=== PATIENT | female | born 1950 | race Hispanic/Latino ===

== ENCOUNTER 2017-10-07 14:42 | Inpatient (IN) | payer OTHER, MEDICARE, MEDICAID ==
[2017-10-07 14:46] VITALS: BMI 19.8
--- NOTE | 2017-10-07 15:03 | ED PDOC ---
Arrival/HPI - General Chief Complaint: Weakness/Neurological Deficit Time Seen by Provider: 10/07/17 14:47 Historian: EMS EM Caveat: Altered Mental Status - Critical Care Critical Care Minutes: 30 minutes - History of Present Illness Narrative History of Present Illness (Text): 10/07/17 15:00 66 year old female presents to the Emergency department via EMS due to altered mental status. History limited due to patient's condition; patient is presenting with garbled speech, is unable to give a history, and is unable to follow commands. As per EMS, patient lives alone in an apartment. She was found lying on the floor today by her landlord; she was last seen by her landlord 3 days ago. At this time, social history and past medical history is unknown. Patient has not been to this hospital before. Time/Duration: Prior to Arrival Symptom Onset: Other (unknown) Activities at Onset: Other (unknown) Context: Home (lives alone) Past Medical History - Provider Review Nursing Documentation Reviewed: Yes - Infectious Disease Hx of Infectious Diseases: None - Reproductive Menopause: Yes - Psychiatric Hx Substance Use: No Family/Social History - Physician Review Nursing Documentation Reviewed: Yes Family/Social History: Unknown Family HX Smoking Status: Unknown If Ever Smoked Hx Alcohol Use: No Hx Substance Use: No Allergies/Home Meds Allergies/Adverse Reactions: Allergies Unobtainable Allergy (Verified 10/07/17 14:46) Review of Systems - Review of Systems Systems not reviewed;Unavailable: Altered Mental Status Physical Exam Vital Signs Reviewed: Yes Vital Signs Temp Pulse Resp BP Pulse Ox 10/07/17 18:29 86 18 113/54 L 100 10/07/17 17:23 86 17 100/57 L 100 10/07/17 16:47 96.9 F L 98 H 18 108/63 100 10/07/17 14:43 92 H 18 106/80 100 Blood Pressure: Normal Pulse: Tachycardic Respiratory Rate: Normal Appearance: Positive for: Comfortable, Ill-Appearing Pain Distress: None Mental Status: No: Alert and Oriented X 3 (patient is awake and alert) - Systems Exam Head: Present: Atraumatic, Normocephalic Pupils: Present: PERRL Extroacular Muscles: Present: EOMI Conjunctiva: Present: Normal Ears: Present: NORMAL TM, Normal Canal. No: Erythema Mouth: Present: Moist Mucous Membranes Pharnyx: No: ERYTHEMA, EXUDATE, TONSILS ENLARGED Neck: Present: Normal Range of Motion Respiratory/Chest: Present: Decreased Breath Sounds Cardiovascular: Present: Regular Rate and Rhythm, Normal S1, S2. No: Murmurs Abdomen: Present: Normal Bowel Sounds. No: Tenderness, Distention, Peritoneal Signs Upper Extremity: Present: Normal Inspection. No: Cyanosis, Edema Lower Extremity: Present: Other (Severe bilateral lower extremity erythema with blanching and flaking rash) Neurological: Present: Other (Speech is garbled. Patient does move all extremities to painful stimuli. Unable to test sensation and coordination gait and stance.) Skin: Present: Erythematous (Erythematous areas on bilateral shoulders and upper back, consistent with lying on the floor. On bilateral proximal tibia distally, erythamatous, swollen, and warm with excoriations, blanching, and flaking rash.) Medical Decision Making ED Course and Treatment: 10/07/17 15:07 Impression: 66 year old female presents to the Emergency department with altered mental status after being found on the floor alone in her apartment by her landlord. Plan: -- CT scan of the head -- Chest xray -- EKG -- Blood culture, urine culture -- Urinalysis -- VBG -- Labs -- Reassess and disposition Progress Notes: 10/07/17 16:51 Dr Franklin is here for ICU admission. 10/07/17 16:56 Patient has an altered mental status with a normal CT scan. She is severe rhabdomyolysis with hyponatremia. 250 mL of hypertonic saline has been ordered over 8 hours. Her troponin is positive. She will be admitted to ICU. 10/07/17 17:22 EKG shows normal sinus rhythm rate approximately [address] or T-wave changes and intraventricular conduction delay. - Lab Interpretations Lab Results: 10/07/17 15:00 10/07/17 15:00 Lab Results 10/07/17 16:41: pO2 54, VBG pH 7.36, VBG pCO2 36.0 L, VBG HCO3 20.3 L, VBG Total CO2 21.4 L, VBG O2 Sat (Calc) 92.5 H, VBG Base Excess -4.5 L, VBG Potassium 4.1, Glucose 85, Lactate 1.4, FiO2 21.0, Sodium 111.0 L*, Chloride 83.0 L, Venous Blood Potassium 4.1 10/07/17 16:41: Ammonia < 9 L 10/07/17 15:00: Salicylates < 1 L, Acetaminophen < 10.0 L 10/07/17 15:00: TSH 3rd Generation 0.67, Alcohol, Quantitative < 10 10/07/17 15:00: Sodium 110 L*, Potassium 4.6, Chloride 81 L, Carbon Dioxide 21, Anion Gap 13, BUN 10, Creatinine 0.3 L, Est GFR ( Amer) > 60, Est GFR ( Non-Af Amer) > 60, Random Glucose 93, Calcium 9.1, Phosphorus 3.5, Magnesium 1.6 L, Total Bilirubin 1.0, AST 118 H, ALT 67 H, Alkaline Phosphatase 168 H, Lactate Dehydrogenase 959 H, Total Creatine Kinase 2530 H, CK-MB (CK-2) 90.6 H, CK-MB (CK-2) % 3.6 H, Troponin I 0.30 H*, Total Protein 6.3, Albumin 3.1, Globulin 3.2, Albumin/Globulin Ratio 1.0 L 10/07/17 15:00: Urine Color Light yellow, Urine Appearance Clear, Urine pH 6.0, Ur Specific [place] 1.025, Urine Protein Negative, Urine Glucose (UA) Negative, Urine Ketones 40 H, Urine Blood Trace-intact H, Urine Nitrate Negative, Urine Bilirubin Negative, Urine Urobilinogen 0.2, Ur Leukocyte Esterase Negative, Urine RBC 0 - 2, Urine WBC 0 - 2, Ur Epithelial Cells 0 - 2, Calcium Oxalate Crystal Few, Urine Bacteria Large 10/07/17 15:00: PT 11.2, INR 0.98, APTT 29.1 10/07/17 15:00: WBC 14.6 H, RBC 4.72, Hgb 14.0, Hct 38.3, MCV 81.1, MCH 29.7, MCHC 36.6, RDW 12.7, Plt Count 455 H, MPV 8.7, Gran % 93.3 H, Lymph % (Auto) 2.7 L, [place] % (Auto) 4.0, Eos % (Auto) 0.0 L, Baso % (Auto) 0.0, Gran # 13.59 H , Lymph # (Auto) 0.4 L, [place] # (Auto) 0.6, Eos # (Auto) 0.0, Baso # (Auto) 0.00 , Neutrophils % (Manual) 86 H, Band Neutrophils % 9 H, Lymphocytes % (Manual) 4 L, Monocytes % (Manual) 1, Platelet Evaluation Normal 10/07/17 14:47: POC Glucose (mg/dL) 90 - RAD Interpretation Narrative RAD Interpretations (Text): 10/07/2017 15:48:07 Chest xray FINDINGS: LUNGS: No active pulmonary disease. PLEURA: No significant pleural effusion identified, no pneumothorax apparent. CARDIOVASCULAR: No radiographic findings to suggest acute or significant cardiovascular disease. OSSEOUS STRUCTURES: No significant abnormalities. VISUALIZED UPPER ABDOMEN: Normal. OTHER FINDINGS: None. IMPRESSION: No active disease. Radiology Orders: 10/07/17 14:59 HEAD W/O CONTRAST [CT] Stat CHEST PORTABLE [RAD] Stat CT scan of the head as read by the radiologist shows no acute findings. Qa Manager: Radiologist - Medication Orders Current Medication Orders: Discontinued Medications Ceftriaxone Sodium (Rocephin 1 Gram Ivpb) 1 gm in 100 mls @ 200 mls/hr IVPB STAT STA PRN Reason: Protocol Stop: 10/07/17 17:19 Last Admin: 10/07/17 17:22 Dose: 200 mls/hr eMAR Start Stop Document 10/07/17 17:22 SRE (Rec: 10/07/17 17:23 SRE [id number]) Intravenous Solution Start Date 10/07/17 Start Time 17:20 End Date 10/07/17 End time 18:20 Total Infusion Time 60 Sodium Chloride (Hypertonic Saline 3%) 250 ml IV ONCE STA Stop: 10/07/17 16:40 Last Admin: 10/07/17 17:00 Dose: 250 ml eMAR Start Stop Document 10/07/17 17:00 SRE (Rec: 10/07/17 18:29 SRE [id number]) Intravenous Solution Start Date 10/07/17 Start Time 17:00 End Date 10/08/17 End time 01:00 Total Infusion Time 480 - Scribe Statement The provider has reviewed the documentation as recorded by the Scribe Mark Chua All medical record entries made by the Scribe were at my direction and personally dictated by me. I have reviewed the chart and agree that the record accurately reflects my personal performance of the history, physical exam, medical decision making, and the department course for this patient. I have also personally directed, reviewed, and agree with the discharge instructions and disposition. Disposition/Present on Arrival - Present on Arrival Any Indicators Present on Arrival: No History of DVT/PE: No History of Uncontrolled Diabetes: No Urinary Catheter: No History of Decub. Ulcer: No History Surgical Site Infection Following: None - Disposition Have Diagnosis and Disposition been Completed?: Yes Diagnosis: Rhabdomyolysis, Hyponatremia, Altered mental status, Cellulitis Disposition: HOSPITALIZED Disposition Time: 17:29 Patient Plan: Admission, ICU Patient Problems: Current Active Problems Problem Status Onset Altered mental status Acute Cellulitis Acute Hyponatremia Acute Rhabdomyolysis Acute Condition: CRITICAL
--- NOTE | 2017-10-07 15:49 | RAD ---
HISTORY: Weakness. COMPARISON: No prior. FINDINGS: LUNGS: No active pulmonary disease. PLEURA: No significant pleural effusion identified, no pneumothorax apparent. CARDIOVASCULAR: No radiographic findings to suggest acute or significant cardiovascular disease. OSSEOUS STRUCTURES: No significant abnormalities. VISUALIZED UPPER ABDOMEN: Normal. OTHER FINDINGS: None. IMPRESSION: No active disease.
[2017-10-07 15:54] LABS: URINE BILIRUBIN NEGATIVE (NEGATIVE); URINE BLOOD TRACE-INTACT (NEGATIVE); URINE GLUCOSE (UA) NEGATIVE (NEGATIVE); URINE LEUKOCYTE ESTERASE NEGATIVE Leu/uL (NEGATIVE); URINE PROTEIN NEGATIVE mg/dL (<30 mg/dL); URINE UROBILINOGEN 0.2 E.U./dL (<1 E.U./dL)
[2017-10-07 15:55] LABS: GRAN # 13.59 (1.4-6.5); GRAN % 93.3 % (50.0-68.0); LYMPH # 0.4 (1.2-3.4); LYMPH % 2.7 % (22.0-35.0); MEAN CELL VOLUME 81.1 fl (80.0-105.0); MEAN CORPUSCULAR HEMOGLOBIN 29.7 pg (25.0-35.0); MEAN CORPUSCULAR HGB CONC 36.6 g/dl (31.0-37.0); MEAN PLATELET VOLUME 8.7 fl (7.0-11.0); MONO # 0.6 (0.1-0.6); PLATELET COUNT 455 10^3/uL (120.0-450.0); RBC 4.72 10^6/uL (3.5-6.1); RED CELL DISTRIBUTION WIDTH 12.7 % (11.5-14.5); WHITE BLOOD COUNT 14.6 10^3/ul (4.5-11.0)
[2017-10-07 15:59] LABS: ACETAMINOPHEN < 10.0 ug/ml (10.0-20.0); SALICYLATE < 1 mg/dL (2.0-20.0)
[2017-10-07 16:15] LABS: URINE APPEARANCE CLEAR (CLEAR); URINE COLOR LIGHT YELLOW (YELLOW)
[2017-10-07 16:16] LABS: INR 0.98 (0.93-1.08); PARTIAL THROMBOPLASTIN TIME 29.1 Seconds (25.1-36.5); PROTHROMBIN TIME 11.2 SECONDS (9.4-12.5)
[2017-10-07 16:24] LABS: ALBUMIN 3.1 g/dL (3.0-4.8); ALT/SGPT 67 U/L (7-56); AST/SGOT 118 U/L (14-36); BLOOD UREA NITROGEN 10 mg/dL (7-21); CALCIUM 9.1 mg/dL (8.4-10.5); GFR AFRICAN-AMERICAN > 60; GFR NON-AFRICAN AMERICAN > 60
[2017-10-07 16:36] LABS: URINE BACTERIA LARGE (NEG); URINE CALCIUM OXALATE CRYSTALS FEW /hpf; URINE EPITHELIAL CELLS 0 - 2 /hpf (0-5); URINE RBC 0 - 2 /hpf (0-2); URINE WBC 0 - 2 /hpf (0-6)
--- NOTE | 2017-10-07 16:44 | CT ---
PROCEDURE: CT HEAD WITHOUT CONTRAST. HISTORY: weakness COMPARISON: None available. TECHNIQUE: Axial computed tomography images were obtained through the head/brain without intravenous contrast. Radiation dose: Total exam DLP = 915.99 mGy-cm. This CT exam was performed using one or more of the following dose reduction techniques: Automated exposure control, adjustment of the mA and/or kV according to patient size, and/or use of iterative reconstruction technique. FINDINGS: HEMORRHAGE: No intracranial hemorrhage. BRAIN: No mass effect or edema. Cortical atrophy, periventricular small vessel disease. VENTRICLES: Unremarkable. No hydrocephalus. CALVARIUM: Unremarkable. PARANASAL SINUSES: Unremarkable as visualized. No significant inflammatory changes. MASTOID AIR CELLS: Unremarkable as visualized. No inflammatory changes. OTHER FINDINGS: None. IMPRESSION: No acute intracranial abnormalities. No significant findings to account for the clinical presentation.
[2017-10-07 16:49] LABS: VENOUS BLOOD GAS BASE EXCESS -4.5 mmol/L (0.0-2.0); VENOUS BLOOD GAS PO2 54 mm/Hg (30-55); VENOUS BLOOD PH 7.36 (7.32-7.43)
[2017-10-07] MEDS ORDERED: cefTRIAXone 1 gm 1 GM/100 ML BAG IVPB STA (16:50)
[2017-10-07 17:12] LABS: CK MB% 3.6 % (2.5-3.0); CK-MB 90.6 ng/mL (0.0-3.6)
[2017-10-07 17:53] LABS: BAND 9 % (0-2); LYMPHOCYTE 4 % (22.0-35.0); MONOCYTE 1 % (1.0-6.0); NEUTROPHIL 86 % (50.0-70.0); PLATELET ESTIMATE NORMAL (NORMAL)
[2017-10-07] MEDS ORDERED: Magnesium Sulfate 1 gm in D5W 1 GM/100 ML BAG IVPB ONE (19:48)
[2017-10-07] MEDS: Vancomycin 1gm in NS 250ml 1 GM/250 ML BAG IVPB SCH (20:06)
--- NOTE | 2017-10-07 20:07 | CP.PCM.PCO ---
Subjective - Physician Review Subjective (Free Text): 10/07/17 20:05 Received patient as a handoff from the daytime economics department chair. Notified by the nurse that patient's 3% Na fluid bag was approximately longterm finished and was recently started less than 3 hours prior. Will hold 3% saline infusion and obtain stat BMP to avoid rapid over-correction of her Sodium. Will adjust her IVF administration after the next bmp returns.
[2017-10-07 21:02] LABS: BLOOD UREA NITROGEN 8 mg/dL (7-21); CALCIUM 8.6 mg/dL (8.4-10.5); GFR AFRICAN-AMERICAN > 60; GFR NON-AFRICAN AMERICAN > 60; TROPONIN I 0.32 ng/mL
[2017-10-07] MEDS: Acyclovir 500 MG in Sodium Chloride 0.9% 100 ML IV SCH (21:21)
[2017-10-07 21:22] LABS: CK MB% 3.5 % (2.5-3.0)
[2017-10-07] MEDS ORDERED: Dextrose 5%/0.45% NS 1,000 ML IV SCH (21:30)
[2017-10-08] MEDS ORDERED: Iodixanol 320 MG/ML 100 ML BOTTLE IV ONE (00:52)
--- NOTE | 2017-10-08 00:52 | CON ---
DATE: 10/07/2017 CREATIVE ASSISTANT NOTE REQUESTING PHYSICIAN: Dr. Mg. CHIEF COMPLAINT: The patient presents with altered mental status and rhabdomyolysis. HISTORY OF PRESENT ILLNESS: Ms. León, she is a 66-year-old female that presented to the emergency department with altered mental status, it was stated that her landlord where she lives in her apartment found her lying on the floor. The patient is awake and is moving her extremities, but is not responding to questions appropriately. She has garbled speech, and unable to give history or appropriately follow commands. Patient is noted to have hyponatremia and severe cellulitis in the lower extremities and altered mental status. It is most notably thought that she has rhabdomyolysis. Patient is unable to give appropriate history or review of systems. ALLERGIES: FAR HER ALLERGIES, UNABLE TO OBTAIN. SOCIAL HISTORY: Unable to obtain. FAMILY HISTORY: Unable to obtain. REVIEW OF SYSTEMS: Unable to obtain. PHYSICAL EXAMINATION: VITAL SIGNS: Note that her, temperature is 96.9, pulse is 98, respirations are 18 and BP is 108/63, O2 saturation is 100% on 2 liters. HEENT: Head is atraumatic, normocephalic. Eyes are reactive to light. Ear, nose and throat seemed to be within normal limits. NECK: Supple. No JVD. No thyroid enlargement. No lymph nodes. HEART: Has regular rate and rhythm. Normal S1, S2. LUNGS: Reveal decreased breath sounds bilaterally, but no rales or rhonchi. ABDOMEN: Soft. Decreased bowel sounds. No organomegaly noted. GENITALIA AND RECTAL: Deferred. MUSCULOSKELETAL: No joint deformities. EXTREMITIES: Reveal severe hyperemia with areas of skin breakdown in both lower extremities from the knees down the legs and including the feet. The patient also has some bruising areas from laying in one spot on her upper back as well. NEUROLOGIC: The patient has altered mental status, does not follow commands, but is moving all extremities. LABORATORY DATA: As far as her laboratory findings, her white count is 14.6, hemoglobin is 14.0, hematocrit 38.3 with platelets of 455,000. Her sodium is 110, potassium 4.6, chloride 81, CO2 of 21 with a BUN of 10, creatinine of 0.3 and a glucose of 93. As far as her chest x-ray is concerned, no active pulmonary disease. IMPRESSION: My impression is that, this patient has altered mental status/encephalopathy could be secondary to metabolic. CT scan of the head, there was no obvious abnormalities that would account for the altered mental status. The patient has hyponatremia, rhabdomyolysis. She has increased troponins, must rule out myocardial infarction and bilateral lower extremity cellulitis. PLAN: As far as our plan, we will start 3% saline and follow her sodium closely. Patient will be admitted to the Intensive Care Unit and she has been given antibiotics of Rocephin. Consults have been called for Dr. Roldan, Cardiology; Dr. Gallo for Renal and hyponatremia and Dr. Cheatham for altered mental status and Neuro. We will reach out to Dr. Sullivan for ID and we will continue to follow closely as far as her electrolytes and change as needed, and continue to treat aggressively along with the other consultants and the primary care doctor. Rey Franklin MD
--- NOTE | 2017-10-08 01:15 | HP ---
DATE OF EVALUATION: 10/07/2017 HISTORY OF PRESENT ILLNESS: Ms. León is a 66-year-old female brought to the ED by EMS with altered mental status. She lives alone. No past medical history available. Blood work showed hyponatremia. She had severe cellulitis of both lower extremity. She does not respond to verbal commands. She is not alert, not oriented. PAST MEDICAL HISTORY: Unknown. PAST SURGICAL HISTORY: Unknown. FAMILY HISTORY: Unknown. ALLERGIES: UNKNOWN. REVIEW OF SYSTEMS: Unknown and is not communicative, altered mental status. PHYSICAL EXAMINATION: VITAL SIGNS: Temperature 96.9, heart rate is 92 per minute, respiratory 18 per minute, blood pressure 113 x 54, pulse ox 100% on room air. HEENT: Pallor positive. NECK: No lymphadenopathy. CHEST: Air entry present and equal bilaterally. No added sounds. CARDIOVASCULAR: S1, S2 normal. No murmur. No gallop. EXTREMITIES: Bilateral lower extremity erythema and skin breakdown. Lower extremity cellulitis, bilateral. NEUROLOGICAL: Altered mental status. Moving all the limbs. No cranial nerve palsies. LABORATORY DATA: White count 14.6, hemoglobin 14, hematocrit 38.3, platelet 455. Sodium 110, potassium 4.6, BUN 10, creatinine 0.3, glucose 93. Band neutrophil 9%. Troponin 0.30. Chest x-ray, no active disease. CT head, no acute findings. ASSESSMENT: 1. Altered mental status. 2. Hyponatremia. 3. Bilateral lower extremity cellulitis. 4. Rhabdomyolysis. 5. Sepsis. PLAN: She will be admitted to the hospital [facility]. Dr. Celeste evaluated the patient. She will be transferred to ICU from ED. Currently receiving hypertonic saline that will be continued. Nephrology consultation, Dr. Gallo, requested for hyponatremia. ID consultation, Dr. Sullivan, requested. Currently received one dose of ceftriaxone in the ED. She is started on ceftriaxone and vancomycin. Also acyclovir for possible encephalitis, herpetic. Neurology consultation, Dr. Cheatham, requested for altered mental status. Troponin elevated; Cardiology consultation, Dr. Roldan, requested. Blood count showed leukocytosis and thrombocytosis, likely related to sepsis and lower extremity cellulitis. Blood culture, urine culture sent. Patient's condition is critical. Nena Mcdermott MD [facility] # [id number]
[2017-10-08 01:18] LABS: BLOOD UREA NITROGEN 8 mg/dL (7-21); CALCIUM 8.8 mg/dL (8.4-10.5); GFR AFRICAN-AMERICAN > 60; GFR NON-AFRICAN AMERICAN > 60
[2017-10-08] MEDS: Sodium Chloride 0.9% 1,000 ML IV SCH ×2 (02:09→17:08)
--- NOTE | 2017-10-08 02:16 | CT ---
EXAM: CT Angiography Chest With Intravenous Contrast CLINICAL HISTORY: 66 years old, female; Pain; Chest pain; Additional info: R/O pe TECHNIQUE: Axial computed tomographic angiography images of the chest with intravenous contrast using pulmonary embolism protocol. All CT scans at this facility use one or more dose reduction techniques, viz.: automated exposure control; ma/kV adjustment per patient size (including targeted exams where dose is matched to indication; i.e. head); or iterative reconstruction technique. MIP reconstructed images were created and reviewed. Coronal and sagittal reformatted images were created and reviewed. CONTRAST: 96 mL of visi 320 administered intravenously. COMPARISON: DX - CHEST PORTABLE 2017-10-07 15:19 FINDINGS: Limitations: Limited due to patient's positioning and arms overlying the patient. Pulmonary arteries: There is no central pulmonary embolus. The segmental and subsegmental branches are degraded by motion artifact and heterogeneous enhancement. Aorta: No acute findings. No thoracic aortic aneurysm. Lungs: There is mild perihilar interstitial prominence consistent with viral bronchitis versus reactive airway disease versus chronic changes versus early failure. Bibasilar nonspecific infiltrates and consolidation are present, consistent with atelectasis or pneumonia. Pleural space: Small bilateral pleural effusions. No pneumothorax. Heart: There is fluid in the superior pericardial recess. Bones/joints: No acute fracture. No dislocation. Soft tissues: Unremarkable. Lymph nodes: Right hilar lymph nodes. Stomach and bowel: Nonspecific gastric thickening likely due to under distention. Correlation with clinical data is recommended if gastritis is suspected. IMPRESSION: 1. There is no central pulmonary embolus. The segmental and subsegmental branches are degraded by motion artifact and heterogeneous enhancement. 2. Small bilateral pleural effusions. 3. There is mild perihilar interstitial prominence consistent with viral bronchitis versus reactive airway disease versus chronic changes versus early failure. Bibasilar nonspecific infiltrates and consolidation are present, consistent with atelectasis or pneumonia. Correlation with internal medicine evaluation and further workup or followup as recommended by patient's clinical data.
[2017-10-08 04:36] LABS: BASO # 0.01 K/mm3 (0.0-2.0); BASO % 0.1 % (0.0-3.0); GRAN # 6.72 (1.4-6.5); GRAN % 87.9 % (50.0-68.0); LYMPH # 0.3 (1.2-3.4); LYMPH % 4.4 % (22.0-35.0); MEAN CELL VOLUME 78.7 fl (80.0-105.0); MEAN CORPUSCULAR HGB CONC 36.8 g/dl (31.0-37.0); MEAN PLATELET VOLUME 8.6 fl (7.0-11.0); MONO # 0.6 (0.1-0.6); MONO % 7.6 % (1.0-6.0); RBC 4.04 10^6/uL (3.5-6.1); RED CELL DISTRIBUTION WIDTH 12.8 % (11.5-14.5); WHITE BLOOD COUNT 7.7 10^3/ul (4.5-11.0)
[2017-10-08 05:16] LABS: HEMOGLOBIN 11.7 g/dL (12.0-16.0)
[2017-10-08] MEDS: Acyclovir 500 MG in Sodium Chloride 0.9% 100 ML IV SCH ×3 (05:22→21:31)
[2017-10-08 05:23] LABS: BLOOD UREA NITROGEN 7 mg/dL (7-21); CALCIUM 8.8 mg/dL (8.4-10.5); GFR AFRICAN-AMERICAN > 60; GFR NON-AFRICAN AMERICAN > 60; HDL CHOLESTEROL 80 mg/dL (29-60); LDL CHOLESTEROL < 30 mg/dL (0-129)
[2017-10-08 05:25] LABS: CK MB% 3.4 % (2.5-3.0); CK-MB 43.7 ng/mL (0.0-3.6); TROPONIN I 0.28 ng/mL
[2017-10-08] MEDS ORDERED: Pantoprazole 40 mg EC Tab PO SCH (06:00)
[2017-10-08] MEDS ORDERED: Clotrimazole 1% Cream(30 gm) TOP ONE (08:44)
[2017-10-08] MEDS ORDERED: Silver Sulfadiazine 1% Cream (25 gm) TP ONE (08:44)
--- NOTE | 2017-10-08 08:49 | CP.PCM.CON ---
<Cj Jeter - Last Filed: 10/08/17 09:48> History of Present Illness - History of Present Illness History of Present Illness: Podiatry Consult Note- Dr. Briones 66 y.o female was consulted for bilateral lower extremity cellulites. Patient's subjective history unobtainable given patient's status. Per ED note, patient was found by landlord at home lying on the floor and bough to the ED with altered mental status. Past Patient History - Infectious Disease Hx of Infectious Diseases: None - Past Social History Smoking Status: Unknown If Ever Smoked - MUSCULOSKELETAL/RHEUMATOLOGICAL Hx Falls: Yes - PSYCHIATRIC Hx Substance Use: No Meds Allergies/Adverse Reactions: Allergies Allergy/AdvReac Type Severity Reaction Status Date / Time Unobtainable Allergy Verified 10/07/17 14:46 - Medications Medications: Current Medications Acetaminophen (Tylenol 325mg Tab) 650 mg PO Q6H PRN PRN Reason: Temperature Aspirin (Aspirin) 325 mg PO ONCE ONE Stop: 10/08/17 19:55 Heparin Sodium (Porcine) (Heparin) 5,000 units SC Q12 DAXA PRN Reason: Protocol Last Admin: 10/07/17 21:23 Dose: 5,000 units Ceftriaxone Sodium (Rocephin 2 Gm Ivpb) 2 gm in 100 mls @ 100 mls/hr IVPB DAILY DAXA PRN Reason: Protocol Stop: 10/17/17 10:01 Vancomycin HCl (Vancomycin 1gm) 1 gm in 250 mls @ 167 mls/hr IVPB Q12H DAXA PRN Reason: Protocol Stop: 10/16/17 19:46 Last Admin: 10/07/17 20:06 Dose: 167 mls/hr Acyclovir 500 mg/ Sodium (Chloride) 100 mls @ 100 mls/hr IV Q8 DAXA PRN Reason: Protocol Stop: 10/16/17 22:01 Last Admin: 10/08/17 05:22 Dose: 100 mls/hr Dextrose/Sodium Chloride (Dextrose 5%/0.45% Ns 1000 Ml) 1,000 mls @ 100 mls/hr IV .Q10H [facility] Last Admin: 10/07/17 21:22 Dose: 100 mls/hr Sodium Chloride (Sodium Chloride 0.9%) 1,000 mls @ 100 mls/hr IV .Q10H [facility] Last Admin: 10/08/17 02:09 Dose: 100 mls/hr Potassium Chloride (Potassium Chloride 10 Meq/100 Ml) 10 meq in 100 mls @ 50 mls/hr IVPB Q2H DAXA Stop: 10/08/17 10:14 Pantoprazole Sodium (Protonix Inj) 40 mg IVP DAILY DAXA Physical Exam - Constitutional Appears: Well, Non-toxic, No Acute Distress - Extremities Exam Extremities exam: Negative for: calf tenderness Additional comments: Vasc: DP and PT 1/4 bilaterally, CFT < 3 seconds x 10 digits, temperature is warm to warm, moderate edema to the LE bilaterally Ortho: patient elevate LE with palpation, likely due retraction from pain, MM is unable to obtain Neuro: unable to obtain secondary to patient's status Derm: multiple superficial ulcerations and diffuse erythema noted to the entire LE below the level of the knees. Multiple scaly, hyperkeratotic lesions noted to the entire LE. Serous drainage, no purulence drainage noted, mild odor, no probe to bone, no tunneling, no undermining noted to the ulcerations. Results - Vital Signs Recent Vital Signs: Last Vital Signs Temp 98.0 F 10/07/17 20:14 Pulse 112 H 10/08/17 06:00 Resp 18 10/08/17 05:30 BP 90/65 L 10/08/17 05:06 Pulse Ox 97 10/08/17 05:30 - Labs Result Diagrams: 10/08/17 04:05 10/08/17 04:05 Labs: Laboratory Results - last 24 hr 10/07/17 10/08/17 10/08/17 20:10 00:20 04:05 WBC RBC Hgb Hct MCV MCH MCHC RDW Plt Count MPV Gran % Lymph % (Auto) [place] % (Auto) Eos % (Auto) Baso % (Auto) Gran # Lymph # (Auto) [place] # (Auto) Eos # (Auto) Baso # (Auto) Sodium 116 L* 115 L* 116 L* Potassium 3.7 3.2 L 3.3 L Chloride 90 L 91 L 91 L Carbon Dioxide 17 L 16 L 18 L Anion Gap 13 11 10 BUN 8 8 7 Creatinine 0.3 L 0.3 L 0.4 L Est GFR ( Amer) > 60 > 60 > 60 Est GFR (Non-Af Amer) > 60 > 60 > 60 Random Glucose 74 91 84 Calcium 8.6 8.8 8.8 Total Creatine Kinase 2208 H 1298 H CK-MB (CK-2) 78.0 H 43.7 H CK-MB (CK-2) % 3.5 H 3.4 H Troponin I 0.32 H* 0.28 H* Triglycerides 39 Cholesterol 128 L LDL Cholesterol Direct < 30 HDL Cholesterol 80 H 10/08/17 04:05 WBC 7.7 D RBC 4.04 Hgb 11.7 L D Hct 31.8 L MCV 78.7 L MCH 29.0 MCHC 36.8 RDW 12.8 Plt Count 449 MPV 8.6 Gran % 87.9 H Lymph % (Auto) 4.4 L [place] % (Auto) 7.6 H Eos % (Auto) 0.0 L Baso % (Auto) 0.1 Gran # 6.72 H Lymph # (Auto) 0.3 L [place] # (Auto) 0.6 Eos # (Auto) 0.0 Baso # (Auto) 0.01 Sodium Potassium Chloride Carbon Dioxide Anion Gap BUN Creatinine Est GFR ( Amer) Est GFR (Non-Af Amer) Random Glucose Calcium Total Creatine Kinase CK-MB (CK-2) CK-MB (CK-2) % Troponin I Triglycerides Cholesterol LDL Cholesterol Direct HDL Cholesterol Assessment & Plan - Assessment and Plan (Free Text) Assessment: 66 y.o female with multiple venous stasis ulcerations and cellulitis to the bilateral LE Plan: -Patient examined and evaluated with attending Dr Briones -Discussed the plan in detail with attending -Labs, charts, vitals reviewed (afebrile, WBC 7.7 today, trended down from 14.6 on 10/07/17) -Cleansed entire bilaterally LE with peroxide and gauze, rinse with water, pat dry -Applied xeroform, dsd, abd, and kerlix -Ordered Lotrimin and Silvadene for local wound care tomorrow -c/w abx -Thank you for allowing us to take part of patient's care -Will continue to follow while in house <Leonor Briones - Last Filed: 10/14/17 14:45> Meds - Medications Medications: Current Medications Aspirin (Aspirin) 325 mg PO DAILY [facility] Last Admin: 10/14/17 10:24 Dose: 325 mg Clotrimazole (Lotrimin 1%) 1 gm TOP BID [facility] Last Admin: 10/13/17 17:29 Dose: 1 appl Heparin Sodium (Porcine) (Heparin) 5,000 units SC Q12 DAXA PRN Reason: Protocol Last Admin: 10/14/17 10:25 Dose: 5,000 units Hydrocortisone Sodium Succinate (Solu-Cortef) 50 mg IVP DAILY [facility] Acyclovir 500 mg/ Sodium (Chloride) 100 mls @ 100 mls/hr IV Q8 DAXA PRN Reason: Protocol Stop: 10/16/17 22:01 Last Admin: 10/14/17 14:33 Dose: 100 mls/hr Cefepime HCl (Maxipime 2gm) 2 gm in 100 mls @ 100 mls/hr IVPB Q12 DAXA PRN Reason: Protocol Stop: 10/16/17 22:01 Last Admin: 10/14/17 10:25 Dose: 100 mls/hr Metoprolol Tartrate (Lopressor) 25 mg PO BID [facility] Last Admin: 10/14/17 10:24 Dose: 25 mg Pantoprazole Sodium (Protonix Inj) 40 mg IVP DAILY [facility] Last Admin: 10/14/17 10:24 Dose: 40 mg Results - Vital Signs Recent Vital Signs: Last Vital Signs Temp 98.4 F 10/14/17 07:30 Pulse 72 10/14/17 07:30 Resp 20 10/14/17 07:30 BP 132/81 10/14/17 07:30 Pulse Ox 94 L 10/14/17 07:30 - Labs Result Diagrams: 10/11/17 05:50 10/11/17 05:50 Attending/Attestation - Attestation I have personally seen and examined this patient.: Yes I have fully participated in the care of the patient.: Yes I have reviewed all pertinent clinical information: Yes
[2017-10-08] MEDS: Vancomycin 1gm in NS 250ml 1 GM/250 ML BAG IVPB SCH ×2 (08:59→21:39)
[2017-10-08] MEDS ORDERED: cefTRIAXone 2 GM IN NS 2 GM/100 ML BAG IVPB SCH (10:00)
--- NOTE | 2017-10-08 11:13 | CP.CCUPN ---
<Rene Liu - Last Filed: 10/08/17 11:21> CCU Subjective - Physician Review Subjective (Free Text): Patient seen and evaluated bedside. Patient unable to open eyes or follow commands. Full ROS unobtainable. 10/08/17 11:10 CCU Objective - Vital Signs / Intake & Output Intake and Output (Last 8hrs): Intake & Output 10/07/17 10/08/17 10/08/17 22:59 06:59 14:59 Intake Total 1600 Output Total 700 200 Balance -700 1400 Weight 105 lb Intake: IV 1600 Left Hand 1600 Output: Urine 700 200 Urethral ([place]) 200 - Physical Exam Head: Positive for: Atraumatic, Normocephalic Pupils: Positive for: PERRL Conjunctiva: Positive for: Normal Ears: Positive for: NORMAL TM, Normal Canal. Negative for: Erythema Mouth: Positive for: Moist Mucous Membranes Pharnyx: Negative for: ERYTHEMA, EXUDATE, TONSILS ENLARGED Neck: Positive for: Normal Range of Motion Respiratory/Chest: Positive for: Good Air Exchange Cardiovascular: Positive for: Regular Rate and Rhythm, Normal S1, S2. Negative for: Murmurs Abdomen: Positive for: Normal Bowel Sounds. Negative for: Tenderness, Distention, Peritoneal Signs Upper Extremity: Positive for: Normal Inspection. Negative for: Cyanosis, Edema Lower Extremity: Positive for: Other (Severe bilateral lower extremity erythema with blanching and flaking rash) Neurological: Positive for: Other (Speech is garbled. Patient does move all extremities to painful stimuli. Unable to test sensation and coordination gait and stance.) Skin: Positive for: Erythematous (Erythematous areas on bilateral shoulders and upper back, consistent with lying on the floor. On bilateral proximal tibia distally, erythamatous, swollen, and warm with excoriations, blanching, and flaking rash.) Psychiatric: Negative for: Alert, Oriented x 3 - Medications Active Medications: Active Medications Generic Name Dose Route Start Last Admin Trade Name Freq PRN Reason Stop Dose Admin Acetaminophen 650 mg 10/07/17 19:49 Tylenol 325mg Tab PO Q6H PRN Temperature Aspirin 325 mg 10/08/17 19:54 Aspirin PO 10/08/17 19:55 ONCE ONE Heparin Sodium (Porcine) 5,000 units 10/07/17 22:00 10/08/17 09:08 Heparin SC 5,000 units Q12 DAXA Administration Protocol Ceftriaxone Sodium 2 gm in 100 mls @ 100 mls/hr 10/08/17 10:00 Rocephin 2 Gm Ivpb IVPB 10/17/17 10:01 DAILY DAXA Protocol Vancomycin HCl 1 gm in 250 mls @ 167 mls/hr 10/07/17 19:45 10/08/17 08:59 Vancomycin 1gm IVPB 10/16/17 19:46 167 mls/hr Q12H DAXA Administration Protocol Acyclovir 500 mg/ Sodium 100 mls @ 100 mls/hr 10/07/17 22:00 10/08/17 05:22 Chloride IV 10/16/17 22:01 100 mls/hr Q8 DAXA Administration Protocol Sodium Chloride 1,000 mls @ 100 mls/hr 10/08/17 01:45 10/08/17 02:09 Sodium Chloride 0.9% IV 100 mls/hr .Q10H [facility]AX[facility] Administration Pantoprazole Sodium 40 mg 10/08/17 10:00 10/08/17 09:08 Protonix Inj IVP 40 mg DAILY DAXA Administration - Patient Studies Lab Studies: Lab Studies 10/08/17 10/08/17 10/08/17 Range/Units 04:05 04:05 00:20 WBC 7.7 D (4.5-11.0) 10^3/ul RBC 4.04 (3.5-6.1) 10^6/uL Hgb 11.7 L D (12.0-16.0) g/dL Hct 31.8 L (36.0-48.0) % MCV 78.7 L (80.0-105.0) fl MCH 29.0 (25.0-35.0) pg MCHC 36.8 (31.0-37.0) g/dl RDW 12.8 (11.5-14.5) % Plt Count 449 (120.0-450.0) 10^3/uL MPV 8.6 (7.0-11.0) fl Gran % 87.9 H (50.0-68.0) % Lymph % (Auto) 4.4 L (22.0-35.0) % [place] % (Auto) 7.6 H (1.0-6.0) % Eos % (Auto) 0.0 L (1.5-5.0) % Baso % (Auto) 0.1 (0.0-3.0) % Gran # 6.72 H (1.4-6.5) Lymph # (Auto) 0.3 L (1.2-3.4) [place] # (Auto) 0.6 (0.1-0.6) Eos # (Auto) 0.0 (0.0-0.7) Baso # (Auto) 0.01 (0.0-2.0) K/mm3 Sodium 116 L* 115 L* (132-148) mmol/L Potassium 3.3 L 3.2 L (3.6-5.0) mmol/L Chloride 91 L 91 L (98-107) mmol/L Carbon Dioxide 18 L 16 L (21-33) mmol/L Anion Gap 10 11 (10-20) BUN 7 8 (7-21) mg/dL Creatinine 0.4 L 0.3 L (0.7-1.2) mg/dl Est GFR ( Amer) > 60 > 60 Est GFR (Non-Af Amer) > 60 > 60 Random Glucose 84 91 (70-110) mg/dL Calcium 8.8 8.8 (8.4-10.5) mg/dL Total Creatine Kinase 1298 H (35-230) U/L CK-MB (CK-2) 43.7 H (0.0-3.6) ng/mL CK-MB (CK-2) % 3.4 H (2.5-3.0) % Troponin I 0.28 H* ng/mL Triglycerides 39 (35-160) mg/dL Cholesterol 128 L (130-200) mg/dL LDL Cholesterol Direct < 30 (0-129) mg/dL HDL Cholesterol 80 H (29-60) mg/dL 10/07/17 Range/Units 20:10 WBC (4.5-11.0) 10^3/ul RBC (3.5-6.1) 10^6/uL Hgb (12.0-16.0) g/dL Hct (36.0-48.0) % MCV (80.0-105.0) fl MCH (25.0-35.0) pg MCHC (31.0-37.0) g/dl RDW (11.5-14.5) % Plt Count (120.0-450.0) 10^3/uL MPV (7.0-11.0) fl Gran % (50.0-68.0) % Lymph % (Auto) (22.0-35.0) % [place] % (Auto) (1.0-6.0) % Eos % (Auto) (1.5-5.0) % Baso % (Auto) (0.0-3.0) % Gran # (1.4-6.5) Lymph # (Auto) (1.2-3.4) [place] # (Auto) (0.1-0.6) Eos # (Auto) (0.0-0.7) Baso # (Auto) (0.0-2.0) K/mm3 Sodium 116 L* (132-148) mmol/L Potassium 3.7 (3.6-5.0) mmol/L Chloride 90 L (98-107) mmol/L Carbon Dioxide 17 L (21-33) mmol/L Anion Gap 13 (10-20) BUN 8 (7-21) mg/dL Creatinine 0.3 L (0.7-1.2) mg/dl Est GFR ( Amer) > 60 Est GFR (Non-Af Amer) > 60 Random Glucose 74 (70-110) mg/dL Calcium 8.6 (8.4-10.5) mg/dL Total Creatine Kinase 2208 H (35-230) U/L CK-MB (CK-2) 78.0 H (0.0-3.6) ng/mL CK-MB (CK-2) % 3.5 H (2.5-3.0) % Troponin I 0.32 H* ng/mL Triglycerides (35-160) mg/dL Cholesterol (130-200) mg/dL LDL Cholesterol Direct (0-129) mg/dL HDL Cholesterol (29-60) mg/dL Laboratory Results - last 24 hr 10/07/17 10/08/17 10/08/17 20:10 00:20 04:05 WBC RBC Hgb Hct MCV MCH MCHC RDW Plt Count MPV Gran % Lymph % (Auto) [place] % (Auto) Eos % (Auto) Baso % (Auto) Gran # Lymph # (Auto) [place] # (Auto) Eos # (Auto) Baso # (Auto) Sodium 116 L* 115 L* 116 L* Potassium 3.7 3.2 L 3.3 L Chloride 90 L 91 L 91 L Carbon Dioxide 17 L 16 L 18 L Anion Gap 13 11 10 BUN 8 8 7 Creatinine 0.3 L 0.3 L 0.4 L Est GFR ( Amer) > 60 > 60 > 60 Est GFR (Non-Af Amer) > 60 > 60 > 60 Random Glucose 74 91 84 Calcium 8.6 8.8 8.8 Total Creatine Kinase 2208 H 1298 H CK-MB (CK-2) 78.0 H 43.7 H CK-MB (CK-2) % 3.5 H 3.4 H Troponin I 0.32 H* 0.28 H* Triglycerides 39 Cholesterol 128 L LDL Cholesterol Direct < 30 HDL Cholesterol 80 H 10/08/17 04:05 WBC 7.7 D RBC 4.04 Hgb 11.7 L D Hct 31.8 L MCV 78.7 L MCH 29.0 MCHC 36.8 RDW 12.8 Plt Count 449 MPV 8.6 Gran % 87.9 H Lymph % (Auto) 4.4 L [place] % (Auto) 7.6 H Eos % (Auto) 0.0 L Baso % (Auto) 0.1 Gran # 6.72 H Lymph # (Auto) 0.3 L [place] # (Auto) 0.6 Eos # (Auto) 0.0 Baso # (Auto) 0.01 Sodium Potassium Chloride Carbon Dioxide Anion Gap BUN Creatinine Est GFR ( Amer) Est GFR (Non-Af Amer) Random Glucose Calcium Total Creatine Kinase CK-MB (CK-2) CK-MB (CK-2) % Troponin I Triglycerides Cholesterol LDL Cholesterol Direct HDL Cholesterol EKG/Cardiology Studies: Cardiology / EKG Studies 10/07/17 21:17 ELECTROCARDIOGRAM Stat Comment: Reason For Exam: elevated trop Review of Systems - Review of Systems Review of Systems: unable to obtain ROS Assessment/Plan - Assessment and Plan (Free Text) Assessment: 66 year old female with unknown past medical history presents with AMS. She was found to be hyponatermic with bilateral lower extremity cellulitis and sepsis. Plan: 1. AMS -patient currently does not open eyes to being called -sternal rub performed, opens eyes then closes -initial CT head was negative -Neuro, Dr Cheatham consulted, follow recs -possible secondary to encephalitis -EEG ordered -Acyclovir -posible LP 2. Hyponatremia -NA 116 -NS@100 -repeat BMP at 12 pm -Dr. Urias consulted for nephro, follow recs 3. Lower Extremeity Cellulitis-bilaterally -silver sulfa -Rocephin -ID consulted, follow recs -blood cx, urine cx pending -Podiatry consulted, follow recs 4. Rhambomyolysis -continue fluids -monitor kidney function 5. Sepsis -ID consulted follow recs -continue abx -afebrile -WBC 7.7 downtrending -cultures pending GI/DVT Prophylaxis -heparin -Protonix <Darell Rehman - Last Filed: 10/08/17 11:45> CCU Objective - Vital Signs / Intake & Output Intake and Output (Last 8hrs): Intake & Output 10/07/17 10/08/17 10/08/17 22:59 06:59 14:59 Intake Total 1600 Output Total 700 200 Balance -700 1400 Weight 105 lb Intake: IV 1600 Left Hand 1600 Output: Urine 700 200 Urethral ([place]) 200 - Medications Active Medications: Active Medications Generic Name Dose Route Start Last Admin Trade Name Freq PRN Reason Stop Dose Admin Acetaminophen 650 mg 10/07/17 19:49 Tylenol 325mg Tab PO Q6H PRN Temperature Aspirin 325 mg 10/08/17 19:54 Aspirin PO 10/08/17 19:55 ONCE ONE Heparin Sodium (Porcine) 5,000 units 10/07/17 22:00 10/08/17 09:08 Heparin SC 5,000 units Q12 DAXA Administration Protocol Vancomycin HCl 1 gm in 250 mls @ 167 mls/hr 10/07/17 19:45 10/08/17 08:59 Vancomycin 1gm IVPB 10/16/17 19:46 167 mls/hr Q12H DAXA Administration Protocol Acyclovir 500 mg/ Sodium 100 mls @ 100 mls/hr 10/07/17 22:00 10/08/17 05:22 Chloride IV 10/16/17 22:01 100 mls/hr Q8 DAXA Administration Protocol Sodium Chloride 1,000 mls @ 100 mls/hr 10/08/17 01:45 10/08/17 02:09 Sodium Chloride 0.9% IV 100 mls/hr .Q10H DAXA Administration Ceftriaxone Sodium 2 gm in 100 mls @ 100 mls/hr 10/08/17 22:00 Rocephin 2 Gm Ivpb IVPB 10/17/17 22:01 Q12 DAXA Protocol Pantoprazole Sodium 40 mg 10/08/17 10:00 10/08/17 09:08 Protonix Inj IVP 40 mg DAILY DAXA Administration - Patient Studies Lab Studies: Lab Studies 10/08/17 10/08/17 10/08/17 Range/Units 04:05 04:05 00:20 WBC 7.7 D (4.5-11.0) 10^3/ul RBC 4.04 (3.5-6.1) 10^6/uL Hgb 11.7 L D (12.0-16.0) g/dL Hct 31.8 L (36.0-48.0) % MCV 78.7 L (80.0-105.0) fl MCH 29.0 (25.0-35.0) pg MCHC 36.8 (31.0-37.0) g/dl RDW 12.8 (11.5-14.5) % Plt Count 449 (120.0-450.0) 10^3/uL MPV 8.6 (7.0-11.0) fl Gran % 87.9 H (50.0-68.0) % Lymph % (Auto) 4.4 L (22.0-35.0) % [place] % (Auto) 7.6 H (1.0-6.0) % Eos % (Auto) 0.0 L (1.5-5.0) % Baso % (Auto) 0.1 (0.0-3.0) % Gran # 6.72 H (1.4-6.5) Lymph # (Auto) 0.3 L (1.2-3.4) [place] # (Auto) 0.6 (0.1-0.6) Eos # (Auto) 0.0 (0.0-0.7) Baso # (Auto) 0.01 (0.0-2.0) K/mm3 Sodium 116 L* 115 L* (132-148) mmol/L Potassium 3.3 L 3.2 L (3.6-5.0) mmol/L Chloride 91 L 91 L (98-107) mmol/L Carbon Dioxide 18 L 16 L (21-33) mmol/L Anion Gap 10 11 (10-20) BUN 7 8 (7-21) mg/dL Creatinine 0.4 L 0.3 L (0.7-1.2) mg/dl Est GFR ( Amer) > 60 > 60 Est GFR (Non-Af Amer) > 60 > 60 Random Glucose 84 91 (70-110) mg/dL Calcium 8.8 8.8 (8.4-10.5) mg/dL Total Creatine Kinase 1298 H (35-230) U/L CK-MB (CK-2) 43.7 H (0.0-3.6) ng/mL CK-MB (CK-2) % 3.4 H (2.5-3.0) % Troponin I 0.28 H* ng/mL Triglycerides 39 (35-160) mg/dL Cholesterol 128 L (130-200) mg/dL LDL Cholesterol Direct < 30 (0-129) mg/dL HDL Cholesterol 80 H (29-60) mg/dL 10/07/17 Range/Units 20:10 WBC (4.5-11.0) 10^3/ul RBC (3.5-6.1) 10^6/uL Hgb (12.0-16.0) g/dL Hct (36.0-48.0) % MCV (80.0-105.0) fl MCH (25.0-35.0) pg MCHC (31.0-37.0) g/dl RDW (11.5-14.5) % Plt Count (120.0-450.0) 10^3/uL MPV (7.0-11.0) fl Gran % (50.0-68.0) % Lymph % (Auto) (22.0-35.0) % [place] % (Auto) (1.0-6.0) % Eos % (Auto) (1.5-5.0) % Baso % (Auto) (0.0-3.0) % Gran # (1.4-6.5) Lymph # (Auto) (1.2-3.4) [place] # (Auto) (0.1-0.6) Eos # (Auto) (0.0-0.7) Baso # (Auto) (0.0-2.0) K/mm3 Sodium 116 L* (132-148) mmol/L Potassium 3.7 (3.6-5.0) mmol/L Chloride 90 L (98-107) mmol/L Carbon Dioxide 17 L (21-33) mmol/L Anion Gap 13 (10-20) BUN 8 (7-21) mg/dL Creatinine 0.3 L (0.7-1.2) mg/dl Est GFR ( Amer) > 60 Est GFR (Non-Af Amer) > 60 Random Glucose 74 (70-110) mg/dL Calcium 8.6 (8.4-10.5) mg/dL Total Creatine Kinase 2208 H (35-230) U/L CK-MB (CK-2) 78.0 H (0.0-3.6) ng/mL CK-MB (CK-2) % 3.5 H (2.5-3.0) % Troponin I 0.32 H* ng/mL Triglycerides (35-160) mg/dL Cholesterol (130-200) mg/dL LDL Cholesterol Direct (0-129) mg/dL HDL Cholesterol (29-60) mg/dL Laboratory Results - last 24 hr 10/07/17 10/08/17 10/08/17 20:10 00:20 04:05 WBC RBC Hgb Hct MCV MCH MCHC RDW Plt Count MPV Gran % Lymph % (Auto) [place] % (Auto) Eos % (Auto) Baso % (Auto) Gran # Lymph # (Auto) [place] # (Auto) Eos # (Auto) Baso # (Auto) Sodium 116 L* 115 L* 116 L* Potassium 3.7 3.2 L 3.3 L Chloride 90 L 91 L 91 L Carbon Dioxide 17 L 16 L 18 L Anion Gap 13 11 10 BUN 8 8 7 Creatinine 0.3 L 0.3 L 0.4 L Est GFR ( Amer) > 60 > 60 > 60 Est GFR (Non-Af Amer) > 60 > 60 > 60 Random Glucose 74 91 84 Calcium 8.6 8.8 8.8 Total Creatine Kinase 2208 H 1298 H CK-MB (CK-2) 78.0 H 43.7 H CK-MB (CK-2) % 3.5 H 3.4 H Troponin I 0.32 H* 0.28 H* Triglycerides 39 Cholesterol 128 L LDL Cholesterol Direct < 30 HDL Cholesterol 80 H 10/08/17 04:05 WBC 7.7 D RBC 4.04 Hgb 11.7 L D Hct 31.8 L MCV 78.7 L MCH 29.0 MCHC 36.8 RDW 12.8 Plt Count 449 MPV 8.6 Gran % 87.9 H Lymph % (Auto) 4.4 L [place] % (Auto) 7.6 H Eos % (Auto) 0.0 L Baso % (Auto) 0.1 Gran # 6.72 H Lymph # (Auto) 0.3 L [place] # (Auto) 0.6 Eos # (Auto) 0.0 Baso # (Auto) 0.01 Sodium Potassium Chloride Carbon Dioxide Anion Gap BUN Creatinine Est GFR ( Amer) Est GFR (Non-Af Amer) Random Glucose Calcium Total Creatine Kinase CK-MB (CK-2) CK-MB (CK-2) % Troponin I Triglycerides Cholesterol LDL Cholesterol Direct HDL Cholesterol EKG/Cardiology Studies: Cardiology / EKG Studies 10/07/17 21:17 ELECTROCARDIOGRAM Stat Comment: Reason For Exam: elevated trop Assessment/Plan - Assessment and Plan (Free Text) Plan: Patient is 66yo female with unknown PMhx admitted to ICU with AMS, severe hyponatremia, rhabdo, and LE cellulitis. Currently afebrile, HD stable, comfortable in NAD, opens eyes with verbal stimuli, non verbal, does not follow commands. CT head negative. Awaiting Neuro input. ID following. Hyponatremia, slowly improving, at appropriate rate, on NS. Severe Hyponatremia AMS Rhabdo Cellulitis Recommend: - supp o2 as needed - broad spectrum antibiotics as per ID, to cover for PHARMACY TECH pathology, Rocephim, Vanco, Acyclovir - Follow up cultures, Procal - Follow up ID - IVF hydration, NS - check Na/BMP Q6hr - follow up renal - follow up Neurology - possible LP - EEG - wound care services consult - GI ppx - DVT ppx - monitor in MICU
--- NOTE | 2017-10-08 11:13 | CP.PCM.CON ---
History of Present Illness - History of Present Illness History of Present Illness: 66 year old female with unknown past medical history was brought in to [facility] after she was found by her landlord to be lying on the floor, unresponsive. When she arrived in the ED, she was noted to have garbled speech and was not following commands. She is also found to be lethargic although arousable but does not communicate. In the ED, she was also noted to be tachypneic, tachycardic and hyponatremic, with elevation in WBC count. Full HPI and ROS is unobtainable because of the patient's mental status and there is no family member to interview. Infectious diseases consult is requested to further evaluate and manage. Review of Systems - Review of Systems Systems not reviewed;Unavailable: Altered Mental Status Past Patient History - Infectious Disease Hx of Infectious Diseases: None - Past Social History Smoking Status: Unknown If Ever Smoked - MUSCULOSKELETAL/RHEUMATOLOGICAL Hx Falls: Yes - PSYCHIATRIC Hx Substance Use: No Meds Allergies/Adverse Reactions: Allergies Allergy/AdvReac Type Severity Reaction Status Date / Time Unobtainable Allergy Verified 10/07/17 14:46 - Medications Medications: Current Medications Acetaminophen (Tylenol 325mg Tab) 650 mg PO Q6H PRN PRN Reason: Temperature Aspirin (Aspirin) 325 mg PO ONCE ONE Stop: 10/08/17 19:55 Heparin Sodium (Porcine) (Heparin) 5,000 units SC Q12 DAXA PRN Reason: Protocol Last Admin: 10/07/17 21:23 Dose: 5,000 units Ceftriaxone Sodium (Rocephin 2 Gm Ivpb) 2 gm in 100 mls @ 100 mls/hr IVPB DAILY DAXA PRN Reason: Protocol Stop: 10/17/17 10:01 Vancomycin HCl (Vancomycin 1gm) 1 gm in 250 mls @ 167 mls/hr IVPB Q12H DAXA PRN Reason: Protocol Stop: 10/16/17 19:46 Last Admin: 10/07/17 20:06 Dose: 167 mls/hr Acyclovir 500 mg/ Sodium (Chloride) 100 mls @ 100 mls/hr IV Q8 DAXA PRN Reason: Protocol Stop: 10/16/17 22:01 Last Admin: 10/08/17 05:22 Dose: 100 mls/hr Dextrose/Sodium Chloride (Dextrose 5%/0.45% Ns 1000 Ml) 1,000 mls @ 100 mls/hr IV .Q10H DAXA Last Admin: 10/07/17 21:22 Dose: 100 mls/hr Sodium Chloride (Sodium Chloride 0.9%) 1,000 mls @ 100 mls/hr IV .Q10H [facility] Last Admin: 10/08/17 02:09 Dose: 100 mls/hr Potassium Chloride (Potassium Chloride 10 Meq/100 Ml) 10 meq in 100 mls @ 50 mls/hr IVPB Q2H DAXA Stop: 10/08/17 10:14 Pantoprazole Sodium (Protonix Inj) 40 mg IVP DAILY [facility] Physical Exam - Constitutional Appears: Other (lethargic, arousable by verbal stimuli but falls back to sleep, does not follow commands) - Head Exam Head Exam: NORMAL INSPECTION - Neck Exam Neck exam: Negative for: Meningismus - Respiratory Exam Respiratory Exam: Decreased Breath Sounds - Cardiovascular Exam Cardiovascular Exam: +S1, +S2 - GI/Abdominal Exam GI & Abdominal Exam: Soft. absent: Tenderness - Extremities Exam Additional comments: both feet with dressings in place Results - Vital Signs Recent Vital Signs: Last Vital Signs Temp 98.0 F 10/07/17 20:14 Pulse 111 H 10/08/17 04:37 Resp 21 10/08/17 04:37 BP 103/48 L 10/08/17 04:37 Pulse Ox 98 10/08/17 04:37 - Labs Result Diagrams: 10/08/17 04:05 10/08/17 04:05 Labs: Laboratory Results - last 24 hr 10/07/17 10/08/17 10/08/17 20:10 00:20 04:05 WBC RBC Hgb Hct MCV MCH MCHC RDW Plt Count MPV Gran % Lymph % (Auto) [place] % (Auto) Eos % (Auto) Baso % (Auto) Gran # Lymph # (Auto) [place] # (Auto) Eos # (Auto) Baso # (Auto) Sodium 116 L* 115 L* 116 L* Potassium 3.7 3.2 L 3.3 L Chloride 90 L 91 L 91 L Carbon Dioxide 17 L 16 L 18 L Anion Gap 13 11 10 BUN 8 8 7 Creatinine 0.3 L 0.3 L 0.4 L Est GFR ( Amer) > 60 > 60 > 60 Est GFR (Non-Af Amer) > 60 > 60 > 60 Random Glucose 74 91 84 Calcium 8.6 8.8 8.8 Total Creatine Kinase 2208 H 1298 H CK-MB (CK-2) 78.0 H 43.7 H CK-MB (CK-2) % 3.5 H 3.4 H Troponin I 0.32 H* 0.28 H* Triglycerides 39 Cholesterol 128 L LDL Cholesterol Direct < 30 HDL Cholesterol 80 H 10/08/17 04:05 WBC 7.7 D RBC 4.04 Hgb 11.7 L D Hct 31.8 L MCV 78.7 L MCH 29.0 MCHC 36.8 RDW 12.8 Plt Count 449 MPV 8.6 Gran % 87.9 H Lymph % (Auto) 4.4 L [place] % (Auto) 7.6 H Eos % (Auto) 0.0 L Baso % (Auto) 0.1 Gran # 6.72 H Lymph # (Auto) 0.3 L [place] # (Auto) 0.6 Eos # (Auto) 0.0 Baso # (Auto) 0.01 Sodium Potassium Chloride Carbon Dioxide Anion Gap BUN Creatinine Est GFR ( Amer) Est GFR (Non-Af Amer) Random Glucose Calcium Total Creatine Kinase CK-MB (CK-2) CK-MB (CK-2) % Troponin I Triglycerides Cholesterol LDL Cholesterol Direct HDL Cholesterol Assessment & Plan - Assessment and Plan (Free Text) Plan: Assessment Systemic Inflammatory Response Syndrome, R/O severe sepsis with acute encephalopathy from bilateral lower extremity cellulitis, R/O [employer] infection ( encephalopathy may also be metabolic - hyponatremia) Plan Started the patient on Vancomycin, Ceftriaxone and Acyclovir pending blood cx, wound cx, urine cx, PCT; reviewed CT chest which shows non-specific consolidations at the bases would suggest lumbar puncture and CSF analysis as well as MRI brain with and without contrast will monitor clinically follow up further podiatry recommendations
[2017-10-08 12:59] LABS: BLOOD UREA NITROGEN 8 mg/dL (7-21); CALCIUM 8.7 mg/dL (8.4-10.5); GFR AFRICAN-AMERICAN > 60; GFR NON-AFRICAN AMERICAN > 60
[2017-10-08 13:49] LABS: CREATININE,RANDOM URINE 58 mg/dL
--- NOTE | 2017-10-08 15:07 | CARD ---
APPROVED REPORT EXAM: Two-dimensional and M-mode echocardiogram with Doppler and color Doppler. INDICATION Non STEMI ACS 2D DIMENSIONS Left Atrium (2D)3.1 (1.6-4.0cm)IVSd1.0 (0.7-1.1cm) LVDd3.0 (3.9-5.9cm)PWd1.1 (0.7-1.1cm) LVDs2.2 (2.5-4.0cm)FS (%) 28.7 % LVEF (%)56.8 (>50%) M-Mode DIMENSIONS Aortic Root2.70 (2.2-3.7cm)Aortic Cusp Exc.1.80 (1.5-2.0cm) Aortic Valve AoV Peak Liydodeg264.0cm/Ivan Peak GR.14mmHg Mitral Valve E/A ratio0.0 TDI E/Lateral E'0.0E/Medial E'0.0 Tricuspid Valve TR Peak Aquadeer358va/sRAP [id number] Peak Gr.37mmHg [id number] LEFT VENTRICLE The left ventricle is normal size. There is normal left ventricular wall thickness. The left ventricular function is normal.EF-55-60% There is normal LV segmental wall motion. Transmitral Doppler flow pattern is Grade II-pseudonormal filling dynamics. No left ventricle thrombus noted on this study. There is no ventricular septal defect visualized. There is no left ventricular aneurysm. There is no mass noted in the left ventricle. RIGHT VENTRICLE The right ventricle is normal size. There is normal right ventricular wall thickness. The right ventricular systolic function is normal. ATRIA The left atrium size is normal. The right atrium size is normal. The interatrial septum is intact with no evidence for an atrial septal defect. AORTIC VALVE The aortic valve is thickened but opens well. The aortic valve is mildly sclerotic. There is trace aortic regurgitation. There is no aortic valvular stenosis. There is no aortic valvular vegetation. MITRAL VALVE The mitral valve is thickened but opens well. Mitral annular calcification is mild. Mitral regurgitation is trace. There is no mitral valve stenosis. There is no evidence of mitral valve prolapse. TRICUSPID VALVE The tricuspid valve leaflets are thickened , but open well. There is mild tricuspid regurgitation.RVSP-47 mmof hg. There is no tricuspid valve stenosis. There is no tricuspid valve prolapse or vegetation. PULMONIC VALVE The pulmonary valve is normal in structure. There is trace pulmonic valvular regurgitation. There is no pulmonic valvular stenosis. GREAT VESSELS The aortic root is normal in size. The ascending aorta is normal in size. The pulmonary artery is normal. The IVC is normal in size and collapses >50% with inspiration. PERICARDIAL EFFUSION There is no pleural effusion. There is no pericardial effusion. <Conclusion> Normal chamber Size/. EF-55_60% There is trace aortic regurgitation. Mitral regurgitation is trace. There is trace pulmonic valvular regurgitation. The IVC is normal in size and collapses >50% with inspiration. There is no pericardial effusion.
[2017-10-08] MEDS: Aspirin 325 mg EC Tablets PO SCH (16:17)
--- NOTE | 2017-10-08 16:21 | EEG ---
DATE: 10/08/2017 ELECTROENCEPHALOGRAM CONDITION OF THE RECORDING: Drowsy. DIAGNOSIS: Altered mental status. MEDICATIONS: Reviewed by nurse reconciliation sheet. INTERPRETATION: This is a 16-channel international recording. Background activity of this tracing was composed of 4 to 6 cycles per second. There was a limited amount of beta activity of 16 to 20 cycles per second seen in this recording. There was an increased amount of theta activity of 5 to 7 cycles per second seen in this tracing. Drowsiness was characterized by mostly theta activity followed by delta. The sleep was characterized by vertex transient waves, sleep spindles and bilateral slowing. Photic stimulation showed no changes in the tracing. No major paroxysmal activities noted in this recording, though there was diffuse delta activity throughout the EEG. CONCLUSION: This is an abnormal EEG due to the presence of diffuse delta activity consistent with severe bilateral cerebral dysfunction with EMG artifact at this time. Please clinically correlate. Eliezer Cheatham MD
--- NOTE | 2017-10-08 17:50 | CON ---
DATE: 10/07/2017 NEUROLOGY CONSULTATION CHIEF COMPLAINT: Altered mental status. HISTORY OF PRESENT ILLNESS: History was obtained from medical records since the patient has unknown past medical history due to not able to verbalize. She is a 66-year-old woman with unknown past medical history now who was brought to the [facility] after she was found by the landlord to be lying on the floor, unresponsive. When she arrived in the ED, she was noted to have garbled speech, not following commands, she was found to be very lethargic and not able to communicate well. She had an initial sodium of 116 and today it is 120, with also hypokalemia. Her CAT scan of the head shows no acute intracranial abnormality. She was tachypneic, tachycardic, and hyponatremic with elevation of white count. Currently, she looks very much catatonic and slight increased tone in her extremities also seen. An MRI of the brain is difficult to do at this time cannot get any information, she is on prophylactic antibiotics with acyclovir and vancomycin for possible M[employer] F[employer] infection. It seems most likely she has an acute encephalopathy from hyponatremia. Her EEG did show diffuse bilateral cerebral dysfunction with delta activity. No evidence of any epileptiform activity. She will possibly get a lumbar puncture today. PAST MEDICAL HISTORY: Unknown. ALLERGIES: UNOBTAINABLE. REVIEW OF SYSTEMS: Unobtainable due to the patient's altered mental status. SOCIAL HISTORY: No illicit drug use, smoking, or EtOH abuse apparently in the past. FAMILY HISTORY: Noncontributory. PHYSICAL EXAMINATION: GENERAL: The patient is lethargic, in no acute distress. VITAL SIGNS: Temperature is 98.8, pulse rate of 111, blood pressure 99/42, respiratory rate 18, oxygen saturation 97% on room air. HEENT: Head is a traumatic and normocephalic. PERRLA. Extraocular muscles are intact. NECK: Supple. No JVD. No adenopathy noted. LUNGS: Clear to auscultation. No adventitious sounds. HEART: S1 and S2, normal rate and rhythm. No murmurs, rubs, or gallops. ABDOMEN: Soft, nontender, and nondistended. Bowel sounds present. EXTREMITIES: Severe bilateral lower extremity erythema with blanching and flaky rash and there is bandage. NEUROLOGIC: The patient is lethargic. Speech is garbled. Cranial nerves II through XII are intact. Motor: Increased tone throughout, especially in the upper extremities and moves all extremities. Sensory: Withdraws to localized noxious stimulus. Opens eyes to voice. Coordination and gait deferred for now. DTRs are 1+ throughout. LABORATORY DATA: Sodium is 116, potassium is 3.3, chloride of 91, carbon dioxide of 18, BUN of 7, creatinine 0.4, and random glucose 75. Total creatine kinase 1298. ASSESSMENT AND PLAN: This is a 66-year-old woman with unknown past medical history, admitted to ICU with altered mental status, severe hyponatremia with a sodium of 116, rhabdomyolysis, and lower extremity cellulitis, currently afebrile, came with elevated leukocytosis as well as tachypnea and tachycardia. Her initial CAT scan showed no acute intracranial abnormality. EEG shows delta slowing consistent with severe bilateral cerebral dysfunction, no evidence of any epileptiform activity. At this time, altered mental status could be toxic metabolic from underlying sepsis and severe hyponatremia causing catatonic state as well as lethargic mental status. At this time, I recommend: 1. If the MRI of the brain cannot be done with contrast, recommend a CAT scan of the head with contrast. 2. Lumbar puncture by the ICU team and send for HSV and NMDA to check if it is a bacterial or viral encephalitis. 3. Monitor electrolytes and correct accordingly, slowly correct the sodium. 4. We will give 1 g Keppra for a seizure prophylaxis coverage and for now, continue with 500 IV q. 12 and continue with GI and DVT prophylaxis. Thank you for this consult. Eliezer Cheatham MD
--- NOTE | 2017-10-08 18:20 | CARD ---
APPROVED REPORT EKG Measurement Heart [id number] <Conclusion> Sinus tachycardia Otherwise normal ECG
[2017-10-08 20:12] LABS: BLOOD UREA NITROGEN 10 mg/dL (7-21); CALCIUM 8.7 mg/dL (8.4-10.5); GFR AFRICAN-AMERICAN > 60; GFR NON-AFRICAN AMERICAN > 60
[2017-10-08] MEDS: cefTRIAXone 2 GM IN NS 2 GM/100 ML BAG IVPB SCH (21:37)
--- NOTE | 2017-10-08 22:30 | CARD ---
APPROVED REPORT EKG Measurement Heart [id number] <Conclusion> Normal sinus rhythm Junctional ST depression, probably normal Borderline ECG
--- NOTE | 2017-10-08 23:12 | CON ---
DATE: 10/08/2017 REASON FOR CONSULTATION: Admitted with altered mental status, rhabdomyolysis, positive troponin, rule out non-ST segment myocardial infarction, rule out acute coronary syndrome. BRIEF CLINICAL HISTORY: This is a 66-year-old female admitted to the [facility] with altered mental status, unable to give any history, shivering and garbled speech, found to have elevated CPK and troponins. Cardiology consult was called. The patient denies any chest pain. PAST MEDICAL HISTORY: Unknown. Unable to give any history. Electronic medical record also unable to get any information. PAST SURGICAL HISTORY: Unknown. FAMILY HISTORY: Unknown. ALLERGIES: NO KNOWN DRUG ALLERGIES. MEDICATIONS: At home, none. Currently, the patient is on, in the hospital, acyclovir, aspirin, heparin, ceftriaxone, acetaminophen, and vancomycin. REVIEW OF SYSTEMS: As per HPI. Nothing is obtainable. PHYSICAL EXAMINATION: VITAL SIGNS: Temperature afebrile, heart rate 115, blood pressure 90/65. HEENT: PERRLA. Extraocular muscles intact. NECK: Supple. No carotid bruit. No thyromegaly. CHEST: Clear to auscultation. HEART: S1 and S2 regular. ABDOMEN: Soft. EXTREMITIES: Clubbing and cyanosis negative. LABORATORY DATA: EKG shows sinus tachycardia. Heart rate 114. No acute ST-T changes noted. Blood workup as follows: WBC 7.7, hemoglobin 11.7, hematocrit 31.8, platelet count 449. Chemistry shows sodium 116, potassium 3.7, chloride 90, carbon dioxide 17, anion gap of 13, BUN 8, creatinine 0.3. Total CPK 2208, MB fraction 3.8. Troponin 0.32. IMPRESSION AND PLAN: Rhabdomyolysis. Positive troponin could be secondary to rhabdomyolysis versus cannot rule out underlying coronary artery disease or true non-ST segment myocardial infarction versus acute coronary syndrome, altered mental status, hyponatremia, encephalopathic, unable to get any history, rule out sepsis, rule out systemic inflammatory response. This positive troponin could be secondary to demand supply mismatch as mentioned versus real underlying coronary artery disease, [id number] myocardial infarction, but we will treat as an acute coronary syndrome. The patient is already on heparin. We will give beta-sim but the patient is not a candidate to go to the catheterization laboratory because of the mental status, another comorbidity, and encephalopathic. Once stabilizes, then we will decide. Further recommendations will be made, what plan of action will be suitable for her. For now, since the troponin is trending down, maximum troponin 0.3 in phase of rhabdomyolysis, not significant. No acute ST-T changes. We will treat conservatively with beta-sim, aspirin, and heparin and further determine the hospital course. We will follow with you. Thank you, Dr. Mg, for providing us the opportunity in taking care of M[place]. We will get echo. We will get broad-spectrum antibiotics. We will follow and recommendations will be made day by day as patient's condition. Lazaro Roldan MD
[2017-10-08] MEDS ORDERED: Dextrose 50% SYRINGE Inj (50 ml) IVP ONE (23:31)
--- NOTE | 2017-10-08 23:31 | PN ---
DATE: SUBJECTIVE: The patient is 66 years old, poor historian, only opens eye on verbal command and information collected from ER physician's notes. The patient is sleepy, but opens eye on verbal command. She is a 66-year-old lady, who lived by herself. She was found by the landlord lying on the floor and she was unresponsive. She has slurred speech, unable to make any sense, and she was hyponatremic. So she was admitted in ICU. PHYSICAL EXAMINATION: GENERAL: She is sleepy, but arousable. VITAL SIGNS: The patient is afebrile, pulse 109, respirations 16, blood pressure 106/51. LUNGS: Bilateral fair airflow. No rhonchi or crackle. HEART: S1 and S2 audible. ABDOMEN: Soft, nontender, no rebound, no guarding. NEUROLOGIC: She is sleepy and hardly arousable. LABORATORY DATA: WBC was 14.6, today 7.7; hemoglobin 11.7; hematocrit 31.8; platelets 449. PT is 11.2, INR 0.98. Chemistry: Sodium upon admission was 116, today is 120; potassium 3.7; chloride 96; CO2 of 17; BUN 8; creatinine 0.4. Troponin 0.32, followup is 0.28, CPK 2208, today is 1298. Blood cultures and urine cultures are negative. Her EKG shows diffuse delta wave consistent with severe bilateral cerebral dysfunction. CT scan of the chest shows bilateral pleural effusion, mild perihilar interstitial prominence consistent with viral bronchitis. Echocardiogram shows normal LV function, ejection fraction of 50% to 60%, mitral regurgitation and trace pulmonic valvular disease. CT scan of the head shows no acute abnormality. ASSESSMENT: 1. Altered mental status. 2. Hyponatremia. 3. Acute rhabdomyolysis. 4. Bilateral leg cellulitis and bilateral foot swelling and edema. PLAN: The patient will be on aspirin. She is on DVT prophylaxis. She is getting metoprolol. She had potassium and magnesium is being monitored. She is on IV Protonix, getting the Rocephin 2 g daily and vanco 1 g q. 12. She has been started on acyclovir. The patient has no relative to get consent or to get any more information. for MRI, so now she is n.p.o. We will monitor her electrolytes monitoring the patient. Abelardo Mg MD
--- NOTE | 2017-10-09 00:25 | CON ---
DATE: 10/08/2017 Patient is admitted for Dr. Mg. REFERRING MD: Abelardo Mg MD. REASON FOR CONSULTATION: Evaluation of a patient unknown to me who presents with mental status changes in the setting of severe hyponatremia. HISTORY OF PRESENT ILLNESS: Patient is a 66-year-old white female who is unable to give a medical history. Patient apparently was found at home by her landlady after possibly lying on the floor for several days. She is noted to have an elevated CPK level consistent with acute rhabdomyolysis. Patient also is noted to have severe hyponatremia with a sodium level of 110 on admission. Patient is noncommunicative. She has an altered mental status. Her head CT scan was unremarkable. Patient was initially placed on 3% saline. Her sodium level had risen from 110 to 116 and she was switched over to normal saline. Urine sodium, urine osmolality will be sent. Her thyroid function levels, TSH was normal. A.m. cortisol level is pending. Patient apparently takes no medication at home. Patient apparently has not been seen by any medical personnel in recent times. Patient was brought into the hospital by EMS for evaluation. There is no history obtainable from patient. PAST MEDICAL HISTORY: Unobtainable from patient. PAST SURGICAL HISTORY: Unobtainable from patient. MEDICATIONS AT HOME: Likely none. MEDICATIONS AT HOSPITAL: Include that of acyclovir, aspirin, heparin, Lopressor, Protonix, Rocephin, normal saline 100 mL an hour, Tylenol p.r.n., and IV vancomycin. ALLERGIES: HISTORY IS UNOBTAINABLE, BUT NO KNOWN ALLERGIES TO MEDICATIONS. SOCIAL HISTORY: Unobtainable. FAMILY HISTORY: Unobtainable. REVIEW OF SYSTEMS: Unobtainable. PHYSICAL EXAMINATION: GENERAL: Patient is currently seen in ICU, bed 5. She is unresponsive to verbal stimulation. Her eyes are closed. Her mouth is open. She appears to be in no acute distress. VITAL SIGNS: Blood pressure is 90/65. Temperature is 98 degrees Fahrenheit. Respiratory rate is 18 with a pulse of 112. Oxygen saturation is 97%. HEENT: Eyes are closed. NECK: No neck vein distention. CHEST: No rales, rhonchi, or wheezing. CARDIOVASCULAR: Shows irregular rate and rhythm without murmurs, rubs, or gallops. ABDOMEN: Soft. Bowel sounds normal. No rebound, no guarding or masses appreciated. EXTREMITIES: Show her legs to be wrapped with erythematous changes of her legs bilaterally consistent with cellulitis. No pitting edema. No cyanosis or clubbing. Distal lower extremity pulses are reduced at 1 to 2+. NEUROLOGICAL: Difficult to obtain as patient is unresponsive to verbal stimuli. LABORATORY DATA AND IMAGING STUDIES: Admitting head CT scan showed no acute changes. Admitting EKG showed a normal sinus rhythm. Admitting chest x-ray showed no acute pulmonary disease. Admitting chest CT showed mild perihilar interstitial prominence, possibly consistent with early pneumonia. Microbiology: Results of pending. Labs: CBC, white blood cell count 14.6 on admission, today 7.7. Hemoglobin down from 14 to 11.7 with hydration. Platelet count is normal at 449,000. Coags are normal. Admitting blood gas yesterday: pH of 7.36, pO2 of 54 with a pCO2 of 36. Chemistries show sodium of 110, has risen up to the 115 to 116 range. Potassium is low at 3.3. Magnesium level was 1.6 on admission. Chloride was low at 91. CO2 was 18. Anion gap of 10. BUN 7 with a creatinine of 0.4. Glucose was 84. Serum osmolality was low at 247. Urine osmolality and urine sodium have been requested by me and are pending. Calcium level was 8.8. Phosphorus level was normal at 3.5. Magnesium level again was borderline low at 1.6. Uric acid will be ordered by me. Ammonia level is less than 9. CPK total was 2530. It is down to 1298, consistent with mild rhabdomyolysis, acute. Mild elevation of troponin, mild elevation of CPK-MB. TSH level was normal. Urine showed no red cells, no white cells. There were bacteria in the urine. Toxicology screen was negative. Alcohol was less than 10. Tylenol and salicylates were nondetectable. ASSESSMENT: 1. Altered mental status with patient found lying on the floor of 2 to 3 days' duration with acute mild rhabdomyolysis. CPK level is falling. I expect her CPK level to normalize in the next 1 to 2 days with hydration. 2. Altered mental status, perhaps secondary to severe hyponatremia. We have no baseline on this patient as she has not seen medical care for years. Unclear whether she has a dilutional or depletional hyponatremia. We will obtain a urine sodium, urine osmolality, and a uric acid level. I will obtain an a.m. cortisol level. 3. Mild hypokalemia. Patient should have potassium supplements in her IV fluids. 4. Mild hypomagnesemia, which is borderline. Patient may receive mag riders on an as-needed basis. 5. Mild rhabdomyolysis secondary to her laying in the same position for at least 2 to 3 days. This should resolve. Her renal parameters are normal. 6. Possible early pneumonia. Patient is on empiric antibiotic therapy. 7. Cellulitis of her lower extremity. Patient continues on antibiotic therapy. All cultures are pending. PLAN: 1. Accurate I's and O's. Should not be any issue in the ICU. 2. Repeat serum sodium level is pending. If the serum sodium remains in the 115 to 116 range, I suggest starting patient back on 3% saline at 30 mL an hour with following SMA-7 values every 12 hours with caution not to overcorrect to avoid central pontine myelinolysis. If indeed her altered mental status is secondary to severe hyponatremia, it will be important to try and bring her sodium level up into a normal range in a slow and steady way as quickly as possible. 3. Continue antibiotic therapy for lower extremity cellulitis and possible pneumonia. 4. Continue to monitor serial CPK measurements in light of her mild acute rhabdomyolysis. 5. Obtain urine sodium, urine osmolality, a.m. cortisol, and uric acid level. 6. Try and obtain any past medical history on this patient if possible. 7. Case discussed with ICU staff and ICU resident in detail. Greater than 35 minutes spent in the care of this critically ill patient. Thank you for letting me partake and share in the care of your patient. Josep Harris MD
[2017-10-09] MEDS: Acyclovir 500 MG in Sodium Chloride 0.9% 100 ML IV SCH ×3 (05:30→22:22)
[2017-10-09] MEDS: Sodium Chloride 0.9% 1,000 ML IV SCH ×2 (05:31→07:55)
[2017-10-09 07:19] LABS: HEMOGLOBIN 10.4 g/dL (12.0-16.0); MEAN CELL VOLUME 81.8 fl (80.0-105.0); MEAN CORPUSCULAR HEMOGLOBIN 29.1 pg (25.0-35.0); MEAN CORPUSCULAR HGB CONC 35.6 g/dl (31.0-37.0); MEAN PLATELET VOLUME 8.4 fl (7.0-11.0); RBC 3.57 10^6/uL (3.5-6.1); RED CELL DISTRIBUTION WIDTH 13.3 % (11.5-14.5); WHITE BLOOD COUNT 6.5 10^3/ul (4.5-11.0)
[2017-10-09 07:25] LABS: ALB/GLOB RATIO 0.8 (1.1-1.8); ALT/SGPT 53 U/L (7-56); AST/SGOT 60 U/L (14-36); BLOOD UREA NITROGEN 15 mg/dL (7-21); GFR AFRICAN-AMERICAN > 60; GFR NON-AFRICAN AMERICAN > 60; HDL CHOLESTEROL 60 mg/dL (29-60)
[2017-10-09 07:36] LABS: LDL CHOLESTEROL < 30 mg/dL (0-129)
[2017-10-09 07:39] LABS: CK MB% 1.9 % (2.5-3.0); CK-MB 10.6 ng/mL (0.0-3.6)
[2017-10-09] MEDS: Vancomycin 1gm in NS 250ml 1 GM/250 ML BAG IVPB SCH ×2 (07:54→19:30)
[2017-10-09] MEDS: Dextrose 5%/0.9% NS 1,000 ML IV SCH (08:15)
[2017-10-09] MEDS ORDERED: Lactated Ringer's 1,000 ML IV SCH (08:15)
[2017-10-09 08:26] LABS: ARTERIAL BLOOD GAS HCO3 15.6 mmol/L (21-28); ARTERIAL BLOOD GAS O2 SAT 99.3 % (95-98); ARTERIAL BLOOD GAS PCO2 24 mm/Hg (35-45); ARTERIAL BLOOD GAS PH 7.42 (7.35-7.45); ARTERIAL BLOOD GAS TCO2 16.3 mmol.L (22-28)
[2017-10-09] MEDS: cefTRIAXone 2 GM IN NS 2 GM/100 ML BAG IVPB SCH ×2 (09:26→22:24)
[2017-10-09] MEDS ORDERED: levETIRAcetam 1,000 MG in Sodium Chloride 0.9% 100 ML IV ONE (10:00)
--- NOTE | 2017-10-09 10:07 | CP.PCM.PN ---
Subjective - Date & Time of Evaluation Date of Evaluation: 10/09/17 Time of Evaluation: 09:30 - Subjective Subjective: Still lethargic, arousable by tactile and verbal stimuli but quickly falls back to sleep and does not follow commands, no fevers overnight, no diarrhea, no vomiting. Objective - Vital Signs/Intake and Output Vital Signs (last 24 hours): Temp Pulse Resp BP Pulse Ox 98.0 F 91 H 13 74/33 L 97 10/07/17 20:14 10/09/17 07:10 10/09/17 07:10 10/09/17 07:06 10/09/17 07:10 Intake and Output: 10/09/17 10/09/17 06:59 18:59 Intake Total 350 1600 Output Total 950 200 Balance -600 1400 - Medications Medications: Current Medications Aspirin (Ecotrin) 325 mg PO DAILY [facility] Last Admin: 10/08/17 16:17 Dose: Not Given Heparin Sodium (Porcine) (Heparin) 5,000 units SC Q12 DAXA PRN Reason: Protocol Last Admin: 10/08/17 21:37 Dose: 5,000 units Vancomycin HCl (Vancomycin 1gm) 1 gm in 250 mls @ 167 mls/hr IVPB Q12H DAXA PRN Reason: Protocol Stop: 10/16/17 19:46 Last Admin: 10/09/17 07:54 Dose: 167 mls/hr Acyclovir 500 mg/ Sodium (Chloride) 100 mls @ 100 mls/hr IV Q8 DAXA PRN Reason: Protocol Stop: 10/16/17 22:01 Last Admin: 10/09/17 05:30 Dose: 100 mls/hr Ceftriaxone Sodium (Rocephin 2 Gm Ivpb) 2 gm in 100 mls @ 100 mls/hr IVPB Q12 DAXA PRN Reason: Protocol Stop: 10/17/17 22:01 Last Admin: 10/08/17 21:37 Dose: 100 mls/hr Acetaminophen (Ofirmev) 1,000 mg in 100 mls @ 400 mls/hr IVPB Q6H PRN PRN Reason: Temperature >100.4F Stop: 10/10/17 17:41 Dextrose/Sodium Chloride (Dextrose 5%/0.9% Ns 1000 Ml) 1,000 mls @ 100 mls/hr IV .Q10H [facility] Last Admin: 10/09/17 08:15 Dose: 100 mls/hr Levetiracetam 1,000 mg/ Sodium (Chloride) 110 mls @ 440 mls/hr IV ONCE ONE Stop: 10/09/17 10:14 Levetiracetam 500 mg/ Sodium (Chloride) 105 mls @ 460 mls/hr IV Q12 DAXA Potassium Chloride (Potassium Chloride 20 Meq/100 Ml) 20 meq in 100 mls @ 50 mls/hr IVPB Q2H [facility] Stop: 10/09/17 12:29 Last Admin: 10/09/17 08:43 Dose: 50 mls/hr Metoprolol Tartrate (Lopressor) 12.5 mg PO BID [facility] Last Admin: 10/08/17 17:06 Dose: Not Given Pantoprazole Sodium (Protonix Inj) 40 mg IVP DAILY [facility] Last Admin: 10/08/17 09:08 Dose: 40 mg - Labs Labs: 10/09/17 05:45 10/09/17 05:45 PT 11.2 SECONDS (9.4-12.5) 10/07/17 15:00 INR 0.98 (0.93-1.08) 10/07/17 15:00 APTT 29.1 Seconds (25.1-36.5) 10/07/17 15:00 - Constitutional Appears: Chronically Ill, Other (somnolent) - Head Exam Head Exam: NORMAL INSPECTION - Neck Exam Neck Exam: absent: Meningismus - Respiratory Exam Respiratory Exam: Decreased Breath Sounds - Cardiovascular Exam Cardiovascular Exam: +S1, +S2 - GI/Abdominal Exam GI & Abdominal Exam: Soft. absent: Tenderness - Extremities Exam Additional comments: both feet with dressings in place Assessment and Plan - Assessment and Plan (Free Text) Plan: Assessment Systemic Inflammatory Response Syndrome, R/O severe sepsis with acute encephalopathy from bilateral lower extremity cellulitis, R/O HOUSING [employer] infection such as meningoencephalitis (encephalopathy may also be metabolic - hyponatremia ) Plan continue Vancomycin, Ceftriaxone and Acyclovir day 2; blood cx are negative so far, follow up wound cx, urine cxreviewed CT chest which shows non-specific consolidations at the bases would suggest lumbar puncture and CSF analysis as well as MRI brain with and without contrast will continue to monitor clinically follow up further podiatry recommendations discussed with Dr. Cheatham regarding lumbar puncture and ICU team will be doing it once consent has been obtained
--- NOTE | 2017-10-09 10:08 | CARD ---
APPROVED REPORT EKG Measurement Heart [id number] <Conclusion> Normal sinus rhythm Normal ECG
[2017-10-09] MEDS ORDERED: NOREPINEPHRINE BIT/0.9 % NACL 4 MG/250 ML BAG IV PRN (11:10)
--- NOTE | 2017-10-09 11:26 | CP.CCUPN ---
<Rene Liu - Last Filed: 10/09/17 14:05> CCU Subjective - Physician Review Subjective (Free Text): Patient seen and evaluated bedside. Patient opens eyes to being called, but unable to follow commands. Full ROS unobtainable at this time. Patient had low blood pressure reading in the AM. 10/09/17 11:22 Critical Care Time Spent (in minutes): 35 CCU Objective - Vital Signs / Intake & Output Vital Signs (Last 4 hours): Vital Signs Pulse Resp BP Pulse Ox 10/09/17 10:00 86 11 L 98 10/09/17 09:50 84 12 98 10/09/17 09:40 84 11 L 97 10/09/17 09:36 83 12 87/36 L 98 10/09/17 09:30 84 11 L 97 10/09/17 09:20 83 11 L 97 10/09/17 09:10 85 11 L 97 10/09/17 09:08 91 H 12 89/40 L 97 10/09/17 09:00 85 12 97 10/09/17 08:50 85 11 L 97 10/09/17 08:40 84 11 L 97 10/09/17 08:36 83 12 83/37 L 98 10/09/17 08:30 87 20 97 10/09/17 08:27 82/32 L 10/09/17 08:26 84 12 98 10/09/17 08:20 85 11 L 98 10/09/17 08:10 85 15 98 10/09/17 08:06 87 11 L 85/36 L 98 10/09/17 08:00 87 11 L 97 10/09/17 07:50 86 11 L 91/42 L 97 10/09/17 07:40 87 13 97 10/09/17 07:36 87 12 85/39 L 98 10/09/17 07:30 87 13 97 Intake and Output (Last 8hrs): Intake & Output 10/08/17 10/09/17 10/09/17 22:59 06:59 14:59 Intake Total 350 1600 Output Total 950 200 Balance -600 1400 Intake: IV 350 1600 Right Hand 350 1600 Oral 0 Output: Urine 950 200 Urethral (Knapp) 950 200 Stool 0 - Physical Exam Head: Positive for: Atraumatic, Normocephalic Pupils: Positive for: PERRL Extroacular Muscles: Positive for: EOMI Conjunctiva: Positive for: Normal Ears: Positive for: NORMAL TM, Normal Canal. Negative for: Erythema Mouth: Positive for: Moist Mucous Membranes Pharnyx: Negative for: ERYTHEMA, EXUDATE, TONSILS ENLARGED Neck: Positive for: Normal Range of Motion Respiratory/Chest: Positive for: Good Air Exchange Cardiovascular: Positive for: Regular Rate and Rhythm, Normal S1, S2. Negative for: Murmurs Abdomen: Positive for: Normal Bowel Sounds. Negative for: Tenderness, Distention, Peritoneal Signs Upper Extremity: Positive for: Normal Inspection. Negative for: Cyanosis, Edema Skin: Positive for: Erythematous (Erythematous areas on bilateral shoulders and upper back, consistent with lying on the floor. On bilateral proximal tibia distally, erythamatous, swollen, and warm with excoriations, blanching, and flaking rash.) Psychiatric: Negative for: Alert, Oriented x 3 - Medications Active Medications: Active Medications Generic Name Dose Route Start Last Admin Trade Name Freq PRN Reason Stop Dose Admin Aspirin 325 mg 10/08/17 12:15 10/08/17 16:17 Ecotrin PO Not Given DAILY DAXA Heparin Sodium (Porcine) 5,000 units 10/07/17 22:00 10/09/17 09:21 Heparin SC 5,000 units Q12 DAXA Administration Protocol Hydrocortisone Sodium Succinate 50 mg 10/09/17 12:00 Solu-Cortef IVP Q6 DAXA Vancomycin HCl 1 gm in 250 mls @ 167 mls/hr 10/07/17 19:45 10/09/17 07:54 Vancomycin 1gm IVPB 10/16/17 19:46 167 mls/hr Q12H DAXA Administration Protocol Acyclovir 500 mg/ Sodium 100 mls @ 100 mls/hr 10/07/17 22:00 10/09/17 05:30 Chloride IV 10/16/17 22:01 100 mls/hr Q8 DAXA Administration Protocol Ceftriaxone Sodium 2 gm in 100 mls @ 100 mls/hr 10/08/17 22:00 10/09/17 09:26 Rocephin 2 Gm Ivpb IVPB 10/17/17 22:01 100 mls/hr Q12 DAXA Administration Protocol Acetaminophen 1,000 mg in 100 mls @ 400 mls/hr 10/09/17 07:48 Ofirmev IVPB 10/10/17 17:41 Q6H PRN Temperature >100.4F Dextrose/Sodium Chloride 1,000 mls @ 100 mls/hr 10/09/17 08:15 10/09/17 08:15 Dextrose 5%/0.9% Ns 1000 Ml IV 100 mls/hr .Q10H DAXA Administration Levetiracetam 500 mg/ Sodium 105 mls @ 460 mls/hr 10/09/17 18:00 Chloride IV Q12 DAXA Potassium Chloride 20 meq in 100 mls @ 50 mls/hr 10/09/17 08:30 10/09/17 08: 43 Potassium Chloride 20 Meq/100 Ml IVPB 10/09/17 12:29 50 mls/hr Q2H DAXA Administration NOREPINEPHRINE BIT/0.9 % NACL 4 mg in 250 mls @ 15 mls/hr 10/09/17 11:10 Levophed 4 Mg/ 250 Ml Ns Premixed IV .[id number] PRN TITRATE PER MD ORDER Protocol 4 MCG/MIN Metoprolol Tartrate 12.5 mg 10/08/17 12:15 10/08/17 17:06 Lopressor PO Not Given BID DAXA Pantoprazole Sodium 40 mg 10/08/17 10:00 10/09/17 09:21 Protonix Inj IVP 40 mg DAILY DAXA Administration - Patient Studies Lab Studies: Microbiology Studies 10/08/17 09:33 Gram Stain - Preliminary Leg - Right Lab Studies 10/09/17 10/09/17 10/09/17 Range/Units 08:20 07:51 05:45 WBC 6.5 (4.5-11.0) 10^3/ul RBC 3.57 (3.5-6.1) 10^6/uL Hgb 10.4 L (12.0-16.0) g/dL Hct 29.2 L (36.0-48.0) % MCV 81.8 D (80.0-105.0) fl MCH 29.1 (25.0-35.0) pg MCHC 35.6 (31.0-37.0) g/dl RDW 13.3 (11.5-14.5) % Plt Count 376 (120.0-450.0) 10^3/uL MPV 8.4 (7.0-11.0) fl pCO2 24 L (35-45) mm/Hg pO2 95.0 (80-100) mm/Hg HCO3 15.6 L (21-28) mmol/L ABG pH 7.42 (7.35-7.45) ABG Total CO2 16.3 L (22-28) mmol.L ABG O2 Saturation 99.3 H (95-98) % ABG Base Excess -7.0 L (-2.0-3.0) mmol/L ABG Potassium 2.8 L (3.6-5.2) mmol/L Glucose 78 (65-105) mg/dl Lactate 0.9 (0.7-2.1) mmol/L FiO2 21.0 % Sodium 128.0 L (132-148) mmol/L Potassium (3.6-5.0) mmol/L Chloride 105.0 (98-107) mmol/L Carbon Dioxide (21-33) mmol/L Anion Gap (10-20) BUN (7-21) mg/dL Creatinine (0.7-1.2) mg/dl Est GFR ( Amer) Est GFR (Non-Af Amer) POC Glucose (mg/dL) 74 (65-110) mg/dL Random Glucose (70-110) mg/dL Serum Osmolality (272-300) mosm/kg Uric Acid (2.5-6.2) mg/dL Calcium (8.4-10.5) mg/dL Phosphorus (2.5-4.5) mg/dL Magnesium (1.7-2.2) mg/dL Total Bilirubin (0.2-1.3) mg/dL AST (14-36) U/L ALT (7-56) U/L Alkaline Phosphatase (38-126) U/L Lactate Dehydrogenase (333-699) U/L Total Creatine Kinase (35-230) U/L CK-MB (CK-2) (0.0-3.6) ng/mL CK-MB (CK-2) % (2.5-3.0) % Troponin I ng/mL Total Protein (5.8-8.3) g/dL Albumin (3.0-4.8) g/dL Globulin gm/dL Albumin/Globulin Ratio (1.1-1.8) Triglycerides (35-160) mg/dL Cholesterol (130-200) mg/dL LDL Cholesterol Direct (0-129) mg/dL HDL Cholesterol (29-60) mg/dL TSH 3rd Generation (0.46-4.68) mIU/mL Arterial Blood Potassium 2.8 L (3.6-5.2) mmol/L Urine Osmolality (300-1000) mosm/kg Ur Random Creatinine mg/dL Ur Random Sodium meq/L Ur Random Potassium meq/L 10/09/17 10/09/17 10/09/17 Range/Units 05:45 05:45 01:50 WBC (4.5-11.0) 10^3/ul RBC (3.5-6.1) 10^6/uL Hgb (12.0-16.0) g/dL Hct (36.0-48.0) % MCV (80.0-105.0) fl MCH (25.0-35.0) pg MCHC (31.0-37.0) g/dl RDW (11.5-14.5) % Plt Count (120.0-450.0) 10^3/uL MPV (7.0-11.0) fl pCO2 (35-45) mm/Hg pO2 (80-100) mm/Hg HCO3 (21-28) mmol/L ABG pH (7.35-7.45) ABG Total CO2 (22-28) mmol.L ABG O2 Saturation (95-98) % ABG Base Excess (-2.0-3.0) mmol/L ABG Potassium (3.6-5.2) mmol/L Glucose (65-105) mg/dl Lactate (0.7-2.1) mmol/L FiO2 % Sodium 125 L (132-148) mmol/L Potassium 3.2 L (3.6-5.0) mmol/L Chloride 100 (98-107) mmol/L Carbon Dioxide 17 L (21-33) mmol/L Anion Gap 11 (10-20) BUN 15 (7-21) mg/dL Creatinine 0.5 L (0.7-1.2) mg/dl Est GFR ( Amer) > 60 Est GFR (Non-Af Amer) > 60 POC Glucose (mg/dL) 90 (65-110) mg/dL Random Glucose 74 (70-110) mg/dL Serum Osmolality (272-300) mosm/kg Uric Acid (2.5-6.2) mg/dL Calcium 9.0 (8.4-10.5) mg/dL Phosphorus 3.3 (2.5-4.5) mg/dL Magnesium 1.8 (1.7-2.2) mg/dL Total Bilirubin 0.5 (0.2-1.3) mg/dL AST 60 H D (14-36) U/L ALT 53 (7-56) U/L Alkaline Phosphatase 109 (38-126) U/L Lactate Dehydrogenase 624 (333-699) U/L Total Creatine Kinase 563 H (35-230) U/L CK-MB (CK-2) 10.6 H (0.0-3.6) ng/mL CK-MB (CK-2) % 1.9 L (2.5-3.0) % Troponin I 0.10 D ng/mL Total Protein 4.6 L (5.8-8.3) g/dL Albumin 2.0 L (3.0-4.8) g/dL Globulin 2.6 gm/dL Albumin/Globulin Ratio 0.8 L (1.1-1.8) Triglycerides 62 (35-160) mg/dL Cholesterol 109 L (130-200) mg/dL LDL Cholesterol Direct < 30 (0-129) mg/dL HDL Cholesterol 60 (29-60) mg/dL TSH 3rd Generation 0.79 (0.46-4.68) mIU/mL Arterial Blood Potassium (3.6-5.2) mmol/L Urine Osmolality (300-1000) mosm/kg Ur Random Creatinine mg/dL Ur Random Sodium meq/L Ur Random Potassium meq/L 10/08/17 10/08/17 10/08/17 Range/Units 21:49 19:23 12:50 WBC (4.5-11.0) 10^3/ul RBC (3.5-6.1) 10^6/uL Hgb (12.0-16.0) g/dL Hct (36.0-48.0) % MCV (80.0-105.0) fl MCH (25.0-35.0) pg MCHC (31.0-37.0) g/dl RDW (11.5-14.5) % Plt Count (120.0-450.0) 10^3/uL MPV (7.0-11.0) fl pCO2 (35-45) mm/Hg pO2 (80-100) mm/Hg HCO3 (21-28) mmol/L ABG pH (7.35-7.45) ABG Total CO2 (22-28) mmol.L ABG O2 Saturation (95-98) % ABG Base Excess (-2.0-3.0) mmol/L ABG Potassium (3.6-5.2) mmol/L Glucose (65-105) mg/dl Lactate (0.7-2.1) mmol/L FiO2 % Sodium 122 L (132-148) mmol/L Potassium 3.4 L (3.6-5.0) mmol/L Chloride 98 (98-107) mmol/L Carbon Dioxide 16 L (21-33) mmol/L Anion Gap 11 (10-20) BUN 10 (7-21) mg/dL Creatinine 0.4 L (0.7-1.2) mg/dl Est GFR ( Amer) > 60 Est GFR (Non-Af Amer) > 60 POC Glucose (mg/dL) 64 L (65-110) mg/dL Random Glucose 74 (70-110) mg/dL Serum Osmolality (272-300) mosm/kg Uric Acid (2.5-6.2) mg/dL Calcium 8.7 (8.4-10.5) mg/dL Phosphorus (2.5-4.5) mg/dL Magnesium (1.7-2.2) mg/dL Total Bilirubin (0.2-1.3) mg/dL AST (14-36) U/L ALT (7-56) U/L Alkaline Phosphatase (38-126) U/L Lactate Dehydrogenase (333-699) U/L Total Creatine Kinase (35-230) U/L CK-MB (CK-2) (0.0-3.6) ng/mL CK-MB (CK-2) % (2.5-3.0) % Troponin I ng/mL Total Protein (5.8-8.3) g/dL Albumin (3.0-4.8) g/dL Globulin gm/dL Albumin/Globulin Ratio (1.1-1.8) Triglycerides (35-160) mg/dL Cholesterol (130-200) mg/dL LDL Cholesterol Direct (0-129) mg/dL HDL Cholesterol (29-60) mg/dL TSH 3rd Generation (0.46-4.68) mIU/mL Arterial Blood Potassium (3.6-5.2) mmol/L Urine Osmolality 605 (300-1000) mosm/kg Ur Random Creatinine mg/dL Ur Random Sodium meq/L Ur Random Potassium meq/L 10/08/17 10/08/17 10/08/17 Range/Units 12:50 12:50 12:10 WBC (4.5-11.0) 10^3/ul RBC (3.5-6.1) 10^6/uL Hgb (12.0-16.0) g/dL Hct (36.0-48.0) % MCV (80.0-105.0) fl MCH (25.0-35.0) pg MCHC (31.0-37.0) g/dl RDW (11.5-14.5) % Plt Count (120.0-450.0) 10^3/uL MPV (7.0-11.0) fl pCO2 (35-45) mm/Hg pO2 (80-100) mm/Hg HCO3 (21-28) mmol/L ABG pH (7.35-7.45) ABG Total CO2 (22-28) mmol.L ABG O2 Saturation (95-98) % ABG Base Excess (-2.0-3.0) mmol/L ABG Potassium (3.6-5.2) mmol/L Glucose (65-105) mg/dl Lactate (0.7-2.1) mmol/L FiO2 % Sodium 120 L (132-148) mmol/L Potassium 3.7 (3.6-5.0) mmol/L Chloride 96 L (98-107) mmol/L Carbon Dioxide 17 L (21-33) mmol/L Anion Gap 11 (10-20) BUN 8 (7-21) mg/dL Creatinine 0.4 L (0.7-1.2) mg/dl Est GFR ( Amer) > 60 Est GFR (Non-Af Amer) > 60 POC Glucose (mg/dL) (65-110) mg/dL Random Glucose 75 (70-110) mg/dL Serum Osmolality (272-300) mosm/kg Uric Acid 4.8 (2.5-6.2) mg/dL Calcium 8.7 (8.4-10.5) mg/dL Phosphorus (2.5-4.5) mg/dL Magnesium (1.7-2.2) mg/dL Total Bilirubin (0.2-1.3) mg/dL AST (14-36) U/L ALT (7-56) U/L Alkaline Phosphatase (38-126) U/L Lactate Dehydrogenase (333-699) U/L Total Creatine Kinase (35-230) U/L CK-MB (CK-2) (0.0-3.6) ng/mL CK-MB (CK-2) % (2.5-3.0) % Troponin I ng/mL Total Protein (5.8-8.3) g/dL Albumin (3.0-4.8) g/dL Globulin gm/dL Albumin/Globulin Ratio (1.1-1.8) Triglycerides (35-160) mg/dL Cholesterol (130-200) mg/dL LDL Cholesterol Direct (0-129) mg/dL HDL Cholesterol (29-60) mg/dL TSH 3rd Generation (0.46-4.68) mIU/mL Arterial Blood Potassium (3.6-5.2) mmol/L Urine Osmolality (300-1000) mosm/kg Ur Random Creatinine 58 mg/dL Ur Random Sodium < 5 meq/L Ur Random Potassium 51.0 meq/L 10/07/17 Range/Units 20:10 WBC (4.5-11.0) 10^3/ul RBC (3.5-6.1) 10^6/uL Hgb (12.0-16.0) g/dL Hct (36.0-48.0) % MCV (80.0-105.0) fl MCH (25.0-35.0) pg MCHC (31.0-37.0) g/dl RDW (11.5-14.5) % Plt Count (120.0-450.0) 10^3/uL MPV (7.0-11.0) fl pCO2 (35-45) mm/Hg pO2 (80-100) mm/Hg HCO3 (21-28) mmol/L ABG pH (7.35-7.45) ABG Total CO2 (22-28) mmol.L ABG O2 Saturation (95-98) % ABG Base Excess (-2.0-3.0) mmol/L ABG Potassium (3.6-5.2) mmol/L Glucose (65-105) mg/dl Lactate (0.7-2.1) mmol/L FiO2 % Sodium (132-148) mmol/L Potassium (3.6-5.0) mmol/L Chloride (98-107) mmol/L Carbon Dioxide (21-33) mmol/L Anion Gap (10-20) BUN (7-21) mg/dL Creatinine (0.7-1.2) mg/dl Est GFR ( Amer) Est GFR (Non-Af Amer) POC Glucose (mg/dL) (65-110) mg/dL Random Glucose (70-110) mg/dL Serum Osmolality 247 L (272-300) mosm/kg Uric Acid (2.5-6.2) mg/dL Calcium (8.4-10.5) mg/dL Phosphorus (2.5-4.5) mg/dL Magnesium (1.7-2.2) mg/dL Total Bilirubin (0.2-1.3) mg/dL AST (14-36) U/L ALT (7-56) U/L Alkaline Phosphatase (38-126) U/L Lactate Dehydrogenase (333-699) U/L Total Creatine Kinase (35-230) U/L CK-MB (CK-2) (0.0-3.6) ng/mL CK-MB (CK-2) % (2.5-3.0) % Troponin I ng/mL Total Protein (5.8-8.3) g/dL Albumin (3.0-4.8) g/dL Globulin gm/dL Albumin/Globulin Ratio (1.1-1.8) Triglycerides (35-160) mg/dL Cholesterol (130-200) mg/dL LDL Cholesterol Direct (0-129) mg/dL HDL Cholesterol (29-60) mg/dL TSH 3rd Generation (0.46-4.68) mIU/mL Arterial Blood Potassium (3.6-5.2) mmol/L Urine Osmolality (300-1000) mosm/kg Ur Random Creatinine mg/dL Ur Random Sodium meq/L Ur Random Potassium meq/L Laboratory Results - last 24 hr 10/07/17 10/08/17 10/08/17 20:10 12:10 12:50 WBC RBC Hgb Hct MCV MCH MCHC RDW Plt Count MPV pCO2 pO2 HCO3 ABG pH ABG Total CO2 ABG O2 Saturation ABG Base Excess ABG Potassium Glucose Lactate FiO2 Sodium 120 L Potassium 3.7 Chloride 96 L Carbon Dioxide 17 L Anion Gap 11 BUN 8 Creatinine 0.4 L Est GFR ( Amer) > 60 Est GFR (Non-Af Amer) > 60 POC Glucose (mg/dL) Random Glucose 75 Serum Osmolality 247 L Uric Acid 4.8 Calcium 8.7 Phosphorus Magnesium Total Bilirubin AST ALT Alkaline Phosphatase Lactate Dehydrogenase Total Creatine Kinase CK-MB (CK-2) CK-MB (CK-2) % Troponin I Total Protein Albumin Globulin Albumin/Globulin Ratio Triglycerides Cholesterol LDL Cholesterol Direct HDL Cholesterol TSH 3rd Generation Arterial Blood Potassium Urine Osmolality Ur Random Creatinine Ur Random Sodium Ur Random Potassium 10/08/17 10/08/17 10/08/17 12:50 12:50 19:23 WBC RBC Hgb Hct MCV MCH MCHC RDW Plt Count MPV pCO2 pO2 HCO3 ABG pH ABG Total CO2 ABG O2 Saturation ABG Base Excess ABG Potassium Glucose Lactate FiO2 Sodium 122 L Potassium 3.4 L Chloride 98 Carbon Dioxide 16 L Anion Gap 11 BUN 10 Creatinine 0.4 L Est GFR ( Amer) > 60 Est GFR (Non-Af Amer) > 60 POC Glucose (mg/dL) Random Glucose 74 Serum Osmolality Uric Acid Calcium 8.7 Phosphorus Magnesium Total Bilirubin AST ALT Alkaline Phosphatase Lactate Dehydrogenase Total Creatine Kinase CK-MB (CK-2) CK-MB (CK-2) % Troponin I Total Protein Albumin Globulin Albumin/Globulin Ratio Triglycerides Cholesterol LDL Cholesterol Direct HDL Cholesterol TSH 3rd Generation Arterial Blood Potassium Urine Osmolality 605 Ur Random Creatinine 58 Ur Random Sodium < 5 Ur Random Potassium 51.0 10/08/17 10/09/17 10/09/17 21:49 01:50 05:45 WBC RBC Hgb Hct MCV MCH MCHC RDW Plt Count MPV pCO2 pO2 HCO3 ABG pH ABG Total CO2 ABG O2 Saturation ABG Base Excess ABG Potassium Glucose Lactate FiO2 Sodium 125 L Potassium 3.2 L Chloride 100 Carbon Dioxide 17 L Anion Gap 11 BUN 15 Creatinine 0.5 L Est GFR ( Amer) > 60 Est GFR (Non-Af Amer) > 60 POC Glucose (mg/dL) 64 L 90 Random Glucose 74 Serum Osmolality Uric Acid Calcium 9.0 Phosphorus 3.3 Magnesium 1.8 Total Bilirubin 0.5 AST 60 H D ALT 53 Alkaline Phosphatase 109 Lactate Dehydrogenase 624 Total Creatine Kinase 563 H CK-MB (CK-2) 10.6 H CK-MB (CK-2) % 1.9 L Troponin I 0.10 D Total Protein 4.6 L Albumin 2.0 L Globulin 2.6 Albumin/Globulin Ratio 0.8 L Triglycerides 62 Cholesterol 109 L LDL Cholesterol Direct < 30 HDL Cholesterol 60 TSH 3rd Generation Arterial Blood Potassium Urine Osmolality Ur Random Creatinine Ur Random Sodium Ur Random Potassium 10/09/17 10/09/17 10/09/17 05:45 05:45 07:51 WBC 6.5 RBC 3.57 Hgb 10.4 L Hct 29.2 L MCV 81.8 D MCH 29.1 MCHC 35.6 RDW 13.3 Plt Count 376 MPV 8.4 pCO2 pO2 HCO3 ABG pH ABG Total CO2 ABG O2 Saturation ABG Base Excess ABG Potassium Glucose Lactate FiO2 Sodium Potassium Chloride Carbon Dioxide Anion Gap BUN Creatinine Est GFR ( Amer) Est GFR (Non-Af Amer) POC Glucose (mg/dL) 74 Random Glucose Serum Osmolality Uric Acid Calcium Phosphorus Magnesium Total Bilirubin AST ALT Alkaline Phosphatase Lactate Dehydrogenase Total Creatine Kinase CK-MB (CK-2) CK-MB (CK-2) % Troponin I Total Protein Albumin Globulin Albumin/Globulin Ratio Triglycerides Cholesterol LDL Cholesterol Direct HDL Cholesterol TSH 3rd Generation 0.79 Arterial Blood Potassium Urine Osmolality Ur Random Creatinine Ur Random Sodium Ur Random Potassium 10/09/17 08:20 WBC RBC Hgb Hct MCV MCH MCHC RDW Plt Count MPV pCO2 24 L pO2 95.0 HCO3 15.6 L ABG pH 7.42 ABG Total CO2 16.3 L ABG O2 Saturation 99.3 H ABG Base Excess -7.0 L ABG Potassium 2.8 L Glucose 78 Lactate 0.9 FiO2 21.0 Sodium 128.0 L Potassium Chloride 105.0 Carbon Dioxide Anion Gap BUN Creatinine Est GFR ( Amer) Est GFR (Non-Af Amer) POC Glucose (mg/dL) Random Glucose Serum Osmolality Uric Acid Calcium Phosphorus Magnesium Total Bilirubin AST ALT Alkaline Phosphatase Lactate Dehydrogenase Total Creatine Kinase CK-MB (CK-2) CK-MB (CK-2) % Troponin I Total Protein Albumin Globulin Albumin/Globulin Ratio Triglycerides Cholesterol LDL Cholesterol Direct HDL Cholesterol TSH 3rd Generation Arterial Blood Potassium 2.8 L Urine Osmolality Ur Random Creatinine Ur Random Sodium Ur Random Potassium EKG/Cardiology Studies: Cardiology / EKG Studies 10/09/17 08:00 ELECTROCARDIOGRAM DAILY Comment: Reason For Exam: ACS PERFORMING PHYSICIAN/PROVIDER:: Lazaro Roldan 10/10/17 08:00 ELECTROCARDIOGRAM DAILY Comment: Reason For Exam: ACS PERFORMING PHYSICIAN/PROVIDER:: Lazaro Roldan Review of Systems - Review of Systems Review of Systems: unobtainable due to AMS Assessment/Plan - Assessment and Plan (Free Text) Assessment: 66 year old female with sepsis likely secondary to bacteremia from lower extremity cellulitis, with AMS, hyponatremia, elevated CPK, and elevated tropnins which are trending down. Plan: Neuro -AMS, AAx0 -Initial CT negative, will possibly repeat imagine -Neuro consulted, Chaparrita, follow recs -EEG not significant -possible LP tomorrow Cardio: -echo yesterday showing trace atrial and mitral regurg -hypotension, continue to monitor -2 L LR infused, not responsive -central line right IJ -started levofed, hydrocortisone -continue meds Renal: -Sodium improving to 125, continue to monitor -CPK 563, also improving -continue fluids -Nephro consulted, Kimberly, follow recs Pulm: -satruting well -mantain sat%> 92% Endo: -had episode of low blood sugar -maintain euglycemia -monitor blood glucose -accucheck Q4 ID: -continue current abx pending blood cultures -Procal penidng -WBC downtrending -Id consulted, Vishal, follow recs -possible LP tomorrow GI: -NG tube inserted, placement confirmed with xray -possible tube feeds to start Podiatry: -cx pending -podiatry consulted, follow recs -continue abx Prophylaxis -heparin -protonix <Reinier Castano - Last Filed: 10/09/17 15:18> CCU Objective - Vital Signs / Intake & Output Vital Signs (Last 4 hours): Vital Signs Pulse Resp BP Pulse Ox 10/09/17 12:30 87 14 96 10/09/17 12:20 91 H 14 96 10/09/17 12:15 91 H 13 124/67 94 L 10/09/17 12:10 78 12 96 10/09/17 12:00 77 10 L 96 10/09/17 11:55 108/63 10/09/17 11:54 77 11 L 96 10/09/17 11:50 77 11 L 96 10/09/17 11:40 75 11 L 95 10/09/17 11:35 62 11 L 130/71 94 L 10/09/17 11:30 67 13 97 10/09/17 11:20 81 12 96 Intake and Output (Last 8hrs): Intake & Output 10/09/17 10/09/17 10/09/17 06:59 14:59 22:59 Intake Total 1601 Output Total 200 Balance 1401 Intake: IV 1601 Right Hand 1600 Output: Urine 200 Urethral (Knapp) 200 - Medications Active Medications: Active Medications Generic Name Dose Route Start Last Admin Trade Name Freq PRN Reason Stop Dose Admin Aspirin 325 mg 10/08/17 12:15 10/09/17 12:26 Ecotrin PO 325 mg DAILY DAXA Administration Heparin Sodium (Porcine) 5,000 units 10/07/17 22:00 10/09/17 09:21 Heparin SC 5,000 units Q12 DAXA Administration Protocol Hydrocortisone Sodium Succinate 50 mg 10/09/17 12:00 10/09/17 12:26 Solu-Cortef IVP 50 mg Q6 DAXA Administration Vancomycin HCl 1 gm in 250 mls @ 167 mls/hr 10/07/17 19:45 10/09/17 07:54 Vancomycin 1gm IVPB 10/16/17 19:46 167 mls/hr Q12H DAXA Administration Protocol Acyclovir 500 mg/ Sodium 100 mls @ 100 mls/hr 10/07/17 22:00 10/09/17 05:30 Chloride IV 10/16/17 22:01 100 mls/hr Q8 DAXA Administration Protocol Ceftriaxone Sodium 2 gm in 100 mls @ 100 mls/hr 10/08/17 22:00 10/09/17 09:26 Rocephin 2 Gm Ivpb IVPB 10/17/17 22:01 100 mls/hr Q12 DAXA Administration Protocol Acetaminophen 1,000 mg in 100 mls @ 400 mls/hr 10/09/17 07:48 Ofirmev IVPB 10/10/17 17:41 Q6H PRN Temperature >100.4F Dextrose/Sodium Chloride 1,000 mls @ 100 mls/hr 10/09/17 08:15 10/09/17 08:15 Dextrose 5%/0.9% Ns 1000 Ml IV 100 mls/hr .Q10H DAXA Administration NOREPINEPHRINE BIT/0.9 % NACL 4 mg in 250 mls @ 15 mls/hr 10/09/17 11:10 13:00 Levophed 4 Mg/ 250 Ml Ns Premixed IV 2 mcg/min .[id number] PRN 7.5 mls/hr TITRATE PER MD ORDER Titration Protocol 4 MCG/MIN Metoprolol Tartrate 12.5 mg 10/08/17 12:15 10/09/17 10:08 Lopressor PO Not Given BID DAXA Pantoprazole Sodium 40 mg 10/08/17 10:00 10/09/17 09:21 Protonix Inj IVP 40 mg DAILY DAXA Administration - Patient Studies Lab Studies: Microbiology Studies 10/08/17 09:33 Gram Stain - Preliminary Leg - Right Lab Studies 10/09/17 10/09/17 10/09/17 Range/Units 11:56 08:47 08:20 WBC (4.5-11.0) 10^3/ul RBC (3.5-6.1) 10^6/uL Hgb (12.0-16.0) g/dL Hct (36.0-48.0) % MCV (80.0-105.0) fl MCH (25.0-35.0) pg MCHC (31.0-37.0) g/dl RDW (11.5-14.5) % Plt Count (120.0-450.0) 10^3/uL MPV (7.0-11.0) fl pCO2 24 L (35-45) mm/Hg pO2 95.0 (80-100) mm/Hg HCO3 15.6 L (21-28) mmol/L ABG pH 7.42 (7.35-7.45) ABG Total CO2 16.3 L (22-28) mmol.L ABG O2 Saturation 99.3 H (95-98) % ABG Base Excess -7.0 L (-2.0-3.0) mmol/L ABG Potassium 2.8 L (3.6-5.2) mmol/L Glucose 78 (65-105) mg/dl Lactate 0.9 (0.7-2.1) mmol/L FiO2 21.0 % Sodium 128.0 L (132-148) mmol/L Potassium (3.6-5.0) mmol/L Chloride 105.0 (98-107) mmol/L Carbon Dioxide (21-33) mmol/L Anion Gap (10-20) BUN (7-21) mg/dL Creatinine (0.7-1.2) mg/dl Est GFR ( Amer) Est GFR (Non-Af Amer) POC Glucose (mg/dL) 87 (65-110) mg/dL Random Glucose (70-110) mg/dL Hemoglobin A1c (4.2-6.5) % Calcium (8.4-10.5) mg/dL Phosphorus (2.5-4.5) mg/dL Magnesium (1.7-2.2) mg/dL Total Bilirubin (0.2-1.3) mg/dL AST (14-36) U/L ALT (7-56) U/L Alkaline Phosphatase (38-126) U/L Lactate Dehydrogenase (333-699) U/L Total Creatine Kinase (35-230) U/L CK-MB (CK-2) (0.0-3.6) ng/mL CK-MB (CK-2) % (2.5-3.0) % Troponin I ng/mL Total Protein (5.8-8.3) g/dL Albumin (3.0-4.8) g/dL Globulin gm/dL Albumin/Globulin Ratio (1.1-1.8) Triglycerides (35-160) mg/dL Cholesterol (130-200) mg/dL LDL Cholesterol Direct (0-129) mg/dL HDL Cholesterol (29-60) mg/dL Procalcitonin 0.19 (0.19-0.49) NG/ML TSH 3rd Generation (0.46-4.68) mIU/mL Cortisol AM Sample (4.46-22.7) ug/dL Arterial Blood Potassium 2.8 L (3.6-5.2) mmol/L Urine Osmolality (300-1000) mosm/kg 10/09/17 10/09/17 10/09/17 Range/Units 07:51 05:45 05:45 WBC 6.5 (4.5-11.0) 10^3/ul RBC 3.57 (3.5-6.1) 10^6/uL Hgb 10.4 L (12.0-16.0) g/dL Hct 29.2 L (36.0-48.0) % MCV 81.8 D (80.0-105.0) fl MCH 29.1 (25.0-35.0) pg MCHC 35.6 (31.0-37.0) g/dl RDW 13.3 (11.5-14.5) % Plt Count 376 (120.0-450.0) 10^3/uL MPV 8.4 (7.0-11.0) fl pCO2 (35-45) mm/Hg pO2 (80-100) mm/Hg HCO3 (21-28) mmol/L ABG pH (7.35-7.45) ABG Total CO2 (22-28) mmol.L ABG O2 Saturation (95-98) % ABG Base Excess (-2.0-3.0) mmol/L ABG Potassium (3.6-5.2) mmol/L Glucose (65-105) mg/dl Lactate (0.7-2.1) mmol/L FiO2 % Sodium (132-148) mmol/L Potassium (3.6-5.0) mmol/L Chloride (98-107) mmol/L Carbon Dioxide (21-33) mmol/L Anion Gap (10-20) BUN (7-21) mg/dL Creatinine (0.7-1.2) mg/dl Est GFR ( Amer) Est GFR (Non-Af Amer) POC Glucose (mg/dL) 74 (65-110) mg/dL Random Glucose (70-110) mg/dL Hemoglobin A1c (4.2-6.5) % Calcium (8.4-10.5) mg/dL Phosphorus (2.5-4.5) mg/dL Magnesium (1.7-2.2) mg/dL Total Bilirubin (0.2-1.3) mg/dL AST (14-36) U/L ALT (7-56) U/L Alkaline Phosphatase (38-126) U/L Lactate Dehydrogenase (333-699) U/L Total Creatine Kinase (35-230) U/L CK-MB (CK-2) (0.0-3.6) ng/mL CK-MB (CK-2) % (2.5-3.0) % Troponin I ng/mL Total Protein (5.8-8.3) g/dL Albumin (3.0-4.8) g/dL Globulin gm/dL Albumin/Globulin Ratio (1.1-1.8) Triglycerides (35-160) mg/dL Cholesterol (130-200) mg/dL LDL Cholesterol Direct (0-129) mg/dL HDL Cholesterol (29-60) mg/dL Procalcitonin (0.19-0.49) NG/ML TSH 3rd Generation (0.46-4.68) mIU/mL Cortisol AM Sample 32.1 H (4.46-22.7) ug/dL Arterial Blood Potassium (3.6-5.2) mmol/L Urine Osmolality (300-1000) mosm/kg 10/09/17 10/09/17 10/09/17 Range/Units 05:45 05:45 05:45 WBC (4.5-11.0) 10^3/ul RBC (3.5-6.1) 10^6/uL Hgb (12.0-16.0) g/dL Hct (36.0-48.0) % MCV (80.0-105.0) fl MCH (25.0-35.0) pg MCHC (31.0-37.0) g/dl RDW (11.5-14.5) % Plt Count (120.0-450.0) 10^3/uL MPV (7.0-11.0) fl pCO2 (35-45) mm/Hg pO2 (80-100) mm/Hg HCO3 (21-28) mmol/L ABG pH (7.35-7.45) ABG Total CO2 (22-28) mmol.L ABG O2 Saturation (95-98) % ABG Base Excess (-2.0-3.0) mmol/L ABG Potassium (3.6-5.2) mmol/L Glucose (65-105) mg/dl Lactate (0.7-2.1) mmol/L FiO2 % Sodium 125 L (132-148) mmol/L Potassium 3.2 L (3.6-5.0) mmol/L Chloride 100 (98-107) mmol/L Carbon Dioxide 17 L (21-33) mmol/L Anion Gap 11 (10-20) BUN 15 (7-21) mg/dL Creatinine 0.5 L (0.7-1.2) mg/dl Est GFR ( Amer) > 60 Est GFR (Non-Af Amer) > 60 POC Glucose (mg/dL) (65-110) mg/dL Random Glucose 74 (70-110) mg/dL Hemoglobin A1c 6.0 (4.2-6.5) % Calcium 9.0 (8.4-10.5) mg/dL Phosphorus 3.3 (2.5-4.5) mg/dL Magnesium 1.8 (1.7-2.2) mg/dL Total Bilirubin 0.5 (0.2-1.3) mg/dL AST 60 H D (14-36) U/L ALT 53 (7-56) U/L Alkaline Phosphatase 109 (38-126) U/L Lactate Dehydrogenase 624 (333-699) U/L Total Creatine Kinase 563 H (35-230) U/L CK-MB (CK-2) 10.6 H (0.0-3.6) ng/mL CK-MB (CK-2) % 1.9 L (2.5-3.0) % Troponin I 0.10 D ng/mL Total Protein 4.6 L (5.8-8.3) g/dL Albumin 2.0 L (3.0-4.8) g/dL Globulin 2.6 gm/dL Albumin/Globulin Ratio 0.8 L (1.1-1.8) Triglycerides 62 (35-160) mg/dL Cholesterol 109 L (130-200) mg/dL LDL Cholesterol Direct < 30 (0-129) mg/dL HDL Cholesterol 60 (29-60) mg/dL Procalcitonin (0.19-0.49) NG/ML TSH 3rd Generation 0.79 (0.46-4.68) mIU/mL Cortisol AM Sample (4.46-22.7) ug/dL Arterial Blood Potassium (3.6-5.2) mmol/L Urine Osmolality (300-1000) mosm/kg 10/09/17 10/08/1710/08/18 Range/Units 01:50 21:49 19:23 WBC (4.5-11.0) 10^3/ul RBC (3.5-6.1) 10^6/uL Hgb (12.0-16.0) g/dL Hct (36.0-48.0) % MCV (80.0-105.0) fl MCH (25.0-35.0) pg MCHC (31.0-37.0) g/dl RDW (11.5-14.5) % Plt Count (120.0-450.0) 10^3/uL MPV (7.0-11.0) fl pCO2 (35-45) mm/Hg pO2 (80-100) mm/Hg HCO3 (21-28) mmol/L ABG pH (7.35-7.45) ABG Total CO2 (22-28) mmol.L ABG O2 Saturation (95-98) % ABG Base Excess (-2.0-3.0) mmol/L ABG Potassium (3.6-5.2) mmol/L Glucose (65-105) mg/dl Lactate (0.7-2.1) mmol/L FiO2 % Sodium 122 L (132-148) mmol/L Potassium 3.4 L (3.6-5.0) mmol/L Chloride 98 (98-107) mmol/L Carbon Dioxide 16 L (21-33) mmol/L Anion Gap 11 (10-20) BUN 10 (7-21) mg/dL Creatinine 0.4 L (0.7-1.2) mg/dl Est GFR ( Amer) > 60 Est GFR (Non-Af Amer) > 60 POC Glucose (mg/dL) 90 64 L (65-110) mg/dL Random Glucose 74 (70-110) mg/dL Hemoglobin A1c (4.2-6.5) % Calcium 8.7 (8.4-10.5) mg/dL Phosphorus (2.5-4.5) mg/dL Magnesium (1.7-2.2) mg/dL Total Bilirubin (0.2-1.3) mg/dL AST (14-36) U/L ALT (7-56) U/L Alkaline Phosphatase (38-126) U/L Lactate Dehydrogenase (333-699) U/L Total Creatine Kinase (35-230) U/L CK-MB (CK-2) (0.0-3.6) ng/mL CK-MB (CK-2) % (2.5-3.0) % Troponin I ng/mL Total Protein (5.8-8.3) g/dL Albumin (3.0-4.8) g/dL Globulin gm/dL Albumin/Globulin Ratio (1.1-1.8) Triglycerides (35-160) mg/dL Cholesterol (130-200) mg/dL LDL Cholesterol Direct (0-129) mg/dL HDL Cholesterol (29-60) mg/dL Procalcitonin (0.19-0.49) NG/ML TSH 3rd Generation (0.46-4.68) mIU/mL Cortisol AM Sample (4.46-22.7) ug/dL Arterial Blood Potassium (3.6-5.2) mmol/L Urine Osmolality (300-1000) mosm/kg 10/08/17 Range/Units 12:50 WBC (4.5-11.0) 10^3/ul RBC (3.5-6.1) 10^6/uL Hgb (12.0-16.0) g/dL Hct (36.0-48.0) % MCV (80.0-105.0) fl MCH (25.0-35.0) pg MCHC (31.0-37.0) g/dl RDW (11.5-14.5) % Plt Count (120.0-450.0) 10^3/uL MPV (7.0-11.0) fl pCO2 (35-45) mm/Hg pO2 (80-100) mm/Hg HCO3 (21-28) mmol/L ABG pH (7.35-7.45) ABG Total CO2 (22-28) mmol.L ABG O2 Saturation (95-98) % ABG Base Excess (-2.0-3.0) mmol/L ABG Potassium (3.6-5.2) mmol/L Glucose (65-105) mg/dl Lactate (0.7-2.1) mmol/L FiO2 % Sodium (132-148) mmol/L Potassium (3.6-5.0) mmol/L Chloride (98-107) mmol/L Carbon Dioxide (21-33) mmol/L Anion Gap (10-20) BUN (7-21) mg/dL Creatinine (0.7-1.2) mg/dl Est GFR ( Amer) Est GFR (Non-Af Amer) POC Glucose (mg/dL) (65-110) mg/dL Random Glucose (70-110) mg/dL Hemoglobin A1c (4.2-6.5) % Calcium (8.4-10.5) mg/dL Phosphorus (2.5-4.5) mg/dL Magnesium (1.7-2.2) mg/dL Total Bilirubin (0.2-1.3) mg/dL AST (14-36) U/L ALT (7-56) U/L Alkaline Phosphatase (38-126) U/L Lactate Dehydrogenase (333-699) U/L Total Creatine Kinase (35-230) U/L CK-MB (CK-2) (0.0-3.6) ng/mL CK-MB (CK-2) % (2.5-3.0) % Troponin I ng/mL Total Protein (5.8-8.3) g/dL Albumin (3.0-4.8) g/dL Globulin gm/dL Albumin/Globulin Ratio (1.1-1.8) Triglycerides (35-160) mg/dL Cholesterol (130-200) mg/dL LDL Cholesterol Direct (0-129) mg/dL HDL Cholesterol (29-60) mg/dL Procalcitonin (0.19-0.49) NG/ML TSH 3rd Generation (0.46-4.68) mIU/mL Cortisol AM Sample (4.46-22.7) ug/dL Arterial Blood Potassium (3.6-5.2) mmol/L Urine Osmolality 605 (300-1000) mosm/kg Laboratory Results - last 24 hr 10/08/17 10/08/17 10/08/17 12:50 19:23 21:49 WBC RBC Hgb Hct MCV MCH MCHC RDW Plt Count MPV pCO2 pO2 HCO3 ABG pH ABG Total CO2 ABG O2 Saturation ABG Base Excess ABG Potassium Glucose Lactate FiO2 Sodium 122 L Potassium 3.4 L Chloride 98 Carbon Dioxide 16 L Anion Gap 11 BUN 10 Creatinine 0.4 L Est GFR ( Amer) > 60 Est GFR (Non-Af Amer) > 60 POC Glucose (mg/dL) 64 L Random Glucose 74 Hemoglobin A1c Calcium 8.7 Phosphorus Magnesium Total Bilirubin AST ALT Alkaline Phosphatase Lactate Dehydrogenase Total Creatine Kinase CK-MB (CK-2) CK-MB (CK-2) % Troponin I Total Protein Albumin Globulin Albumin/Globulin Ratio Triglycerides Cholesterol LDL Cholesterol Direct HDL Cholesterol Procalcitonin TSH 3rd Generation Cortisol AM Sample Arterial Blood Potassium Urine Osmolality 605 10/09/17 10/09/17 10/09/17 01:50 05:45 05:45 WBC RBC Hgb Hct MCV MCH MCHC RDW Plt Count MPV pCO2 pO2 HCO3 ABG pH ABG Total CO2 ABG O2 Saturation ABG Base Excess ABG Potassium Glucose Lactate FiO2 Sodium 125 L Potassium 3.2 L Chloride 100 Carbon Dioxide 17 L Anion Gap 11 BUN 15 Creatinine 0.5 L Est GFR ( Amer) > 60 Est GFR (Non-Af Amer) > 60 POC Glucose (mg/dL) 90 Random Glucose 74 Hemoglobin A1c 6.0 Calcium 9.0 Phosphorus 3.3 Magnesium 1.8 Total Bilirubin 0.5 AST 60 H D ALT 53 Alkaline Phosphatase 109 Lactate Dehydrogenase 624 Total Creatine Kinase 563 H CK-MB (CK-2) 10.6 H CK-MB (CK-2) % 1.9 L Troponin I 0.10 D Total Protein 4.6 L Albumin 2.0 L Globulin 2.6 Albumin/Globulin Ratio 0.8 L Triglycerides 62 Cholesterol 109 L LDL Cholesterol Direct < 30 HDL Cholesterol 60 Procalcitonin TSH 3rd Generation Cortisol AM Sample Arterial Blood Potassium Urine Osmolality 10/09/17 10/09/17 10/09/17 05:45 05:45 05:45 WBC 6.5 RBC 3.57 Hgb 10.4 L Hct 29.2 L MCV 81.8 D MCH 29.1 MCHC 35.6 RDW 13.3 Plt Count 376 MPV 8.4 pCO2 pO2 HCO3 ABG pH ABG Total CO2 ABG O2 Saturation ABG Base Excess ABG Potassium Glucose Lactate FiO2 Sodium Potassium Chloride Carbon Dioxide Anion Gap BUN Creatinine Est GFR ( Amer) Est GFR (Non-Af Amer) POC Glucose (mg/dL) Random Glucose Hemoglobin A1c Calcium Phosphorus Magnesium Total Bilirubin AST ALT Alkaline Phosphatase Lactate Dehydrogenase Total Creatine Kinase CK-MB (CK-2) CK-MB (CK-2) % Troponin I Total Protein Albumin Globulin Albumin/Globulin Ratio Triglycerides Cholesterol LDL Cholesterol Direct HDL Cholesterol Procalcitonin TSH 3rd Generation 0.79 Cortisol AM Sample 32.1 H Arterial Blood Potassium Urine Osmolality 10/09/17 10/09/17 10/09/17 07:51 08:20 08:47 WBC RBC Hgb Hct MCV MCH MCHC RDW Plt Count MPV pCO2 24 L pO2 95.0 HCO3 15.6 L ABG pH 7.42 ABG Total CO2 16.3 L ABG O2 Saturation 99.3 H ABG Base Excess -7.0 L ABG Potassium 2.8 L Glucose 78 Lactate 0.9 FiO2 21.0 Sodium 128.0 L Potassium Chloride 105.0 Carbon Dioxide Anion Gap BUN Creatinine Est GFR ( Amer) Est GFR (Non-Af Amer) POC Glucose (mg/dL) 74 Random Glucose Hemoglobin A1c Calcium Phosphorus Magnesium Total Bilirubin AST ALT Alkaline Phosphatase Lactate Dehydrogenase Total Creatine Kinase CK-MB (CK-2) CK-MB (CK-2) % Troponin I Total Protein Albumin Globulin Albumin/Globulin Ratio Triglycerides Cholesterol LDL Cholesterol Direct HDL Cholesterol Procalcitonin 0.19 TSH 3rd Generation Cortisol AM Sample Arterial Blood Potassium 2.8 L Urine Osmolality 10/09/17 11:56 WBC RBC Hgb Hct MCV MCH MCHC RDW Plt Count MPV pCO2 pO2 HCO3 ABG pH ABG Total CO2 ABG O2 Saturation ABG Base Excess ABG Potassium Glucose Lactate FiO2 Sodium Potassium Chloride Carbon Dioxide Anion Gap BUN Creatinine Est GFR ( Amer) Est GFR (Non-Af Amer) POC Glucose (mg/dL) 87 Random Glucose Hemoglobin A1c Calcium Phosphorus Magnesium Total Bilirubin AST ALT Alkaline Phosphatase Lactate Dehydrogenase Total Creatine Kinase CK-MB (CK-2) CK-MB (CK-2) % Troponin I Total Protein Albumin Globulin Albumin/Globulin Ratio Triglycerides Cholesterol LDL Cholesterol Direct HDL Cholesterol Procalcitonin TSH 3rd Generation Cortisol AM Sample Arterial Blood Potassium Urine Osmolality EKG/Cardiology Studies: Cardiology / EKG Studies 10/09/17 08:00 ELECTROCARDIOGRAM DAILY Comment: Reason For Exam: ACS PERFORMING PHYSICIAN/PROVIDER:: Lazaro Roldan 10/10/17 08:00 ELECTROCARDIOGRAM DAILY Comment: Reason For Exam: ACS PERFORMING PHYSICIAN/PROVIDER:: Lazaro Roldan Attending/Attestation - Attestation I have personally seen and examined this patient.: Yes I have fully participated in the care of the patient.: Yes I have reviewed all pertinent clinical information: Yes Notes (Text): 10/09/17 15:[address] Castano's note
--- NOTE | 2017-10-09 11:36 | PCM.PROC ---
<Boaz Toledo - Last Filed: 10/09/17 11:34> Procedures Attestation:: I certify that I have explained the specified Operation(s) or Procedure(s), risks, benefits and reasonable alternatives to the Patient and/or other person responsible. The opportunity was given to ask questions and all questions answered - Central Line Placement Right Internal Jugular Triple Lumen Catheter Aseptic technique was employed throughout the procedure: Hand Hygiene done prior to procedure, Full sterile barriers (mask, hair cover, sterile gown, sterile gloves), Full body sterile drape, Chloraprep Antiseptic: 30 second prep for IJ or SC sites CVP Time Out Performed: Yes Pt. Placed on Pulse Ox Monitor: Yes Central Line Prep: Chlorhexidine-Alcohol Combination Local Anesthesia Used: Lidocaine 1% Ultrasound Used for Placement: Yes Central Line Lumen Inserted: triple Central Line Length: 16 cm Secured by: Suture Post procedure dressing: Chlorhexidine disc (Biopatch) Post Procedure X-Ray: Yes Patient Tolerated Procedure: Well Immediate Complications: None <Reinier Castano - Last Filed: 10/09/17 14:55> Attending/Attestation - Attestation I have personally seen and examined this patient.: Yes I have fully participated in the care of the patient.: Yes I have reviewed all pertinent clinical information, including history, physical exam and plan: Yes Notes (Text): 10/09/17 14:54 I was in the room and directly supervised resident performing the procedure throughout the entire procedure. Maximum barrier precautions used, real time ultrasound guidance used. no immediate complications. informed consent obtained prior to the procedure
--- NOTE | 2017-10-09 12:16 | RAD ---
HISTORY: Central line COMPARISON: 10/07/2017 FINDINGS: LUNGS: No active pulmonary disease. PLEURA: No significant pleural effusion identified, no pneumothorax apparent. CARDIOVASCULAR: Normal. OSSEOUS STRUCTURES: No significant abnormalities. VISUALIZED UPPER ABDOMEN: Nasogastric tube in satisfactory position OTHER FINDINGS: None. IMPRESSION: There is a right internal jugular line that terminates at the junction of the SVC and right atrium. There is no pneumothorax.
[2017-10-09] MEDS: Aspirin 325 mg EC Tablets PO SCH (12:26)
--- NOTE | 2017-10-09 12:33 | CON ---
HISTORY OF PRESENT ILLNESS: The patient is seen and examined at bedside. She is following commands, but poorly communicative. She appears to be comfortable, but somewhat sleepy. PHYSICAL EXAMINATION: VITAL SIGNS: Blood pressure 86/58, heart rate 91, respiratory 13, oxygen saturation 97% on nasal cannula. ENT: Head and neck atraumatic. LUNGS: Clear to auscultation bilaterally. HEART: Regular rate and rhythm. S1 and S2 normal. ABDOMEN: Soft, nontender and nondistended. MUSCULOSKELETAL: There are acute cellulitic changes on both lower extremities. SKIN: Moist. PSYCHIATRIC: The patient is lethargic, comfortable following commands, but poorly communicative otherwise. LABORATORY DATA: WBC is 6.5, hemoglobin 10.4, platelet count 376. Sodium 125, potassium 3.2 (2.8 on ABG, 2 K riders were ordered), chloride 100, carbon dioxide 17, BUN 15, creatinine 0.5, glucose 74 (IV fluid changed from normal saline to D5 normal saline), AST 60, ALT 53, total bilirubin 0.5, CPK 563. Troponin 0.1. TSH 0.79. LDL cholesterol less than 30, HDL cholesterol 60, INR 0.98. ABG is 7.42/24/95. Lactic acid 0.9. Glucose 78, chloride 105. EEG showed abnormal EEG due to the presence of diffuse delta activity consistent with severe bilateral cerebral dysfunction with EMG artifact at that time. Chest CT showed no pulmonary embolism, but questionable atelectasis bibasilarly (subsegmental). Echocardiogram showed ejection fraction 56%. Trace aortic regurgitation, trace pulmonic valve regurgitation. Trace mitral regurgitation. No pericardial effusion. Today's bedside echocardiogram revealed IVC 2.1 decreasing down to 1.5 on inspiration. Normal left ventricular and right ventricular systolic function. No right ventricular dilatation. No pericardial effusion. Head CT showed no acute intracranial abnormalities. No significant findings to account for the clinical presentation. MEDICATIONS: Acyclovir, Tylenol IV p.r.n., aspirin, D5 normal saline at 100 mL/hour, heparin subcu, Keppra, metoprolol, Protonix, potassium, ceftriaxone, vancomycin. ASSESSMENT AND PLAN: This is 66-year-old lady with severe sepsis secondary to bilateral acute lower extremity cellulitis. So far, blood culture has been negative. Procalcitonin is pending. The patient also exhibits signs of multiorgan system dysfunction including encephalopathy, rhabdomyolysis and initially septic cardiomyopathy. At present time, the patient is also borderline hypotensive. She will receive 1 L of LR wide open. I will touch base with Infectious Disease Service whether to upgrade her antibiotics. We will trend procalcitonin level as well. If blood pressure continued to be trending down despite fluid bolus, we will start vasopressors. Due to substantial involvement of the lower extremities, we cannot do raising leg test to assess fluid responsiveness. We will continue to target euvolemia, euglycemia, normothermia and oxygen saturation more than 90%. I will put nasogastric tube for medications and enteral nutrition. If no need for high doses of pressors, it will be obvious. We will continue with deep venous thrombosis/gastrointestinal prophylaxis. Addendum: CVL placed, NE at 4-->2 mcg/min started, stress dose steroids are given ccm time 40 min Reinier Castano MD [facility]
--- NOTE | 2017-10-09 13:18 | PN ---
DATE: REASON FOR CONSULTATION: Admitted with altered mental status, rhabdomyolysis, positive troponin, rule out non-ST segment myocardial infarction, rule out acute coronary syndrome. SUBJECTIVE: The patient unable to give history, shakes, responded to the verbal stimuli, but does not communicate. OBJECTIVE: GENERAL: Not in apparent distress. VITAL SIGNS: Temperature afebrile, heart rate 90, blood pressure 86/58. HEENT: PERRLA. Extraocular muscles intact. NECK: Supple. No carotid bruit or thyromegaly. CHEST: Clear to auscultation. HEART: S1 and S2, regular. ABDOMEN: Soft. EXTREMITIES: Clubbing and cyanosis negative. Both lower extremities are in the wrap with the dressings with severe cellulitis and foul smelling. LABORATORY DATA: Blood workup as follows: WBC 6.5, hemoglobin 10.4, hematocrit 29.2, and platelet count 376. Chemistry shows sodium 125, potassium 3.2, chloride 100, carbon dioxide 17, anion gap of 11. BUN 15, creatinine 0.5. Troponin 0.1. TSH is 0.79. IMPRESSION: Altered mental status, sepsis, cellulitis of the lower extremity, positive troponin most likely secondary to rhabdomyolysis, MB fraction 1.9, doubt it is a myocardial infarction, but cannot rule out underlying coronary artery disease. Altered mental status, hyponatremia, bilateral leg cellulitis, edema, and foul smelling. The patient had echocardiography done yesterday that showed ejection fraction 55% to 60%, trace aortic regurgitation, trace mitral regurgitation, trace pulmonary insufficiency. Total CPK today is 563 with MB fraction 1.9%, troponin 0.10. Moderate hypokalemia, hyponatremia, improving. RECOMMENDATIONS: Treat aggressively with broad-spectrum antibiotics. We should consider tolvaptan for hyponatremia. Continue low dose beta sim. Once the mentation improved, may consider a stress test. We will follow with you. Thank you Dr. Mg for providing us the opportunity in taking care of Madisno León. I doubt it is an OK most likely secondary to rhabdomyolysis, but cannot rule out for sure that coronary ischemia, so once it stabilizes and the patient able to communicate, we will consider a stress test. For now, we will treat medically conservatively, DVT prophylaxis, and continue low dose beta-sim with blood pressure as tolerated. We will follow with you. As mentioned, consider tolvaptan. Tolvaptan is limited to renal, so a renal consult was placed for Dr. Harris. Lazaro Roldan MD
--- NOTE | 2017-10-09 15:26 | PN ---
DATE: SUBJECTIVE: The patient is currently seen in ICU, bed 5. She had hypotensive episodes during the night and is currently on low-dose Levophed. Her mental status appears to be improving. She will say hello and she will track people around the room. She is being treated for a lower extremity cellulitis. Her workup is consistent with a severe depletional hyponatremia. MEDICATIONS: Medication list reviewed. The patient is on acyclovir, D5 normal saline at 100 mL an hour, aspirin, heparin, Levophed, Lopressor, Tylenol, Protonix, Rocephin, Solu-Cortef and vancomycin. OBJECTIVE: INTAKE/OUTPUT: Intake 1601, output 200+. Weight is stable at 106 pounds. VITAL SIGNS: Blood pressure presently is 124/67 on Levophed, temperature is 98. Pulse is 91. Respiratory rate is 14 with a pulse ox of 96%. HEENT: Shows her to be normocephalic, atraumatic. Conjunctivae are pale. Sclerae are nonicteric. NECK: Supple. No neck vein distention. CHEST: Clear. No rales. No rhonchi or wheezing. CARDIOVASCULAR: Shows a regular rate and rhythm with no audible murmurs, rubs or gallops noted. ABDOMEN: Soft. Bowel sounds are normal. No rebound. No guarding or masses. EXTREMITIES: Show bilateral cellulitis of her lower extremity. Her legs are wrapped in dressings. No pitting edema. Diminished lower extremity pulses. NEURO: The patient appears to be alert, but completely disoriented and she is speaking in a nonsensible manner. LABORATORY DATA AND IMAGING: Repeat chest x-ray done today shows no acute pulmonary disease. Labs, CBC, white blood cell count down from 14.6 to 6.5, hemoglobin down from 14 to 10.4 with hydration. Platelet count is 376,000. Blood gas today pH 7.42, pCO2 of 24 with a pO2 of 95. Chemistries from today show a sodium which is slightly improved at 125. Potassium was 3.2 with magnesium of 1.8. The patient received potassium riders. CO2 is 17, which is stable. BUN is 50 with a creatinine of 0.5. Glucose is 74. Liver enzymes show a reduction in her AST to 60. Bilirubin is normal. CPK level is improved at 563, down from a high of 2530. Albumin is low at 2.0. Urine: Urine sodium was less than 5, urine osmolality was 605. Microbiology: Right leg wound cultures are pending. Blood cultures are negative at 24 hours. Urine cultures are negative. ASSESSMENT: 1. Altered mental status, in part secondary to sepsis, likely secondary to lower extremity cellulitis, complicated by metabolic factors, most significantly is severe profound hyponatremia. 2. Hyponatremia is depletional in nature. Not dilutional. The patient will continue receiving normal saline for both blood pressure support and for correction of her hyponatremia. No role for 3% saline as the sodium level is slowly increasing and she requires the IV fluid hydration. 3. Mild hypokalemia. The patient will continue receiving potassium supplements through K riders. I would have no issues placing potassium in her IV fluids. 4. Status post mild hypomagnesemia. This is corrected. 5. Status post mild rhabdomyolysis. The patient was found after having fallen at home lying on the floor. Her CPK level is significantly improved down to 566. 6. Possible early pneumonia. Repeat chest x-ray does not support this, but her chest CT showed infiltrates. 7. Lower extremity cellulitis. All cultures are pending. She will continue IV antibiotic therapy. 8. Hypotension during the last 24 hours requiring IV pressor support. The patient also has received Solu-Cortef. Her a.m. cortisol level was 32.1. I am not sure if this was done at the time that she was receiving Solu-Cortef. PLAN: 1. Continue to monitor accurate I's and O's. 2. Continue Levophed for blood pressures support at low dose. 3. Continue IV fluid normal saline and again from a renal standpoint we may add potassium chloride to her maintenance fluids. 4. No role for 3% here as her sodium level continues to increase and her mental status appears to be slowly improving. 5. Continue antibiotic therapy for a lower extremity cellulitis and possible pneumonia. 6. Continue to monitor labs on a daily basis. 7. Case discussed with ICU staff and house staff. 8. Greater than 35 minutes spent in the care of this critically ill patient. Josep Harris MD [facility] # [id number]
[2017-10-09] MEDS ORDERED: levETIRAcetam 500 MG in Sodium Chloride 0.9% 100 ML IV SCH (18:00)
--- NOTE | 2017-10-09 20:47 | PN ---
DATE: SUBJECTIVE: A 66-year-old female seen at bedside in ICU for continued evaluation and management of bilateral lower extremity cellulitis with accompanying bilateral venous stasis ulcerations. The patient has altered mental status and cannot answer questions. PHYSICAL EXAMINATION: VITAL SIGNS: Reveal temperature of 98.7, pulse rate of 91, blood pressure 124/67, respiratory rate of 14. EXTREMITIES: Weakly palpable pedal pulses noted bilaterally. There is noted to be multiple superficial ulcerations on both lower legs that are diffuse in nature. There is noted to be decreased purulent discharge emanating from the wounds along with serous drainage. There is noted to be malodor. None of the wounds probe to bone. There is no tunneling, no underlying abscess formation noted. LABORATORY DATA: Laboratory findings reveal a white count of 6.5, down from 14.6; hemoglobin of 10.4; hematocrit of 29.2; platelet count of 376. Wound culture taken of the right leg yesterday reveals no polymorphonuclear white blood cells and no organisms preliminarily. ASSESSMENT: Bilateral lower leg cellulitis secondary to multiple diffuse venous stasis ulcerations bilaterally. PLAN: The patient's legs were cleansed with normal sterile saline. An application of Lotrimin and Silvadene cream was applied to the legs and covered with sterile nonadherent gauze, sterile 4x4, abdominal pads, and Kerlix. We will continue with daily dressing changes while the patient is in-house. Dr. Carmona's note was read and appreciated. Dipesh Martin DPM
--- NOTE | 2017-10-09 22:26 | PN ---
DATE: SUBJECTIVE: Patient is 66-year-old, seen and examined. She seems to be more alert today. Failed swallowing evaluation, has Dobhoff tube placed. PHYSICAL EXAMINATION: VITAL SIGNS: She is afebrile, pulse 74, respirations 12, blood pressure 110/59. LUNGS: Bilateral fair airflow. No rhonchi or crackle. HEART: S1 and S2 audible. ABDOMEN: Soft, nontender. No rebound, no guarding. NEUROLOGIC: Patient is awake and alert, but not communicative; has slurred speech. EXTREMITIES: Bilateral legs +2 edema. Bilateral feet, she has swelling and erythema and cellulitis. LABORATORY DATA: WBC 6.5, hemoglobin 10.4, hematocrit 29.2, platelets 376. PT 11.2, INR 0.98, PTT 29.0. Chemistry, blood sugar is 87. Leg wound positive for Staphylococcus aureus and Gram-negative rods. Blood cultures are negative. X-ray chest, there is right internal jugular line that terminate at the junction of superior vena cava and right atrium. No pneumothorax. ASSESSMENT: 1. Altered mental status. 2. Hyponatremia. 3. Dysphagia. 4. Leukocytosis, improved. 5. Bilateral leg cellulitis. 6. Bilateral foot cellulitis. 7. Renal insufficiency, improving. 8. Positive troponin. PLAN: Currently, patient is on IV fluids. Dobhoff tube has been placed. We will start patient on PEG feeding. She is on seizure precaution. She is on Protonix. Patient is also on Rocephin and vancomycin. We will follow up CBC, CMP in a.m. Abelardo Mg MD
[2017-10-10] MEDS: Acyclovir 500 MG in Sodium Chloride 0.9% 100 ML IV SCH ×3 (05:06→21:13)
[2017-10-10] MEDS: Dextrose 5%/0.9% NS 1,000 ML IV SCH (05:10)
[2017-10-10 07:16] LABS: HEMOGLOBIN 11.5 g/dL (12.0-16.0); MEAN CELL VOLUME 82.3 fl (80.0-105.0); MEAN CORPUSCULAR HEMOGLOBIN 28.8 pg (25.0-35.0); MEAN PLATELET VOLUME 8.6 fl (7.0-11.0); RED CELL DISTRIBUTION WIDTH 13.6 % (11.5-14.5); WHITE BLOOD COUNT 5.5 10^3/ul (4.5-11.0)
[2017-10-10 07:40] LABS: TROPONIN I 0.05 ng/mL
[2017-10-10 07:42] LABS: ALB/GLOB RATIO 0.8 (1.1-1.8); ALBUMIN 2.3 g/dL (3.0-4.8); ALT/SGPT 72 U/L (7-56); AST/SGOT 64 U/L (14-36); BLOOD UREA NITROGEN 11 mg/dL (7-21); CALCIUM 9.2 mg/dL (8.4-10.5); GFR AFRICAN-AMERICAN > 60; GFR NON-AFRICAN AMERICAN > 60
[2017-10-10 07:59] LABS: CK MB% 2.9 % (2.5-3.0); CK-MB 15.7 ng/mL (0.0-3.6)
--- NOTE | 2017-10-10 08:31 | RAD ---
HISTORY: check NG placement.. COMPARISON: No prior. FINDINGS: LUNGS: No active pulmonary disease. PLEURA: No significant pleural effusion identified, no pneumothorax apparent. CARDIOVASCULAR: Normal. OSSEOUS STRUCTURES: No significant abnormalities. VISUALIZED UPPER ABDOMEN: Nasogastric tube in satisfactory position OTHER FINDINGS: There is a right internal jugular line in satisfactory position IMPRESSION: Nasogastric tube in satisfactory position
[2017-10-10] MEDS ORDERED: Potassium Chloride 20 mEq ER Tab PO ONE (08:37)
--- NOTE | 2017-10-10 08:58 | RAD ---
HISTORY: assess NGT placement COMPARISON: 10/09/2017 FINDINGS: LUNGS: Minimal bibasilar infiltrates or atelectasis PLEURA: No significant pleural effusion identified, no pneumothorax apparent. CARDIOVASCULAR: Normal. OSSEOUS STRUCTURES: No significant abnormalities. VISUALIZED UPPER ABDOMEN: The tip of the nasogastric tube is not visualized. The tube appears to be in satisfactory position within the stomach OTHER FINDINGS: None. IMPRESSION: As above
[2017-10-10] MEDS: cefTRIAXone 2 GM IN NS 2 GM/100 ML BAG IVPB SCH ×2 (09:21→21:14)
[2017-10-10] MEDS: Vancomycin 1gm in NS 250ml 1 GM/250 ML BAG IVPB SCH ×2 (09:39→21:13)
[2017-10-10] MEDS: Clotrimazole 1% Cream(30 gm) TOP SCH ×2 (10:00→18:12)
--- NOTE | 2017-10-10 13:21 | CP.PCM.PN ---
Subjective - Date & Time of Evaluation Date of Evaluation: 10/10/17 Time of Evaluation: 10:00 - Subjective Subjective: Patient is more awake today but still confused, no fevers, no diarrhea. Objective - Vital Signs/Intake and Output Vital Signs (last 24 hours): Temp Pulse Resp BP Pulse Ox 97.0 F L 103 H 19 135/73 95 10/10/17 06:00 10/10/17 06:00 10/10/17 06:00 10/10/17 05:44 10/10/17 07:05 Intake and Output: 10/10/17 10/10/17 06:59 18:59 Intake Total 1363 Output Total 450 Balance 913 - Medications Medications: Current Medications Aspirin (Ecotrin) 325 mg PO DAILY [facility] Last Admin: 10/09/17 12:26 Dose: 325 mg Heparin Sodium (Porcine) (Heparin) 5,000 units SC Q12 [facility]AX[facility] PRN Reason: Protocol Last Admin: 10/09/17 22:26 Dose: 5,000 units Hydrocortisone Sodium Succinate (Solu-Cortef) 50 mg IVP Q6 [facility] Last Admin: 10/10/17 05:05 Dose: 50 mg Vancomycin HCl (Vancomycin 1gm) 1 gm in 250 mls @ 167 mls/hr IVPB Q12H [facility]AXA PRN Reason: Protocol Stop: 10/16/17 19:46 Last Admin: 10/09/17 19:30 Dose: 167 mls/hr Acyclovir 500 mg/ Sodium (Chloride) 100 mls @ 100 mls/hr IV Q8 [facility]AXA PRN Reason: Protocol Stop: 10/16/17 22:01 Last Admin: 10/10/17 05:06 Dose: 100 mls/hr Ceftriaxone Sodium (Rocephin 2 Gm Ivpb) 2 gm in 100 mls @ 100 mls/hr IVPB Q12 [facility]AX[facility] PRN Reason: Protocol Stop: 10/17/17 22:01 Last Admin: 10/09/17 22:24 Dose: 100 mls/hr Acetaminophen (Ofirmev) 1,000 mg in 100 mls @ 400 mls/hr IVPB Q6H PRN PRN Reason: Temperature >100.4F Stop: 10/10/17 17:41 Dextrose/Sodium Chloride (Dextrose 5%/0.9% Ns 1000 Ml) 1,000 mls @ 100 mls/hr IV .Q10H [facility] Last Admin: 10/10/17 05:10 Dose: 100 mls/hr NOREPINEPHRINE BIT/0.9 % NACL (Levophed 4 Mg/ 250 Ml Ns Premixed) 4 mg in 250 mls @ 15 mls/hr IV .[id number] PRN; Protocol; 4 MCG/MIN PRN Reason: TITRATE PER MD ORDER Last Titration: 10/10/17 04:45 Dose: 0 mcg/min, 0 mls/hr Metoprolol Tartrate (Lopressor) 12.5 mg PO BID [facility] Last Admin: 10/09/17 17:28 Dose: Not Given Midodrine (Proamatine) 10 mg PO TID [facility] Pantoprazole Sodium (Protonix Inj) 40 mg IVP DAILY [facility] Last Admin: 10/09/17 09:21 Dose: 40 mg - Labs Labs: 10/10/17 06:00 10/10/17 06:00 PT 11.2 SECONDS (9.4-12.5) 10/07/17 15:00 INR 0.98 (0.93-1.08) 10/07/17 15:00 APTT 29.1 Seconds (25.1-36.5) 10/07/17 15:00 - Constitutional Appears: Chronically Ill, Other (awake but still confused) - Head Exam Head Exam: NORMAL INSPECTION - Neck Exam Neck Exam: absent: Meningismus Additional comments: right IJ TLC site clean and intact - Respiratory Exam Respiratory Exam: Decreased Breath Sounds - Cardiovascular Exam Cardiovascular Exam: +S1, +S2 - GI/Abdominal Exam GI & Abdominal Exam: Soft. 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 Cheatham regarding lumbar puncture and ICU team will be doing it once consent has been obtained
--- NOTE | 2017-10-10 13:46 | PN ---
DATE: SUBJECTIVE: The patient is currently seen lying comfortable in ICU, bed 5. The patient had been downgraded. She is awaiting transfer out of the ICU. She appears to be significantly improved. She appears to be answering questions appropriately. Her mental status appears to be back to baseline. Biochemically, the patient is significantly better. Her sodium level is up to 134. Potassium level today was 3.5. Renal parameters remained normal. MEDICATIONS: Medication list reviewed. The patient is currently on acyclovir, aspirin, D5 normal saline 100 mL an hour, heparin, Lopressor, Lotrimin, Protonix, Rocephin, Solu-Cortef and vancomycin. OBJECTIVE: INTAKE/OUTPUT: Intake 5414. Output 1325. VITAL SIGNS: Blood pressure 122/68, temperature 97, respiratory rate 19 with a pulse of 95, pulse ox is 95%. HEENT: Normocephalic, atraumatic. Conjunctivae are pink. Sclerae nonicteric. NECK: Supple. No neck vein distention. CHEST: Clear to auscultation and percussion. No rales, rhonchi or wheezing. CARDIOVASCULAR: Shows a regular rate and rhythm without audible murmurs, rubs or gallops. ABDOMEN: Soft. Bowel sounds normal. No rebound, guarding or masses. EXTREMITIES: Show significant bilateral lower extremity cellulitis. Legs are wrapped in dressings. No pitting edema. Diminished lower extremity pulses. NEURO: Shows her to be responsive and alert. Answering questions appropriately. LABORATORY DATA AND IMAGING: CBC today: White blood cell count 5.5, hemoglobin 11.5. Platelet count is 365,000. Chemistries today show sodium of 134, up from a low of 110; potassium 3.5. Chloride 108, CO2 of 19. BUN 11 with a creatinine of 0.4. Glucose is 134. Calcium 9.2, phosphorus 3, magnesium 1.7. Liver enzymes continued to improve. Albumin level is low at 2.3. Microbiology: Leg cultures are positive for Staph aureus and a gram-negative zurdo. Final isolation and sensitivities are pending. Urine cultures were negative. ASSESSMENT: 1. Altered mental status. This has improved with treatment of her lower extremity cellulitis and her metabolic abnormalities. Hyponatremia has improved. Hypokalemia has improved. 2. Hyponatremia, depletional in nature. The patient may continue receiving normal saline. I will decrease her IV fluid rate and the patient may receive potassium in her IV fluids. 3. Mild hypokalemia. Normal magnesium level. Again, we will supplement with potassium in her IV fluids. 4. Status post rhabdomyolysis. The patient had a fall at home and was on the floor for an undetermined period of time. Her CPK today is mildly elevated at 543, down from a high of 2530 on admission. 5. Possible early pneumonia. Chest x-ray does not support this with follow-up x-ray is being done. 6. Lower extremity cellulitis. All final cultures are pending. The patient will continue IV antibiotic therapy. 7. Status post hypotension. From my standpoint, Solu-Cortef can be discontinued. Likely, her a.m. cortisol level was elevated secondary to receiving IV Solu-Cortef. PLAN: 1. The patient is completely stable from a renal standpoint. She is metabolically back to baseline. 2. I will decrease her IV fluids and we could add a small amount of potassium. Once her oral intake is adequate, IV fluids can be discontinued altogether. 3. Complete a course of antibiotic therapy for lower extremity cellulitis. 4. Agree with transfer out of the ICU. 5. We will follow the patient on an as-needed basis. Thank you for allowing us to share in the care of your patient. Josep Harris MD
--- NOTE | 2017-10-10 13:49 | CP.CCUPN ---
CCU Subjective - Physician Review Events Since Last Encounter (Free Text): Assessment: 66 year old female with sepsis likely secondary to bacteremia from lower extremity cellulitis, with AMS, hyponatremia, elevated CPK, and elevated tropnins which are trending down. Plan: Neuro -AMS, AAx0 -Initial CT negative, will possibly repeat imagine -Neuro consulted, Chaparrita, follow recs -EEG not significant -possible LP tomorrow Cardio: -echo yesterday showing trace atrial and mitral regurg -hypotension, continue to monitor -2 L LR infused, not responsive -central line right IJ -started levofed, hydrocortisone -continue meds Renal: -Sodium improving to 125, continue to monitor -CPK 563, also improving -continue fluids -Nephro consulted, Kimberly, follow recs Pulm: -satruting well -mantain sat%> 92% Endo: -had episode of low blood sugar -maintain euglycemia -monitor blood glucose -accucheck Q4 ID: -continue current abx pending blood cultures -Procal penidng -WBC downtrending -Id consulted, Vishal, follow recs -possible LP tomorrow GI: -NG tube inserted, placement confirmed with xray -possible tube feeds to start Podiatry: -cx pending -podiatry consulted, follow recs -continue abx Prophylaxis -heparin -protonix 10/10/17 13:49 Subjective (Free Text): Patient seen and evaluated bedside. Patient more alert and awake than yesterday. Patient saays she feels good/, denies any pain. Unable to follow commands still. Full ROS unobtainable at this time. No acute issues overnight. 10/10/17 13:45 CCU Objective - Vital Signs / Intake & Output Intake and Output (Last 8hrs): Intake & Output 10/09/17 10/10/17 10/10/17 22:59 06:59 14:59 Intake Total 2469 1344 Output Total 675 450 Balance 1794 894 Weight 117 lb Intake: IV 2469 894 Left Hand 2000 850 Right Hand 450 Oral 0 0 Tube Feeding 0 TPN/PPN 0 Blood Product 0 Lipid 0 Albumin 0 Other 450 Output: Urine 675 450 Urethral (Knapp) 675 450 Stool 0 Urine/Stool Mix 0 Emesis 0 Oral Regurgitation 0 Other 0 Other: # Voids Urethral (Knapp) 0 # Bowel Movements 0 - Physical Exam Head: Positive for: Atraumatic, Normocephalic Pupils: Positive for: PERRL Extroacular Muscles: Positive for: EOMI Conjunctiva: Positive for: Normal Ears: Positive for: NORMAL TM, Normal Canal. Negative for: Erythema Mouth: Positive for: Moist Mucous Membranes Pharnyx: Negative for: ERYTHEMA, EXUDATE, TONSILS ENLARGED Neck: Positive for: Other (right IJ triple lumen in place) Respiratory/Chest: Positive for: Good Air Exchange Cardiovascular: Positive for: Normal S1, S2, Tachycardic. Negative for: Murmurs Abdomen: Positive for: Normal Bowel Sounds. Negative for: Tenderness, Distention, Peritoneal Signs Upper Extremity: Positive for: Normal Inspection. Negative for: Cyanosis, Edema Lower Extremity: Positive for: Erythema, Other (Severe bilateral lower extremity erythema with blanching and flaking rash) Neurological: Positive for: Other (Speech is still garbled. ) Skin: Positive for: Erythematous (Erythematous areas on bilateral shoulders and upper back, consistent with lying on the floor. On bilateral proximal tibia distally, erythamatous, swollen, and warm with excoriations, blanching, and flaking rash.) Psychiatric: Positive for: Alert. Negative for: Oriented x 3 - Medications Active Medications: Active Medications Generic Name Dose Route Start Last Admin Trade Name Freq PRN Reason Stop Dose Admin Aspirin 325 mg 10/10/17 10:00 Aspirin PO DAILY [facility] Clotrimazole 1 gm 10/10/17 10:00 Lotrimin 1% TOP BID [facility] Heparin Sodium (Porcine) 5,000 units 10/07/17 22:00 10/10/17 09:26 Heparin SC 5,000 units Q12 [facility]AX[facility] Administration Protocol Hydrocortisone Sodium Succinate 50 mg 10/10/17 22:00 Solu-Cortef IVP Q12 DAX[facility] Acyclovir 500 mg/ Sodium 100 mls @ 100 mls/hr 10/07/17 22:00 10/10/17 05:06 Chloride IV 10/16/17 22:01 100 mls/hr Q8 [facility] Administration Protocol Ceftriaxone Sodium 2 gm in 100 mls @ 100 mls/hr 10/08/17 22:00 10/10/17 09:21 Rocephin 2 Gm Ivpb IVPB 10/17/17 22:01 100 mls/hr Q12 [facility]AX[facility] Administration Protocol Vancomycin HCl 1 gm in 250 mls @ 167 mls/hr 10/10/17 10:00 10/10/17 09:39 Vancomycin 1gm IVPB 10/19/17 10:01 167 mls/hr Q12 [facility] Administration Protocol Potassium Chloride 10 meq/ 1,005 mls @ 60 mls/hr 10/10/17 12:03 Dextrose/Sodium Chloride IV .[id number] [facility] Metoprolol Tartrate 12.5 mg 10/08/17 12:15 10/10/17 09:29 Lopressor PO 12.5 mg BID [facility] Administration Pantoprazole Sodium 40 mg 10/08/17 10:00 10/10/17 09:25 Protonix Inj IVP 40 mg DAILY [facility] Administration - Patient Studies Lab Studies: Microbiology Studies 10/07/17 19:30 MRSA Culture (Admit) - Final Naris MRSA NOT DETECTED 10/08/17 09:33 Gram Stain - Preliminary Leg - Right Wound Culture - Preliminary Staphylococcus Aureus Gram Negative Joni Lab Studies 10/10/17 10/10/17 10/10/17 Range/Units 06:00 06:00 05:24 WBC 5.5 (4.5-11.0) 10^3/ul RBC 4.00 (3.5-6.1) 10^6/uL Hgb 11.5 L (12.0-16.0) g/dL Hct 32.9 L (36.0-48.0) % MCV 82.3 (80.0-105.0) fl MCH 28.8 (25.0-35.0) pg MCHC 35.0 (31.0-37.0) g/dl RDW 13.6 (11.5-14.5) % Plt Count 365 (120.0-450.0) 10^3/uL MPV 8.6 (7.0-11.0) fl Sodium 134 (132-148) mmol/L Potassium 3.5 L (3.6-5.0) mmol/L Chloride 108 H (98-107) mmol/L Carbon Dioxide 19 L (21-33) mmol/L Anion Gap 10 (10-20) BUN 11 (7-21) mg/dL Creatinine 0.4 L (0.7-1.2) mg/dl Est GFR ( Amer) > 60 Est GFR (Non-Af Amer) > 60 POC Glucose (mg/dL) 134 H (65-110) mg/dL Random Glucose 134 H (70-110) mg/dL Calcium 9.2 (8.4-10.5) mg/dL Phosphorus 3.0 (2.5-4.5) mg/dL Magnesium 1.7 (1.7-2.2) mg/dL Total Bilirubin 0.2 (0.2-1.3) mg/dL AST 64 H (14-36) U/L ALT 72 H (7-56) U/L Alkaline Phosphatase 176 H D (38-126) U/L Lactate Dehydrogenase 759 H (333-699) U/L Total Creatine Kinase 543 H (35-230) U/L CK-MB (CK-2) 15.7 H (0.0-3.6) ng/mL CK-MB (CK-2) % 2.9 (2.5-3.0) % Troponin I 0.05 D ng/mL Total Protein 5.1 L (5.8-8.3) g/dL Albumin 2.3 L (3.0-4.8) g/dL Globulin 2.8 gm/dL Albumin/Globulin Ratio 0.8 L (1.1-1.8) Cortisol AM Sample (4.46-22.7) ug/dL 10/09/17 10/09/17 10/09/17 Range/Units 22:25 17:57 05:45 WBC (4.5-11.0) 10^3/ul RBC (3.5-6.1) 10^6/uL Hgb (12.0-16.0) g/dL Hct (36.0-48.0) % MCV (80.0-105.0) fl MCH (25.0-35.0) pg MCHC (31.0-37.0) g/dl RDW (11.5-14.5) % Plt Count (120.0-450.0) 10^3/uL MPV (7.0-11.0) fl Sodium (132-148) mmol/L Potassium (3.6-5.0) mmol/L Chloride (98-107) mmol/L Carbon Dioxide (21-33) mmol/L Anion Gap (10-20) BUN (7-21) mg/dL Creatinine (0.7-1.2) mg/dl Est GFR ( Amer) Est GFR (Non-Af Amer) POC Glucose (mg/dL) 129 H 132 H (65-110) mg/dL Random Glucose (70-110) mg/dL Calcium (8.4-10.5) mg/dL Phosphorus (2.5-4.5) mg/dL Magnesium (1.7-2.2) mg/dL Total Bilirubin (0.2-1.3) mg/dL AST (14-36) U/L ALT (7-56) U/L Alkaline Phosphatase (38-126) U/L Lactate Dehydrogenase (333-699) U/L Total Creatine Kinase (35-230) U/L CK-MB (CK-2) (0.0-3.6) ng/mL CK-MB (CK-2) % (2.5-3.0) % Troponin I ng/mL Total Protein (5.8-8.3) g/dL Albumin (3.0-4.8) g/dL Globulin gm/dL Albumin/Globulin Ratio (1.1-1.8) Cortisol AM Sample 32.1 H (4.46-22.7) ug/dL Laboratory Results - last 24 hr 10/09/17 10/09/17 10/09/17 05:45 17:57 22:25 WBC RBC Hgb Hct MCV MCH MCHC RDW Plt Count MPV Sodium Potassium Chloride Carbon Dioxide Anion Gap BUN Creatinine Est GFR ( Amer) Est GFR (Non-Af Amer) POC Glucose (mg/dL) 132 H 129 H Random Glucose Calcium Phosphorus Magnesium Total Bilirubin AST ALT Alkaline Phosphatase Lactate Dehydrogenase Total Creatine Kinase CK-MB (CK-2) CK-MB (CK-2) % Troponin I Total Protein Albumin Globulin Albumin/Globulin Ratio Cortisol AM Sample 32.1 H 10/10/17 10/10/17 10/10/17 05:24 06:00 06:00 WBC 5.5 RBC 4.00 Hgb 11.5 L Hct 32.9 L MCV 82.3 MCH 28.8 MCHC 35.0 RDW 13.6 Plt Count 365 MPV 8.6 Sodium 134 Potassium 3.5 L Chloride 108 H Carbon Dioxide 19 L Anion Gap 10 BUN 11 Creatinine 0.4 L Est GFR ( Amer) > 60 Est GFR (Non-Af Amer) > 60 POC Glucose (mg/dL) 134 H Random Glucose 134 H Calcium 9.2 Phosphorus 3.0 Magnesium 1.7 Total Bilirubin 0.2 AST 64 H ALT 72 H Alkaline Phosphatase 176 H D Lactate Dehydrogenase 759 H Total Creatine Kinase 543 H CK-MB (CK-2) 15.7 H CK-MB (CK-2) % 2.9 Troponin I 0.05 D Total Protein 5.1 L Albumin 2.3 L Globulin 2.8 Albumin/Globulin Ratio 0.8 L Cortisol AM Sample EKG/Cardiology Studies: Cardiology / EKG Studies 10/10/17 08:00 ELECTROCARDIOGRAM DAILY Comment: Reason For Exam: ACS PERFORMING PHYSICIAN/PROVIDER:: Lazaro Roldan Fingerstick Blood Sugar Results: 134 Review of Systems - Review of Systems Review of Systems: unable to obtain Assessment/Plan - Assessment and Plan (Free Text) Assessment: 66 year old female with sepsis likely secondary to bacteremia from lower extremity cellulitis, with AMS, hyponatremia, elevated CPK, and elevated troponins which are trending down. Plan: Neuro -alert,not oriented to person, not place or time -Neuro consulted, Chaparrita, follow recs -follow mental status Cardio: -normotensive -continue to monitor -central line right IJ -D/C levofed, hydrocortisone -continue meds Renal: -Sodium 134 -CPK level improving -continue fluids -Nephro consulted, Kimberly, follow recs -follow and replenish electrolytes as needed Pulm: -saturating well -mantain sat%> 92% Endo: -maintain euglycemia -monitor blood glucose -accucheck Q4 ID: -continue current abx pending blood cultures -WBC downtrending -Id consulted, Vishal, follow recs GI: -NG tube inserted -possible tube feeds to start Podiatry: -wound cultures showing staph aureus -podiatry consulted, follow recs -continue abx Prophylaxis -heparin -protonix
--- NOTE | 2017-10-10 14:43 | PN ---
DATE: REASON FOR DICTATION: Admitted with altered mental status, rhabdomyolysis, positive troponin, rule out non-ST segment myocardial infarction, rule out acute coronary syndrome. SUBJECTIVE: Patient is awake and alert, responded to verbal stimuli. She is okay, but still confused. She thinks she is at home, but denies any chest pain, denies any shortness of breath, denies any palpitation. OBJECTIVE: GENERAL: Not in apparent distress, Dobhoff tube is in place for the Bumex. VITAL SIGNS: Temperature afebrile, heart rate 103, blood pressure 135/73. HEENT: PERRLA, intact. NECK: Supple. No carotid bruit or thyromegaly. CHEST: Clear to auscultation. HEART: S1 and S2, regular. ABDOMEN: Soft. EXTREMITIES: Clubbing and cyanosis negative. LABORATORY DATA: Blood workup as follows; WBC 5.5, hemoglobin 11.3, hematocrit 32.9, platelet count 365. Chemistry shows sodium 134, potassium 3.5, chloride 108, carbon dioxide 19, anion gap of 10. BUN 11, creatinine 0.4. Troponin 0.05. CPK still elevated at 543. Total protein 5.1, albumin 2.3, albumin-globulin ratio 0.8. IMPRESSION: Hyponatremia, improved; hypokalemia, still there; rhabdomyolysis; altered mental status; bilateral leg cellulitis; bilateral foot cellulitis; sepsis. Blood culture so far is negative. Positive troponin. Increase of could be secondary to rhabdomyolysis because CPK-MB fraction was low, but cannot rule out underlying coronary artery disease, non ST elevation myocardial infarction, but patient has no anginal symptoms. Admitted with multiple medical comorbidity including severe hypokalemia, hyponatremia, altered mental status with shaking. Echo was done yesterday that showed ejection fraction 55% to 60%, trace aortic regurgitation, trace mitral regurgitation, trace pulmonary insufficiency, mild tricuspid regurgitation, right ventricular systolic pressure of 47. RECOMMENDATION: Treat aggressively medically. No plan for invasive cardiac workup. Since the patient with Dobhoff tube, we will start beta-sim 25 p.o. b.i.d. and continue DVT prophylaxis. Supplement potassium aggressively and start feeding through the NG tube. Discontinue IV fluid. Improve nutrition support. Patient has a protein calorie malnutrition, severe, 2.3, which was not present on admission. Overall, patient is going to be treated medically. We will increase beta-sim as blood pressures tolerate because patient is already for now 12.5 b.i.d. We will start Ensure Clear one can four times a day. Lazaro Roldan MD cc: Abelardo Mg MD
[2017-10-10] MEDS: Potassium Chloride 10 MEQ in Dextrose 5%/0.9% NS 1,000 ML IV SCH (17:46)
--- NOTE | 2017-10-10 20:14 | PN ---
DATE: SUBJECTIVE: Patient is 66 years old, much more awake and alert, much communicative, able to answer questions, but still mumble at times, cannot put information together. PHYSICAL EXAMINATION: VITAL SIGNS: She is afebrile, pulse 104, respirations 29, blood pressure 116/58. LUNGS: Bilateral fair air flow. No rhonchi or crackle. HEART: S1 and S2 audible. ABDOMEN: Soft, nontender. No rebound. No guarding. She has a Dobhoff tube in place. EXTREMITIES: Bilateral legs, +2 edema. Bilateral leg ulcers. Bilateral foot ulcers. LABORATORY EXAM: WBC 5.5, hemoglobin 11.5, hematocrit 32.9, and platelets 365. Chemistry: Sodium 134, potassium 3.5, chloride 108, CO2 of 19. BUN 11, creatinine 0.4. Blood sugar of 157. AST 64, ALT 72, alkaline phosphatase 172. LDH 769. ASSESSMENT: 1. Status post altered mental status. 2. Status post metabolic encephalopathy. 3. Status post hyponatremia. 4. Failed swallowing evaluation. CT scan showed no evidence of cerebrovascular accident. 5. Resolved rhabdomyolysis. 6. Bilateral leg ulcers. PLAN: Currently, patient is on IV antibiotics. We will continue on IV fluid, Lasix, heparin, potassium, and metoprolol. Also on Rocephin 2 g daily, vancomycin, and acyclovir. We will follow up this patient in a.m. Abelardo Mg MD
--- NOTE | 2017-10-10 22:52 | PN ---
DATE: 10/10/2017 SUBJECTIVE: This is a 66-year-old female seen in the ICU for bilateral lower extremity ulcerations. The patient is seen at bedside. She does not answer questions. The patient appears to be chronically ill. She has her dressings clean, dry and in place on both feet. The patient has severe sepsis with acute encephalopathy from the both bilateral lower extremity ulcerations. They all work inpatient in order to rule out BACTERIOLOGY RESEARCH ASSISTANT infection such as meningoencephalitis, which also may be causing these confusion the patient is having. PHYSICAL EXAMINATION VITAL SIGNS: The patient's temperature was 98.2, the pulse was 104 and the respirations were 29. LABORATORY DATA: The patient's labs were reviewed. Her white blood cell count is down to 5.5. The hemoglobin and hematocrit is 11.5 and 32.9 respectively. Her chemistry shows a BUN and creatinine of 11 and 0.4 and the glucose was 134. Her AST, ALT, and alkaline phosphatase are all elevated as was her lactate dehydrogenase and total creatine kinase and the too. The patient's microbiology is back for Staph aureus and Enterobacter cloacae and she did not have MRSA detected in her nares. The patient's blood cultures, blood so far no growth after 3 days. The urine also was no growth. The patient's lower extremities were evaluated. Her lower extremities have the dressings clean, dry and intact. Upon removal, there was a lot of Silvadene applied to the legs and Tegaderm was placed on top of it causing maceration of the wound tissue. Using moist towelettes, this area was then cleansed and a lot of the secondary scaling did slough off with the cleansing of the legs today. She has multiple wounds on both legs and it encompasses the mid portion of both legs from the upper calf to the ankle area. There is also secondary scaling with thick scales on both feet. Again, using moistened towelettes, a lot of the scaling was removed at today's visits. ASSESSMENT: Cellulitis with infected leg wounds. PLAN: Plan of treatment is to cleanse the legs daily with soap and water with a normal saline rinse. We are putting Lotrimin and the Lotrimin might now will be located to the feet bilateral as the legs are still too for any type of cream at this time. Xeroform with dry sterile dressing will be applied. Her feet are offloaded from the bed with pillows and she will be seen in followup. Leonor Briones DPM
[2017-10-11] MEDS: Acyclovir 500 MG in Sodium Chloride 0.9% 100 ML IV SCH ×3 (05:07→21:24)
[2017-10-11 07:16] LABS: HEMOGLOBIN 10.5 g/dL (12.0-16.0); MEAN CELL VOLUME 82.5 fl (80.0-105.0); MEAN CORPUSCULAR HEMOGLOBIN 29.1 pg (25.0-35.0); MEAN CORPUSCULAR HGB CONC 35.2 g/dl (31.0-37.0); MEAN PLATELET VOLUME 8.5 fl (7.0-11.0); RBC 3.61 10^6/uL (3.5-6.1); RED CELL DISTRIBUTION WIDTH 13.7 % (11.5-14.5); WHITE BLOOD COUNT 6.2 10^3/ul (4.5-11.0)
[2017-10-11 07:38] LABS: TROPONIN I 0.03 ng/mL
[2017-10-11 07:44] LABS: ALB/GLOB RATIO 0.8 (1.1-1.8); ALBUMIN 2.1 g/dL (3.0-4.8); ALT/SGPT 66 U/L (7-56); AST/SGOT 45 U/L (14-36); BLOOD UREA NITROGEN 12 mg/dL (7-21); CALCIUM 9.2 mg/dL (8.4-10.5); GFR AFRICAN-AMERICAN > 60; GFR NON-AFRICAN AMERICAN > 60
--- NOTE | 2017-10-11 10:46 | CARD ---
APPROVED REPORT EKG Measurement Heart [id number] PA 140P21 [id number] <Conclusion> Sinus tachycardia Baseline artifact Probably no change
--- NOTE | 2017-10-11 11:07 | CP.PCM.PN ---
Subjective - Date & Time of Evaluation Date of Evaluation: 10/11/17 Time of Evaluation: 09:00 - Subjective Subjective: Seen and examined by me and Dr. Roldan Reason for consultation and follow up: Positive troponin, ruled out non ST segment myocardial infarction,rule out acute coronary syndrome Subjective: Denies chest pain and shortness of breath, awake, alert, responds to verbal stimuli but confused. Objective - Vital Signs/Intake and Output Vital Signs (last 24 hours): Temp Pulse Resp BP Pulse Ox 97.9 F 97 H 14 125/69 93 L 10/11/17 05:50 10/11/17 06:00 10/11/17 05:50 10/11/17 05:05 10/11/17 05:50 - Medications Medications: Current Medications Aspirin (Aspirin) 325 mg PO DAILY [facility] Last Admin: 10/10/17 10:00 Dose: 325 mg Clotrimazole (Lotrimin 1%) 1 gm TOP BID [facility] Last Admin: 10/10/17 18:12 Dose: Not Given Heparin Sodium (Porcine) (Heparin) 5,000 units SC Q12 [facility] PRN Reason: Protocol Last Admin: 10/10/17 21:14 Dose: 5,000 units Hydrocortisone Sodium Succinate (Solu-Cortef) 50 mg IVP Q12 [facility] Last Admin: 10/10/17 21:17 Dose: 50 mg Acyclovir 500 mg/ Sodium (Chloride) 100 mls @ 100 mls/hr IV Q8 [facility] PRN Reason: Protocol Stop: 10/16/17 22:01 Last Admin: 10/11/17 05:07 Dose: 100 mls/hr Ceftriaxone Sodium (Rocephin 2 Gm Ivpb) 2 gm in 100 mls @ 100 mls/hr IVPB Q12 [facility] PRN Reason: Protocol Stop: 10/17/17 22:01 Last Admin: 10/10/17 21:14 Dose: 100 mls/hr Vancomycin HCl (Vancomycin 1gm) 1 gm in 250 mls @ 167 mls/hr IVPB Q12 [facility] PRN Reason: Protocol Stop: 10/19/17 10:01 Last Admin: 10/10/17 21:13 Dose: 167 mls/hr Potassium Chloride 10 meq/ (Dextrose/Sodium Chloride) 1,005 mls @ 60 mls/hr IV .[id number] [facility] Last Admin: 10/10/17 17:46 Dose: 60 mls/hr Potassium Chloride (Potassium Chloride 10 Meq/100 Ml) 10 meq in 100 mls @ 50 mls/hr IVPB ONCE ONE Stop: 10/11/17 12:41 Metoprolol Tartrate (Lopressor) 12.5 mg PO BID [facility] Last Admin: 10/10/17 18:16 Dose: 12.5 mg Pantoprazole Sodium (Protonix Inj) 40 mg IVP DAILY [facility] Last Admin: 10/10/17 09:25 Dose: 40 mg - Labs Labs: 10/11/17 05:50 10/11/17 05:50 PT 11.2 SECONDS (9.4-12.5) 10/07/17 15:00 INR 0.98 (0.93-1.08) 10/07/17 15:00 APTT 29.1 Seconds (25.1-36.5) 10/07/17 15:00 - Constitutional Appears: Well, No Acute Distress - Head Exam Head Exam: NORMAL INSPECTION - Eye Exam Eye Exam: Normal appearance Pupil Exam: NORMAL ACCOMODATION - ENT Exam ENT Exam: Mucous Membranes Moist - Respiratory Exam Respiratory Exam: Decreased Breath Sounds, NORMAL BREATHING PATTERN - Cardiovascular Exam Cardiovascular Exam: REGULAR RHYTHM, +S1, +S2 - GI/Abdominal Exam GI & Abdominal Exam: Soft, Normal Bowel Sounds - Extremities Exam Extremities Exam: Normal Capillary Refill, Normal Inspection - Neurological Exam Neurological Exam: Alert, Awake - Psychiatric Exam Psychiatric exam: Normal Affect - Skin Skin Exam: Intact, Normal Color, Warm Assessment and Plan - Assessment and Plan (Free Text) Assessment: IMPRESSION: altered mental status, bilateral leg cellulitis,sepsis, positive troponin may be secondary to rhabdomyolysis, CPK-MB was low, non ST elevation myocardial infarction.hypotension Plan: Treat medically, no plan for invasive work up Continue current treatment,still in ICU Was on Levophed for hypotension Blood pressure stable ,Will increase Lopressor 25 mg OD Continue ASA 325 mg daily,Heparin 5000 units subcutaneous Will follow up Plan and treatment reviewed with Dr. Roldan
[2017-10-11] MEDS: Clotrimazole 1% Cream(30 gm) TOP SCH ×2 (11:12→17:56)
[2017-10-11] MEDS: Vancomycin 1gm in NS 250ml 1 GM/250 ML BAG IVPB SCH ×2 (12:56→21:25)
[2017-10-11] MEDS: cefTRIAXone 2 GM IN NS 2 GM/100 ML BAG IVPB SCH (12:57)
--- NOTE | 2017-10-11 14:54 | CP.PCM.PN ---
Subjective - Date & Time of Evaluation Date of Evaluation: 10/11/17 Time of Evaluation: 10:00 - Subjective Subjective: Patient is more awake today but still with confusion, no fevers. Objective - Vital Signs/Intake and Output Vital Signs (last 24 hours): Temp Pulse Resp BP Pulse Ox 97.9 F 97 H 14 125/69 93 L 10/11/17 05:50 10/11/17 06:00 10/11/17 05:50 10/11/17 05:05 10/11/17 05:50 - Medications Medications: Current Medications Aspirin (Aspirin) 325 mg PO DAILY [facility] Last Admin: 10/10/17 10:00 Dose: 325 mg Clotrimazole (Lotrimin 1%) 1 gm TOP BID [facility] Last Admin: 10/10/17 18:12 Dose: Not Given Heparin Sodium (Porcine) (Heparin) 5,000 units SC Q12 [facility] PRN Reason: Protocol Last Admin: 10/10/17 21:14 Dose: 5,000 units Hydrocortisone Sodium Succinate (Solu-Cortef) 50 mg IVP Q12 [facility] Last Admin: 10/10/17 21:17 Dose: 50 mg Acyclovir 500 mg/ Sodium (Chloride) 100 mls @ 100 mls/hr IV Q8 [facility] PRN Reason: Protocol Stop: 10/16/17 22:01 Last Admin: 10/11/17 05:07 Dose: 100 mls/hr Ceftriaxone Sodium (Rocephin 2 Gm Ivpb) 2 gm in 100 mls @ 100 mls/hr IVPB Q12 [facility] PRN Reason: Protocol Stop: 10/17/17 22:01 Last Admin: 10/10/17 21:14 Dose: 100 mls/hr Vancomycin HCl (Vancomycin 1gm) 1 gm in 250 mls @ 167 mls/hr IVPB Q12 [facility] PRN Reason: Protocol Stop: 10/19/17 10:01 Last Admin: 10/10/17 21:13 Dose: 167 mls/hr Potassium Chloride 10 meq/ (Dextrose/Sodium Chloride) 1,005 mls @ 60 mls/hr IV .[id number] [facility] Last Admin: 10/10/17 17:46 Dose: 60 mls/hr Metoprolol Tartrate (Lopressor) 12.5 mg PO BID [facility] Last Admin: 10/10/17 18:16 Dose: 12.5 mg Pantoprazole Sodium (Protonix Inj) 40 mg IVP DAILY [facility] Last Admin: 10/10/17 09:25 Dose: 40 mg - Labs Labs: 10/10/17 06:00 10/10/17 06:00 PT 11.2 SECONDS (9.4-12.5) 10/07/17 15:00 INR 0.98 (0.93-1.08) 10/07/17 15:00 APTT 29.1 Seconds (25.1-36.5) 10/07/17 15:00 - Constitutional Appears: Chronically Ill - Head Exam Head Exam: NORMAL INSPECTION - Neck Exam Neck Exam: absent: Meningismus - Respiratory Exam Respiratory Exam: Decreased Breath Sounds - Cardiovascular Exam Cardiovascular Exam: +S1, +S2 - GI/Abdominal Exam GI & Abdominal Exam: Soft. absent: Tenderness - Extremities Exam Additional comments: both feet with dressings in place Assessment and Plan - Assessment and Plan (Free Text) Plan: Assessment severe sepsis with acute encephalopathy from bilateral lower extremity cellulitis (growing MSSA and Enterobacter), R/O NETWORK APPLICATIONS SPECIALIST infection such as meningoencephalitis (encephalopathy may also be metabolic - hyponatremia) Plan continue Vancomycin, Cefepime and Acyclovir day 4; blood cx are negative, wound cx showing methicillin-sensitive Staph aureus and Enterobacter, reviewed CT chest which shows non-specific consolidations at the bases would suggest lumbar puncture and CSF analysis as well as MRI brain with and without contrast will continue to monitor clinically
--- NOTE | 2017-10-11 17:47 | PN ---
DATE: SUBJECTIVE: The patient is a 66-year-old, seen and examined, looks much more alert, still confabulate to answer simple question; however, she is much more alert as compared to last two to three days, was able to tolerate oral feeding. PHYSICAL EXAMINATION VITAL SIGNS: The patient is afebrile, pulse 89, respirations 14, blood pressure 148/75. LUNGS: Bilateral fair airflow. No rhonchi or crackle. HEART: S1 and S2 audible. ABDOMEN: Soft, nontender. No rebound, no guarding. NEUROLOGIC: She is awake and alert, but confused, disoriented. EXTREMITIES: Bilateral legs, she has edema with ulcer. Bilateral feet, she has ulcer on the toes. LABORATORY DATA: WBC is 6.2, hemoglobin 10.5, hematocrit 29.8, platelets 262,000. Chemistry: Sodium 139, potassium 3.4, chloride 113, CO2 30, BUN 12, creatinine 0.5, blood sugar of 109. AST 45, ALT 66, alkaline phosphatase is 172. Leg wound positive for Staphylococcus aureus and Enterobacter cloacae. ASSESSMENT AND PLAN: Continue the patient on current medications, local wound care. She needs physical therapy evaluation. Once she is transferred out, we will encourage ambulation. Abelardo Mg MD
[2017-10-11] MEDS: Potassium Chloride 10 MEQ in Dextrose 5%/0.9% NS 1,000 ML IV SCH ×2 (17:57→21:35)
[2017-10-11] MEDS: Cefepime IV 2 gm in NS 2 GM/100 ML BAG IVPB SCH (21:24)
[2017-10-12] MEDS: Acyclovir 500 MG in Sodium Chloride 0.9% 100 ML IV SCH ×3 (06:40→22:13)
[2017-10-12] MEDS: Clotrimazole 1% Cream(30 gm) TOP SCH ×3 (07:00→18:02)
[2017-10-12 07:50] LABS: TROPONIN I 0.03 ng/mL
[2017-10-12] MEDS: Vancomycin 1gm in NS 250ml 1 GM/250 ML BAG IVPB SCH ×2 (10:55→22:16)
[2017-10-12] MEDS: Cefepime IV 2 gm in NS 2 GM/100 ML BAG IVPB SCH ×2 (12:31→22:18)
--- NOTE | 2017-10-12 12:49 | CP.PCM.PN ---
Subjective - Date & Time of Evaluation Date of Evaluation: 10/12/17 Time of Evaluation: 09:50 - Subjective Subjective: Comfortable, no fevers, still confused, more awake today. Objective - Vital Signs/Intake and Output Vital Signs (last 24 hours): Temp Pulse Resp BP Pulse Ox 98.6 F 104 H 13 150/84 93 L 10/12/17 06:00 10/12/17 07:22 10/12/17 07:22 10/12/17 07:22 10/12/17 03:00 Intake and Output: 10/12/17 10/12/17 06:59 18:59 Intake Total 3070 Output Total 0 Balance 3070 - Medications Medications: Current Medications Aspirin (Aspirin) 325 mg PO DAILY [facility] Last Admin: 10/11/17 11:14 Dose: 325 mg Clotrimazole (Lotrimin 1%) 1 gm TOP BID [facility] Last Admin: 10/12/17 07:00 Dose: 1 appl Heparin Sodium (Porcine) (Heparin) 5,000 units SC Q12 [facility] PRN Reason: Protocol Last Admin: 10/11/17 21:23 Dose: 5,000 units Hydrocortisone Sodium Succinate (Solu-Cortef) 50 mg IVP Q12 [facility] Last Admin: 10/11/17 21:24 Dose: 50 mg Acyclovir 500 mg/ Sodium (Chloride) 100 mls @ 100 mls/hr IV Q8 [facility] PRN Reason: Protocol Stop: 10/16/17 22:01 Last Admin: 10/12/17 06:40 Dose: 100 mls/hr Vancomycin HCl (Vancomycin 1gm) 1 gm in 250 mls @ 167 mls/hr IVPB Q12 [facility] PRN Reason: Protocol Stop: 10/19/17 10:01 Last Admin: 10/11/17 21:25 Dose: 167 mls/hr Potassium Chloride 10 meq/ (Dextrose/Sodium Chloride) 1,005 mls @ 60 mls/hr IV .[id number] [facility] Last Admin: 10/11/17 21:35 Dose: Not Given Cefepime HCl (Maxipime 2gm) 2 gm in 100 mls @ 100 mls/hr IVPB Q12 [facility] PRN Reason: Protocol Stop: 10/16/17 22:01 Last Admin: 10/11/17 21:24 Dose: 100 mls/hr Metoprolol Tartrate (Lopressor) 25 mg PO BID [facility] Last Admin: 10/11/17 17:56 Dose: 25 mg Pantoprazole Sodium (Protonix Inj) 40 mg IVP DAILY [facility] Last Admin: 10/11/17 11:11 Dose: 40 mg - Labs Labs: 10/11/17 05:50 10/11/17 05:50 PT 11.2 SECONDS (9.4-12.5) 10/07/17 15:00 INR 0.98 (0.93-1.08) 10/07/17 15:00 APTT 29.1 Seconds (25.1-36.5) 10/07/17 15:00 - Constitutional Appears: Chronically Ill - Head Exam Head Exam: NORMAL INSPECTION - ENT Exam ENT Exam: Mucous Membranes Moist - Neck Exam Neck Exam: absent: Meningismus - Respiratory Exam Respiratory Exam: Decreased Breath Sounds - Cardiovascular Exam Cardiovascular Exam: +S1, +S2 - GI/Abdominal Exam GI & Abdominal Exam: Soft. absent: Tenderness - Extremities Exam Additional comments: both feet with dressings in place Assessment and Plan - Assessment and Plan (Free Text) Plan: Assessment severe sepsis with acute encephalopathy from bilateral lower extremity cellulitis (growing MSSA and Enterobacter), R/O HYDROMETER CALIBRATOR infection such as meningoencephalitis (encephalopathy may also be metabolic - hyponatremia) Plan continue Vancomycin, Cefepime and Acyclovir day 5; blood cx are negative, wound cx showing Staph aureus and Enterobacter, reviewed CT chest which shows non- specific consolidations at the bases would suggest lumbar puncture and CSF analysis as well as MRI brain with and without contrast will continue to monitor clinically
--- NOTE | 2017-10-12 14:30 | CP.PCM.PN ---
<Cj Jeter - Last Filed: 10/12/17 16:09> Subjective - Date & Time of Evaluation Date of Evaluation: 10/12/17 Time of Evaluation: 16:10 - Subjective Subjective: Podiatry Progress Note- Dr. Briones/Dr. Martin 66 y.o female was consulted for bilateral lower extremity cellulites Patient is seen resting comfortably in bed, in NAD, and awake. Patient is more alert today. Able to respond questions, still confused at times. Patient denies nausea , fever, shortness of breath, chills of vomiting. She report no pain to her lower extremity. No new pedal complaints at this time. Objective - Vital Signs/Intake and Output Vital Signs (last 24 hours): Temp Pulse Resp BP Pulse Ox 98.5 F 94 H 17 139/74 95 10/12/17 12:00 10/12/17 14:00 10/12/17 12:00 10/12/17 12:00 10/12/17 12:00 Intake and Output: 10/12/17 10/12/17 06:59 18:59 Intake Total 3070 Output Total 0 Balance 3070 - Medications Medications: Current Medications Aspirin (Aspirin) 325 mg PO DAILY [facility] Last Admin: 10/12/17 11:05 Dose: 325 mg Clotrimazole (Lotrimin 1%) 1 gm TOP BID [facility] Last Admin: 10/12/17 10:54 Dose: Not Given Heparin Sodium (Porcine) (Heparin) 5,000 units SC Q12 [facility] PRN Reason: Protocol Last Admin: 10/12/17 10:46 Dose: 5,000 units Hydrocortisone Sodium Succinate (Solu-Cortef) 50 mg IVP Q12 [facility] Last Admin: 10/12/17 10:44 Dose: 50 mg Acyclovir 500 mg/ Sodium (Chloride) 100 mls @ 100 mls/hr IV Q8 [facility] PRN Reason: Protocol Stop: 10/16/17 22:01 Last Admin: 10/12/17 06:40 Dose: 100 mls/hr Vancomycin HCl (Vancomycin 1gm) 1 gm in 250 mls @ 167 mls/hr IVPB Q12 [facility] PRN Reason: Protocol Stop: 10/19/17 10:01 Last Admin: 10/12/17 10:55 Dose: 167 mls/hr Cefepime HCl (Maxipime 2gm) 2 gm in 100 mls @ 100 mls/hr IVPB Q12 [facility] PRN Reason: Protocol Stop: 10/16/17 22:01 Last Admin: 10/12/17 12:31 Dose: 100 mls/hr Potassium Chloride (Potassium Chloride 10 Meq/100 Ml) 10 meq in 100 mls @ 50 mls/hr IVPB Q2H [facility] Stop: 10/12/17 17:29 Metoprolol Tartrate (Lopressor) 25 mg PO BID [facility] Last Admin: 10/12/17 10:47 Dose: 25 mg Pantoprazole Sodium (Protonix Inj) 40 mg IVP DAILY [facility] Last Admin: 10/12/17 10:46 Dose: 40 mg - Labs Labs: 10/11/17 05:50 10/11/17 05:50 PT 11.2 SECONDS (9.4-12.5) 10/07/17 15:00 INR 0.98 (0.93-1.08) 10/07/17 15:00 APTT 29.1 Seconds (25.1-36.5) 10/07/17 15:00 - Constitutional Appears: Well, Non-toxic, No Acute Distress - Extremities Exam Extremities Exam: absent: Calf Tenderness Additional comments: Vasc: DP and PT 1/4 bilaterally, CFT < 3 seconds x 10 digits, temperature is warm to warm, moderate edema to the LE bilaterally Ortho: no pain with palpation to the LE Neuro: gross and protective sensation diminished Derm: multiple superficial ulcerations with beefy red wound base, diffuse erythema noted to the entire LE below the level of the knees. Multiple scaly, hyperkeratotic lesions noted to the entire LE. Serous drainage, no purulence drainage noted, mild odor, no probe to bone, no tunneling, no undermining noted to the ulcerations. - Neurological Exam Neurological Exam: Alert, Awake - Psychiatric Exam Psychiatric exam: Normal Affect, Normal Mood Assessment and Plan - Assessment and Plan (Free Text) Assessment: 66 y.o female with multiple venous stasis ulcerations and cellulitis to the bilateral LE Plan: -Patient examined and evaluated -Discussed the plan in detail with attending -Labs, charts, vitals reviewed (afebrile, WBC 6.2) -Dressing to the lower extremity was changed today, reapplied xerform and replaced outer layer of the dressing with ABD and kerlix. -Current wound care regimen: xeroform, dsd, abd, and kerlix -c/w abx -Thank you for allowing us to take part of patient's care -Will continue to follow while in house <Dipesh Martin - Last Filed: 10/12/17 17:23> Objective - Vital Signs/Intake and Output Vital Signs (last 24 hours): Temp Pulse Resp BP Pulse Ox 98.5 F 94 H 17 139/74 95 10/12/17 12:00 10/12/17 14:00 10/12/17 12:00 10/12/17 12:00 10/12/17 12:00 Intake and Output: 10/12/17 10/12/17 06:59 18:59 Intake Total 3070 Output Total 0 Balance 3070 - Medications Medications: Current Medications Aspirin (Aspirin) 325 mg PO DAILY [facility] Last Admin: 10/12/17 11:05 Dose: 325 mg Clotrimazole (Lotrimin 1%) 1 gm TOP BID [facility] Last Admin: 10/12/17 10:54 Dose: Not Given Heparin Sodium (Porcine) (Heparin) 5,000 units SC Q12 [facility] PRN Reason: Protocol Last Admin: 10/12/17 10:46 Dose: 5,000 units Hydrocortisone Sodium Succinate (Solu-Cortef) 50 mg IVP Q12 [facility] Last Admin: 10/12/17 10:44 Dose: 50 mg Acyclovir 500 mg/ Sodium (Chloride) 100 mls @ 100 mls/hr IV Q8 [facility] PRN Reason: Protocol Stop: 10/16/17 22:01 Last Admin: 10/12/17 14:55 Dose: 100 mls/hr Vancomycin HCl (Vancomycin 1gm) 1 gm in 250 mls @ 167 mls/hr IVPB Q12 [facility] PRN Reason: Protocol Stop: 10/19/17 10:01 Last Admin: 10/12/17 10:55 Dose: 167 mls/hr Cefepime HCl (Maxipime 2gm) 2 gm in 100 mls @ 100 mls/hr IVPB Q12 [facility] PRN Reason: Protocol Stop: 10/16/17 22:01 Last Admin: 10/12/17 12:31 Dose: 100 mls/hr Potassium Chloride (Potassium Chloride 10 Meq/100 Ml) 10 meq in 100 mls @ 50 mls/hr IVPB Q2H [facility] Stop: 10/12/17 17:29 Last Admin: 10/12/17 14:41 Dose: 50 mls/hr Metoprolol Tartrate (Lopressor) 25 mg PO BID [facility] Last Admin: 10/12/17 10:47 Dose: 25 mg Pantoprazole Sodium (Protonix Inj) 40 mg IVP DAILY [facility] Last Admin: 10/12/17 10:46 Dose: 40 mg - Labs Labs: 10/11/17 05:50 10/11/17 05:50 PT 11.2 SECONDS (9.4-12.5) 10/07/17 15:00 INR 0.98 (0.93-1.08) 10/07/17 15:00 APTT 29.1 Seconds (25.1-36.5) 10/07/17 15:00 Attending/Attestation - Attestation I have personally seen and examined this patient.: Yes I have fully participated in the care of the patient.: Yes I have reviewed all pertinent clinical information, including history, physical exam and plan: Yes
--- NOTE | 2017-10-12 15:47 | PN ---
DATE: SUBJECTIVE: The patient is 66 years old seen and examined, much more awake, alert, oriented, communicative, answers simple questions. PHYSICAL EXAMINATION: VITAL SIGNS: She is afebrile, pulse 101, respirations 13, blood pressure 123/68. LUNGS: Bilateral good airflow. No rhonchi or crackle. HEART: S1, S2 audible. ABDOMEN: Soft, nontender. No rebound, no guarding. NEUROLOGIC: Patient is awake and alert, but not really oriented, only answers simple question, but confabulate. Able to move all extremities. No focal deficit. LABORATORY DATA: Chemistry: Her LDH is 957. Leg wound positive for Staphylococcus aureus and Enterobacter cloacae. ASSESSMENT: 1. Status post encephalopathy. 2. Status post hypernatremia, improved. 3. Bilateral leg cellulitis. 4. Bilateral foot cellulitis. 5. Probably underlying dementia. PLAN: Currently patient is on IV fluids. She seems to be tolerating her food. We will discontinue IV fluids, continue her on DVT prophylaxis. She is on cefepime, vanco and acyclovir, probably that can be discontinued. We will follow up her electrolyte intermittently, can be transferred to Med-Surg floor and encourage physical therapy. Abelardo Mg MD
--- NOTE | 2017-10-12 22:12 | PN ---
DATE: 10/12/2017 LOCATION: Patient in ICU 128, bed 5. REASON FOR CONSULTATION: Followup altered mental status, rhabdomyolysis, positive troponin, rule out non-ST segment myocardial infarction. SUBJECTIVE: The patient is conscious, alert at times, she is still confused. Denies any chest pain or shortness of breath or palpitation. PHYSICAL EXAMINATION: VITAL SIGNS: Blood pressure 139/74, respirations 17, pulse of 91, temperature 98.5. HEENT: Head is normocephalic. Eyes; pupils are normal. Conjunctivae slightly pale. NECK: JVP low. Carotids are equal. THORAX: AP diameter normal. LUNGS: Clear. CARDIOVASCULAR: S1 and S2. ABDOMEN: Soft. No tenderness. No organomegaly. EXTREMITIES: Patient has cellulitis bilaterally on the legs. Dressing is applied. LABORATORY DATA: WBC 6.2, hemoglobin 10.5, hematocrit 29.8, platelets 362. Sodium 139, potassium 3.4, BUN 12, creatinine 0.5, AST 45, ALT 66, alkaline phosphatase is 172. Troponin 0.03 and today's troponin also 0.03. Total protein 4.7, albumin 2.1. Potassium 3.4 was yesterday's readings. Patient's troponin which was initially elevated, has come down to normal now. Echo was done two days ago, which showed normal ejection fraction 55%-60%, mild tricuspid regurgitation, RV systolic pressure of 47 mmHg. DIAGNOSES: The patient's initial troponin maybe elevated due to rhabdomyolysis; however, cannot rule out non-ST elevation myocardial infarction, but patient had other comorbidities, so we will continue to treat medically at this point. RECOMMENDATIONS: Patient need improve nutrition support. Patient has low protein. Patient is on aspirin 325 daily, heparin 5000 units subcu q.12 hours, metoprolol tartrate 25 b.i.d., 2 g IV q.12 hours. Patient received potassium yesterday, also additional potassium was given by Dr. Mg today, Protonix 40 IV daily, hydrocortisone 50 mg IV q.12 hours, vancomycin 1 g IV q.12 hours, acyclovir 500 mg IV q. 8 hours. We will continue present therapy. We will follow. Mohammad Parks, MD [facility] # [id number]
[2017-10-13] MEDS ORDERED: Labetalol 5 mg/ml Inj 20ML IV ONE (00:15)
[2017-10-13] MEDS: Acyclovir 500 MG in Sodium Chloride 0.9% 100 ML IV SCH ×3 (06:39→22:21)
--- NOTE | 2017-10-13 09:44 | CP.PCM.PN ---
<KurtisChristi - Last Filed: 10/13/17 09:41> Subjective - Date & Time of Evaluation Date of Evaluation: 10/13/17 Time of Evaluation: 09:41 - Subjective Subjective: Podiatry Progress Note- Dr. Briones/Dr. Martin 66 y/o female seen at bedside with attending Dr. Martin for bilateral lower extremity scaling superficial ulcerations with cellulitic skin changes. Patient seen resting comfortably in bed, in NAD, and awake. Patient is alert and verbally engaging at time of visit. Patient denies F/C/N/V/CP/SOB at present. She reports no pain to her lower extremity. She has no new pedal complaints at this time. Objective - Vital Signs/Intake and Output Vital Signs (last 24 hours): Temp Pulse Resp BP Pulse Ox 98.6 F 75 20 156/91 H 95 10/13/17 01:02 10/13/17 06:00 10/13/17 01:02 10/13/17 01:02 10/12/17 12:00 Intake and Output: 10/13/17 10/13/17 06:59 18:59 Intake Total 550 Output Total 2250 Balance -1700 - Medications Medications: Current Medications Aspirin (Aspirin) 325 mg PO DAILY [facility] Last Admin: 10/12/17 11:05 Dose: 325 mg Clotrimazole (Lotrimin 1%) 1 gm TOP BID [facility] Last Admin: 10/12/17 18:02 Dose: 1 appl Heparin Sodium (Porcine) (Heparin) 5,000 units SC Q12 [facility] PRN Reason: Protocol Last Admin: 10/12/17 22:19 Dose: 5,000 units Hydrocortisone Sodium Succinate (Solu-Cortef) 50 mg IVP Q12 [facility] Last Admin: 10/12/17 22:12 Dose: 50 mg Acyclovir 500 mg/ Sodium (Chloride) 100 mls @ 100 mls/hr IV Q8 [facility] PRN Reason: Protocol Stop: 10/16/17 22:01 Last Admin: 10/13/17 06:39 Dose: 100 mls/hr Vancomycin HCl (Vancomycin 1gm) 1 gm in 250 mls @ 167 mls/hr IVPB Q12 [facility] PRN Reason: Protocol Stop: 10/19/17 10:01 Last Admin: 10/12/17 22:16 Dose: 167 mls/hr Cefepime HCl (Maxipime 2gm) 2 gm in 100 mls @ 100 mls/hr IVPB Q12 [facility] PRN Reason: Protocol Stop: 10/16/17 22:01 Last Admin: 10/12/17 22:18 Dose: 100 mls/hr Metoprolol Tartrate (Lopressor) 25 mg PO BID [facility] Last Admin: 10/12/17 18:01 Dose: 25 mg Pantoprazole Sodium (Protonix Inj) 40 mg IVP DAILY [facility] Last Admin: 10/12/17 10:46 Dose: 40 mg - Labs Labs: 10/11/17 05:50 10/11/17 05:50 PT 11.2 SECONDS (9.4-12.5) 10/07/17 15:00 INR 0.98 (0.93-1.08) 10/07/17 15:00 APTT 29.1 Seconds (25.1-36.5) 10/07/17 15:00 - Constitutional Appears: Well, Non-toxic, No Acute Distress - Extremities Exam Additional comments: Dressings clean, dry and intact to bilateral lower extremities with no strikethrough noted Vasc: DP and PT 1/4 B/L, CFT < 3 seconds x 10 digits, temperature is warm to warm, moderate edema to the LE B/L Ortho: no pain with palpation to the LE Neuro: gross and protective sensation diminished Derm: multiple superficial ulcerations with beefy red wound base, noted to be epithelializing well. Diffuse erythema noted to the entire LE below the level of the knees. Multiple scaly, hyperkeratotic lesions noted to the entire LE, beginning to slough off and revealing healthy underlying skin. Minimal serous drainage is noted to inner dressing. No purulent drainage noted, no malodor, no probe to bone, no tunneling, no undermining noted to the ulcerations. - Neurological Exam Neurological Exam: Alert, Awake - Psychiatric Exam Psychiatric exam: Normal Affect, Normal Mood Assessment and Plan - Assessment and Plan (Free Text) Assessment: 66 y/o female with multiple venous stasis ulcerations and cellulitis to bilateral LE Plan: -Patient examined and evaluated with Dr. Martin -Labs, charts, vitals reviewed - afebrile, WBC 6.2 -Bilateral lower extremities cleansed with sterile saline -Dressings applied to B/L legs with Adaptic, ABD pads and DSD B/L -Continue abx regiment -Will continue to follow while in house <Dipesh Martin - Last Filed: 10/13/17 10:28> Objective - Vital Signs/Intake and Output Vital Signs (last 24 hours): Temp Pulse Resp BP Pulse Ox 98.6 F 75 20 156/91 H 95 10/13/17 01:02 10/13/17 06:00 10/13/17 01:02 10/13/17 01:02 10/12/17 12:00 Intake and Output: 10/13/17 10/13/17 06:59 18:59 Intake Total 550 Output Total 2250 Balance -1700 - Medications Medications: Current Medications Aspirin (Aspirin) 325 mg PO DAILY [facility] Last Admin: 10/12/17 11:05 Dose: 325 mg Clotrimazole (Lotrimin 1%) 1 gm TOP BID [facility] Last Admin: 10/12/17 18:02 Dose: 1 appl Heparin Sodium (Porcine) (Heparin) 5,000 units SC Q12 [facility] PRN Reason: Protocol Last Admin: 10/12/17 22:19 Dose: 5,000 units Hydrocortisone Sodium Succinate (Solu-Cortef) 50 mg IVP Q12 [facility] Last Admin: 10/12/17 22:12 Dose: 50 mg Acyclovir 500 mg/ Sodium (Chloride) 100 mls @ 100 mls/hr IV Q8 [facility] PRN Reason: Protocol Stop: 10/16/17 22:01 Last Admin: 10/13/17 06:39 Dose: 100 mls/hr Cefepime HCl (Maxipime 2gm) 2 gm in 100 mls @ 100 mls/hr IVPB Q12 [facility] PRN Reason: Protocol Stop: 10/16/17 22:01 Last Admin: 10/12/17 22:18 Dose: 100 mls/hr Metoprolol Tartrate (Lopressor) 25 mg PO BID [facility] Last Admin: 10/12/17 18:01 Dose: 25 mg Pantoprazole Sodium (Protonix Inj) 40 mg IVP DAILY [facility] Last Admin: 10/12/17 10:46 Dose: 40 mg - Labs Labs: 10/11/17 05:50 10/11/17 05:50 PT 11.2 SECONDS (9.4-12.5) 10/07/17 15:00 INR 0.98 (0.93-1.08) 10/07/17 15:00 APTT 29.1 Seconds (25.1-36.5) 10/07/17 15:00 Attending/Attestation - Attestation I have personally seen and examined this patient.: Yes I have fully participated in the care of the patient.: Yes I have reviewed all pertinent clinical information, including history, physical exam and plan: Yes
[2017-10-13] MEDS: Cefepime IV 2 gm in NS 2 GM/100 ML BAG IVPB SCH ×2 (10:27→23:06)
[2017-10-13] MEDS ORDERED: Vancomycin 1gm in NS 250ml 1 GM/250 ML BAG IVPB STA (10:43)
[2017-10-13] MEDS: Vancomycin 1gm in NS 250ml 1 GM/250 ML BAG IVPB SCH (10:51)
[2017-10-13] MEDS: Clotrimazole 1% Cream(30 gm) TOP SCH ×2 (10:54→17:29)
[2017-10-13] MEDS ORDERED: Simethicone 80 mg Chewtab PO ONE (13:05)
[2017-10-13] MEDS: Alum-Mag Hydrox-Simethicone Susp (30 mL) PO ONE ×2 (13:18→13:32)
--- NOTE | 2017-10-13 22:58 | PN ---
DATE: SUBJECTIVE: Patient has no complaints of any chest pain. No shortness of breath. No headache, no dizziness. PHYSICAL EXAMINATION: VITAL SIGNS: Temperature is 98.2, pulse of 97, blood pressure 143/75. GENERAL: The patient is lying in bed, flat, comfortable. HEENT: No oral lesion. Anicteric sclerae. Moist mucosa. NECK: No JVD, adenopathy, or thyromegaly. CARDIOVASCULAR: S1 and S2, regular. No murmurs, rubs, or gallops. LUNGS: Clear to auscultation bilaterally. No wheeze, rales, or rhonchi. ABDOMEN: Bowel sounds are positive, soft, nontender, and nondistended. EXTREMITIES: no cyanosis, clubbing, or edema. LABORATORY DATA: White count of 6.2, hemoglobin 10.5. Chemistry shows a sodium of 139, potassium 3.4. ASSESSMENT: 1. Lower extremity cellulitis. 2. Hyponatremia, improved. 3. Dementia, probable Alzheimer's type. 4. Non-ST elevation myocardial infarction. PLAN: The patient is currently on heparin for DVT prophylaxis. She is going to continue with cefepime for antibiotics. She has a wound that shows staph and enterococcus. The patient is going to continue with Protonix daily. The patient is on . She is on acyclovir. She is going to be continued on her supplements. Nathaniel Gallo MD
[2017-10-14] MEDS: Acyclovir 500 MG in Sodium Chloride 0.9% 100 ML IV SCH ×3 (06:26→21:55)
[2017-10-14] MEDS: Cefepime IV 2 gm in NS 2 GM/100 ML BAG IVPB SCH ×2 (10:25→21:54)
[2017-10-14] MEDS: Clotrimazole 1% Cream(30 gm) TOP SCH ×2 (10:31→18:15)
--- NOTE | 2017-10-14 14:16 | CP.PCM.PN ---
<Christi Hull - Last Filed: 10/14/17 14:16> Subjective - Date & Time of Evaluation Date of Evaluation: 10/14/17 Time of Evaluation: 12:25 - Subjective Subjective: Podiatry Progress Note- Dr. Briones/Dr. Martin 66 y/o female seen at bedside this morning for bilateral lower extremity scaling superficial ulcerations with cellulitic skin changes. Patient seen resting comfortably in bed, in NAD, and awake. Patient is pleasant and chatty at time of visit. Patient denies F/C/N/V/CP/SOB. She reports no pain to her lower extremities. She has no new pedal complaints at this time. Objective - Vital Signs/Intake and Output Vital Signs (last 24 hours): Temp Pulse Resp BP Pulse Ox 98.4 F 72 20 132/81 94 L 10/14/17 07:30 10/14/17 07:30 10/14/17 07:30 10/14/17 07:30 10/14/17 07:30 Intake and Output: 10/14/17 10/14/17 06:59 18:59 Intake Total 480 0 Output Total 0 900 Balance 480 -900 - Medications Medications: Current Medications Aspirin (Aspirin) 325 mg PO DAILY [facility] Last Admin: 10/14/17 10:24 Dose: 325 mg Clotrimazole (Lotrimin 1%) 1 gm TOP BID [facility] Last Admin: 10/13/17 17:29 Dose: 1 appl Heparin Sodium (Porcine) (Heparin) 5,000 units SC Q12 [facility] PRN Reason: Protocol Last Admin: 10/14/17 10:25 Dose: 5,000 units Hydrocortisone Sodium Succinate (Solu-Cortef) 50 mg IVP DAILY [facility] Acyclovir 500 mg/ Sodium (Chloride) 100 mls @ 100 mls/hr IV Q8 [facility] PRN Reason: Protocol Stop: 10/16/17 22:01 Last Admin: 10/14/17 06:26 Dose: 100 mls/hr Cefepime HCl (Maxipime 2gm) 2 gm in 100 mls @ 100 mls/hr IVPB Q12 [facility] PRN Reason: Protocol Stop: 10/16/17 22:01 Last Admin: 10/14/17 10:25 Dose: 100 mls/hr Metoprolol Tartrate (Lopressor) 25 mg PO BID [facility] Last Admin: 10/14/17 10:24 Dose: 25 mg Pantoprazole Sodium (Protonix Inj) 40 mg IVP DAILY [facility] Last Admin: 10/14/17 10:24 Dose: 40 mg - Labs Labs: 10/11/17 05:50 10/11/17 05:50 PT 11.2 SECONDS (9.4-12.5) 10/07/17 15:00 INR 0.98 (0.93-1.08) 10/07/17 15:00 APTT 29.1 Seconds (25.1-36.5) 10/07/17 15:00 - Constitutional Appears: Well, Non-toxic, No Acute Distress - Extremities Exam Additional comments: Dressings clean, dry and intact to bilateral lower extremities with no strikethrough noted Vasc: DP and PT 1/4 B/L, CFT < 3 seconds x 10 digits, temperature is warm to warm, moderate edema to the LE B/L Ortho: no pain with palpation to the LE Neuro: gross and protective sensation diminished Derm: Diffuse superficial ulcerations to bilateral legs extending between level of tibial tuberosity and ankle, with beefy red wound bases, noted to be epithelializing well at this time. Diffuse erythema noted to the entire LE below the level of the knees, decreasing since yesterday. Multiple scaly, hyperkeratotic lesions noted to the entire LE, beginning to slough off and revealing healthy underlying skin. Minimal serous drainage is noted to inner dressing. No purulent drainage noted, no malodor, no probe to bone, no tunneling , no undermining noted to the ulcerations. - Neurological Exam Neurological Exam: Alert, Awake - Psychiatric Exam Psychiatric exam: Normal Affect, Normal Mood Assessment and Plan - Assessment and Plan (Free Text) Assessment: 66 y/o female with multiple venous stasis ulcerations and cellulitis to bilateral LE Plan: -Patient examined and evaluated -Discussed with Dr. Briones -Labs, charts, vitals reviewed - afebrile, WBC 6.2 -Bilateral lower extremities cleansed with sterile saline -Dressings applied to B/L legs with Adaptic, ABD pads and DSD B/L -Continue abx regimen -Will continue to follow while in house <Leonor Briones - Last Filed: 10/14/17 16:02> Objective - Vital Signs/Intake and Output Vital Signs (last 24 hours): Temp Pulse Resp BP Pulse Ox 98.4 F 72 20 132/81 94 L 10/14/17 07:30 10/14/17 07:30 10/14/17 07:30 10/14/17 07:30 10/14/17 07:30 Intake and Output: 10/14/17 10/14/17 06:59 18:59 Intake Total 480 0 Output Total 0 900 Balance 480 -900 - Medications Medications: Current Medications Aspirin (Aspirin) 325 mg PO DAILY [facility] Last Admin: 10/14/17 10:24 Dose: 325 mg Clotrimazole (Lotrimin 1%) 1 gm TOP BID [facility] Last Admin: 10/14/17 10:31 Dose: 1 appl Heparin Sodium (Porcine) (Heparin) 5,000 units SC Q12 [facility] PRN Reason: Protocol Last Admin: 10/14/17 10:25 Dose: 5,000 units Hydrocortisone Sodium Succinate (Solu-Cortef) 50 mg IVP DAILY [facility] Acyclovir 500 mg/ Sodium (Chloride) 100 mls @ 100 mls/hr IV Q8 [facility] PRN Reason: Protocol Stop: 10/16/17 22:01 Last Admin: 10/14/17 14:33 Dose: 100 mls/hr Cefepime HCl (Maxipime 2gm) 2 gm in 100 mls @ 100 mls/hr IVPB Q12 [facility] PRN Reason: Protocol Stop: 10/16/17 22:01 Last Admin: 10/14/17 10:25 Dose: 100 mls/hr Metoprolol Tartrate (Lopressor) 25 mg PO BID [facility] Last Admin: 10/14/17 10:24 Dose: 25 mg Pantoprazole Sodium (Protonix Inj) 40 mg IVP DAILY [facility] Last Admin: 10/14/17 10:24 Dose: 40 mg - Labs Labs: 10/11/17 05:50 10/11/17 05:50 PT 11.2 SECONDS (9.4-12.5) 10/07/17 15:00 INR 0.98 (0.93-1.08) 10/07/17 15:00 APTT 29.1 Seconds (25.1-36.5) 10/07/17 15:00 Attending/Attestation - Attestation I have personally seen and examined this patient.: Yes I have fully participated in the care of the patient.: Yes I have reviewed all pertinent clinical information, including history, physical exam and plan: Yes
--- NOTE | 2017-10-14 15:18 | PN ---
DATE: 10/14/2017 SUBJECTIVE: The patient has no complaints of any chest pain. No shortness of breath. No headaches or dizziness. PHYSICAL EXAMINATION: VITAL SIGNS: Temperature was 98.4, pulse of 72, blood pressure is 132/81, respirations 20. GENERAL: The patient is lying in bed, flat, comfortable. HEENT: No oral lesion. Anicteric sclerae. Moist mucosa. NECK: No JVD, adenopathy, or thyromegaly. CARDIOVASCULAR: S1 and S2, regular. No murmurs, rubs, or gallops. LUNGS: Clear to auscultation bilaterally. No wheeze, rales, or rhonchi. ABDOMEN: Bowel sounds are positive, soft, nontender and nondistended. EXTREMITIES: No cyanosis, clubbing or edema. In the lower extremity, there is bilateral erythema that is improving. LABORATORY DATA: White count of 6.2, hemoglobin 10.5. Creatinine 0.5, potassium 3.4. ASSESSMENT: 1. Lower extremity cellulitis. 2. Hyponatremia, improved. 3. Dementia, probable Alzheimer's type. 4. [id number] myocardial infarction. PLAN: The patient is currently comfortable. She is on aspirin. She is going to continue with heparin for DVT prophylaxis. I did renew the patient's heparin. The patient is on cefepime for antibiotics. This will be continued. She is going to continue on acyclovir. The patient is on hydrocortisone. I will start to decrease the patient's hydrocortisone. The patient is going to need physical therapy. I will get Physical Therapy to evaluate the patient. We will repeat the patient's blood work tomorrow. Nathaniel Gallo MD
--- NOTE | 2017-10-14 18:26 | PN ---
DATE: 10/14/2017 SUBJECTIVE: The patient is in bed, in no acute distress. PHYSICAL EXAMINATION: VITAL SIGNS: On exam, temperature is 98, blood pressure is 130/80, respiratory rate of 20, heart rate of 72. HEENT: Examination of HEENT is unremarkable. NECK: Supple. LUNGS: Have decreased breath sounds. HEART: Normal S1, S2. ABDOMEN: Soft, nontender. LABORATORY EXAMINATION: Reveals the patient has a white count of 6.2, hemoglobin of 10, and the chemistries are noted. LFTs are elevated. Alk phos is 172. Microbiology is reviewed and review of orders reveals the patient to be on vancomycin and cefepime and acyclovir. Dr. Gallo's progress note from yesterday is reviewed. ASSESSMENT AND PLAN: A 66-year-old female with severe sepsis, acute encephalopathy, bilateral lower extremity cellulitis, Methicillin-sensitive Staphylococcus aureus and Enterobacter, concern about central nervous system infection. Currently on vancomycin, cefepime, acyclovir day #7 and ideally should have MRI and a spinal tap to rule out central nervous system involvement. Review of the orders reveals the patient's cefepime and acyclovir are active. We will follow with you. Duke Sullivan MD
[2017-10-15] MEDS: Acyclovir 500 MG in Sodium Chloride 0.9% 100 ML IV SCH ×3 (05:40→22:08)
[2017-10-15 07:31] LABS: HEMOGLOBIN 10.2 g/dL (12.0-16.0); MEAN CELL VOLUME 83.9 fl (80.0-105.0); MEAN CORPUSCULAR HEMOGLOBIN 28.3 pg (25.0-35.0); MEAN CORPUSCULAR HGB CONC 33.7 g/dl (31.0-37.0); MEAN PLATELET VOLUME 8.3 fl (7.0-11.0); RBC 3.61 10^6/uL (3.5-6.1); RED CELL DISTRIBUTION WIDTH 14.1 % (11.5-14.5); WHITE BLOOD COUNT 8.1 10^3/ul (4.5-11.0)
--- NOTE | 2017-10-15 08:00 | CP.PCM.PN ---
Subjective - Date & Time of Evaluation Date of Evaluation: 10/15/17 Time of Evaluation: 07:00 - Subjective Subjective: Seen and examined by me and Dr. Roldan Reason for consult and follow up:altered mental status, bilateral leg cellulitis ,sepsis, positive troponin may be secondary to rhabdomyolysis, CPK-MB was low, non ST elevation myocardial infarction.hypotension. Subjective: doing okay, in no distress, denies shortness of breath or chest pain Objective - Vital Signs/Intake and Output Vital Signs (last 24 hours): Temp Pulse Resp BP Pulse Ox 98.1 F 85 20 154/92 H 97 10/14/17 22:00 10/14/17 22:00 10/14/17 22:00 10/14/17 22:00 10/14/17 22:00 Intake and Output: 10/15/17 10/15/17 06:59 18:59 Intake Total 2620 Output Total 1600 Balance 1020 - Medications Medications: Current Medications Aspirin (Aspirin) 325 mg PO DAILY [facility] Last Admin: 10/14/17 10:24 Dose: 325 mg Clotrimazole (Lotrimin 1%) 1 gm TOP BID [facility] Last Admin: 10/14/17 18:15 Dose: 1 appl Heparin Sodium (Porcine) (Heparin) 5,000 units SC Q12 [facility] PRN Reason: Protocol Last Admin: 10/14/17 21:53 Dose: 5,000 units Hydrocortisone Sodium Succinate (Solu-Cortef) 50 mg IVP DAILY [facility] Acyclovir 500 mg/ Sodium (Chloride) 100 mls @ 100 mls/hr IV Q8 [facility] PRN Reason: Protocol Stop: 10/16/17 22:01 Last Admin: 10/15/17 05:40 Dose: 100 mls/hr Cefepime HCl (Maxipime 2gm) 2 gm in 100 mls @ 100 mls/hr IVPB Q12 [facility] PRN Reason: Protocol Stop: 10/16/17 22:01 Last Admin: 10/14/17 21:54 Dose: 100 mls/hr Metoprolol Tartrate (Lopressor) 25 mg PO BID [facility] Last Admin: 10/14/17 18:17 Dose: 25 mg Pantoprazole Sodium (Protonix Inj) 40 mg IVP DAILY [facility] Last Admin: 10/14/17 10:24 Dose: 40 mg - Labs Labs: 10/15/17 07:00 10/11/17 05:50 PT 11.2 SECONDS (9.4-12.5) 10/07/17 15:00 INR 0.98 (0.93-1.08) 10/07/17 15:00 APTT 29.1 Seconds (25.1-36.5) 10/07/17 15:00 - Constitutional Appears: No Acute Distress - Head Exam Head Exam: NORMAL INSPECTION - Eye Exam Eye Exam: Normal appearance Pupil Exam: NORMAL ACCOMODATION - ENT Exam ENT Exam: Mucous Membranes Moist, Normal Exam - Respiratory Exam Respiratory Exam: Clear to Ausculation Bilateral, NORMAL BREATHING PATTERN - Cardiovascular Exam Cardiovascular Exam: REGULAR RHYTHM, +S1 - GI/Abdominal Exam GI & Abdominal Exam: Soft, Normal Bowel Sounds - Extremities Exam Extremities Exam: Normal Capillary Refill - Neurological Exam Neurological Exam: Alert, Awake - Psychiatric Exam Psychiatric exam: Normal Affect, Normal Mood - Skin Skin Exam: Intact, Normal Color, Warm Assessment and Plan - Assessment and Plan (Free Text) Assessment: IMPRESSION: altered mental status, bilateral leg cellulitis,sepsis, positive troponin may be secondary to rhabdomyolysis, CPK-MB was low, non ST elevation myocardial infarction.hypotension, Plan: Plan: Stable cardiac status. Treat medically, no plan for invasive work up Continue ASA 325 mg daily,Heparin 5000 units subcutaneous, Lopressor 25 mg BID Physical therapy Will follow up Plan and treatment reviewed with Dr. Roldan
[2017-10-15 08:19] LABS: ALB/GLOB RATIO 0.8 (1.1-1.8); ALT/SGPT 63 U/L (7-56); AST/SGOT 37 U/L (14-36); BLOOD UREA NITROGEN 15 mg/dL (7-21); CALCIUM 8.2 mg/dL (8.4-10.5); GFR AFRICAN-AMERICAN > 60; GFR NON-AFRICAN AMERICAN > 60
[2017-10-15] MEDS ORDERED: Potassium Chloride 20 mEq ER Tab PO ONE ×3 (08:51→20:00)
--- NOTE | 2017-10-15 08:58 | PN ---
DATE: 10/13/2017 SUBJECTIVE: The patient is in bed, in no acute distress, nontoxic, was seen earlier today in 128, bed 5. PHYSICAL EXAMINATION: VITAL SIGNS: Temperature of 98, blood pressure is 150/90, respiratory rate 20, heart rate of 91. HEENT: Unremarkable. NECK: Supple. LUNGS: Decreased breath sounds. HEART: Normal S1, S2. ABDOMEN: Soft, nontender. LABORATORY EXAMINATION: Reveals a white count of 6.2, hemoglobin of 10. BUN of 12, creatinine of 0.5. LFTs are noted and alk phos is noted. Urinalysis is noted and leg culture is Staph aureus, Enterobacter cloacae species, growth of staph and light growth of Enterobacter. The Staph aureus is pansensitive and Enterobacter is also sensitive. Review of orders reveals the patient to be on cefepime and intermittent vancomycin and IV acyclovir. The blood cultures are negative. note is reviewed. ASSESSMENT AND PLAN: This 66-year-old female seen earlier in the ICU 128, bed 5 with severe sepsis, acute encephalopathy, bilateral lower extremity cellulitis growing methicillin-susceptible Staphylococcus aureus and Enterobacter with rule out [employer] infection such as meningoencephalitis and encephalopathy may be also metabolic secondary to hyponatremia, currently on vancomycin, cefepime, and acyclovir day #6. The creatinine 0.5 and LFTs are noted, and spinal tap and MRI not done as recommended. We will follow with you. Duke Sullivan MD
[2017-10-15] MEDS: Clotrimazole 1% Cream(30 gm) TOP SCH ×2 (09:22→17:50)
[2017-10-15] MEDS: Cefepime IV 2 gm in NS 2 GM/100 ML BAG IVPB SCH ×2 (09:23→23:27)
[2017-10-15] MEDS: Vancomycin 1gm in NS 250ml 1 GM/250 ML BAG IVPB SCH (12:26)
--- NOTE | 2017-10-15 12:34 | CP.PCM.PN ---
<Christi Hull - Last Filed: 10/15/17 13:11> Subjective - Date & Time of Evaluation Date of Evaluation: 10/15/17 Time of Evaluation: 12:34 - Subjective Subjective: Podiatry Progress Note- Dr. Briones/Dr. Martin 66 y/o female seen at bedside this morning for bilateral lower extremity scaling superficial ulcerations with cellulitic skin changes. Patient seen resting comfortably in bed, in NAD, and awake. Patient says she is not having any pain in the legs and that they just feel slightly sore. Patient denies F/C/N /V/CP/SOB. She has no new pedal complaints at this time. Objective - Vital Signs/Intake and Output Vital Signs (last 24 hours): Temp Pulse Resp BP Pulse Ox 98.4 F 80 28 H 126/80 96 10/15/17 07:30 10/15/17 09:22 10/15/17 07:30 10/15/17 09:22 10/15/17 07:30 Intake and Output: 10/15/17 10/15/17 06:59 18:59 Intake Total 2620 Output Total 1600 Balance 1020 - Medications Medications: Current Medications Aspirin (Aspirin) 325 mg PO DAILY [facility] Last Admin: 10/15/17 09:19 Dose: 325 mg Clotrimazole (Lotrimin 1%) 1 gm TOP BID [facility] Last Admin: 10/15/17 09:22 Dose: 1 appl Heparin Sodium (Porcine) (Heparin) 5,000 units SC Q12 [facility] PRN Reason: Protocol Last Admin: 10/15/17 09:21 Dose: 5,000 units Hydrocortisone Sodium Succinate (Solu-Cortef) 50 mg IVP DAILY [facility] Last Admin: 10/15/17 12:24 Dose: 50 mg Acyclovir 500 mg/ Sodium (Chloride) 100 mls @ 100 mls/hr IV Q8 [facility] PRN Reason: Protocol Stop: 10/16/17 22:01 Last Admin: 10/15/17 05:40 Dose: 100 mls/hr Cefepime HCl (Maxipime 2gm) 2 gm in 100 mls @ 100 mls/hr IVPB Q12 [facility] PRN Reason: Protocol Stop: 10/16/17 22:01 Last Admin: 10/15/17 09:23 Dose: 100 mls/hr Vancomycin HCl (Vancomycin 1gm) 1 gm in 250 mls @ 167 mls/hr IVPB Q12H [facility] PRN Reason: Protocol Last Admin: 10/15/17 12:26 Dose: 167 mls/hr Metoprolol Tartrate (Lopressor) 25 mg PO BID [facility] Last Admin: 10/15/17 09:22 Dose: 25 mg Pantoprazole Sodium (Protonix Ec Tab) 40 mg PO ACB [facility] Potassium Chloride (K-Dur 20 Meq Er Tab) 40 meq PO ONCE ONE Stop: 10/15/17 13:01 Potassium Chloride (K-Dur 20 Meq Er Tab) 40 meq PO ONCE ONE Stop: 10/15/17 20:01 - Labs Labs: 10/15/17 07:00 10/15/17 07:00 PT 11.2 SECONDS (9.4-12.5) 10/07/17 15:00 INR 0.98 (0.93-1.08) 10/07/17 15:00 APTT 29.1 Seconds (25.1-36.5) 10/07/17 15:00 - Constitutional Appears: Well, Non-toxic, No Acute Distress - Extremities Exam Additional comments: Dressings clean, dry and intact to bilateral lower extremities with no strikethrough noted Vasc: DP and PT 1/4 B/L, CFT < 3 seconds x 10 digits, temperature is warm to warm, moderate edema to the LE B/L Ortho: no pain with palpation to the LE Neuro: gross and protective sensation diminished Derm: Diffuse superficial ulcerations to bilateral legs extending between level of tibial tuberosity and ankle, with beefy red wound bases, noted to be epithelializing well. Diffuse erythema noted to the entire LE below the level of the knees, decreasing since yesterday. Multiple scaly, hyperkeratotic lesions noted to the entire LE, beginning to slough off and revealing healthy underlying skin. Minimal serous drainage is noted to inner dressing on RLE; no strikethrough present on inner dressing of LLE. No purulent drainage noted, no malodor, no probe to bone, no tunneling, no undermining noted to the ulcerations. - Neurological Exam Neurological Exam: Alert, Awake, Oriented x3 - Psychiatric Exam Psychiatric exam: Normal Affect, Normal Mood Assessment and Plan - Assessment and Plan (Free Text) Assessment: 66 y/o female with multiple venous stasis ulcerations and cellulitis to bilateral LE Plan: -Patient examined and evaluated -Discussed with Dr. Briones -Labs, charts, vitals reviewed - afebrile, WBC 8.1 -Bilateral lower extremities cleansed with sterile saline -Dressings applied to B/L legs with Xeroform, ABD pads and DSD B/L -Continue abx regimen -Pt stable from podiatry standpoint -Will continue to follow while in house <Leonor Briones - Last Filed: 10/26/17 15:24> Objective - Vital Signs/Intake and Output Vital Signs (last 24 hours): Temp Pulse Resp BP Pulse Ox 97.6 F 75 18 134/77 96 10/26/17 08:09 10/26/17 08:09 10/26/17 08:09 10/26/17 08:09 10/26/17 08:09 Intake and Output: 10/26/17 10/26/17 06:59 18:59 Intake Total 180 840 Output Total 1050 Balance -870 840 - Medications Medications: Current Medications Enoxaparin Sodium (Lovenox) 40 mg SC DAILY [facility] PRN Reason: Protocol Last Admin: 10/26/17 09:20 Dose: 40 mg Metoprolol Tartrate (Lopressor) 25 mg PO BID [facility] Last Admin: 10/26/17 09:20 Dose: 25 mg Mupirocin (Bactroban Ointment) 0 gm TOP DAILY [facility] Last Admin: 10/26/17 09:21 Dose: 1 appl - Labs Labs: 10/23/17 09:30 10/23/17 09:30 PT 11.2 SECONDS (9.4-12.5) 10/07/17 15:00 INR 0.98 (0.93-1.08) 10/07/17 15:00 APTT 29.1 Seconds (25.1-36.5) 10/07/17 15:00 Attending/Attestation - Attestation I have personally seen and examined this patient.: Yes I have fully participated in the care of the patient.: Yes I have reviewed all pertinent clinical information, including history, physical exam and plan: Yes Notes (Text): 10/26/17 15:23 I saw and examined patient with the resident and agree with the residents note treatment plan formulated and carried out
--- NOTE | 2017-10-15 13:34 | PN ---
DATE: SUBJECTIVE: The patient has no complaints of any headaches or dizziness. She states she feels well. She has no nausea, no vomiting. PHYSICAL EXAMINATION VITAL SIGNS: Temperature is 98.1, pulse of 85, blood pressure 154/92, respirations 20. GENERAL: The patient is lying in bed, flat, comfortable. HEENT: No oral lesion. Anicteric sclerae. Moist mucosa. NECK: No JVD, adenopathy, or thyromegaly. CARDIOVASCULAR: S1 and S2, regular. No murmurs, rubs, or gallops. LUNGS: Clear to auscultation bilaterally. No wheeze, rales, or rhonchi. ABDOMEN: Bowel sounds are positive. Soft, nontender and nondistended. EXTREMITIES: No cyanosis, clubbing or edema. LABORATORY DATA: Potassium is 2.5. ASSESSMENT: 1. Hypokalemia. 2. Lower extremity cellulitis. 3. Hyponatremia, improved. 4. Dementia, Alzheimer type. 5. [id number] myocardial infarction. PLAN: The patient is currently comfortable. She is on heparin for DVT prophylaxis. She is going to continue on aspirin. She is on cefepime for antibiotics. The patient is on Protonix daily. The patient is on Solu-Cortef, that is being weaned. The patient is on acyclovir, I will replace the patient's potassium. The patient is being followed by Infectious Disease. She is on day #8 of antibiotics. I did review the patient's note. I will get . The patient is being followed by Dr. Cheatham. Nathaniel Gallo MD
--- NOTE | 2017-10-15 14:28 | CP.PCM.PN ---
Subjective - Date & Time of Evaluation Date of Evaluation: 10/15/17 Time of Evaluation: 11:25 - Subjective Subjective: Comfortable in bed, no fevers, not in distress, still with some confusion. Objective - Vital Signs/Intake and Output Vital Signs (last 24 hours): Temp Pulse Resp BP Pulse Ox 98.4 F 80 28 H 126/80 96 10/15/17 07:30 10/15/17 09:22 10/15/17 07:30 10/15/17 09:22 10/15/17 07:30 Intake and Output: 10/15/17 10/15/17 06:59 18:59 Intake Total 2620 Output Total 1600 Balance 1020 - Medications Medications: Current Medications Aspirin (Aspirin) 325 mg PO DAILY [facility] Last Admin: 10/15/17 09:19 Dose: 325 mg Clotrimazole (Lotrimin 1%) 1 gm TOP BID [facility] Last Admin: 10/15/17 09:22 Dose: 1 appl Heparin Sodium (Porcine) (Heparin) 5,000 units SC Q12 [facility] PRN Reason: Protocol Last Admin: 10/15/17 09:21 Dose: 5,000 units Hydrocortisone Sodium Succinate (Solu-Cortef) 50 mg IVP DAILY [facility] Acyclovir 500 mg/ Sodium (Chloride) 100 mls @ 100 mls/hr IV Q8 [facility] PRN Reason: Protocol Stop: 10/16/17 22:01 Last Admin: 10/15/17 05:40 Dose: 100 mls/hr Cefepime HCl (Maxipime 2gm) 2 gm in 100 mls @ 100 mls/hr IVPB Q12 [facility] PRN Reason: Protocol Stop: 10/16/17 22:01 Last Admin: 10/15/17 09:23 Dose: 100 mls/hr Vancomycin HCl (Vancomycin 1gm) 1 gm in 250 mls @ 167 mls/hr IVPB Q12H [facility] PRN Reason: Protocol Metoprolol Tartrate (Lopressor) 25 mg PO BID [facility] Last Admin: 10/15/17 09:22 Dose: 25 mg Pantoprazole Sodium (Protonix Ec Tab) 40 mg PO ACB [facility] Potassium Chloride (K-Dur 20 Meq Er Tab) 40 meq PO ONCE ONE Stop: 10/15/17 13:01 Potassium Chloride (K-Dur 20 Meq Er Tab) 40 meq PO ONCE ONE Stop: 10/15/17 20:01 - Labs Labs: 10/15/17 07:00 10/15/17 07:00 PT 11.2 SECONDS (9.4-12.5) 10/07/17 15:00 INR 0.98 (0.93-1.08) 10/07/17 15:00 APTT 29.1 Seconds (25.1-36.5) 10/07/17 15:00 - Constitutional Appears: Chronically Ill - Head Exam Head Exam: NORMAL INSPECTION - Neck Exam Neck Exam: absent: Meningismus - Respiratory Exam Respiratory Exam: Decreased Breath Sounds - Cardiovascular Exam Cardiovascular Exam: +S1, +S2 - GI/Abdominal Exam GI & Abdominal Exam: Soft. 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
[2017-10-16] MEDS: Vancomycin 1gm in NS 250ml 1 GM/250 ML BAG IVPB SCH ×2 (00:43→11:56)
[2017-10-16] MEDS: Acyclovir 500 MG in Sodium Chloride 0.9% 100 ML IV SCH ×3 (05:21→23:45)
--- NOTE | 2017-10-16 07:48 | CP.PCM.PN ---
Subjective - Date & Time of Evaluation Date of Evaluation: 10/16/17 Time of Evaluation: 06:20 - Subjective Subjective: Seen and examined by me and Dr. Roldan Reason for consult and follow up:altered mental status, bilateral leg cellulitis ,sepsis, positive troponin may be secondary to rhabdomyolysis, CPK-MB was low, non ST elevation myocardial infarction.hypotension. Subjective: lying in bed, in no distress, denies shortness of breath or chest pain Objective - Vital Signs/Intake and Output Vital Signs (last 24 hours): Temp Pulse Resp BP Pulse Ox 97 F L 78 18 135/82 96 10/16/17 07:29 10/16/17 07:29 10/16/17 07:29 10/16/17 07:29 10/16/17 07:29 Intake and Output: 10/16/17 10/16/17 06:59 18:59 Intake Total 540 Output Total 1300 Balance -760 - Medications Medications: Current Medications Aspirin (Aspirin) 325 mg PO DAILY [facility] Last Admin: 10/15/17 09:19 Dose: 325 mg Clotrimazole (Lotrimin 1%) 1 gm TOP BID [facility] Last Admin: 10/15/17 17:50 Dose: 1 appl Heparin Sodium (Porcine) (Heparin) 5,000 units SC Q12 [facility] PRN Reason: Protocol Last Admin: 10/15/17 21:49 Dose: 5,000 units Hydrocortisone Sodium Succinate (Solu-Cortef) 50 mg IVP DAILY [facility] Last Admin: 10/15/17 12:24 Dose: 50 mg Acyclovir 500 mg/ Sodium (Chloride) 100 mls @ 100 mls/hr IV Q8 [facility] PRN Reason: Protocol Stop: 10/16/17 22:01 Last Admin: 10/16/17 05:21 Dose: 100 mls/hr Cefepime HCl (Maxipime 2gm) 2 gm in 100 mls @ 100 mls/hr IVPB Q12 [facility] PRN Reason: Protocol Stop: 10/16/17 22:01 Last Admin: 10/15/17 23:27 Dose: 100 mls/hr Vancomycin HCl (Vancomycin 1gm) 1 gm in 250 mls @ 167 mls/hr IVPB Q12H [facility] PRN Reason: Protocol Last Admin: 10/16/17 00:43 Dose: 167 mls/hr Metoprolol Tartrate (Lopressor) 25 mg PO BID [facility] Last Admin: 10/15/17 17:49 Dose: 25 mg Pantoprazole Sodium (Protonix Ec Tab) 40 mg PO ACB [facility] - Labs Labs: 10/15/17 07:00 10/15/17 07:00 PT 11.2 SECONDS (9.4-12.5) 10/07/17 15:00 INR 0.98 (0.93-1.08) 10/07/17 15:00 APTT 29.1 Seconds (25.1-36.5) 10/07/17 15:00 - Constitutional Appears: Well, No Acute Distress - Head Exam Head Exam: NORMAL INSPECTION - Eye Exam Eye Exam: Normal appearance Pupil Exam: NORMAL ACCOMODATION - ENT Exam ENT Exam: Mucous Membranes Moist, Normal Exam - Respiratory Exam Respiratory Exam: Clear to Ausculation Bilateral, NORMAL BREATHING PATTERN - Cardiovascular Exam Cardiovascular Exam: REGULAR RHYTHM, +S1, +S2 - GI/Abdominal Exam GI & Abdominal Exam: Soft, Normal Bowel Sounds - Extremities Exam Additional comments: bilateral cellulitis, warm to touch and dry - Neurological Exam Neurological Exam: Alert, Awake - Psychiatric Exam Psychiatric exam: Normal Affect - Skin Skin Exam: Intact, Normal Color, Warm Assessment and Plan - Assessment and Plan (Free Text) Assessment: IMPRESSION:altered mental status, bilateral leg cellulitis,sepsis, positive troponin may be secondary to rhabdomyolysis, CPK-MB was low, non ST elevation myocardial infarction.hypotension. Plan: Cardiac status stable Stable BP and heart rate Continue present treatment Continue medication Will follow up Plan and treatment reviewed with Dr. Roldan
[2017-10-16 08:09] LABS: ALB/GLOB RATIO 0.9 (1.1-1.8); ALBUMIN 2.2 g/dL (3.0-4.8); ALT/SGPT 75 U/L (7-56); AST/SGOT 49 U/L (14-36); BLOOD UREA NITROGEN 12 mg/dL (7-21); CALCIUM 8.6 mg/dL (8.4-10.5); GFR AFRICAN-AMERICAN > 60; GFR NON-AFRICAN AMERICAN > 60
[2017-10-16] MEDS: Pantoprazole 40 mg EC Tab PO SCH (08:18)
[2017-10-16] MEDS: Clotrimazole 1% Cream(30 gm) TOP SCH ×2 (09:57→17:08)
[2017-10-16] MEDS: Cefepime IV 2 gm in NS 2 GM/100 ML BAG IVPB SCH ×2 (10:00→22:19)
--- NOTE | 2017-10-16 13:10 | CP.PCM.PN ---
<KurtisChristi - Last Filed: 10/16/17 13:38> Subjective - Date & Time of Evaluation Date of Evaluation: 10/16/17 Time of Evaluation: 13:05 - Subjective Subjective: Podiatry Progress Note- Dr. Briones/Dr. Martin 66 y/o female seen at bedside this morning with attending Dr. Martin for bilateral lower extremity scaling superficial ulcerations with cellulitic skin changes. Patient seen resting comfortably in bed, in NAD, and awake. Patient says her legs feel sore still but are not painful. Patient denies F/C/N/V/CP/ SOB. She has no new pedal complaints at this time. Objective - Vital Signs/Intake and Output Vital Signs (last 24 hours): Temp Pulse Resp BP Pulse Ox 97 F L 94 H 18 113/60 96 10/16/17 07:29 10/16/17 09:57 10/16/17 07:29 10/16/17 09:57 10/16/17 07:29 Intake and Output: 10/16/17 10/16/17 06:59 18:59 Intake Total 540 Output Total 1300 Balance -760 - Medications Medications: Current Medications Aspirin (Aspirin) 325 mg PO DAILY [facility] Last Admin: 10/16/17 09:54 Dose: 325 mg Clotrimazole (Lotrimin 1%) 1 gm TOP BID [facility] Last Admin: 10/16/17 09:57 Dose: 1 appl Heparin Sodium (Porcine) (Heparin) 5,000 units SC Q12 [facility] PRN Reason: Protocol Last Admin: 10/16/17 09:54 Dose: 5,000 units Hydrocortisone Sodium Succinate (Solu-Cortef) 50 mg IVP DAILY [facility] Last Admin: 10/16/17 09:55 Dose: 50 mg Acyclovir 500 mg/ Sodium (Chloride) 100 mls @ 100 mls/hr IV Q8 [facility] PRN Reason: Protocol Stop: 10/16/17 22:01 Last Admin: 10/16/17 05:21 Dose: 100 mls/hr Cefepime HCl (Maxipime 2gm) 2 gm in 100 mls @ 100 mls/hr IVPB Q12 [facility] PRN Reason: Protocol Stop: 10/16/17 22:01 Last Admin: 10/16/17 10:00 Dose: 100 mls/hr Vancomycin HCl (Vancomycin 1gm) 1 gm in 250 mls @ 167 mls/hr IVPB Q12H [facility] PRN Reason: Protocol Last Admin: 10/16/17 11:56 Dose: 167 mls/hr Metoprolol Tartrate (Lopressor) 25 mg PO BID [facility] Last Admin: 10/16/17 09:57 Dose: Not Given Pantoprazole Sodium (Protonix Ec Tab) 40 mg PO ACB [facility] Last Admin: 10/16/17 08:18 Dose: 40 mg - Labs Labs: 10/15/17 07:00 10/16/17 07:00 PT 11.2 SECONDS (9.4-12.5) 10/07/17 15:00 INR 0.98 (0.93-1.08) 10/07/17 15:00 APTT 29.1 Seconds (25.1-36.5) 10/07/17 15:00 - Constitutional Appears: Well, Non-toxic, No Acute Distress - Extremities Exam Additional comments: Dressings clean, dry and intact to bilateral lower extremities with no strikethrough noted Vasc: DP and PT 1/4 B/L, CFT < 3 seconds x 10 digits, temperature is warm to warm, moderate edema to the LE B/L Ortho: no pain with palpation to the LE Neuro: gross and protective sensation diminished Derm: Diffuse superficial ulcerations to bilateral legs extending between level of tibial tuberosity and ankle, with beefy red wound bases, noted to be epithelializing well. Diffuse erythema noted to the entire LE below the level of the knees. Multiple scaly, hyperkeratotic lesions noted to the entire LE, beginning to slough off and revealing healthy underlying skin. Minimal serous drainage is noted to inner dressing on RLE; no strikethrough present on inner dressing of LLE. No purulent drainage noted, no malodor, no probe to bone, no tunneling, no undermining noted to the ulcerations. - Neurological Exam Neurological Exam: Alert, Awake - Psychiatric Exam Psychiatric exam: Normal Affect, Normal Mood Assessment and Plan - Assessment and Plan (Free Text) Assessment: 66 y/o female with multiple venous stasis ulcerations and cellulitis to bilateral LE Plan: -Patient examined and evaluated with attending Dr. Martin -Labs, charts, vitals reviewed - afebrile, WBC 8.1 -Bilateral lower extremities cleansed with sterile saline -Dressings applied to B/L legs with Xeroform, ABD pads and DSD B/L -Continue abx regimen -Pt stable from podiatry standpoint -Will continue to follow while in house <Dipesh Martin - Last Filed: 10/16/17 17:47> Objective - Vital Signs/Intake and Output Vital Signs (last 24 hours): Temp Pulse Resp BP Pulse Ox 98 F 91 H 20 137/88 95 10/16/17 13:48 10/16/17 17:08 10/16/17 13:48 10/16/17 17:08 10/16/17 13:48 Intake and Output: 10/16/17 10/16/17 06:59 18:59 Intake Total 540 Output Total 1300 1000 Balance -760 -1000 - Medications Medications: Current Medications Aspirin (Aspirin) 325 mg PO DAILY [facility] Last Admin: 10/16/17 09:54 Dose: 325 mg Clotrimazole (Lotrimin 1%) 1 gm TOP BID [facility] Last Admin: 10/16/17 17:08 Dose: Not Given Heparin Sodium (Porcine) (Heparin) 5,000 units SC Q12 [facility] PRN Reason: Protocol Last Admin: 10/16/17 09:54 Dose: 5,000 units Hydrocortisone Sodium Succinate (Solu-Cortef) 50 mg IVP DAILY [facility] Last Admin: 10/16/17 09:55 Dose: 50 mg Acyclovir 500 mg/ Sodium (Chloride) 100 mls @ 100 mls/hr IV Q8 [facility] PRN Reason: Protocol Stop: 10/16/17 22:01 Last Admin: 10/16/17 14:04 Dose: 100 mls/hr Cefepime HCl (Maxipime 2gm) 2 gm in 100 mls @ 100 mls/hr IVPB Q12 [facility] PRN Reason: Protocol Stop: 10/16/17 22:01 Last Admin: 10/16/17 10:00 Dose: 100 mls/hr Vancomycin HCl (Vancomycin 1gm) 1 gm in 250 mls @ 167 mls/hr IVPB Q12H [facility] PRN Reason: Protocol Last Admin: 10/16/17 11:56 Dose: 167 mls/hr Metoprolol Tartrate (Lopressor) 25 mg PO BID [facility] Last Admin: 10/16/17 17:08 Dose: 25 mg Pantoprazole Sodium (Protonix Ec Tab) 40 mg PO ACB [facility] Last Admin: 10/16/17 08:18 Dose: 40 mg - Labs Labs: 10/15/17 07:00 10/16/17 07:00 PT 11.2 SECONDS (9.4-12.5) 10/07/17 15:00 INR 0.98 (0.93-1.08) 10/07/17 15:00 APTT 29.1 Seconds (25.1-36.5) 10/07/17 15:00 Attending/Attestation - Attestation I have personally seen and examined this patient.: Yes I have fully participated in the care of the patient.: Yes I have reviewed all pertinent clinical information, including history, physical exam and plan: Yes
--- NOTE | 2017-10-16 14:48 | PN ---
DATE: 10/16/2017 REASON FOR DICTATION: Addendum for initial progress note dictated by our nurse practitioner, Kandice Vizcaino. The patient's is stable. We will sign off and would like to follow p.r.n. Thank you, Dr. Mg for providing us opportunity in taking care of the patient, Madison León. We will follow prichie. Lazaro Roldan MD
--- NOTE | 2017-10-16 16:47 | CP.PCM.PN ---
Subjective - Date & Time of Evaluation Date of Evaluation: 10/16/17 Time of Evaluation: 12:35 - Subjective Subjective: No fevers, not in distress. Objective - Vital Signs/Intake and Output Vital Signs (last 24 hours): Temp Pulse Resp BP Pulse Ox 97 F L 94 H 18 113/60 96 10/16/17 07:29 10/16/17 09:57 10/16/17 07:29 10/16/17 09:57 10/16/17 07:29 Intake and Output: 10/16/17 10/16/17 06:59 18:59 Intake Total 540 Output Total 1300 Balance -760 - Medications Medications: Current Medications Aspirin (Aspirin) 325 mg PO DAILY [facility] Last Admin: 10/16/17 09:54 Dose: 325 mg Clotrimazole (Lotrimin 1%) 1 gm TOP BID [facility] Last Admin: 10/16/17 09:57 Dose: 1 appl Heparin Sodium (Porcine) (Heparin) 5,000 units SC Q12 [facility] PRN Reason: Protocol Last Admin: 10/16/17 09:54 Dose: 5,000 units Hydrocortisone Sodium Succinate (Solu-Cortef) 50 mg IVP DAILY [facility] Last Admin: 10/16/17 09:55 Dose: 50 mg Acyclovir 500 mg/ Sodium (Chloride) 100 mls @ 100 mls/hr IV Q8 [facility] PRN Reason: Protocol Stop: 10/16/17 22:01 Last Admin: 10/16/17 05:21 Dose: 100 mls/hr Cefepime HCl (Maxipime 2gm) 2 gm in 100 mls @ 100 mls/hr IVPB Q12 [facility] PRN Reason: Protocol Stop: 10/16/17 22:01 Last Admin: 10/16/17 10:00 Dose: 100 mls/hr Vancomycin HCl (Vancomycin 1gm) 1 gm in 250 mls @ 167 mls/hr IVPB Q12H [facility] PRN Reason: Protocol Last Admin: 10/16/17 00:43 Dose: 167 mls/hr Metoprolol Tartrate (Lopressor) 25 mg PO BID [facility] Last Admin: 10/16/17 09:57 Dose: Not Given Pantoprazole Sodium (Protonix Ec Tab) 40 mg PO ACB [facility] Last Admin: 10/16/17 08:18 Dose: 40 mg - Labs Labs: 10/15/17 07:00 10/16/17 07:00 PT 11.2 SECONDS (9.4-12.5) 10/07/17 15:00 INR 0.98 (0.93-1.08) 10/07/17 15:00 APTT 29.1 Seconds (25.1-36.5) 10/07/17 15:00 - Constitutional Appears: Chronically Ill - Head Exam Head Exam: NORMAL INSPECTION - ENT Exam ENT Exam: Mucous Membranes Moist - Neck Exam Neck Exam: absent: Meningismus - Respiratory Exam Respiratory Exam: Decreased Breath Sounds - Cardiovascular Exam Cardiovascular Exam: +S1, +S2 - GI/Abdominal Exam GI & Abdominal Exam: Soft. 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
[2017-10-17] MEDS: Vancomycin 1gm in NS 250ml 1 GM/250 ML BAG IVPB SCH ×2 (00:49→12:34)
--- NOTE | 2017-10-17 01:04 | PN ---
DATE: SUBJECTIVE: Patient is a 66-year-old, seen and examined, seems to be more awake and alert, eating well. No nausea or vomiting, no diarrhea. OBJECTIVE: VITAL SIGNS: She is afebrile. Pulse 91, respirations 20, blood pressure 137/88. LUNGS: Bilateral fair airflow. No rhonchi or crackle. HEART: S1, S2 audible. ABDOMEN: Soft, nontender. No rebound, no guarding. NEUROLOGIC: Patient is awake and alert. Confused, disoriented. EXTREMITIES: Bilateral leg +2 edema. Bilateral leg ulcers. Bilateral foot swelling. LABORATORY DATA: Chemistry: Sodium 136, potassium 3.9, chloride 105, CO2 of 27, BUN 12, creatinine 0.4, blood sugar of 81, AST 49, ALT 75, alkaline phosphatase is 170, LDH is 957. ASSESSMENT: 1. Status post metabolic encephalopathy. 2. Bilateral leg edema and ulcer. 3. Status post hyponatremia that has resolved. 4. Deconditioning and difficulty walking. 5. Mild dementia. PLAN: Currently, patient is on aspirin daily. She is on DVT prophylaxis. Continue oral metoprolol. She is on Protonix. She is on vancomycin. We will follow her electrolyte intermittently. We will request for TCU evaluation. If accepted, then can be transferred to TCU. Abelardo Mg MD
[2017-10-17] MEDS: Pantoprazole 40 mg EC Tab PO SCH (09:00)
[2017-10-17] MEDS: Clotrimazole 1% Cream(30 gm) TOP SCH ×2 (09:06→17:16)
[2017-10-17] MEDS: Acyclovir 500 MG in Sodium Chloride 0.9% 100 ML IVPB SCH ×2 (13:45→21:16)
--- NOTE | 2017-10-17 17:59 | CP.PCM.PN ---
Subjective - Date & Time of Evaluation Date of Evaluation: 10/17/17 Time of Evaluation: 11:45 - Subjective Subjective: Comfortable, no fevers, not in distress. Objective - Vital Signs/Intake and Output Vital Signs (last 24 hours): Temp Pulse Resp BP Pulse Ox 98.7 F 69 18 130/79 95 10/17/17 14:00 10/17/17 17:16 10/17/17 14:00 10/17/17 17:16 10/17/17 14:00 Intake and Output: 10/17/17 10/17/17 06:59 18:59 Intake Total 600 960 Output Total 1300 1000 Balance -700 -40 - Medications Medications: Current Medications Aspirin (Aspirin) 325 mg PO DAILY [facility] Last Admin: 10/17/17 09:17 Dose: Not Given Clotrimazole (Lotrimin 1%) 1 gm TOP BID [facility] Last Admin: 10/17/17 17:16 Dose: 1 appl Heparin Sodium (Porcine) (Heparin) 5,000 units SC Q12 [facility] PRN Reason: Protocol Last Admin: 10/17/17 09:05 Dose: 5,000 units Hydrocortisone Sodium Succinate (Solu-Cortef) 50 mg IVP DAILY [facility] Last Admin: 10/17/17 09:06 Dose: 50 mg Vancomycin HCl (Vancomycin 1gm) 1 gm in 250 mls @ 167 mls/hr IVPB Q12H [facility] PRN Reason: Protocol Last Admin: 10/17/17 12:34 Dose: 167 mls/hr Acyclovir 500 mg/ Sodium (Chloride) 100 mls @ 100 mls/hr IVPB Q8 [facility] PRN Reason: Protocol Last Admin: 10/17/17 13:45 Dose: 100 mls/hr Cefepime HCl (Maxipime 2gm) 2 gm in 100 mls @ 100 mls/hr IVPB Q12 [facility] PRN Reason: Protocol Stop: 10/22/17 22:01 Metoprolol Tartrate (Lopressor) 25 mg PO BID [facility] Last Admin: 10/17/17 17:16 Dose: 25 mg Pantoprazole Sodium (Protonix Ec Tab) 40 mg PO ACB [facility] Last Admin: 10/17/17 09:00 Dose: 40 mg - Labs Labs: 10/15/17 07:00 10/16/17 07:00 PT 11.2 SECONDS (9.4-12.5) 10/07/17 15:00 INR 0.98 (0.93-1.08) 10/07/17 15:00 APTT 29.1 Seconds (25.1-36.5) 10/07/17 15:00 - Constitutional Appears: Chronically Ill - Head Exam Head Exam: NORMAL INSPECTION - ENT Exam ENT Exam: Mucous Membranes Moist - Neck Exam Neck Exam: absent: Meningismus - Respiratory Exam Respiratory Exam: Decreased Breath Sounds - Cardiovascular Exam Cardiovascular Exam: +S1, +S2 - GI/Abdominal Exam GI & Abdominal Exam: Soft. absent: Tenderness - Extremities Exam Additional comments: both legs with dressings in place Assessment and Plan - Assessment and Plan (Free Text) Plan: Assessment severe sepsis with acute encephalopathy from bilateral lower extremity cellulitis (growing MSSA and Enterobacter), R/O WOOD EXPERIMENTAL MECHANIC infection such as meningoencephalitis (encephalopathy may also be metabolic - hyponatremia) Plan continue Vancomycin, Cefepime and Acyclovir day 10 - complete 10-14 days of therapy; blood cx are negative, wound cx showing Staph aureus and Enterobacter, reviewed CT chest which shows non-specific consolidations at the bases would suggest lumbar puncture and CSF analysis as well as MRI brain with and without contrast when feasible will continue to monitor clinically
--- NOTE | 2017-10-17 18:38 | PN ---
DATE: SUBJECTIVE: The patient is 66 years old, seen and examined, much more awake, alert, oriented, communicative, eating and tolerating. PHYSICAL EXAMINATION VITAL SIGNS: She is afebrile, pulse 70, respirations 20, blood pressure 136/79. LUNGS: Bilateral good air flow. No rhonchi or crackle. HEART: S1 and S2 audible. ABDOMEN: Soft, nontender. No rebound. No guarding. NEUROLOGIC: The patient is awake, alert, oriented and communicative. LABORATORY DATA: WBC is 8.1, hemoglobin 10.2, hematocrit 30.3, platelets of 344. Chemistry: Sodium 136, potassium 3.9, chloride 105, CO2 27, BUN 12, creatinine 0.4, blood sugar of 81. AST 49, ALT 75. Urinalysis is unremarkable. ASSESSMENT AND PLAN: 1. Status post hyponatremia that has improved, status post encephalopathy, improved. 2. Deconditioning and difficulty walking. 3. Bilateral leg edema and ulcers. 4. Bilateral foot cellulitis, improving. 5. Deconditioning and difficulty walking. PLAN: The patient had session of physical therapy yesterday. She was able to only stand up. The patient needs long subacute rehab. fiscal services manager are in the process of making arrangement for subacute rehab. Since the patient is back to getting sick, she was living by herself and she was able to do her daily activity by herself, but she is too weak to be discharged home. the patient will be discharged to subacute rehab. Abelardo Mg MD
[2017-10-17] MEDS: Cefepime IV 2 gm in NS 2 GM/100 ML BAG IVPB SCH (21:17)
[2017-10-18] MEDS: Vancomycin 1gm in NS 250ml 1 GM/250 ML BAG IVPB SCH ×2 (00:30→11:20)
[2017-10-18] MEDS: Acyclovir 500 MG in Sodium Chloride 0.9% 100 ML IVPB SCH ×3 (05:20→21:39)
[2017-10-18] MEDS: Cefepime IV 2 gm in NS 2 GM/100 ML BAG IVPB SCH ×2 (09:40→21:38)
[2017-10-18] MEDS: Clotrimazole 1% Cream(30 gm) TOP SCH ×2 (09:40→17:12)
[2017-10-18] MEDS: Pantoprazole 40 mg EC Tab PO SCH (09:45)
--- NOTE | 2017-10-18 12:02 | CP.PCM.PN ---
<Christi Hull - Last Filed: 10/18/17 13:42> Subjective - Date & Time of Evaluation Date of Evaluation: 10/18/17 Time of Evaluation: 12:02 - Subjective Subjective: Podiatry Progress Note- Dr. Briones/Dr. Martin 66 y/o female seen at bedside this morning with attending Dr. Martin for bilateral lower extremity scaling superficial ulcerations with cellulitic skin changes. Patient seen resting comfortably in bed, in NAD, and awake. Patient says her legs still feel sore to the touch. She states the pain is fine when nothing comes in contact with the legs. Patient denies F/C/N/V/CP/SOB. She has no new pedal complaints at this time. Objective - Vital Signs/Intake and Output Vital Signs (last 24 hours): Temp Pulse Resp BP Pulse Ox 98.1 F 85 20 135/85 96 10/18/17 06:00 10/18/17 09:45 10/18/17 06:00 10/18/17 09:45 10/18/17 06:00 Intake and Output: 10/18/17 10/18/17 06:59 18:59 Intake Total 1000 Output Total 1100 Balance -100 - Medications Medications: Current Medications Aspirin (Aspirin) 325 mg PO DAILY [facility] Last Admin: 10/18/17 09:44 Dose: 325 mg Clotrimazole (Lotrimin 1%) 1 gm TOP BID [facility] Last Admin: 10/18/17 09:40 Dose: 1 appl Heparin Sodium (Porcine) (Heparin) 5,000 units SC Q12 [facility] PRN Reason: Protocol Last Admin: 10/18/17 09:44 Dose: 5,000 units Hydrocortisone Sodium Succinate (Solu-Cortef) 50 mg IVP DAILY [facility] Last Admin: 10/18/17 09:45 Dose: 50 mg Vancomycin HCl (Vancomycin 1gm) 1 gm in 250 mls @ 167 mls/hr IVPB Q12H [facility] PRN Reason: Protocol Last Admin: 10/18/17 11:20 Dose: 167 mls/hr Acyclovir 500 mg/ Sodium (Chloride) 100 mls @ 100 mls/hr IVPB Q8 [facility] PRN Reason: Protocol Last Admin: 10/18/17 05:20 Dose: 100 mls/hr Cefepime HCl (Maxipime 2gm) 2 gm in 100 mls @ 100 mls/hr IVPB Q12 [facility] PRN Reason: Protocol Stop: 10/22/17 22:01 Last Admin: 10/18/17 09:40 Dose: 100 mls/hr Metoprolol Tartrate (Lopressor) 25 mg PO BID [facility] Last Admin: 10/18/17 09:45 Dose: 25 mg Pantoprazole Sodium (Protonix Ec Tab) 40 mg PO ACB [facility] Last Admin: 10/18/17 09:45 Dose: 40 mg - Labs Labs: 10/15/17 07:00 10/16/17 07:00 PT 11.2 SECONDS (9.4-12.5) 10/07/17 15:00 INR 0.98 (0.93-1.08) 10/07/17 15:00 APTT 29.1 Seconds (25.1-36.5) 10/07/17 15:00 - Constitutional Appears: Well, Non-toxic, No Acute Distress - Extremities Exam Additional comments: Dressings clean, dry and intact to bilateral lower extremities with no strikethrough noted Vasc: DP and PT 1/4 B/L, CFT < 3 seconds x 10 digits, temperature is warm to warm, moderate edema to the LE B/L Ortho: no pain with palpation to the LE Neuro: gross and protective sensation diminished Derm: Diffuse superficial ulcerations to bilateral legs extending between level of tibial tuberosity and ankle, with beefy red wound bases, noted to be epithelializing well. Diffuse erythema noted to the entire LE below the level of the knees. Multiple scaly, hyperkeratotic lesions noted to the entire LE, beginning to slough off and revealing healthy underlying skin. Minimal serous drainage is noted to inner dressing on RLE; no strikethrough present on inner dressing of LLE. Mild sanguinous drainage elicited from posterior ulceration on RLE. No purulent drainage noted, no malodor, no probe to bone, no tunneling, no undermining noted to the ulcerations. - Neurological Exam Neurological Exam: Alert, Awake - Psychiatric Exam Psychiatric exam: Normal Affect, Normal Mood Assessment and Plan - Assessment and Plan (Free Text) Assessment: 66 y/o female with multiple venous stasis ulcerations and cellulitis to bilateral LE Plan: -Patient examined and evaluated with attending Dr. Martin -Labs, charts, vitals reviewed - afebrile, WBC 8.1 -Bilateral lower extremities cleansed with sterile saline -Dressings applied to B/L legs with Adaptic, ABD pads and DSD B/L -Continue abx regimen -Pt stable from podiatry standpoint -Will continue to follow while in house <Brandan Martinjoaquin - Last Filed: 10/18/17 15:45> Objective - Vital Signs/Intake and Output Vital Signs (last 24 hours): Temp Pulse Resp BP Pulse Ox 98.1 F 85 20 135/85 96 10/18/17 06:00 10/18/17 09:45 10/18/17 06:00 10/18/17 09:45 10/18/17 06:00 Intake and Output: 10/18/17 10/18/17 06:59 18:59 Intake Total 1000 600 Output Total 1100 1100 Balance -100 -500 - Medications Medications: Current Medications Aspirin (Aspirin) 325 mg PO DAILY [facility] Last Admin: 10/18/17 09:44 Dose: 325 mg Clotrimazole (Lotrimin 1%) 1 gm TOP BID [facility] Last Admin: 10/18/17 09:40 Dose: 1 appl Heparin Sodium (Porcine) (Heparin) 5,000 units SC Q12 [facility] PRN Reason: Protocol Last Admin: 10/18/17 09:44 Dose: 5,000 units Hydrocortisone Sodium Succinate (Solu-Cortef) 50 mg IVP DAILY [facility] Last Admin: 10/18/17 09:45 Dose: 50 mg Vancomycin HCl (Vancomycin 1gm) 1 gm in 250 mls @ 167 mls/hr IVPB Q12H [facility] PRN Reason: Protocol Last Admin: 10/18/17 11:20 Dose: 167 mls/hr Acyclovir 500 mg/ Sodium (Chloride) 100 mls @ 100 mls/hr IVPB Q8 [facility] PRN Reason: Protocol Last Admin: 10/18/17 13:58 Dose: 100 mls/hr Cefepime HCl (Maxipime 2gm) 2 gm in 100 mls @ 100 mls/hr IVPB Q12 [facility] PRN Reason: Protocol Stop: 10/22/17 22:01 Last Admin: 10/18/17 09:40 Dose: 100 mls/hr Metoprolol Tartrate (Lopressor) 25 mg PO BID [facility] Last Admin: 10/18/17 09:45 Dose: 25 mg Pantoprazole Sodium (Protonix Ec Tab) 40 mg PO ACB [facility] Last Admin: 10/18/17 09:45 Dose: 40 mg - Labs Labs: 10/15/17 07:00 10/16/17 07:00 PT 11.2 SECONDS (9.4-12.5) 10/07/17 15:00 INR 0.98 (0.93-1.08) 10/07/17 15:00 APTT 29.1 Seconds (25.1-36.5) 10/07/17 15:00 Attending/Attestation - Attestation I have personally seen and examined this patient.: Yes I have fully participated in the care of the patient.: Yes I have reviewed all pertinent clinical information, including history, physical exam and plan: Yes
--- NOTE | 2017-10-18 16:34 | CP.PCM.PN ---
Subjective - Date & Time of Evaluation Date of Evaluation: 10/18/17 Time of Evaluation: 12:25 - Subjective Subjective: No fevers, not in distress, much more awake and alert and coherent. Objective - Vital Signs/Intake and Output Vital Signs (last 24 hours): Temp Pulse Resp BP Pulse Ox 98.1 F 85 20 135/85 96 10/18/17 06:00 10/18/17 09:45 10/18/17 06:00 10/18/17 09:45 10/18/17 06:00 Intake and Output: 10/18/17 10/18/17 06:59 18:59 Intake Total 1000 Output Total 1100 Balance -100 - Medications Medications: Current Medications Aspirin (Aspirin) 325 mg PO DAILY [facility] Last Admin: 10/18/17 09:44 Dose: 325 mg Clotrimazole (Lotrimin 1%) 1 gm TOP BID [facility] Last Admin: 10/18/17 09:40 Dose: 1 appl Heparin Sodium (Porcine) (Heparin) 5,000 units SC Q12 [facility] PRN Reason: Protocol Last Admin: 10/18/17 09:44 Dose: 5,000 units Hydrocortisone Sodium Succinate (Solu-Cortef) 50 mg IVP DAILY [facility] Last Admin: 10/18/17 09:45 Dose: 50 mg Vancomycin HCl (Vancomycin 1gm) 1 gm in 250 mls @ 167 mls/hr IVPB Q12H [facility] PRN Reason: Protocol Last Admin: 10/18/17 00:30 Dose: 167 mls/hr Acyclovir 500 mg/ Sodium (Chloride) 100 mls @ 100 mls/hr IVPB Q8 [facility] PRN Reason: Protocol Last Admin: 10/18/17 05:20 Dose: 100 mls/hr Cefepime HCl (Maxipime 2gm) 2 gm in 100 mls @ 100 mls/hr IVPB Q12 [facility] PRN Reason: Protocol Stop: 10/22/17 22:01 Last Admin: 10/18/17 09:40 Dose: 100 mls/hr Metoprolol Tartrate (Lopressor) 25 mg PO BID [facility] Last Admin: 10/18/17 09:45 Dose: 25 mg Pantoprazole Sodium (Protonix Ec Tab) 40 mg PO ACB [facility] Last Admin: 10/18/17 09:45 Dose: 40 mg - Labs Labs: 10/15/17 07:00 10/16/17 07:00 PT 11.2 SECONDS (9.4-12.5) 10/07/17 15:00 INR 0.98 (0.93-1.08) 10/07/17 15:00 APTT 29.1 Seconds (25.1-36.5) 10/07/17 15:00 - Constitutional Appears: Chronically Ill - Head Exam Head Exam: NORMAL INSPECTION - ENT Exam ENT Exam: Mucous Membranes Moist - Neck Exam Neck Exam: absent: Meningismus - Respiratory Exam Respiratory Exam: Decreased Breath Sounds - Cardiovascular Exam Cardiovascular Exam: +S1, +S2 - GI/Abdominal Exam GI & Abdominal Exam: Soft. absent: Tenderness - Extremities Exam Additional comments: both feet with dressings in place Assessment and Plan - Assessment and Plan (Free Text) Plan: Assessment severe sepsis with acute encephalopathy from bilateral lower extremity cellulitis (growing MSSA and Enterobacter), R/O DEICER REPAIRER infection such as meningoencephalitis (encephalopathy may also be metabolic - hyponatremia) Plan continue Vancomycin, Cefepime and Acyclovir day 11 - complete 10-14 days of therapy; blood cx are negative, wound cx showing Staph aureus and Enterobacter, reviewed CT chest which shows non-specific consolidations at the bases patient has clinically improved - can d/c antibiotics after today will continue to monitor clinically
[2017-10-19] MEDS: Vancomycin 1gm in NS 250ml 1 GM/250 ML BAG IVPB SCH (00:13)
[2017-10-19] MEDS: Acyclovir 500 MG in Sodium Chloride 0.9% 100 ML IVPB SCH (05:06)
--- NOTE | 2017-10-19 08:31 | PN ---
DATE: 10/18/2017 SUBJECTIVE: Patient is 66 years old, seen and examined, lying in the bed. Seems to be comfortable. According to aids social worker who reached out to the nephew, states that she is marginally functional. 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 PHYSICAL EXAMINATION: GENERAL: On examination today, she is awake, alert, oriented; eating very well, finishes her whole tray, as per the nurse. Unable to walk. VITAL SIGNS: She is afebrile. Pulse 84, respirations 20, blood pressure 123/86. LUNGS: Bilateral good airflow. No rhonchi or crackles. HEART: S1 and S2 audible. ABDOMEN: Soft, nontender. No rebound. No guarding. NEUROLOGIC: She is awake and alert, able to answer simple questions. EXTREMITIES: Bilateral legs, +1 edema and ulcer. Bilateral foot ulcer. LABORATORY DATA: WBC is 12.5, hemoglobin 12.5, hematocrit 36.8, and platelets of 341. Chemistry: Blood sugar is 244. ASSESSMENT: 1. Status post hyponatremia. 2. Status post altered mental status. 3. Noninsulin-dependent diabetes. 4. Deconditioning and difficulty walking. PLAN: I will increase her Amaryl from 2 mg to 4 mg before breakfast and dinner. We will keep her on doxycycline. She is on nebulizer treatment. She is on aspirin and metformin. She is also receiving Januvia and statins. I will follow up with this patient. Abelardo Mg MD
[2017-10-19] MEDS: Pantoprazole 40 mg EC Tab PO SCH (09:05)
[2017-10-19] MEDS: Clotrimazole 1% Cream(30 gm) TOP SCH ×2 (09:07→17:42)
--- NOTE | 2017-10-19 11:51 | CP.PCM.PN ---
<Christi Hull - Last Filed: 10/19/17 11:53> Subjective - Date & Time of Evaluation Date of Evaluation: 10/19/17 Time of Evaluation: 11:51 - Subjective Subjective: Podiatry Progress Note- Dr. Briones/Dr. Martin 66 y/o female seen at bedside this morning regarding bilateral lower extremity scaling superficial ulcerations with cellulitic skin changes. Patient seen resting comfortably in bed, in NAD, and awake. Patient says her legs are still very sore. Says the dressings help to keep them padded and comfortable. Patient denies F/C/N/V/CP/SOB. She has no new pedal complaints at this time. Objective - Vital Signs/Intake and Output Vital Signs (last 24 hours): Temp Pulse Resp BP Pulse Ox 97.4 F L 75 18 132/80 97 10/19/17 08:00 10/19/17 09:05 10/19/17 08:00 10/19/17 09:05 10/19/17 08:00 Intake and Output: 10/19/17 10/19/17 06:59 18:59 Intake Total 480 Output Total 2050 Balance -1570 - Medications Medications: Current Medications Aspirin (Aspirin) 325 mg PO DAILY [facility] Last Admin: 10/19/17 09:05 Dose: 325 mg Clotrimazole (Lotrimin 1%) 1 gm TOP BID [facility] Last Admin: 10/19/17 09:07 Dose: 1 appl Heparin Sodium (Porcine) (Heparin) 5,000 units SC Q12 [facility] PRN Reason: Protocol Last Admin: 10/19/17 09:05 Dose: 5,000 units Hydrocortisone Sodium Succinate (Solu-Cortef) 50 mg IVP DAILY [facility] Last Admin: 10/19/17 09:07 Dose: 50 mg Metoprolol Tartrate (Lopressor) 25 mg PO BID [facility] Last Admin: 10/19/17 09:05 Dose: 25 mg Pantoprazole Sodium (Protonix Ec Tab) 40 mg PO ACB [facility] Last Admin: 10/19/17 09:05 Dose: 40 mg - Labs Labs: 10/15/17 07:00 10/16/17 07:00 PT 11.2 SECONDS (9.4-12.5) 10/07/17 15:00 INR 0.98 (0.93-1.08) 10/07/17 15:00 APTT 29.1 Seconds (25.1-36.5) 10/07/17 15:00 - Constitutional Appears: Well, Non-toxic, No Acute Distress - Extremities Exam Additional comments: Dressings clean, dry and intact to bilateral lower extremities with no strikethrough noted Vasc: DP and PT 1/4 B/L, CFT < 3 seconds x 10 digits, temperature is warm to warm, moderate edema to the LE B/L Ortho: no pain with palpation to the LE Neuro: gross and protective sensation diminished Derm: Diffuse superficial ulcerations to bilateral legs extending between level of tibial tuberosity and ankle, with beefy red wound bases, noted to be epithelializing well. Diffuse erythema noted to the entire LE distal to the tibial tuberosity B/L. Multiple scaly, hyperkeratotic lesions noted to the entire LE, beginning to slough off and revealing healthy underlying skin. Minimal serous drainage is noted to inner dressing on RLE; no strikethrough present on inner dressing of LLE. Mild sanguinous drainage elicited from posterior ulceration on RLE. No purulent drainage noted, no malodor, no probe to bone, no tunneling, no undermining noted to the ulcerations. - Neurological Exam Neurological Exam: Alert, Awake, Oriented x3 - Psychiatric Exam Psychiatric exam: Normal Affect, Normal Mood Assessment and Plan - Assessment and Plan (Free Text) Assessment: 66 y/o female with multiple venous stasis ulcerations and cellulitis to bilateral LE Plan: -Patient examined and evaluated -Discussed plan with attending Dr. Martin -Labs, charts, vitals reviewed - afebrile, WBC 8.1 -Bilateral lower extremities cleansed with sterile saline -Dressings applied to B/L legs with Adaptic, ABD pads and DSD B/L -Continue abx regimen -Pt stable from podiatry standpoint -Will continue to follow while in house <Dipesh Martin - Last Filed: 10/19/17 13:04> Objective - Vital Signs/Intake and Output Vital Signs (last 24 hours): Temp Pulse Resp BP Pulse Ox 97.4 F L 75 18 132/80 97 10/19/17 08:00 10/19/17 09:05 10/19/17 08:00 10/19/17 09:05 10/19/17 08:00 Intake and Output: 10/19/17 10/19/17 06:59 18:59 Intake Total 480 Output Total 2050 Balance -1570 - Medications Medications: Current Medications Aspirin (Aspirin) 325 mg PO DAILY [facility] Last Admin: 10/19/17 09:05 Dose: 325 mg Clotrimazole (Lotrimin 1%) 1 gm TOP BID [facility] Last Admin: 10/19/17 09:07 Dose: 1 appl Heparin Sodium (Porcine) (Heparin) 5,000 units SC Q12 [facility] PRN Reason: Protocol Last Admin: 10/19/17 09:05 Dose: 5,000 units Hydrocortisone Sodium Succinate (Solu-Cortef) 50 mg IVP DAILY [facility] Last Admin: 10/19/17 09:07 Dose: 50 mg Metoprolol Tartrate (Lopressor) 25 mg PO BID [facility] Last Admin: 10/19/17 09:05 Dose: 25 mg Pantoprazole Sodium (Protonix Ec Tab) 40 mg PO ACB [facility] Last Admin: 10/19/17 09:05 Dose: 40 mg - Labs Labs: 10/15/17 07:00 10/16/17 07:00 PT 11.2 SECONDS (9.4-12.5) 10/07/17 15:00 INR 0.98 (0.93-1.08) 10/07/17 15:00 APTT 29.1 Seconds (25.1-36.5) 10/07/17 15:00 Attending/Attestation - Attestation I have personally seen and examined this patient.: Yes I have fully participated in the care of the patient.: Yes I have reviewed all pertinent clinical information, including history, physical exam and plan: Yes
--- NOTE | 2017-10-19 14:18 | CP.PCM.PN ---
Subjective - Date & Time of Evaluation Date of Evaluation: 10/19/17 Time of Evaluation: 12:35 - Subjective Subjective: Patient is more awake and alert, no fevers, not in distress, improved pain in both feet. No diarrhea, no nausea. Objective - Vital Signs/Intake and Output Vital Signs (last 24 hours): Temp Pulse Resp BP Pulse Ox 97.4 F L 75 18 132/80 97 10/19/17 08:00 10/19/17 09:05 10/19/17 08:00 10/19/17 09:05 10/19/17 08:00 Intake and Output: 10/19/17 10/19/17 06:59 18:59 Intake Total 480 Output Total 2050 Balance -1570 - Medications Medications: Current Medications Aspirin (Aspirin) 325 mg PO DAILY [facility] Last Admin: 10/19/17 09:05 Dose: 325 mg Clotrimazole (Lotrimin 1%) 1 gm TOP BID [facility] Last Admin: 10/19/17 09:07 Dose: 1 appl Heparin Sodium (Porcine) (Heparin) 5,000 units SC Q12 [facility] PRN Reason: Protocol Last Admin: 10/19/17 09:05 Dose: 5,000 units Hydrocortisone Sodium Succinate (Solu-Cortef) 50 mg IVP DAILY [facility] Last Admin: 10/19/17 09:07 Dose: 50 mg Metoprolol Tartrate (Lopressor) 25 mg PO BID [facility] Last Admin: 10/19/17 09:05 Dose: 25 mg Pantoprazole Sodium (Protonix Ec Tab) 40 mg PO ACB [facility] Last Admin: 10/19/17 09:05 Dose: 40 mg - Labs Labs: 10/15/17 07:00 10/16/17 07:00 PT 11.2 SECONDS (9.4-12.5) 10/07/17 15:00 INR 0.98 (0.93-1.08) 10/07/17 15:00 APTT 29.1 Seconds (25.1-36.5) 10/07/17 15:00 - Constitutional Appears: Non-toxic, Chronically Ill - Head Exam Head Exam: NORMAL INSPECTION - ENT Exam ENT Exam: Mucous Membranes Moist - Neck Exam Neck Exam: absent: Meningismus - Respiratory Exam Respiratory Exam: Decreased Breath Sounds - Cardiovascular Exam Cardiovascular Exam: +S1, +S2 - GI/Abdominal Exam GI & Abdominal Exam: Soft. absent: Tenderness - Extremities Exam Additional comments: both lower extremities with dressings in place Assessment and Plan - Assessment and Plan (Free Text) Plan: Assessment S/P severe sepsis with acute encephalopathy from bilateral lower extremity cellulitis (growing MSSA and Enterobacter), R/O MEAT BONER AND SLICER infection such as meningoencephalitis (encephalopathy may also be metabolic - hyponatremia) Plan completed 11 days of Vancomycin, Cefepime and Acyclovir - continue to monitor clinically off antibiotics since she is at risk for nosocomial infections
[2017-10-19] MEDS: Cefepime IV 2 gm in NS 2 GM/100 ML BAG IVPB SCH (17:42)
--- NOTE | 2017-10-20 00:57 | PN ---
DATE: SUBJECTIVE: The patient is a 66-year-old, seen and examined, lying in bed. Seems to be comfortable. Eating well. Difficulty walking. Feels dizzy when standing. PHYSICAL EXAMINATION: VITAL SIGNS: She is afebrile. Pulse 77, respirations 20, blood pressure 120/79. LUNGS: Bilateral good airflow. No rhonchi or crackle. HEART: S1 and S2 audible. ABDOMEN: Soft, nontender. No rebound. No guarding. NEUROLOGIC: She is awake and alert. Able to communicate. Answers appropriately. ASSESSMENT AND PLAN: 1. Status post encephalopathy. 2. Hyponatremia. 3. History of hypertension. 4. Deconditioning and difficulty walking. PLAN: We will continue the patient on current medication. Awaiting subacute rehab; that is not possible because of her insurance reason. Abelardo Mg MD
[2017-10-20] MEDS: Pantoprazole 40 mg EC Tab PO SCH (08:04)
[2017-10-20] MEDS: Clotrimazole 1% Cream(30 gm) TOP SCH ×2 (09:02→17:05)
--- NOTE | 2017-10-20 10:01 | CP.PCM.PN ---
<Nika Potter - Last Filed: 10/20/17 09:57> Subjective - Date & Time of Evaluation Date of Evaluation: 10/20/17 Time of Evaluation: 09:57 - Subjective Subjective: Podiatry Progress Note- Dr. Briones/Dr. Martin 66 y/o female seen at bedside this morning regarding bilateral lower extremity scaling superficial ulcerations with cellulitic skin changes. Patient seen resting comfortably in bed, in NAD, and awake. Patient denies of any acute overnight events. Patient says her legs are still very sore. Patient denies F/C/ N/V/CP/SOB. She has no new pedal complaints at this time. Objective - Vital Signs/Intake and Output Vital Signs (last 24 hours): Temp Pulse Resp BP Pulse Ox 97.8 F 73 20 148/82 95 10/20/17 08:44 10/20/17 08:44 10/20/17 08:44 10/20/17 08:44 10/20/17 08:44 Intake and Output: 10/20/17 10/20/17 06:59 18:59 Intake Total 240 Output Total 2150 Balance -1910 - Medications Medications: Current Medications Aspirin (Aspirin) 325 mg PO DAILY [facility] Last Admin: 10/19/17 09:05 Dose: 325 mg Clotrimazole (Lotrimin 1%) 1 gm TOP BID [facility] Last Admin: 10/19/17 17:42 Dose: 1 appl Heparin Sodium (Porcine) (Heparin) 5,000 units SC Q12 [facility] PRN Reason: Protocol Last Admin: 10/19/17 21:41 Dose: 5,000 units Hydrocortisone Sodium Succinate (Solu-Cortef) 50 mg IVP DAILY [facility] Last Admin: 10/19/17 09:07 Dose: 50 mg Metoprolol Tartrate (Lopressor) 25 mg PO BID [facility] Last Admin: 10/19/17 17:41 Dose: 25 mg Pantoprazole Sodium (Protonix Ec Tab) 40 mg PO ACB [facility] Last Admin: 10/20/17 08:04 Dose: 40 mg - Labs Labs: 10/15/17 07:00 10/16/17 07:00 PT 11.2 SECONDS (9.4-12.5) 10/07/17 15:00 INR 0.98 (0.93-1.08) 10/07/17 15:00 APTT 29.1 Seconds (25.1-36.5) 10/07/17 15:00 - Constitutional Appears: Well, Non-toxic, No Acute Distress - Head Exam Head Exam: ATRAUMATIC - Extremities Exam Additional comments: Dressings clean, dry and intact to bilateral lower extremities with no strikethrough noted Vasc: DP and PT 1/4 B/L, CFT < 3 seconds x 10 digits, temperature is warm to warm, moderate edema to the LE B/L Ortho: no pain with palpation to the LE Neuro: gross and protective sensation diminished Derm: Diffuse superficial ulcerations to bilateral legs extending between level of tibial tuberosity and ankle, with beefy red wound bases, noted to be epithelializing well. Diffuse erythema noted to the entire LE distal to the tibial tuberosity B/L. Multiple scaly, hyperkeratotic lesions noted to the entire LE, beginning to slough off and revealing healthy underlying skin. Minimal serous drainage is noted to inner dressing on RLE; no strikethrough present on inner dressing of LLE. Mild sanguinous drainage elicited from posterior ulceration on RLE. No purulent drainage noted, no malodor, no probe to bone, no tunneling, no undermining noted to the ulcerations. - Neurological Exam Neurological Exam: Alert, Awake, Oriented x3 - Psychiatric Exam Psychiatric exam: Normal Affect, Normal Mood Assessment and Plan - Assessment and Plan (Free Text) Assessment: 66 y/o female with multiple venous stasis ulcerations and cellulitis to bilateral LE Plan: -Patient examined and evaluated with attending Dr. Martin -Labs, charts, vitals reviewed - afebrile, WBC 8.1 as of 10/15 -Bilateral lower extremities cleansed with sterile saline -Bactroban ordered -Dressings applied to B/L legs with Adaptic, ABD pads and DSD B/L -Continue abx regimen -Pt stable from podiatry standpoint -Will continue to follow while in house <Dipesh Martin - Last Filed: 10/22/17 10:22> Objective - Vital Signs/Intake and Output Vital Signs (last 24 hours): Temp Pulse Resp BP Pulse Ox 97.6 F 72 18 149/92 H 97 10/22/17 07:35 10/22/17 10:04 10/22/17 07:35 10/22/17 10:04 10/22/17 07:35 Intake and Output: 10/22/17 10/22/17 06:59 18:59 Intake Total 780 Output Total 1425 Balance -645 - Medications Medications: Current Medications Aspirin (Ecotrin) 81 mg PO DAILY [facility] Clotrimazole (Lotrimin 1%) 1 gm TOP BID [facility] Last Admin: 10/22/17 10:11 Dose: 1 appl Enoxaparin Sodium (Lovenox) 40 mg SC DAILY [facility] PRN Reason: Protocol Last Admin: 10/22/17 10:04 Dose: 40 mg Metoprolol Tartrate (Lopressor) 25 mg PO BID [facility] Last Admin: 10/22/17 10:04 Dose: 25 mg Mupirocin (Bactroban Ointment) 0 gm TOP DAILY [facility] Last Admin: 10/22/17 10:03 Dose: 1 appl Potassium Chloride (Potassium Chloride Oral Soln) 40 meq PO ONCE ONE Stop: 10/22/17 14:01 - Labs Labs: 10/22/17 09:00 10/22/17 09:00 PT 11.2 SECONDS (9.4-12.5) 10/07/17 15:00 INR 0.98 (0.93-1.08) 10/07/17 15:00 APTT 29.1 Seconds (25.1-36.5) 10/07/17 15:00 Attending/Attestation - Attestation I have personally seen and examined this patient.: Yes I have fully participated in the care of the patient.: Yes I have reviewed all pertinent clinical information, including history, physical exam and plan: Yes
--- NOTE | 2017-10-20 19:13 | PN ---
DATE: SUBJECTIVE: Patient is seen in bed, in no acute distress, nontoxic. PHYSICAL EXAMINATION: VITAL SIGNS: Temperature is 97, blood pressure is 140/80, respiratory rate 20, heart rate of 73. HEENT: Unremarkable. NECK: Supple. LUNGS: Decreased breath sounds. HEART: Normal S1 and S2. ABDOMEN: Soft, nontender. LABORATORY EXAMINATION: Reveals a white count of 8.1, hemoglobin of 10, platelets of 344. Chemistries reveals a BUN of 12, creatinine of 0.4. Urinalysis is noted, and toxicology is noted. Microbiology is noted. Foot culture is noted with Staph aureus, Enterobacter cloacae. ASSESSMENT AND PLAN: This 66-year-old female with severe sepsis, acute encephalopathy, bilateral lower extremity cellulitis, growing Methicillin-susceptible Staphylococcus aureus and Enterobacter. Day #12 of vancomycin, cefepime, acyclovir, as completed over 11 days, currently now off of antibiotics, afebrile. Reviewing of medications confirms the patient to be off of antibiotics, afebrile. Dr. Potter's note is reviewed. The patient is at high risk of developing nosocomial infections. Duke Sullivan MD
--- NOTE | 2017-10-21 01:14 | PN ---
DATE: SUBJECTIVE: Patient is 67 years old, seen and examined, lying in bed, seems to be comfortable. As per nurse, eating well. PHYSICAL EXAMINATION: VITAL SIGNS: She is afebrile. Pulse 73, respirations 16, blood pressure 123/76. LUNGS: Bilateral good airflow. No rhonchi or crackle. HEART: S1 and S2 audible. ABDOMEN: Soft, nontender. No rebound. No guarding. NEUROLOGIC: She is awake and alert, communicative. LABORATORY DATA: Stool for C. diff sent yesterday is negative. ASSESSMENT: 1. Status post altered mental status, status post hyponatremia. 2. Bilateral leg cellulitis, improving. 3. Deconditioning and difficulty walking. PLAN: At this point, I will change aspirin to 81 daily. She is on DVT prophylaxis. Started on Lovenox. We will discontinue heparin since her renal function has improved. Continue physical therapy. Awaiting subacute rehab . Abelardo Mg MD
[2017-10-21] MEDS: Clotrimazole 1% Cream(30 gm) TOP SCH ×2 (09:35→17:17)
[2017-10-21] MEDS: Enoxaparin 40 mg Syringe SC SCH (09:39)
--- NOTE | 2017-10-21 13:16 | CP.PCM.PN ---
Subjective - Date & Time of Evaluation Date of Evaluation: 10/21/17 Time of Evaluation: 13:13 - Subjective Subjective: Podiatry Progress Note- Dr. Briones/Dr. Martin 66 y/o female seen at bedside this morning regarding bilateral lower extremity scaling superficial ulcerations with cellulitic skin changes. Patient seen resting comfortably in bed, in NAD, and awake. Patient denies of any acute overnight events. Patient reports that her legs are very sore and reports that she is not able to get out of the bed on her own because she feels dizzy. Patient denies F/C/N/V/CP/SOB. She has no new pedal complaints at this time. Objective - Vital Signs/Intake and Output Vital Signs (last 24 hours): Temp Pulse Resp BP Pulse Ox 98 F 70 18 140/85 97 10/21/17 06:00 10/21/17 09:42 10/21/17 06:00 10/21/17 09:42 10/21/17 06:00 Intake and Output: 10/21/17 10/21/17 06:59 18:59 Intake Total 720 Output Total 1800 Balance -1080 - Medications Medications: Current Medications Aspirin (Aspirin) 81 mg PO DAILY [facility] Last Admin: 10/21/17 09:39 Dose: Not Given Clotrimazole (Lotrimin 1%) 1 gm TOP BID [facility] Last Admin: 10/20/17 17:05 Dose: Not Given Enoxaparin Sodium (Lovenox) 40 mg SC DAILY [facility] PRN Reason: Protocol Last Admin: 10/21/17 09:39 Dose: 40 mg Hydrocortisone Sodium Succinate (Solu-Cortef) 50 mg IVP DAILY [facility] Last Admin: 10/21/17 09:40 Dose: 50 mg Metoprolol Tartrate (Lopressor) 25 mg PO BID [facility] Last Admin: 10/21/17 09:42 Dose: 25 mg Mupirocin (Bactroban Ointment) 0 gm TOP DAILY [facility] Last Admin: 10/21/17 09:44 Dose: 1 appl - Labs Labs: 10/15/17 07:00 10/16/17 07:00 PT 11.2 SECONDS (9.4-12.5) 10/07/17 15:00 INR 0.98 (0.93-1.08) 10/07/17 15:00 APTT 29.1 Seconds (25.1-36.5) 10/07/17 15:00 - Constitutional Appears: Well, Non-toxic, No Acute Distress - Extremities Exam Additional comments: Dressings clean, dry and intact to bilateral lower extremities with no strikethrough noted Vasc: DP and PT 1/4 B/L, CFT < 3 seconds x 10 digits, temperature is warm to warm, moderate edema to the LE B/L Ortho: no pain with palpation to the LE Neuro: gross and protective sensation diminished Derm: Diffuse superficial ulcerations to bilateral legs extending between level of tibial tuberosity and ankle, with beefy red wound bases, noted to be epithelializing well. Diffuse erythema noted to the entire LE distal to the tibial tuberosity B/L. Multiple scaly, hyperkeratotic lesions noted to the entire LE, beginning to slough off and revealing healthy underlying skin. Minimal serous drainage is noted to inner dressing on RLE; no strikethrough present on inner dressing of LLE. Mild sanguinous drainage elicited from posterior ulceration on RLE. No purulent drainage noted, no malodor, no probe to bone, no tunneling, no undermining noted to the ulcerations. - Neurological Exam Neurological Exam: Alert, Awake, Oriented x3 - Psychiatric Exam Psychiatric exam: Normal Affect, Normal Mood Assessment and Plan - Assessment and Plan (Free Text) Assessment: 66 y/o female with multiple venous stasis ulcerations and cellulitis to bilateral LE Plan: -Patient examined and evaluated -Discussed with attending Dr. Briones -Labs, charts, vitals reviewed - afebrile, WBC 8.1 as of 10/15 -Bilateral lower extremities cleansed with sterile saline -Dressings applied to B/L legs with bactroban, Adaptic, ABD pads and DSD B/L -Continue abx regimen -Pt stable from podiatry standpoint -Will continue to follow while in house
--- NOTE | 2017-10-21 20:14 | PN ---
DATE: SUBJECTIVE: The patient is 67 years old, seen and examined, lying in bed, and seems to be comfortable. As per nurse, eating well. No nausea, vomiting, or diarrhea. Eating and tolerating. OBJECTIVE: VITAL SIGNS: She is afebrile. Pulse 70, respirations 18, and blood pressure 140/85. LUNGS: Bilateral good airflow. No rhonchi or crackle. HEART: S1 and S2 audible. ABDOMEN: Soft, nontender. EXTREMITIES: Bilateral legs +1 edema. Bilateral foot ulcers are healing. ASSESSMENT: 1. Status post altered mental status, this has been significantly improved. 2. Hyponatremia. 3. History of hypertension. 4. Palpitation. PLAN: We will discontinue Solu-Cortef. Continue DVT prophylaxis, local wound care. Awaiting disposition . Abelardo Mg MD
--- NOTE | 2017-10-22 01:47 | PN ---
DATE: SUBJECTIVE: Patient is in bed, in no acute distress, nontoxic. PHYSICAL EXAMINATION: VITAL SIGNS: Temperature is 98, blood pressure is 130/80, respiratory rate of 18, heart rate of 72. HEENT: Unremarkable. NECK: Supple. LUNGS: Have decreased breath sounds. HEART: Normal S1, S2. ABDOMEN: Soft, nontender. LABORATORY DATA: Reveals a white count of 8.1, hemoglobin of 10. BUN of 12, creatinine of 0.4. Urinalysis is noted. Microbiology is noted. ASSESSMENT AND PLAN: This is a 67-year-old female with severe sepsis, acute encephalopathy, bilateral lower extremity cellulitis, growing methicillin-sensitive Staphylococcus aureus and Enterobacter; day number 13 of vancomycin, cefepime, and acyclovir. Currently, now patient is off of antibiotics. Patient has received over 11 days of antibiotics and is off the antibiotics, doing better. We will follow with you. Duke Sullivan MD
--- NOTE | 2017-10-22 08:30 | CP.PCM.PN ---
<Christi Hull - Last Filed: 10/22/17 08:28> Subjective - Date & Time of Evaluation Date of Evaluation: 10/22/17 Time of Evaluation: 08:28 - Subjective Subjective: Podiatry Progress Note- Dr. Martin 66 y/o female seen at bedside this morning regarding bilateral lower extremity scaling superficial ulcerations with cellulitic skin changes. Patient seen resting comfortably in bed, in NAD, eating breakfast at time of visit. Patient denies any acute overnight events. Patient reports that her legs are very sore and reports that she is not able to get out of the bed on her own because she feels dizzy, and needs help to get around. Patient denies F/C/N/V/CP/SOB. She has no new pedal complaints at this time. Objective - Vital Signs/Intake and Output Vital Signs (last 24 hours): Temp Pulse Resp BP Pulse Ox 97.6 F 72 18 149/92 H 97 10/22/17 07:35 10/22/17 07:35 10/22/17 07:35 10/22/17 07:35 10/22/17 07:35 Intake and Output: 10/22/17 10/22/17 06:59 18:59 Intake Total 780 Output Total 1425 Balance -645 - Medications Medications: Current Medications Aspirin (Aspirin) 81 mg PO DAILY [facility] Last Admin: 10/21/17 09:39 Dose: Not Given Clotrimazole (Lotrimin 1%) 1 gm TOP BID [facility] Last Admin: 10/21/17 17:17 Dose: Not Given Enoxaparin Sodium (Lovenox) 40 mg SC DAILY [facility] PRN Reason: Protocol Last Admin: 10/21/17 09:39 Dose: 40 mg Metoprolol Tartrate (Lopressor) 25 mg PO BID [facility] Last Admin: 10/21/17 17:17 Dose: 25 mg Mupirocin (Bactroban Ointment) 0 gm TOP DAILY [facility] Last Admin: 10/21/17 09:44 Dose: 1 appl - Labs Labs: 10/15/17 07:00 10/16/17 07:00 PT 11.2 SECONDS (9.4-12.5) 10/07/17 15:00 INR 0.98 (0.93-1.08) 10/07/17 15:00 APTT 29.1 Seconds (25.1-36.5) 10/07/17 15:00 - Constitutional Appears: Well, Non-toxic, No Acute Distress - Extremities Exam Additional comments: Dressings clean, dry and intact to bilateral lower extremities with no strikethrough noted Vasc: DP and PT 1/4 B/L, CFT < 3 seconds x 10 digits, temperature is warm to warm, moderate edema to the LE B/L Ortho: no pain with palpation to the LE Neuro: gross and protective sensation diminished Derm: Diffuse superficial ulcerations to bilateral legs extending between level of tibial tuberosity and ankle, with beefy red wound bases, noted to be epithelializing well. Diffuse erythema noted to the entire LE distal to the tibial tuberosity B/L, significantly improved since hospital admission. Multiple scaly, hyperkeratotic lesions noted to the entire LE, beginning to slough off and revealing healthy underlying skin. Minimal serous drainage is noted to inner dressing on RLE; no strikethrough present on inner dressing of LLE. Mild sanguinous drainage elicited from posterior ulceration on RLE. No purulent drainage noted, no malodor, no probe to bone, no tunneling, no undermining noted to the ulcerations. - Neurological Exam Neurological Exam: Alert, Awake - Psychiatric Exam Psychiatric exam: Normal Affect, Normal Mood Assessment and Plan - Assessment and Plan (Free Text) Assessment: 66 y/o female with multiple venous stasis ulcerations and cellulitis to bilateral LE Plan: -Patient examined and evaluated -Discussed with attending Dr. Martin -Labs, charts, vitals reviewed - afebrile, WBC 8.1 as of 10/15 -Bilateral lower extremities cleansed with sterile saline -Dressings applied to B/L legs with bactroban, Adaptic, ABD pads and DSD B/L -Continue abx regimen -Pt stable from podiatry standpoint -Will continue to follow while in house <Dipesh Martin - Last Filed: 10/22/17 10:27> Objective - Vital Signs/Intake and Output Vital Signs (last 24 hours): Temp Pulse Resp BP Pulse Ox 97.6 F 72 18 149/92 H 97 10/22/17 07:35 10/22/17 10:04 10/22/17 07:35 10/22/17 10:04 10/22/17 07:35 Intake and Output: 10/22/17 10/22/17 06:59 18:59 Intake Total 780 Output Total 1425 Balance -645 - Medications Medications: Current Medications Aspirin (Ecotrin) 81 mg PO DAILY [facility] Clotrimazole (Lotrimin 1%) 1 gm TOP BID [facility] Last Admin: 10/22/17 10:11 Dose: 1 appl Enoxaparin Sodium (Lovenox) 40 mg SC DAILY [facility] PRN Reason: Protocol Last Admin: 10/22/17 10:04 Dose: 40 mg Metoprolol Tartrate (Lopressor) 25 mg PO BID [facility] Last Admin: 10/22/17 10:04 Dose: 25 mg Mupirocin (Bactroban Ointment) 0 gm TOP DAILY [facility] Last Admin: 10/22/17 10:03 Dose: 1 appl Potassium Chloride (Potassium Chloride Oral Soln) 40 meq PO ONCE ONE Stop: 10/22/17 14:01 - Labs Labs: 10/22/17 09:00 10/22/17 09:00 PT 11.2 SECONDS (9.4-12.5) 10/07/17 15:00 INR 0.98 (0.93-1.08) 10/07/17 15:00 APTT 29.1 Seconds (25.1-36.5) 10/07/17 15:00 Attending/Attestation - Attestation I have personally seen and examined this patient.: Yes I have fully participated in the care of the patient.: Yes I have reviewed all pertinent clinical information, including history, physical exam and plan: Yes
[2017-10-22 09:07] LABS: HEMOGLOBIN 11.6 g/dL (12.0-16.0); MEAN CELL VOLUME 87.1 fl (80.0-105.0); MEAN CORPUSCULAR HEMOGLOBIN 29.3 pg (25.0-35.0); MEAN CORPUSCULAR HGB CONC 33.6 g/dl (31.0-37.0); MEAN PLATELET VOLUME 8.3 fl (7.0-11.0); RBC 3.96 10^6/uL (3.5-6.1); RED CELL DISTRIBUTION WIDTH 16.3 % (11.5-14.5); WHITE BLOOD COUNT 6.8 10^3/ul (4.5-11.0)
[2017-10-22 09:32] LABS: ALBUMIN 2.6 g/dL (3.0-4.8); ALT/SGPT 66 U/L (7-56); AST/SGOT 36 U/L (14-36); BLOOD UREA NITROGEN 13 mg/dL (7-21); CALCIUM 8.9 mg/dL (8.4-10.5); GFR AFRICAN-AMERICAN > 60; GFR NON-AFRICAN AMERICAN > 60
[2017-10-22] MEDS ORDERED: Potassium Chloride 40 mEq/30 ml LIQ UD PO ONE ×3 (09:57→14:00)
[2017-10-22] MEDS: Enoxaparin 40 mg Syringe SC SCH (10:04)
[2017-10-22] MEDS: Clotrimazole 1% Cream(30 gm) TOP SCH ×2 (10:11→20:05)
--- NOTE | 2017-10-22 18:33 | CP.PCM.PN ---
Subjective - Date & Time of Evaluation Date of Evaluation: 10/22/17 Time of Evaluation: 12:05 - Subjective Subjective: Comfortable on a chair, no fevers, not in distress, improved pain in the feet. Objective - Vital Signs/Intake and Output Vital Signs (last 24 hours): Temp Pulse Resp BP Pulse Ox 97.6 F 72 18 149/92 H 97 10/22/17 07:35 10/22/17 10:04 10/22/17 07:35 10/22/17 10:04 10/22/17 07:35 Intake and Output: 10/22/17 10/22/17 06:59 18:59 Intake Total 780 Output Total 1425 Balance -645 - Medications Medications: Current Medications Aspirin (Ecotrin) 81 mg PO DAILY [facility] Clotrimazole (Lotrimin 1%) 1 gm TOP BID [facility] Last Admin: 10/22/17 10:11 Dose: 1 appl Enoxaparin Sodium (Lovenox) 40 mg SC DAILY [facility] PRN Reason: Protocol Last Admin: 10/22/17 10:04 Dose: 40 mg Metoprolol Tartrate (Lopressor) 25 mg PO BID [facility] Last Admin: 10/22/17 10:04 Dose: 25 mg Mupirocin (Bactroban Ointment) 0 gm TOP DAILY [facility] Last Admin: 10/22/17 10:03 Dose: 1 appl Potassium Chloride (Potassium Chloride Oral Soln) 40 meq PO ONCE ONE Stop: 10/22/17 14:01 - Labs Labs: 10/22/17 09:00 10/22/17 09:00 PT 11.2 SECONDS (9.4-12.5) 10/07/17 15:00 INR 0.98 (0.93-1.08) 10/07/17 15:00 APTT 29.1 Seconds (25.1-36.5) 10/07/17 15:00 - Constitutional Appears: Chronically Ill - Head Exam Head Exam: NORMAL INSPECTION - ENT Exam ENT Exam: Mucous Membranes Moist - Neck Exam Neck Exam: absent: Meningismus - Respiratory Exam Respiratory Exam: Decreased Breath Sounds - Cardiovascular Exam Cardiovascular Exam: +S1, +S2 - GI/Abdominal Exam GI & Abdominal Exam: Soft. absent: Tenderness Assessment and Plan - Assessment and Plan (Free Text) Plan: Assessment S/P severe sepsis with acute encephalopathy from bilateral lower extremity cellulitis (growing MSSA and Enterobacter), R/O MANAGER RFID infection such as meningoencephalitis (encephalopathy may also be metabolic - hyponatremia) Plan completed 11 days of Vancomycin, Cefepime and Acyclovir - continue to monitor clinically off antibiotics since she is at risk for hospital-acquired infections
--- NOTE | 2017-10-22 21:26 | PN ---
DATE: 10/22/2017 SUBJECTIVE: The patient is seen sitting in bed. She is awake. She is alert. She reports that she had some cramps earlier. She denies any nausea, vomiting. She denies any abdominal pain. She denies any constipation or diarrhea at present. PHYSICAL EXAMINATION: GENERAL: Elderly lady sitting in bed. VITAL SIGNS: Blood pressure 149/92, heart rate 72, respiratory rate 18, temperature 97.6. HEENT: Normocephalic, atraumatic, positive pallor. NECK: Supple, no JVD. LUNGS: Bilateral equal entry, bilateral equal expansion, no rales. CARDIAC: S1, S2, regular rate rhythm, no murmur, no rub. ABDOMEN: Soft, nondistended, nontender, bowel sounds present. EXTREMITIES: Dressing on both lower extremities. INTAKE AND OUTPUT: 780/1425. LABORATORY DATA: WBC 6.8, hemoglobin 11.6, hematocrit 35, platelets 389. Sodium 140, potassium 2.9, chloride 103, CO2 of 31, BUN 13, creatinine 0.5, glucose 99, calcium 8.9, phosphorus not checked, magnesium 1.8. AST 36, ALT 66, albumin 2.6, globulin 2.7. CURRENT MEDICATIONS: Bactroban, Ecotrin, Lopressor 25 b.i.d., Lotrimin, Lovenox. ASSESSMENT: 1. Severe hypokalemia. 2. Elevated liver function tests. 3. Hypoalbuminemia. 4. Status post rhabdomyolysis. 5. Lower extremity cellulitis. PLAN: 1. Aggressive potassium supplementation. 2. Check urine potassium. 3. Monitor potassium closely. Tosin Griffin MD
--- NOTE | 2017-10-23 06:36 | PN ---
DATE: SUBJECTIVE: The patient is 67 years old, seen and examined, sitting in chair, enjoying her lunch, eating and tolerating. PHYSICAL EXAMINATION: VITAL SIGNS: The patient is afebrile, pulse 72, respirations 18, blood pressure 149/92. LUNGS: Bilaterally good air flow. No rhonchi or crackles. HEART: S1 and S2 audible. ABDOMEN: Soft, nontender. No rebound. No guarding. NEUROLOGICALLY: The patient is awake, alert, and oriented. Able to communicate. LABORATORY DATA: WBC 6.8, hemoglobin is 11.6, hematocrit 34.5, platelets of 389. Chemistries: Sodium 140, potassium 2.9, chloride 103, CO2 31, BUN 13, creatinine 0.5. Blood sugar 99. ASSESSMENT AND PLAN 1. Status post hyponatremia. 2. Deconditioning, difficulty walking. 3. Hypokalemia. 4. Hypertension. PLAN: We will supplement potassium, waiting subacute rehab. Once arrangements are made, she will be discharged to subacute rehab. Abelardo Mg MD
[2017-10-23 09:52] LABS: HEMOGLOBIN 12.5 g/dL (12.0-16.0); MEAN CELL VOLUME 87.4 fl (80.0-105.0); MEAN CORPUSCULAR HEMOGLOBIN 30.8 pg (25.0-35.0); MEAN CORPUSCULAR HGB CONC 35.2 g/dl (31.0-37.0); MEAN PLATELET VOLUME 8.4 fl (7.0-11.0); RBC 4.06 10^6/uL (3.5-6.1); RED CELL DISTRIBUTION WIDTH 16.8 % (11.5-14.5); WHITE BLOOD COUNT 6.9 10^3/ul (4.5-11.0)
[2017-10-23] MEDS: Clotrimazole 1% Cream(30 gm) TOP SCH (09:57)
[2017-10-23] MEDS: Enoxaparin 40 mg Syringe SC SCH (10:06)
[2017-10-23 10:08] LABS: BLOOD UREA NITROGEN 9 mg/dL (7-21); CALCIUM 9.7 mg/dL (8.4-10.5); GFR AFRICAN-AMERICAN > 60; GFR NON-AFRICAN AMERICAN > 60
--- NOTE | 2017-10-23 12:24 | CP.PCM.PN ---
<KurtisChristi - Last Filed: 10/23/17 12:21> Subjective - Date & Time of Evaluation Date of Evaluation: 10/23/17 Time of Evaluation: 12:21 - Subjective Subjective: Podiatry Progress Note 66 y/o female seen at bedside with attending Dr. Martin regarding bilateral lower extremity scaling superficial ulcerations with cellulitic skin changes. Patient seen resting comfortably in bed, in NAD, eating lunch at time of visit. Patient denies any acute overnight events. Patient states her legs feel a little sore today but are not in too much pain. Patient denies F/C/N/V/CP/SOB. She has no new pedal complaints at this time. Objective - Vital Signs/Intake and Output Vital Signs (last 24 hours): Temp Pulse Resp BP Pulse Ox 98.9 F 74 20 163/92 H 98 10/23/17 07:30 10/23/17 10:05 10/23/17 07:30 10/23/17 10:05 10/23/17 07:30 Intake and Output: 10/23/17 10/23/17 06:59 18:59 Intake Total 900 Output Total 2500 Balance -1600 - Medications Medications: Current Medications Aspirin (Ecotrin) 81 mg PO DAILY [facility] Last Admin: 10/23/17 09:56 Dose: Not Given Clotrimazole (Lotrimin 1%) 1 gm TOP BID [facility] Last Admin: 10/23/17 09:57 Dose: Not Given Enoxaparin Sodium (Lovenox) 40 mg SC DAILY [facility] PRN Reason: Protocol Last Admin: 10/23/17 10:06 Dose: 40 mg Metoprolol Tartrate (Lopressor) 25 mg PO BID [facility] Last Admin: 10/23/17 10:05 Dose: 25 mg Mupirocin (Bactroban Ointment) 0 gm TOP DAILY [facility] Last Admin: 10/23/17 09:58 Dose: 1 appl - Labs Labs: 10/23/17 09:30 10/23/17 09:30 PT 11.2 SECONDS (9.4-12.5) 10/07/17 15:00 INR 0.98 (0.93-1.08) 10/07/17 15:00 APTT 29.1 Seconds (25.1-36.5) 10/07/17 15:00 - Constitutional Appears: Well, Non-toxic, No Acute Distress - Extremities Exam Additional comments: Dressings clean, dry and intact to bilateral lower extremities with no strikethrough noted Vasc: DP and PT 1/4 B/L, CFT < 3 seconds x 10 digits, temperature is warm to warm, moderate edema to the LE B/L Ortho: no pain with palpation to the LE Neuro: gross and protective sensation diminished Derm: Diffuse superficial ulcerations to bilateral legs extending between level of tibial tuberosity and ankle, with beefy red wound bases, noted to be epithelializing well. Diffuse erythema noted to the entire LE distal to the tibial tuberosity B/L, significantly improved since hospital admission. Multiple scaly, hyperkeratotic lesions noted to the entire LE, beginning to slough off and revealing healthy underlying skin. Minimal serous drainage is noted to inner dressing on RLE; no strikethrough present on inner dressing of LLE. Mild sanguinous drainage elicited from posterior ulceration on RLE. No purulent drainage noted, no malodor, no probe to bone, no tunneling, no undermining noted to the ulcerations. - Neurological Exam Neurological Exam: Alert, Awake, Oriented x3 - Psychiatric Exam Psychiatric exam: Normal Affect, Normal Mood Assessment and Plan - Assessment and Plan (Free Text) Assessment: 66 y/o female with multiple venous stasis ulcerations and cellulitis to bilateral LE Plan: -Patient examined and evaluated with attending Dr. Martin -Labs, charts, vitals reviewed - afebrile, WBC 6.9 -Bilateral lower extremities cleansed with sterile saline -Dressings applied to B/L legs with bactroban, Adaptic, ABD pads and DSD -Continue abx regimen -Pt stable from podiatry standpoint -Will continue to follow while in house <Dipesh Martin - Last Filed: 10/24/17 11:25> Objective - Vital Signs/Intake and Output Vital Signs (last 24 hours): Temp Pulse Resp BP Pulse Ox 98.7 F 77 20 134/83 94 L 10/24/17 08:00 10/24/17 08:00 10/24/17 08:00 10/24/17 08:00 10/24/17 08:00 Intake and Output: 10/24/17 10/24/17 06:59 18:59 Intake Total 1080 Output Total 2850 Balance -1770 - Medications Medications: Current Medications Enoxaparin Sodium (Lovenox) 40 mg SC DAILY [facility] PRN Reason: Protocol Last Admin: 10/24/17 09:41 Dose: 40 mg Metoprolol Tartrate (Lopressor) 25 mg PO BID [facility] Last Admin: 10/24/17 09:41 Dose: 25 mg Mupirocin (Bactroban Ointment) 0 gm TOP DAILY [facility] Last Admin: 10/24/17 09:41 Dose: 1 appl - Labs Labs: 10/23/17 09:30 10/23/17 09:30 PT 11.2 SECONDS (9.4-12.5) 10/07/17 15:00 INR 0.98 (0.93-1.08) 10/07/17 15:00 APTT 29.1 Seconds (25.1-36.5) 10/07/17 15:00 Attending/Attestation - Attestation I have personally seen and examined this patient.: Yes I have fully participated in the care of the patient.: Yes I have reviewed all pertinent clinical information, including history, physical exam and plan: Yes
--- NOTE | 2017-10-23 21:54 | PN ---
DATE: SUBJECTIVE: Patient is a 67 years old, seen and examined. Sitting in chair, seems to be comfortable. No nausea, no vomiting, no diarrhea. PHYSICAL EXAMINATION: VITAL SIGNS: Patient is afebrile, pulse 74, respirations 18, blood pressure 152/86. LUNGS: Bilateral good air flow. No rhonchi or crackle. HEART: S1, S2 audible. ABDOMEN: Soft, nontender. No rebound. No guarding. NEUROLOGICAL: She is awake, alert, oriented, forgetful. EXTREMITIES: Bilateral legs +1 edema. LABORATORY DATA: WBC 6.9, hemoglobin 12.5, hematocrit 35.5, platelets of 392. Chemistry: Sodium 140, potassium 3.9, chloride 103, CO2 of 30, BUN 9, creatinine 0.4, blood sugar of 98. ALT 66, alk phos is 155. ASSESSMENT: 1. Status post altered mental status, status post hyponatremia. 2. Deconditioning, difficulty walking. 3. Bilateral leg edema. PLAN: We will continue patient on current medications and we will follow up electrolytes intermittently. Abelardo Mg MD
--- NOTE | 2017-10-24 02:52 | PN ---
DATE: SUBJECTIVE: Patient is in bed, in no acute distress, nontoxic. PHYSICAL EXAMINATION: VITAL SIGNS: Temperature is 98, blood pressure is 150/80, respiratory rate of 18. HEENT: Unremarkable. NECK: Supple. LUNGS: Have decreased breath sounds. HEART: Normal S1, S2. ABDOMEN: Soft. LABORATORY EXAMINATION: Reveals a white count of 6.9, hemoglobin of 12.5. Chemistries are noted and creatinine is 0.4. Culture results are noted. REVIEW OF ORDERS: Reveals the patient to be off of antibiotics. ASSESSMENT AND PLAN: This is a 67-year-old female status post severe sepsis with acute encephalopathy, bilateral lower extremity cellulitis with methicillin-sensitive Staphylococcus aureus and Enterobacter and currently now the patient is off of antibiotics, afebrile. Duke Sullivan MD
[2017-10-24] MEDS: Enoxaparin 40 mg Syringe SC SCH (09:41)
--- NOTE | 2017-10-24 18:19 | CP.PCM.PN ---
<KurtisChristi - Last Filed: 10/24/17 18:17> Subjective - Date & Time of Evaluation Date of Evaluation: 10/24/17 Time of Evaluation: 18:18 - Subjective Subjective: Podiatry Progress Note 66 y/o female seen at bedside with attending Dr. Briones regarding bilateral lower extremity scaling superficial ulcerations with cellulitic skin changes. Patient seen resting comfortably in bedside chair, in NAD. Patient denies any acute overnight events. Patient states her legs feel a little sore, mostly when she has the dressings changed. Patient denies F/C/N/V/CP/SOB. She has no new pedal complaints at this time. Objective - Vital Signs/Intake and Output Vital Signs (last 24 hours): Temp Pulse Resp BP Pulse Ox 98.5 F 74 20 133/83 97 10/24/17 14:00 10/24/17 14:00 10/24/17 14:00 10/24/17 14:00 10/24/17 14:00 Intake and Output: 10/24/17 10/24/17 06:59 18:59 Intake Total 1080 600 Output Total 2850 1900 Balance -1770 -1300 - Medications Medications: Current Medications Enoxaparin Sodium (Lovenox) 40 mg SC DAILY [facility] PRN Reason: Protocol Last Admin: 10/24/17 09:41 Dose: 40 mg Metoprolol Tartrate (Lopressor) 25 mg PO BID [facility] Last Admin: 10/24/17 17:07 Dose: 25 mg Mupirocin (Bactroban Ointment) 0 gm TOP DAILY [facility] Last Admin: 10/24/17 09:41 Dose: 1 appl - Labs Labs: 10/23/17 09:30 10/23/17 09:30 PT 11.2 SECONDS (9.4-12.5) 10/07/17 15:00 INR 0.98 (0.93-1.08) 10/07/17 15:00 APTT 29.1 Seconds (25.1-36.5) 10/07/17 15:00 - Constitutional Appears: Well, Non-toxic, No Acute Distress - Extremities Exam Additional comments: Dressings clean, dry and intact to bilateral lower extremities with no strikethrough noted Vasc: DP and PT 1/4 B/L, CFT < 3 seconds x 10 digits, temperature is warm to warm, moderate edema to the LE B/L Ortho: no pain with palpation to the LE Neuro: gross and protective sensation diminished Derm: Diffuse superficial ulcerations to bilateral legs extending between level of tibial tuberosity and ankle, with beefy red wound bases, noted to be epithelializing well. Diffuse erythema noted to the entire LE distal to the tibial tuberosity B/L, significantly improved since hospital admission. Multiple scaly, hyperkeratotic lesions noted to the entire LE, beginning to slough off and revealing healthy underlying skin. Minimal serous drainage is noted to inner dressings. Mild sanguinous drainage elicited from posterior ulceration on RLE. No purulent drainage noted, no malodor, no probe to bone, no tunneling, no undermining noted to the ulcerations. - Neurological Exam Neurological Exam: Alert, Awake, Oriented x3 - Psychiatric Exam Psychiatric exam: Normal Affect, Normal Mood Assessment and Plan - Assessment and Plan (Free Text) Assessment: 66 y/o female with multiple venous stasis ulcerations and cellulitis to bilateral LE Plan: -Patient examined and evaluated with attending Dr. Briones -Labs, charts, vitals reviewed - afebrile, WBC 6.9 -Bilateral lower extremities cleansed with sterile saline -R leg wound dressed with Optifoam; left leg wound dressed with Maxorb and Optifoam -Continue abx regimen -Pt stable from podiatry standpoint -Will continue to follow while in house <Leonor Briones - Last Filed: 10/26/17 15:44> Objective - Vital Signs/Intake and Output Vital Signs (last 24 hours): Temp Pulse Resp BP Pulse Ox 97.6 F 75 18 134/77 96 10/26/17 08:09 10/26/17 08:09 10/26/17 08:09 10/26/17 08:09 10/26/17 08:09 Intake and Output: 10/26/17 10/26/17 06:59 18:59 Intake Total 180 840 Output Total 1050 Balance -870 840 - Medications Medications: Current Medications Enoxaparin Sodium (Lovenox) 40 mg SC DAILY [facility] PRN Reason: Protocol Last Admin: 10/26/17 09:20 Dose: 40 mg Metoprolol Tartrate (Lopressor) 25 mg PO BID [facility] Last Admin: 10/26/17 09:20 Dose: 25 mg Mupirocin (Bactroban Ointment) 0 gm TOP DAILY [facility] Last Admin: 10/26/17 09:21 Dose: 1 appl - Labs Labs: 10/23/17 09:30 10/23/17 09:30 PT 11.2 SECONDS (9.4-12.5) 10/07/17 15:00 INR 0.98 (0.93-1.08) 10/07/17 15:00 APTT 29.1 Seconds (25.1-36.5) 10/07/17 15:00 Attending/Attestation - Attestation I have personally seen and examined this patient.: Yes I have fully participated in the care of the patient.: Yes I have reviewed all pertinent clinical information, including history, physical exam and plan: Yes Notes (Text): 10/26/17 15:44 I have reviewed the chart; seen and evaluated the patient; formulated the care plan and agree to the resident note
--- NOTE | 2017-10-24 22:17 | PN ---
DATE: 10/24/2017 SUBJECTIVE: The patient is a seen earlier this morning in room 572, bed 1. No fevers, no chills. No nausea. PHYSICAL EXAMINATION: VITAL SIGNS: Temperature is 98, blood pressure is 112/70, respiratory rate 16. HEENT: Unremarkable. NECK: Supple. LUNGS: Decreased breath sounds. HEART: Normal S1, S2. ABDOMEN: Soft, nontender. LABORATORY DATA: Reveals a white count of 6.9, hemoglobin of 12, platelets of 392. BUN is 9, creatinine of 0.4. Urinalysis is noted. Microbiology is noted. ASSESSMENT AND PLAN: A 67-year-old with status post severe sepsis with acute encephalopathy, bilateral lower extremity cellulitis, methicillin-susceptible Staphylococcus aureus and Enterobacter. Patient is doing well as of this morning, seen in 572, bed 1. Review of orders reveals the patient will be off of antibiotics. Patient is at risk for developing nosocomial infections. Duke Sullivan MD
--- NOTE | 2017-10-25 00:38 | PN ---
DATE: SUBJECTIVE: Patient is a 67-year-old, seen and examined. Sitting in chair, seems to be comfortable. No nausea or vomiting. No diarrhea. Eating and tolerating. Ambulating. PHYSICAL EXAMINATION: VITAL SIGNS: She is afebrile, pulse 74, respirations 20, blood pressure 133/83. LUNGS: Bilateral good air flow. No rhonchi or crackle. HEART: S1, S2 audible. ABDOMEN: Soft, nontender. No rebound. No guarding. NEUROLOGICAL: She is awake and alert. Able to communicate. LABORATORY EXAM: WBC 6.9, hemoglobin 12.5, hematocrit 35, platelets of 392. Chemistry: Sodium 140, potassium 3.9, chloride 103, CO2 30, BUN 9, creatinine 0.4, blood sugar is 96. ASSESSMENT: 1. Status post hyponatremia, resolved. 2. Abnormal liver function tests, improved. 3. Status post altered mental status that has improved. 4. Electrolyte imbalance. 5. Deconditioning and difficulty walking. PLAN: Patient is awaiting subacute rehab. Once the arrangement is made, the patient will be transferred to subacute rehab for gait training. Abelardo Mg MD
--- NOTE | 2017-10-25 00:46 | PN ---
DATE: 10/24/2017 SUBJECTIVE: The patient is seen sitting in chair. She is awake. She is alert. She is comfortable. She reports she walked with therapist. She reports she is very unstable. Unable to walk on her own. PHYSICAL EXAMINATION: GENERAL: Elderly lady sitting in chair. VITAL SIGNS: Blood pressure 133/83, heart rate 74, respiratory rate 20, temperature 98.5. HEENT: Normocephalic, atraumatic. NECK: Supple, no JVD. LUNGS: Bilateral equal air entry, bilateral equal expansion. No rales. CARDIAC: S1, S2, regular rate and rhythm. No murmur, no rub. ABDOMEN: Soft, nondistended, nontender, bowel sounds present. EXTREMITIES: No lower extremity edema. INTAKE AND OUTPUT: 1800/5975 (?). LABORATORY DATA: WBC 6.9, hemoglobin 12.5, hematocrit 35.5, platelets 392. Sodium 140, potassium 3.9, chloride 103, CO2 of 30, BUN 9, creatinine 0.4, glucose 98 and calcium 9.7. MEDICATIONS: Lopressor 25 b.i.d., Lovenox 40 and Bactroban. ASSESSMENT: 1. Hypokalemia, resolved. 2. Status post rhabdomyolysis. 3. Lower extremity cellulitis. 4. Elevated liver function tests. PLAN: 1. Urine potassium despite hypokalemia consistent with renal potassium losses. Continue to supplement potassium. 2. Agree with discontinuation of empiric antibiotics. No evidence of any infection. 3. Discharge planning. Tosin Griffin MD
[2017-10-25] MEDS: Enoxaparin 40 mg Syringe SC SCH (09:18)
--- NOTE | 2017-10-25 10:03 | CP.PCM.PN ---
<Christi Hull - Last Filed: 10/25/17 10:03> Subjective - Date & Time of Evaluation Date of Evaluation: 10/25/17 Time of Evaluation: 09:58 - Subjective Subjective: Podiatry Progress Note - Dr. Briones 66 y/o female seen at bedside this morning for bilateral lower extremity scaling superficial ulcerations with cellulitis. Patient seen resting comfortably in bed, in NAD at time of visit. Patient denies any acute overnight events. Patient says that the legs are getting better every day and are only sore and painful when the dressings are changed. States the dressings keep her comfortable. Patient denies F/C/N/V/CP/SOB. Objective - Vital Signs/Intake and Output Vital Signs (last 24 hours): Temp Pulse Resp BP Pulse Ox 98.1 F 74 20 153/82 H 96 10/25/17 08:00 10/25/17 08:00 10/25/17 08:00 10/25/17 08:00 10/25/17 08:00 Intake and Output: 10/25/17 10/25/17 06:59 18:59 Intake Total 2340 Output Total 1500 Balance 840 - Medications Medications: Current Medications Enoxaparin Sodium (Lovenox) 40 mg SC DAILY [facility] PRN Reason: Protocol Last Admin: 10/25/17 09:18 Dose: 40 mg Metoprolol Tartrate (Lopressor) 25 mg PO BID [facility] Last Admin: 10/25/17 09:18 Dose: 25 mg Mupirocin (Bactroban Ointment) 0 gm TOP DAILY [facility] Last Admin: 10/25/17 09:18 Dose: 1 appl - Labs Labs: 10/23/17 09:30 10/23/17 09:30 PT 11.2 SECONDS (9.4-12.5) 10/07/17 15:00 INR 0.98 (0.93-1.08) 10/07/17 15:00 APTT 29.1 Seconds (25.1-36.5) 10/07/17 15:00 - Constitutional Appears: Well, Non-toxic, No Acute Distress - Extremities Exam Additional comments: Dressings clean, dry and intact to bilateral lower extremities with no strikethrough noted Vasc: DP and PT 1/4 B/L, CFT < 3 seconds x 10 digits, temperature is warm to warm, moderate edema to the LE B/L Ortho: mild tenderness elicited upon palpation of ulcerations Neuro: gross and protective sensation diminished Derm: Diffuse erythema noted to the entire LE distal to the tibial tuberosity B/ L, resolving. Superficial ulceration noted to anteromedial left leg at mid calf level, measuring approx 3.5cm x 2.5cm x 0.1cm with beefy granular wound base. No purulence, no fluctuance, no malodor, no tunneling or undermining. Multiple scaly, hyperkeratotic lesions noted to the entire LLE, beginning to slough off and revealing healthy underlying skin. Additional superficial ulceration noted to mid level lateral aspect of R leg, measuring approx 3cm x 2.5cm x 0.1cm with granular wound base - no purulent drainage, no malodor, no fluctuance, no tunneling or undermining. Mild sanguinous drainage elicited from posterior ulceration on RLE. Serosanguinous drainage noted on inner dressings B/L - Neurological Exam Neurological Exam: Alert, Awake, Oriented x3 - Psychiatric Exam Psychiatric exam: Normal Affect, Normal Mood Assessment and Plan - Assessment and Plan (Free Text) Assessment: 66 y/o female with multiple venous stasis ulcerations and cellulitis to bilateral LE Plan: -Patient examined and evaluated -Discussed plan with attending Dr. Briones -Labs, charts, vitals reviewed - afebrile, WBC 6.9 -Bilateral lower extremities cleansed with sterile saline -Bilateral leg wounds dressed with Maxorb and Optifoam -Continue abx regimen -Pt stable from podiatry standpoint -Will continue to follow while in house <Leonor Briones - Last Filed: 10/26/17 15:51> Objective - Vital Signs/Intake and Output Vital Signs (last 24 hours): Temp Pulse Resp BP Pulse Ox 97.6 F 75 18 134/77 96 10/26/17 08:09 10/26/17 08:09 10/26/17 08:09 10/26/17 08:09 10/26/17 08:09 Intake and Output: 10/26/17 10/26/17 06:59 18:59 Intake Total 180 840 Output Total 1050 Balance -870 840 - Medications Medications: Current Medications Enoxaparin Sodium (Lovenox) 40 mg SC DAILY [facility] PRN Reason: Protocol Last Admin: 10/26/17 09:20 Dose: 40 mg Metoprolol Tartrate (Lopressor) 25 mg PO BID [facility] Last Admin: 10/26/17 09:20 Dose: 25 mg Mupirocin (Bactroban Ointment) 0 gm TOP DAILY [facility] Last Admin: 10/26/17 09:21 Dose: 1 appl - Labs Labs: 10/23/17 09:30 10/23/17 09:30 PT 11.2 SECONDS (9.4-12.5) 10/07/17 15:00 INR 0.98 (0.93-1.08) 10/07/17 15:00 APTT 29.1 Seconds (25.1-36.5) 10/07/17 15:00 Attending/Attestation - Attestation I have personally seen and examined this patient.: Yes I have fully participated in the care of the patient.: Yes I have reviewed all pertinent clinical information, including history, physical exam and plan: Yes Notes (Text): 10/26/17 15:50 I have seen and examined the patient; developed the plan of care; I have read and agree with resident note
--- NOTE | 2017-10-25 23:24 | PN ---
DATE: 10/25/2017 SUBJECTIVE: The patient is in bed, in no acute distress. PHYSICAL EXAMINATION: VITAL SIGNS: Temperature of 98, blood pressure is 130/70, respiratory rate of 20. HEENT: Unremarkable. NECK: Supple. LUNGS: Have decreased breath sounds. HEART: Normal S1, S2. ABDOMEN: Soft. LABORATORY DATA: Laboratory examination reveals a white count of 6.9, hemoglobin of 12, platelets of 392. Chemistries reveal a BUN of 9, creatinine of 0.4. Urinalysis is noted. ASSESSMENT AND PLAN: This is a [id number] female who was seen this morning in 572, bed 1 with severe sepsis, acute encephalopathy, bilateral lower extremity cellulitis, methicillin-sensitive Staphylococcus aureus and Enterobacter. Doing well. Currently off of antibiotics. Afebrile. Patient is at risk for developing nosocomial infections. Review of orders confirms the patient to be off of antibiotics. We will follow with you. Duke Sullivan MD
--- NOTE | 2017-10-26 09:14 | PN ---
DATE: 10/25/2017 SUBJECTIVE: Patient is a 67-year-old. The patient was seen and examined, sitting in the chair, seems to be comfortable. Complains of no nausea or vomiting. No diarrhea. PHYSICAL EXAMINATION: VITAL SIGNS: Patient is afebrile, pulse 75, respirations 20, blood pressure 135/75. LUNGS: Bilateral good airflow. No rhonchi or crackle. HEART: S1 and S2 audible. No murmur. ABDOMEN: Soft, nontender. No rebound. No guarding. NEUROLOGIC: Patient is awake, alert, oriented, communicative. She has unstable gait. ASSESSMENT: 1. Status post altered mental status. 2. Status post hyponatremia, resolved. 3. Bilateral leg edema, improved. 4. Deconditioning, difficulty walking. PLAN: We will continue patient on current medications. Awaiting subacute rehab versus prison placement. patient will be discharged. Abelardo Mg MD
[2017-10-26] MEDS: Enoxaparin 40 mg Syringe SC SCH (09:20)
--- NOTE | 2017-10-26 11:53 | CP.PCM.PN ---
<Christi Hull - Last Filed: 10/26/17 11:51> Subjective - Date & Time of Evaluation Date of Evaluation: 10/26/17 Time of Evaluation: 11:51 - Subjective Subjective: Podiatry Progress Note 66 y/o female seen at bedside this morning with attending Dr. Martin for bilateral lower extremity scaling superficial ulcerations with cellulitis. Patient resting comfortably in bedside chair, in NAD. Patient denies any acute overnight events. Patient says that she feels a little less dizzy. Admits to soreness in the legs during dressing changes but says they are otherwise comfortable. Patient denies F/C/N/V/CP/SOB. Objective - Vital Signs/Intake and Output Vital Signs (last 24 hours): Temp Pulse Resp BP Pulse Ox 97.6 F 75 18 134/77 96 10/26/17 08:09 10/26/17 08:09 10/26/17 08:09 10/26/17 08:09 10/26/17 08:09 Intake and Output: 10/26/17 10/26/17 06:59 18:59 Intake Total 180 Output Total 1050 Balance -870 - Medications Medications: Current Medications Enoxaparin Sodium (Lovenox) 40 mg SC DAILY [facility] PRN Reason: Protocol Last Admin: 10/26/17 09:20 Dose: 40 mg Metoprolol Tartrate (Lopressor) 25 mg PO BID [facility] Last Admin: 10/26/17 09:20 Dose: 25 mg Mupirocin (Bactroban Ointment) 0 gm TOP DAILY [facility] Last Admin: 10/26/17 09:21 Dose: 1 appl - Labs Labs: 10/23/17 09:30 10/23/17 09:30 PT 11.2 SECONDS (9.4-12.5) 10/07/17 15:00 INR 0.98 (0.93-1.08) 10/07/17 15:00 APTT 29.1 Seconds (25.1-36.5) 10/07/17 15:00 - Constitutional Appears: Well, Non-toxic, No Acute Distress - Extremities Exam Additional comments: Dressings clean, dry and intact to bilateral lower extremities with no strikethrough noted Vasc: DP and PT 1/4 B/L, CFT < 3 seconds x 10 digits, temperature is warm to warm, moderate edema to the LE B/L Ortho: mild tenderness elicited upon palpation of ulcerations Neuro: gross and protective sensation diminished Derm: Diffuse erythema noted to the entire LE distal to the tibial tuberosity B/ L, resolving. Superficial ulceration noted to anteromedial left leg at mid calf level, measuring approx 3.5cm x 2.5cm x 0.1cm with beefy granular wound base. No purulence, no fluctuance, no malodor, no tunneling or undermining. Multiple scaly, hyperkeratotic lesions noted to the entire LLE, beginning to slough off and revealing healthy underlying skin. Additional superficial ulceration noted to mid level lateral aspect of R leg, measuring approx 3cm x 2.5cm x 0.1cm with granular wound base - no purulent drainage, no malodor, no fluctuance, no tunneling or undermining. Roof of wound exhibits positive signs of epithelialization, nearly fully healed at this time. Serosanguinous drainage noted on inner dressings B/L - Neurological Exam Neurological Exam: Alert, Awake, Oriented x3 - Psychiatric Exam Psychiatric exam: Normal Affect, Normal Mood Assessment and Plan - Assessment and Plan (Free Text) Assessment: 66 y/o female with bilateral mid leg venous stasis ulcerations and resolving cellulitis to bilateral LE Plan: -Patient examined and evaluated -Discussed plan with attending Dr. Martin -Labs, charts, vitals reviewed - afebrile, no leukocytosis -Bilateral lower extremities cleansed with sterile saline -Bilateral leg wounds dressed with Maxorb and Optifoam -Continue abx regimen -Pt stable from podiatry standpoint -Will continue to follow while in house <Dipesh Martin - Last Filed: 10/26/17 16:47> Objective - Vital Signs/Intake and Output Vital Signs (last 24 hours): Temp Pulse Resp BP Pulse Ox 97.6 F 75 18 134/77 96 10/26/17 08:09 10/26/17 08:09 10/26/17 08:09 10/26/17 08:09 10/26/17 08:09 Intake and Output: 10/26/17 10/26/17 06:59 18:59 Intake Total 180 840 Output Total 1050 Balance -870 840 - Medications Medications: Current Medications Enoxaparin Sodium (Lovenox) 40 mg SC DAILY [facility] PRN Reason: Protocol Last Admin: 10/26/17 09:20 Dose: 40 mg Metoprolol Tartrate (Lopressor) 25 mg PO BID [facility] Last Admin: 10/26/17 09:20 Dose: 25 mg Mupirocin (Bactroban Ointment) 0 gm TOP DAILY [facility] Last Admin: 10/26/17 09:21 Dose: 1 appl - Labs Labs: 10/23/17 09:30 10/23/17 09:30 PT 11.2 SECONDS (9.4-12.5) 10/07/17 15:00 INR 0.98 (0.93-1.08) 10/07/17 15:00 APTT 29.1 Seconds (25.1-36.5) 10/07/17 15:00 Attending/Attestation - Attestation I have personally seen and examined this patient.: Yes I have fully participated in the care of the patient.: Yes I have reviewed all pertinent clinical information, including history, physical exam and plan: Yes
--- NOTE | 2017-10-26 15:13 | PN ---
DATE: 10/25/2017 SUBJECTIVE: The patient is seen, sitting in chair. She is awake. She is alert. She is comfortable. PHYSICAL EXAMINATION: GENERAL: Elderly lady sitting in chair. VITAL SIGNS: Blood pressure 135/75, heart rate 75, respiratory rate 20, temperature 98.2. HEENT: Normocephalic, atraumatic. NECK: Supple, no JVD. LUNGS: Bilateral equal entry, no rales. CARDIAC: S1, S2. Regular rate and rhythm. No murmur, no rub. ABDOMEN: Soft, nondistended, nontender, bowel sounds present. EXTREMITIES: No lower extremity edema. INTAKE AND OUTPUT: 1800/5975?? LABORATORY DATA: No new labs. MEDICATIONS: Bactroban, Lopressor, and Lovenox. ASSESSMENT: 1. Hyponatremia, resolved. 2. Mild hypokalemia. 3. Altered mental status, much improved. 4. Lower extremity edema, improved. PLAN: 1. The patient is stable from the renal standpoint. 2. Physical therapy. 3. We will discontinue followup. Tosin Griffin MD
--- NOTE | 2017-10-26 15:29 | PN ---
SUBJECTIVE: Patient is a 67-year-old, seen and examined, lying in bed, seems to be comfortable. No nausea or vomiting. No diarrhea. Eating and tolerating. OBJECTIVE VITAL SIGNS: She is afebrile, pulse 75, respirations 18, blood pressure 134/77. LUNGS: Bilateral good air flow. No rhonchi or crackle. HEART: S1, S2 audible. ABDOMEN: Soft, nontender. No rebound. No guarding. NEUROLOGICAL: She is awake, alert, oriented, and communicative. EXTREMITIES: Bilateral legs, +2 edema. She has a blister on the julian. LABORATORY DATA: There are no new labs available today. ASSESSMENT 1. Status post altered mental status. 2. Status post hyponatremia. 3. Hypertension. 4. Bilateral leg edema. 5. Deconditioning and difficulty walking. Plan is, we will continue the patient on current medication, local wound care, awaiting subacute rehab placement. Abelardo Mg MD
--- NOTE | 2017-10-26 23:45 | CP.PCM.PN ---
Subjective - Date & Time of Evaluation Date of Evaluation: 10/26/17 Time of Evaluation: 11:10 - Subjective Subjective: No fevers, not in distress, eating well. Objective - Vital Signs/Intake and Output Vital Signs (last 24 hours): Temp Pulse Resp BP Pulse Ox 97.6 F 75 18 134/77 96 10/26/17 08:09 10/26/17 08:09 10/26/17 08:09 10/26/17 08:09 10/26/17 08:09 Intake and Output: 10/26/17 10/26/17 06:59 18:59 Intake Total 180 Output Total 1050 Balance -870 - Medications Medications: Current Medications Enoxaparin Sodium (Lovenox) 40 mg SC DAILY [facility] PRN Reason: Protocol Last Admin: 10/26/17 09:20 Dose: 40 mg Metoprolol Tartrate (Lopressor) 25 mg PO BID [facility] Last Admin: 10/26/17 09:20 Dose: 25 mg Mupirocin (Bactroban Ointment) 0 gm TOP DAILY [facility] Last Admin: 10/26/17 09:21 Dose: 1 appl - Labs Labs: 10/23/17 09:30 10/23/17 09:30 PT 11.2 SECONDS (9.4-12.5) 10/07/17 15:00 INR 0.98 (0.93-1.08) 10/07/17 15:00 APTT 29.1 Seconds (25.1-36.5) 10/07/17 15:00 - Constitutional Appears: Non-toxic, Chronically Ill - Head Exam Head Exam: NORMAL INSPECTION - ENT Exam ENT Exam: Mucous Membranes Moist - Respiratory Exam Respiratory Exam: Decreased Breath Sounds - Cardiovascular Exam Cardiovascular Exam: +S1, +S2 - GI/Abdominal Exam GI & Abdominal Exam: Soft. absent: Tenderness Assessment and Plan - Assessment and Plan (Free Text) Plan: Assessment S/P severe sepsis with acute encephalopathy from bilateral lower extremity cellulitis (growing MSSA and Enterobacter), R/O BUSINESS DEVELOPMENT AGENT infection such as meningoencephalitis (encephalopathy may also be metabolic - hyponatremia) Plan completed 11 days of Vancomycin, Cefepime and Acyclovir - continue to monitor clinically off antibiotics since she is at risk for healthcare-associated infections
--- NOTE | 2017-10-27 10:13 | CP.PCM.PN ---
<Cj Jeter - Last Filed: 10/27/17 11:30> Subjective - Date & Time of Evaluation Date of Evaluation: 10/27/17 Time of Evaluation: 08:00 - Subjective Subjective: Podiatry Progress Note 66 y/o female seen at bedside this morning with attending Dr. Martin for bilateral lower extremity scaling superficial ulcerations with cellulitis. Patient resting comfortably in bedside chair, in NAD. Patient denies any acute overnight events. Patient says that she feels a little less dizzy. Reports she would like to wokr with physical therapy today to get her out of bed. Admits to soreness in the legs during dressing changes but says they are otherwise comfortable. Patient denies F/C/N/V/CP/SOB. Objective - Vital Signs/Intake and Output Vital Signs (last 24 hours): Temp Pulse Resp BP Pulse Ox 98.2 F 69 18 132/81 98 10/27/17 08:00 10/27/17 08:00 10/27/17 08:00 10/27/17 08:00 10/27/17 08:00 Intake and Output: 10/27/17 10/27/17 06:59 18:59 Intake Total 780 Output Total 1650 Balance -870 - Medications Medications: Current Medications Enoxaparin Sodium (Lovenox) 40 mg SC DAILY [facility] PRN Reason: Protocol Last Admin: 10/26/17 09:20 Dose: 40 mg Metoprolol Tartrate (Lopressor) 25 mg PO BID [facility] Last Admin: 10/26/17 17:06 Dose: 25 mg Mupirocin (Bactroban Ointment) 0 gm TOP DAILY [facility] Last Admin: 10/26/17 09:21 Dose: 1 appl - Labs Labs: 10/23/17 09:30 10/23/17 09:30 PT 11.2 SECONDS (9.4-12.5) 10/07/17 15:00 INR 0.98 (0.93-1.08) 10/07/17 15:00 APTT 29.1 Seconds (25.1-36.5) 10/07/17 15:00 - Constitutional Appears: Well, Non-toxic, No Acute Distress - Extremities Exam Extremities Exam: absent: Calf Tenderness Additional comments: Dressings clean, dry and intact to bilateral lower extremities with no strikethrough noted Vasc: DP and PT 1/4 B/L, CFT < 3 seconds x 10 digits, temperature is warm to warm, moderate edema to the LE B/L Ortho: mild tenderness elicited upon palpation of ulcerations Neuro: gross and protective sensation diminished Derm: Diffuse erythema noted to the entire LE distal to the tibial tuberosity B/ L, resolving. Superficial ulceration noted to anteromedial left leg at mid calf level, measuring approx 3.5cm x 2.5cm x 0.1cm with beefy granular wound base. No purulence, no fluctuance, no malodor, no tunneling or undermining. Multiple scaly, hyperkeratotic lesions noted to the entire LLE, beginning to slough off and revealing healthy underlying skin. Additional superficial ulceration noted to mid level lateral aspect of R leg, measuring approx 3cm x 2.5cm x 0.1cm with granular wound base - no purulent drainage, no malodor, no fluctuance, no tunneling or undermining. Roof of wound exhibits positive signs of epithelialization, nearly fully healed at this time. Serosanguinous drainage noted on inner dressings B/L - Neurological Exam Neurological Exam: Alert, Awake, Oriented x3 - Psychiatric Exam Psychiatric exam: Normal Affect, Normal Mood Assessment and Plan - Assessment and Plan (Free Text) Assessment: 66 y/o female with bilateral mid leg venous stasis ulcerations and resolving cellulitis to bilateral LE Plan: -Patient examined and evaluated -Discussed plan with attending Dr. Martin -Labs, charts, vitals reviewed - afebrile, no leukocytosis -Bilateral lower extremities cleansed with sterile saline -Bilateral leg wounds dressed with Maxorb and Optifoam -Continue abx regimen -Pt stable from podiatry standpoint -Will continue to follow while in house <Dipesh Martin - Last Filed: 10/30/17 11:57> Objective - Vital Signs/Intake and Output Vital Signs (last 24 hours): Temp Pulse Resp BP Pulse Ox 97.9 F 69 18 111/64 95 10/30/17 07:50 10/30/17 09:55 10/30/17 07:50 10/30/17 09:55 10/30/17 07:50 Intake and Output: 10/30/17 10/30/17 06:59 18:59 Intake Total 900 Output Total 1050 Balance -150 - Medications Medications: Current Medications Metoprolol Tartrate (Lopressor) 25 mg PO BID [facility] Last Admin: 10/30/17 09:55 Dose: 25 mg Mupirocin (Bactroban Ointment) 0 gm TOP DAILY [facility] Last Admin: 10/30/17 09:55 Dose: 1 appl Tamsulosin HCl (Flomax) 0.4 mg PO DAILY [facility] Last Admin: 10/30/17 09:55 Dose: 0.4 mg - Labs Labs: 10/23/17 09:30 10/23/17 09:30 PT 11.2 SECONDS (9.4-12.5) 10/07/17 15:00 INR 0.98 (0.93-1.08) 10/07/17 15:00 APTT 29.1 Seconds (25.1-36.5) 10/07/17 15:00 Attending/Attestation - Attestation I have personally seen and examined this patient.: Yes I have fully participated in the care of the patient.: Yes I have reviewed all pertinent clinical information, including history, physical exam and plan: Yes
[2017-10-27] MEDS: Enoxaparin 40 mg Syringe SC SCH (10:18)
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
--- NOTE | 2017-10-28 01:47 | PN ---
DATE: SUBJECTIVE: Patient in bed, in no acute distress. PHYSICAL EXAMINATION: VITAL SIGNS: Temperature is 98, blood pressure is 130/80, respiratory rate of 18. HEENT: Unremarkable. NECK: Supple. LUNGS: Have decreased breath sounds. HEART: Normal S1, S2. ABDOMEN: Soft, nontender. LABORATORY EXAMINATION: Reveals a white count of 6.9, hemoglobin of 12, platelets of 392. BUN of 9, creatinine of 0.4. ASSESSMENT AND PLAN: This is a 67-year-old female, status post severe sepsis, acute encephalopathy, bilateral lower extremity cellulitis, growing methicillin-susceptible Staphylococcus aureus and Enterobacter and metabolic encephalopathy, completed vancomycin, cefepime, and acyclovir. Currently, patient is off of antibiotics and appears comfortable. She was seen early this morning in 572, bed 1, off of antibiotics. She is at risk for developing nosocomial infections. Duke Sullivan MD
[2017-10-28] MEDS: Enoxaparin 40 mg Syringe SC SCH (10:48)
--- NOTE | 2017-10-28 13:40 | CP.PCM.PN ---
<Cj Jeter - Last Filed: 10/28/17 13:40> Subjective - Date & Time of Evaluation Date of Evaluation: 10/28/17 Time of Evaluation: 10:00 - Subjective Subjective: Podiatry Progress Note- Dr. Briones 66 y/o female seen at bedside for bilateral lower extremity scaling superficial ulcerations with cellulitis. Patient resting comfortably in bedside chair, in NAD. Patient denies any acute overnight events. Patient reports that she is feeling well. Admits to soreness in the legs during dressing changes but says they are otherwise comfortable. Denies calf pain or tenderness. Patient denies F /C/N/V/CP/SOB. No new pedal complaints. Objective - Vital Signs/Intake and Output Vital Signs (last 24 hours): Temp Pulse Resp BP Pulse Ox 97.5 F L 69 18 111/65 96 10/28/17 06:00 10/28/17 10:48 10/28/17 06:00 10/28/17 10:48 10/28/17 06:00 Intake and Output: 10/28/17 10/28/17 06:59 18:59 Intake Total 960 Output Total 2600 Balance -1640 - Medications Medications: Current Medications Enoxaparin Sodium (Lovenox) 40 mg SC DAILY [facility] PRN Reason: Protocol Last Admin: 10/28/17 10:48 Dose: 40 mg Metoprolol Tartrate (Lopressor) 25 mg PO BID [facility] Last Admin: 10/28/17 10:48 Dose: 25 mg Mupirocin (Bactroban Ointment) 0 gm TOP DAILY [facility] Last Admin: 10/27/17 10:00 Dose: 1 appl - Labs Labs: 10/23/17 09:30 10/23/17 09:30 PT 11.2 SECONDS (9.4-12.5) 10/07/17 15:00 INR 0.98 (0.93-1.08) 10/07/17 15:00 APTT 29.1 Seconds (25.1-36.5) 10/07/17 15:00 - Constitutional Appears: Well, Non-toxic, No Acute Distress - Extremities Exam Extremities Exam: absent: Calf Tenderness Additional comments: Dressings clean, dry and intact to bilateral lower extremities with no strikethrough noted Vasc: DP and PT 1/4 B/L, CFT < 3 seconds x 10 digits, temperature is warm to warm, moderate edema to the LE B/L Ortho: mild tenderness elicited upon palpation of ulcerations Neuro: gross and protective sensation diminished Derm: Diffuse erythema noted to the entire LE distal to the tibial tuberosity B/ L, resolving. Superficial ulceration noted to anteromedial left leg at mid calf level, measuring approx 3.5cm x 2.5cm x 0.1cm with beefy granular wound base. No purulence, no fluctuance, no malodor, no tunneling or undermining. Multiple scaly, hyperkeratotic lesions noted to the entire LLE, beginning to slough off and revealing healthy underlying skin. Additional superficial ulceration noted to mid level lateral aspect of R leg, measuring approx 3cm x 2.5cm x 0.1cm with granular wound base - no purulent drainage, no malodor, no fluctuance, no tunneling or undermining. Roof of wound exhibits positive signs of epithelialization, nearly fully healed at this time. Serosanguinous drainage noted on inner dressings B/L - Neurological Exam Neurological Exam: Alert, Awake, Oriented x3 - Psychiatric Exam Psychiatric exam: Normal Affect, Normal Mood Assessment and Plan - Assessment and Plan (Free Text) Assessment: 66 y/o female with bilateral mid leg venous stasis ulcerations and resolving cellulitis to bilateral LE Plan: -Patient examined and evaluated -Discussed plan with attending Dr. Briones -Labs, charts, vitals reviewed - afebrile, no leukocytosis -Bilateral lower extremities cleansed with sterile saline -Bilateral leg wounds dressed with Maxorb and Optifoam -Continue abx regimen -Pt stable from podiatry standpoint -Will continue to follow while in house <Leonor Briones - Last Filed: 10/29/17 13:04> Objective - Vital Signs/Intake and Output Vital Signs (last 24 hours): Temp Pulse Resp BP Pulse Ox 97.3 F L 72 18 141/83 98 10/29/17 08:42 10/29/17 10:05 10/29/17 08:42 10/29/17 10:05 10/29/17 08:42 Intake and Output: 10/29/17 10/29/17 06:59 18:59 Intake Total 1660 Output Total 2200 Balance -540 - Medications Medications: Current Medications Metoprolol Tartrate (Lopressor) 25 mg PO BID [facility] Last Admin: 10/29/17 10:05 Dose: 25 mg Mupirocin (Bactroban Ointment) 0 gm TOP DAILY [facility] Last Admin: 10/29/17 10:04 Dose: 1 appl Tamsulosin HCl (Flomax) 0.4 mg PO DAILY [facility] - Labs Labs: 10/23/17 09:30 10/23/17 09:30 PT 11.2 SECONDS (9.4-12.5) 10/07/17 15:00 INR 0.98 (0.93-1.08) 10/07/17 15:00 APTT 29.1 Seconds (25.1-36.5) 10/07/17 15:00
--- NOTE | 2017-10-28 14:43 | PN ---
DATE: 10/28/2017 SUBJECTIVE: The patient seen earlier this morning in 572, bed 1. She is comfortable. She offers no complaints. She has no fevers and chills. She is tolerating her diet. PHYSICAL EXAMINATION: VITAL SIGNS: Temperature is 97, blood pressure is 111/60, respiratory rate of 18 and heart rate of 69. HEENT: Unremarkable. NECK: Supple. LUNGS: Have decreased breath sounds. HEART: Normal S1, S2. ABDOMEN: Soft, nontender. LABORATORY DATA: Reveals the patient's white count of 6.9, hemoglobin of 12.5 and platelets of 392. Coagulation is noted and chemistries reveals a BUN of 9, creatinine of 0.4. LFTs are noted and review of orders reveals the patient to have off of antibiotics. ASSESSMENT AND PLAN: This is a 67-year-old female, status post severe sepsis, acute encephalopathy, bilateral lower extremity cellulitis, which has improved with methicillin-sensitive Staphylococcus aureus and Enterobacter and metabolic encephalopathy and is status post complete treatment antibiotics with vancomycin, cefepime, acyclovir; currently off of antibiotics, afebrile. The patient is at risk for developing nosocomial infections. Duke Sullivan MD
[2017-10-29] MEDS: Enoxaparin 40 mg Syringe SC SCH (10:05)
--- NOTE | 2017-10-29 10:07 | PN ---
DATE: 10/28/2017 SUBJECTIVE: The patient has no complaints of any chest pain. No shortness of breath. No headaches. PHYSICAL EXAMINATION: VITAL SIGNS: Temperature is 97.5, pulse is 69, blood pressure is 111/65, respirations 18. GENERAL: The patient is lying in bed, flat, comfortable. HEENT: No oral lesion. Anicteric sclerae. Moist mucosa. NECK: No JVD, adenopathy, or thyromegaly. CARDIOVASCULAR: S1 and S2, regular. No murmurs, rubs, or gallops. LUNGS: Clear to auscultation bilaterally. No wheeze, rales, or rhonchi. ABDOMEN: Bowel sounds are positive, soft, nontender and nondistended. EXTREMITIES: No cyanosis, clubbing or edema. ASSESSMENT: 1. Hyponatremia. 2. Deconditioning. 3. Gait dysfunction. PLAN: The patient is currently on metoprolol. She is going to continue on Lovenox for DVT prophylaxis. She is eating well. No new labs. She was hypokalemic and that has resolved. Nathaniel Gallo MD
--- NOTE | 2017-10-29 15:58 | CP.PCM.PN ---
Subjective - Date & Time of Evaluation Date of Evaluation: 10/29/17 Time of Evaluation: 10:05 - Subjective Subjective: No fevers, not in distress, comfortable in bed. Objective - Vital Signs/Intake and Output Vital Signs (last 24 hours): Temp Pulse Resp BP Pulse Ox 97.3 F L 72 18 141/83 98 10/29/17 08:42 10/29/17 10:05 10/29/17 08:42 10/29/17 10:05 10/29/17 08:42 Intake and Output: 10/29/17 10/29/17 06:59 18:59 Intake Total 1660 540 Output Total 2200 800 Balance -540 -260 - Medications Medications: Current Medications Metoprolol Tartrate (Lopressor) 25 mg PO BID [facility] Last Admin: 10/29/17 10:05 Dose: 25 mg Mupirocin (Bactroban Ointment) 0 gm TOP DAILY [facility] Last Admin: 10/29/17 10:04 Dose: 1 appl Tamsulosin HCl (Flomax) 0.4 mg PO DAILY [facility] Last Admin: 10/29/17 13:22 Dose: 0.4 mg - Labs Labs: 10/23/17 09:30 10/23/17 09:30 PT 11.2 SECONDS (9.4-12.5) 10/07/17 15:00 INR 0.98 (0.93-1.08) 10/07/17 15:00 APTT 29.1 Seconds (25.1-36.5) 10/07/17 15:00 - Constitutional Appears: Non-toxic, Chronically Ill - Head Exam Head Exam: NORMAL INSPECTION - Respiratory Exam Respiratory Exam: Decreased Breath Sounds - Cardiovascular Exam Cardiovascular Exam: +S1, +S2 - GI/Abdominal Exam GI & Abdominal Exam: Soft. absent: Tenderness - Extremities Exam Additional comments: both feet with dressings in place Assessment and Plan - Assessment and Plan (Free Text) Plan: Assessment S/P severe sepsis with acute encephalopathy from bilateral lower extremity cellulitis (growing MSSA and Enterobacter), R/O WRESTLING COACH infection such as meningoencephalitis (encephalopathy may also be metabolic - hyponatremia) Plan completed 11 days of Vancomycin, Cefepime and Acyclovir - continue to monitor clinically off antibiotics since she is at risk for nosocomial infections
--- NOTE | 2017-10-29 16:14 | CP.PCM.PN ---
<Rogelio Michaels - Last Filed: 10/29/17 16:10> Subjective - Date & Time of Evaluation Date of Evaluation: 10/29/17 Time of Evaluation: 16:10 - Subjective Subjective: Podiatry Progress Note- Dr. Briones 67 y/o female seen at bedside for bilateral lower extremity scaling superficial ulcerations with cellulitis. Patient OOB in chair at time of visit, NAD. No acute events overnight. Patient states her dressings were changed earlier today. Admits to feeling well, and offers no complaints to bilateral LE today. Denies N/V/F/D/C/SOB/CHAVEZ/dizziness. Objective - Vital Signs/Intake and Output Vital Signs (last 24 hours): Temp Pulse Resp BP Pulse Ox 97.3 F L 72 18 141/83 98 10/29/17 08:42 10/29/17 10:05 10/29/17 08:42 10/29/17 10:05 10/29/17 08:42 Intake and Output: 10/29/17 10/29/17 06:59 18:59 Intake Total 1660 540 Output Total 2200 800 Balance -540 -260 - Medications Medications: Current Medications Metoprolol Tartrate (Lopressor) 25 mg PO BID [facility] Last Admin: 10/29/17 10:05 Dose: 25 mg Mupirocin (Bactroban Ointment) 0 gm TOP DAILY [facility] Last Admin: 10/29/17 10:04 Dose: 1 appl Tamsulosin HCl (Flomax) 0.4 mg PO DAILY [facility] Last Admin: 10/29/17 13:22 Dose: 0.4 mg - Labs Labs: 10/23/17 09:30 10/23/17 09:30 PT 11.2 SECONDS (9.4-12.5) 10/07/17 15:00 INR 0.98 (0.93-1.08) 10/07/17 15:00 APTT 29.1 Seconds (25.1-36.5) 10/07/17 15:00 - Constitutional Appears: Well, Non-toxic, No Acute Distress - Extremities Exam Additional comments: Neurovascular status unchanged CFT WNL to digits b/l Dressings to LE appear clean/dry/intact with no strikethrough noted - Neurological Exam Neurological Exam: Alert, Awake, Oriented x3 - Psychiatric Exam Psychiatric exam: Normal Affect, Normal Mood Assessment and Plan - Assessment and Plan (Free Text) Assessment: 67 y/o female with bilateral mid leg venous stasis ulcerations and resolving cellulitis to bilateral LE Plan: -Patient examined and evaluated alongside attending, Dr. Briones -Discussed plan with attending Dr. Briones -Labs, charts, vitals reviewed - afebrile, no leukocytosis -Continue local wound care: saline cleanse, maxsorb optifoam -Dressings maintained today -Pt stable from podiatry standpoint -Will continue to follow while in house <Leonor Briones - Last Filed: 10/31/17 07:52> Objective - Vital Signs/Intake and Output Vital Signs (last 24 hours): Temp Pulse Resp BP Pulse Ox 98.3 F 66 18 124/74 97 10/31/17 07:44 10/31/17 07:44 10/31/17 07:44 10/31/17 07:44 10/31/17 07:44 Intake and Output: 10/31/17 10/31/17 06:59 18:59 Intake Total 900 Output Total 200 Balance 700 - Medications Medications: Current Medications Metoprolol Tartrate (Lopressor) 25 mg PO BID [facility] Last Admin: 10/30/17 17:05 Dose: 25 mg Mupirocin (Bactroban Ointment) 0 gm TOP DAILY [facility] Last Admin: 10/30/17 09:55 Dose: 1 appl Tamsulosin HCl (Flomax) 0.4 mg PO DAILY [facility] Last Admin: 10/30/17 09:55 Dose: 0.4 mg - Labs Labs: 10/23/17 09:30 10/23/17 09:30 PT 11.2 SECONDS (9.4-12.5) 10/07/17 15:00 INR 0.98 (0.93-1.08) 10/07/17 15:00 APTT 29.1 Seconds (25.1-36.5) 10/07/17 15:00 Attending/Attestation - Attestation I have personally seen and examined this patient.: Yes I have fully participated in the care of the patient.: Yes I have reviewed all pertinent clinical information, including history, physical exam and plan: Yes Notes (Text): 10/31/17 07:52 pt had dressing change just recently by nursing staff - no dressing change done by podiatry today; pt relates much improved and is now walking
--- NOTE | 2017-10-29 16:22 | PN ---
DATE: 10/29/2017 SUBJECTIVE: The patient is 67-year-old, seen and examined, lying in bed, seems to be comfortable. She is ambulating with help, minimal assist, with walker. Eating fair. PHYSICAL EXAMINATION: VITAL SIGNS: She is afebrile. Pulse 72, respirations 18, blood pressure 141/83. LUNGS: Bilateral good airflow. No rhonchi or crackle. HEART: S1 and S2 audible. ABDOMEN: Soft and nontender. No rebound. No guarding. NEUROLOGIC: The patient is awake and alert. Able to communicate, ambulatory. EXTREMITIES: Bilateral legs, +2 edema. She has scaly skin and she has ulcers on both shins, under the care of podiatry team. LABORATORY DATA: There is no new lab available today. ASSESSMENT: 1. Status post hypernatremia. 2. Deconditioning, difficulty walking. 3. Bilateral leg edema and ulcers. 4. Status post altered mental status, seems to be back to her baseline. 5. Urinary retention. PLAN: I will start Flomax. We will discontinue Knapp tomorrow morning and spoke to long term care social worker and are in the process of making arrangement for either subacute rehab versus long-term place. Abelardo Mg MD
--- NOTE | 2017-10-30 12:46 | CP.PCM.PN ---
Subjective - Date & Time of Evaluation Date of Evaluation: 10/30/17 Time of Evaluation: 11:35 - Subjective Subjective: Doing physical therapy well enough, no fevers, no diarrhea. Objective - Vital Signs/Intake and Output Vital Signs (last 24 hours): Temp Pulse Resp BP Pulse Ox 97.9 F 69 18 111/64 95 10/30/17 07:50 10/30/17 09:55 10/30/17 07:50 10/30/17 09:55 10/30/17 07:50 Intake and Output: 10/30/17 10/30/17 06:59 18:59 Intake Total 900 Output Total 1050 Balance -150 - Medications Medications: Current Medications Metoprolol Tartrate (Lopressor) 25 mg PO BID [facility] Last Admin: 10/30/17 09:55 Dose: 25 mg Mupirocin (Bactroban Ointment) 0 gm TOP DAILY [facility] Last Admin: 10/30/17 09:55 Dose: 1 appl Tamsulosin HCl (Flomax) 0.4 mg PO DAILY [facility] Last Admin: 10/30/17 09:55 Dose: 0.4 mg - Labs Labs: 10/23/17 09:30 10/23/17 09:30 PT 11.2 SECONDS (9.4-12.5) 10/07/17 15:00 INR 0.98 (0.93-1.08) 10/07/17 15:00 APTT 29.1 Seconds (25.1-36.5) 10/07/17 15:00 - Constitutional Appears: Non-toxic, Chronically Ill - Head Exam Head Exam: NORMAL INSPECTION - ENT Exam ENT Exam: Mucous Membranes Moist - Neck Exam Neck Exam: absent: Meningismus - Respiratory Exam Respiratory Exam: Decreased Breath Sounds - Cardiovascular Exam Cardiovascular Exam: +S1, +S2 - GI/Abdominal Exam GI & Abdominal Exam: Soft. absent: Tenderness - Extremities Exam Additional comments: both feet with dressings in place Assessment and Plan - Assessment and Plan (Free Text) Plan: Assessment S/P severe sepsis with acute encephalopathy from bilateral lower extremity cellulitis (growing MSSA and Enterobacter), R/O POPULATION HEALTH COACH infection such as meningoencephalitis (encephalopathy may also be metabolic - hyponatremia) Plan completed 11 days of Vancomycin, Cefepime and Acyclovir - continue to monitor clinically off antibiotics since she is at risk for hospital-acquired infections
--- NOTE | 2017-10-30 15:02 | CP.PCM.PN ---
<Rogelio Michaels - Last Filed: 10/30/17 14:46> Subjective - Date & Time of Evaluation Date of Evaluation: 10/30/17 Time of Evaluation: 14:47 - Subjective Subjective: Podiatry Progress Note- Dr. Briones/Mario 67 y/o female seen at bedside for bilateral lower extremity scaling superficial ulcerations with cellulitis. Patient OOB in chair at time of visit, NAD. No acute events overnight. Patient reports minimal soreness to areas of right leg redness today. Dressings to both legs clean/dry/intact. Denies N/V/F/D/C/SOB/CHAVEZ/ dizziness. Objective - Vital Signs/Intake and Output Vital Signs (last 24 hours): Temp Pulse Resp BP Pulse Ox 97.9 F 69 18 111/64 95 10/30/17 07:50 10/30/17 09:55 10/30/17 07:50 10/30/17 09:55 10/30/17 07:50 Intake and Output: 10/30/17 10/30/17 06:59 18:59 Intake Total 900 960 Output Total 1050 800 Balance -150 160 - Medications Medications: Current Medications Metoprolol Tartrate (Lopressor) 25 mg PO BID [facility] Last Admin: 10/30/17 09:55 Dose: 25 mg Mupirocin (Bactroban Ointment) 0 gm TOP DAILY [facility] Last Admin: 10/30/17 09:55 Dose: 1 appl Tamsulosin HCl (Flomax) 0.4 mg PO DAILY [facility] Last Admin: 10/30/17 09:55 Dose: 0.4 mg - Labs Labs: 10/23/17 09:30 10/23/17 09:30 PT 11.2 SECONDS (9.4-12.5) 10/07/17 15:00 INR 0.98 (0.93-1.08) 10/07/17 15:00 APTT 29.1 Seconds (25.1-36.5) 10/07/17 15:00 - Constitutional Appears: Well, Non-toxic, No Acute Distress - Extremities Exam Additional comments: Dressings clean, dry and intact to bilateral lower extremities with no strikethrough noted Vasc: DP and PT 1/4 B/L, CFT < 3 seconds x 10 digits, temperature is warm to warm, moderate edema to the LE B/L Ortho: mild tenderness elicited upon palpation of ulcerations Neuro: gross and protective sensation diminished Derm: Diffuse erythema noted to the entire LE distal to the tibial tuberosity B/ L, resolved to RLE. Superficial ulceration noted to anteromedial left leg at mid calf level, measuring approx 3.5cm x 2.5cm x 0.1cm with beefy granular wound base. No purulence, no fluctuance, no malodor, no tunneling or undermining. Multiple scaly, hyperkeratotic lesions noted to the entire LLE, epithelialized, revealing healthy underlying skin. Additional superficial ulceration noted to mid level lateral aspect of R leg, measuring approx 3cm x 2.5cm x 0.1cm with granular wound base - no purulent drainage, no malodor, no fluctuance, no tunneling or undermining. Roof of wound exhibits positive signs of epithelialization, nearly fully healed at this time. No drainage noted on inner dressings B/L - Neurological Exam Neurological Exam: Alert, Awake, Oriented x3 - Psychiatric Exam Psychiatric exam: Normal Affect, Normal Mood Assessment and Plan - Assessment and Plan (Free Text) Assessment: 66 y/o female with bilateral mid leg venous stasis ulcerations and cellulitis to bilateral LE, resolved. Plan: Patient examined and evaluated alongside attending, Dr. Martin Afebrile, WBC 6.9 Continue local wound care: LLE cleansed with sterile saline and dressed with Maxsorb, Optifoam -Discontinue dressings RLE as wounds have resolved Pt stable from podiatry standpoint Will continue to follow while in house <Dipesh Martin - Last Filed: 10/30/17 16:19> Objective - Vital Signs/Intake and Output Vital Signs (last 24 hours): Temp Pulse Resp BP Pulse Ox 97.9 F 69 18 111/64 95 10/30/17 07:50 10/30/17 09:55 10/30/17 07:50 10/30/17 09:55 10/30/17 07:50 Intake and Output: 10/30/17 10/30/17 06:59 18:59 Intake Total 900 960 Output Total 1050 800 Balance -150 160 - Medications Medications: Current Medications Metoprolol Tartrate (Lopressor) 25 mg PO BID [facility] Last Admin: 10/30/17 09:55 Dose: 25 mg Mupirocin (Bactroban Ointment) 0 gm TOP DAILY [facility] Last Admin: 10/30/17 09:55 Dose: 1 appl Tamsulosin HCl (Flomax) 0.4 mg PO DAILY [facility] Last Admin: 10/30/17 09:55 Dose: 0.4 mg - Labs Labs: 10/23/17 09:30 10/23/17 09:30 PT 11.2 SECONDS (9.4-12.5) 10/07/17 15:00 INR 0.98 (0.93-1.08) 10/07/17 15:00 APTT 29.1 Seconds (25.1-36.5) 10/07/17 15:00 Attending/Attestation - Attestation I have personally seen and examined this patient.: Yes I have fully participated in the care of the patient.: Yes I have reviewed all pertinent clinical information, including history, physical exam and plan: Yes
--- NOTE | 2017-10-30 20:46 | PN ---
DATE: SUBJECTIVE: The patient is 66 years old, seen and examined sitting in chair. Seems to be comfortable. No nausea or vomiting. No diarrhea. PHYSICAL EXAMINATION: VITAL SIGNS: She is afebrile, pulse 80, respirations 20, blood pressure 119/67. LUNGS: Bilateral good airflow. No rhonchi or crackle. HEART: S1 and S2 audible. ABDOMEN: Soft. Nontender. No rebound. No guarding. NEUROLOGIC: She is awake, alert, oriented, communicative. Ambulate with physical therapist. EXTREMITIES: Bilateral legs still have +1 edema of her legs. ASSESSMENT: 1. Status post hyponatremia, status post altered mental status. 2. Severe urinary retention, has indwelling catheter. PLAN: She is getting local wound care of both legs. We have started her on Flomax. We will discontinue Knapp catheter in the a.m. and we will continue physical therapy, awaiting disposition. Abelardo Mg MD
[2017-10-31 07:45] VITALS: RESP 18
[2017-10-31 15:43] VITALS: BP 120/65; TEMP 98.1; O2SAT 99
--- NOTE | 2017-10-31 16:06 | CP.PCM.PN ---
Subjective - Date & Time of Evaluation Date of Evaluation: 10/31/17 Time of Evaluation: 11:10 - Subjective Subjective: Comfortable, no fevers. Objective - Vital Signs/Intake and Output Vital Signs (last 24 hours): Temp Pulse Resp BP Pulse Ox 98.1 F 93 H 18 120/65 99 10/31/17 14:00 10/31/17 14:00 10/31/17 14:00 10/31/17 14:00 10/31/17 14:00 Intake and Output: 10/31/17 10/31/17 06:59 18:59 Intake Total 900 Output Total 200 Balance 700 - Medications Medications: Current Medications Lactic Acid (Lac-Hydrin 12% Cream (140 G)) 0 ea TOP BID [facility] Metoprolol Tartrate (Lopressor) 25 mg PO BID [facility] Last Admin: 10/31/17 09:18 Dose: Not Given Mupirocin (Bactroban Ointment) 0 gm TOP DAILY [facility] Last Admin: 10/30/17 09:55 Dose: 1 appl Tamsulosin HCl (Flomax) 0.4 mg PO DAILY [facility] Last Admin: 10/31/17 09:14 Dose: 0.4 mg - Labs Labs: 10/23/17 09:30 10/23/17 09:30 PT 11.2 SECONDS (9.4-12.5) 10/07/17 15:00 INR 0.98 (0.93-1.08) 10/07/17 15:00 APTT 29.1 Seconds (25.1-36.5) 10/07/17 15:00 - Constitutional Appears: Chronically Ill - Head Exam Head Exam: NORMAL INSPECTION - Respiratory Exam Respiratory Exam: Decreased Breath Sounds - Cardiovascular Exam Cardiovascular Exam: +S1, +S2 - GI/Abdominal Exam GI & Abdominal Exam: Soft. absent: Tenderness Assessment and Plan - Assessment and Plan (Free Text) Plan: Assessment S/P severe sepsis with acute encephalopathy from bilateral lower extremity cellulitis (growing MSSA and Enterobacter), R/O REIMBURSEMENT ANALYST infection such as meningoencephalitis (encephalopathy may also be metabolic - hyponatremia) Plan completed 11 days of Vancomycin, Cefepime and Acyclovir - continue to monitor clinically off antibiotics since she is at risk for nosocomial infections
--- NOTE | 2017-10-31 16:37 | PN ---
DATE: SUBJECTIVE: The patient is a 67 years old seen and examined, lying in bed, seems to be comfortable. We were able to remove Knapp catheter. She is urinating fine. No retention noted. PHYSICAL EXAMINATION: VITAL SIGNS: She is afebrile, pulse 66, respirations 18, blood pressure 109/57. LUNGS: Bilateral fair airflow. No rhonchi or crackle. HEART: S1, S2 audible. ABDOMEN: Soft, nontender. No rebound, no guarding. NEUROLOGIC: Patient is awake and alert, able to communicate. Bilateral legs, she has scaly skin. She has desquamation in the right julian area. ASSESSMENT: 1. Status post altered mental status. 2. Status post hypernatremia. 3. Deconditioning, difficulty falling, seems to be improving. 4. Bilateral julian ulcers, healing. PLAN: We will continue current medications. Her Knapp has been removed. We will continue Flomax. Continue local wounds care. We will follow . Abelardo Mg MD
[2017-10-31] MEDS ORDERED: Ammonium Lactate 12% Cream (140 g) TOP SCH (18:00)
[2017-10-31 18:04] VITALS: PULSE 97
== END 2017-10-31 19:33 | disposition home or self-care (01) | DRG 871 ==
LOC: ED 14:42 → ERH 17:29 → ICU 19:24 → 5RSO 10-13 14:20
PROVIDERS: ADMIT Internal Medicine; ATTEND Internal Medicine
PROC: 05HM33Z Insertion of Infusion Device into Right Internal Jugular Vein, Percutaneous Approach (ICD-10-PCS; principal; 2017-10-09)
PROC: B543ZZA Ultrasonography of Right Jugular Veins, Guidance (ICD-10-PCS; 2017-10-09)
DX: A41.9 Sepsis, unspecified organism (principal); G93.41 Metabolic encephalopathy; I21.4 Non-ST elevation (NSTEMI) myocardial infarction; E87.1 Hypo-osmolality and hyponatremia; L03.115 Cellulitis of right lower limb; L03.116 Cellulitis of left lower limb; L97.919 Non-pressure chronic ulcer of unspecified part of right lower leg with unspecified severity; L97.929 Non-pressure chronic ulcer of unspecified part of left lower leg with unspecified severity; M62.82 Rhabdomyolysis; E11.622 Type 2 diabetes mellitus with other skin ulcer; E83.42 Hypomagnesemia; E87.6 Hypokalemia; E88.09 Other disorders of plasma-protein metabolism, not elsewhere classified; G30.9 Alzheimer's disease, unspecified; F02.80 Dementia in other diseases classified elsewhere, unspecified severity, without behavioral disturbance, psychotic disturbance, mood disturbance, and anxiety; I10 Essential (primary) hypertension; I83.009 Varicose veins of unspecified lower extremity with ulcer of unspecified site; N28.9 Disorder of kidney and ureter, unspecified; R13.10 Dysphagia, unspecified; R65.20 Severe sepsis without septic shock; W19.XXXA Unspecified fall, initial encounter; Y92.009 Unspecified place in unspecified non-institutional (private) residence as the place of occurrence of the external cause; B95.61 Methicillin susceptible Staphylococcus aureus infection as the cause of diseases classified elsewhere; R33.9 Retention of urine, unspecified

== ENCOUNTER 2017-12-04 15:29 | Inpatient (IN) | payer MEDICARE, OTHER ==
[2017-12-04] MEDS ORDERED: Vancomycin 1gm in NS 250ml 1 GM/250 ML BAG IVPB STA (16:47)
--- NOTE | 2017-12-04 17:00 | ED PDOC ---
Arrival/HPI <Joya Garcia - Last Filed: 12/04/17 18:24> <JesicaKevin Jae - Last Filed: 12/04/17 18:39> - General Chief Complaint: Abnormal Skin Integrity Time Seen by Provider: 12/04/17 16:15 - History of Present Illness Narrative History of Present Illness (Text): 12/04/17 16:48 Patient is a 67 year year old female with a past medical history of hypertension and bilateral lower extremity cellulitis who presents to the Emergency department from Dr. Mg's office for worsening lower extremity cellulitis. Patient says she was here about 1 month ago for the same thing and was treated with antibiotics then sent home with mupirocin 2% ointment. Patient says she used this for one day then stopped on the second day it because it caused burning and she was worried she may have an allergy (as she read about on the label). Patient denies any pain in the lower extremities currently and says it is only tender when touched directly over where the weeping areas are. However her feet and directly above the weeping areas are nontender to palpation. She also denies any numbness or tingling in the extremities, fever, chills, dizziness, chest pain, shortness of breath, cough, palpitations, abdominal pain, N&V, diarrhea, constipation, and change in urinary habits. PMH: hypertension, bilateral lower extremity cellulitis, recent hospitalization for AMS and hyponatremia Meds: Metoprolol succinate 25 mg PO daily Allergies: seasonal, PCN, ASA, questionable mupirocin ointment (Joya Garcia ) Past Medical History - Infectious Disease Hx of Infectious Diseases: None - Cardiac Hx Cardiac Disorders: Yes Hx Hypertension: Yes - Pulmonary Hx Respiratory Disorders: No - Neurological Hx Neurological Disorder: No - HEENT Hx HEENT Disorder: No - Renal Hx Renal Disorder: No - Endocrine/Metabolic Hx Endocrine Disorders: No - Hematological/Oncological Hx Blood Disorders: No - Integumentary Hx Dermatological Disorder: Yes Hx Cellulitis: Yes - Musculoskeletal/Rheumatological Hx Musculoskeletal Disorders: Yes Hx Falls: Yes Hx Fractures: Yes - Gastrointestinal Hx Gastrointestinal Disorders: No - Genitourinary/Gynecological Hx Genitourinary Disorders: Yes Other/Comment: URINE RETENTION - Psychiatric Hx Psychophysiologic Disorder: No Hx Substance Use: No <Joya Garcia - Last Filed: 12/04/17 18:24> Family/Social History Family/Social History: No Known Family HX Smoking Status: Unknown If Ever Smoked Hx Alcohol Use: No Hx Substance Use: No <Joya Garcia - Last Filed: 12/04/17 18:24> Allergies/Home Meds <Joya Garcia - Last Filed: 12/04/17 18:24> <Kevin Mooney - Last Filed: 12/04/17 18:39> Allergies/Adverse Reactions: Allergies aspirin Allergy (Intermediate, Verified 12/04/17 16:01) ITCHING itching and burning Penicillins Allergy (Verified 12/04/17 16:01) ITCHING Review of Systems - Physician Review All systems were reviewed & negative as marked: Yes - Review of Systems Constitutional: Normal. absent: Fevers Eyes: Normal ENT: Normal Respiratory: Normal. absent: SOB, Cough, Wheezing Cardiovascular: Normal. absent: Chest Pain, Palpitations, HUSTON Gastrointestinal: Normal. absent: Abdominal Pain, Stool Changes, Constipation, Diarrhea, Nausea, Vomiting Genitourinary Female: Normal. absent: Dysuria, Frequency, Hematuria Musculoskeletal: absent: Arthralgias, Back Pain Skin: Cellulitis (bilateral lower extremities) Neurological: Normal. absent: Headache, Dizziness Endocrine: Normal Hemo/Lymphatic: Normal Psychiatric: Normal <Joya Garcia - Last Filed: 12/04/17 18:24> Physical Exam - Systems Exam Head: Present: Atraumatic, Normocephalic Pupils: Present: PERRL Extroacular Muscles: Present: EOMI Conjunctiva: Present: Normal Ears: Present: Other (difficulty hearing; must speak loudly) Mouth: Present: Moist Mucous Membranes Neck: Present: Normal Range of Motion Respiratory/Chest: Present: Clear to Auscultation, Good Air Exchange. No: Respiratory Distress, Accessory Muscle Use Cardiovascular: Present: Regular Rate and Rhythm, Normal S1, S2. No: Murmurs Abdomen: Present: Normal Bowel Sounds. No: Tenderness, Distention, Peritoneal Signs Back: Present: Normal Inspection Upper Extremity: Present: Normal Inspection. No: Cyanosis, Edema Lower Extremity: Present: Edema (pitting; up to the knees bilaterally), NORMAL PULSES, Tenderness (only over the areas of weeping on the legs), Erythema ( extending circumfrentially from the feet to the knees bilaterally), Neurovascularly Intact, Other (malodorous; dry, flaking skin from the foot to just below the knee; weeping extending circumfrentially from just above the ankles to approximately half way up the calf/julian; no crepitus noted). No: Cyanosis Neurological: Present: GCS=15, Speech Normal Skin: Present: Warm, Other (see lower extremity exam) Psychiatric: Present: Alert, Oriented x 3, Normal Insight, Normal Concentration <Joya Garcia - Last Filed: 12/04/17 18:24> Vital Signs Temp Pulse Resp BP Pulse Ox 12/04/17 16:01 97.7 F 91 H 16 117/67 98 Medical Decision Making <Joya Garcia - Last Filed: 12/04/17 18:24> <Kevin Mooney - Last Filed: 12/04/17 18:39> ED Course and Treatment: 12/04/17 18:25 ECG: normal sinus rhythm at [address] segment changes Chest X-ray: No active disease. Resolved infiltrates both lower lobes. Discussed with PMD, Dr. Mg - agrees with management and will admit under her service. (Joya Garcia) Seen and examined with resident. 67 y/o F p/w bilateral lower leg skin erythema , discharge, and tenderness. No crepitus or tenderness outside area of erythema. (Kevin Mooney) - Lab Interpretations Lab Results: 12/04/17 17:50 12/04/17 17:50 Lab Results 12/04/17 17:52: Urine Color straw, Urine Appearance Clear, Urine pH 6.0, Ur Specific [place] <= 1.005, Urine Protein Negative, Urine Glucose (UA) Negative, Urine Ketones Negative, Urine Blood Negative, Urine Nitrate Negative, Urine Bilirubin Negative, Urine Urobilinogen 0.2, Ur Leukocyte Esterase Negative 12/04/17 17:50: WBC 9.4 D, RBC 4.56, Hgb 13.3, Hct 38.5, MCV 84.4 D, MCH 29.2 , MCHC 34.5, RDW 17.2 H, Plt Count 749 H* D, MPV 8.0, Gran % 73.1 H, Lymph % ( Auto) 14.3 L, Kane % (Auto) 11.3 H, Eos % (Auto) 0.9 L, Baso % (Auto) 0.4, Gran # 6.86 H, Lymph # (Auto) 1.3, Kane # (Auto) 1.1 H, Eos # (Auto) 0.1, Baso # ( Auto) 0.04 12/04/17 17:50: Sodium 137, Potassium 4.2, Chloride 99, Carbon Dioxide 26, Anion Gap 16, BUN 17, Creatinine 0.5 L, Est GFR ( Amer) > 60, Est GFR ( Non-Af Amer) > 60, Random Glucose 98, Calcium 10.3, Total Bilirubin 0.8, AST 37 H, ALT 49, Alkaline Phosphatase 302 H D, Total Protein 8.4 H, Albumin 4.4, Globulin 4.0, Albumin/Globulin Ratio 1.1 - RAD Interpretation Radiology Orders: 12/04/17 17:08 CHEST PORTABLE [RAD] Stat - Medication Orders Current Medication Orders: Sodium Chloride (Sodium Chloride 0.9%) 1,000 mls @ 999 mls/hr IV .Q1H1M STA Stop: 12/04/17 19:23 Discontinued Medications Vancomycin HCl (Vancomycin 1gm) 1 gm in 250 mls @ 167 mls/hr IVPB STAT STA PRN Reason: Protocol Stop: 12/04/17 18:16 Last Admin: 12/04/17 17:56 Dose: 167 mls/hr eMAR Start Stop Document 12/04/17 17:56 HI (Rec: 12/04/17 17:56 HI [id number]) Intravenous Solution Start Date 12/04/17 Start Time 17:56 - PA / SENIOR [employer] TEAM LEAD / Resident Statement YARELIS has reviewed & agrees with the documentation as recorded. YARELIS has examined the patient and agrees with the treatment plan. <Joya Garcia - Last Filed: 12/04/17 18:24> Disposition/Present on Arrival - Present on Arrival History of DVT/PE: No History of Uncontrolled Diabetes: No Urinary Catheter: No History of Decub. Ulcer: No History Surgical Site Infection Following: None <Joya Garcia - Last Filed: 12/04/17 18:24> - Present on Arrival Any Indicators Present on Arrival: No - Disposition Have Diagnosis and Disposition been Completed?: Yes Disposition Time: 18:20 Patient Plan: Admission <Kevin Mooney - Last Filed: 12/04/17 18:39> - Disposition Diagnosis: Cellulitis, Thrombocytosis Disposition: HOSPITALIZED Condition: FAIR
--- NOTE | 2017-12-04 17:38 | RAD ---
HISTORY: Cellulitis COMPARISON: 10/10/2017 FINDINGS: LUNGS: No active pulmonary disease. PLEURA: No significant pleural effusion identified, no pneumothorax apparent. CARDIOVASCULAR: No radiographic findings to suggest acute or significant cardiovascular disease. OSSEOUS STRUCTURES: No significant abnormalities. VISUALIZED UPPER ABDOMEN: Normal. OTHER FINDINGS: None. IMPRESSION: No active disease. Resolved infiltrates both lower lobes.
[2017-12-04 18:05] LABS: BASO # 0.04 K/mm3 (0.0-2.0); BASO % 0.4 % (0.0-3.0); EOS # 0.1 (0.0-0.7); EOS % 0.9 % (1.5-5.0); GRAN # 6.86 (1.4-6.5); GRAN % 73.1 % (50.0-68.0); HEMOGLOBIN 13.3 g/dL (12.0-16.0); LYMPH # 1.3 (1.2-3.4); LYMPH % 14.3 % (22.0-35.0); MEAN CELL VOLUME 84.4 fl (80.0-105.0); MEAN CORPUSCULAR HEMOGLOBIN 29.2 pg (25.0-35.0); MEAN CORPUSCULAR HGB CONC 34.5 g/dl (31.0-37.0); MONO # 1.1 (0.1-0.6); MONO % 11.3 % (1.0-6.0); RBC 4.56 10^6/uL (3.5-6.1); RED CELL DISTRIBUTION WIDTH 17.2 % (11.5-14.5); WHITE BLOOD COUNT 9.4 10^3/ul (4.5-11.0)
[2017-12-04 18:07] LABS: URINE BILIRUBIN NEGATIVE (NEGATIVE); URINE BLOOD NEGATIVE (NEGATIVE); URINE GLUCOSE (UA) NEGATIVE (NEGATIVE); URINE LEUKOCYTE ESTERASE NEGATIVE Leu/uL (NEGATIVE); URINE PROTEIN NEGATIVE mg/dL (<30 mg/dL); URINE UROBILINOGEN 0.2 E.U./dL (<1 E.U./dL)
[2017-12-04 18:09] LABS: URINE APPEARANCE CLEAR (CLEAR)
[2017-12-04 18:16] LABS: ALB/GLOB RATIO 1.1 (1.1-1.8); ALBUMIN 4.4 g/dL (3.0-4.8); ALT/SGPT 49 U/L (7-56); AST/SGOT 37 U/L (14-36); BLOOD UREA NITROGEN 17 mg/dL (7-21); CALCIUM 10.3 mg/dL (8.4-10.5); GFR AFRICAN-AMERICAN > 60; GFR NON-AFRICAN AMERICAN > 60
[2017-12-04] MEDS ORDERED: Sodium Chloride 0.9% 1,000 ML IV STA (18:23)
[2017-12-04] MEDS: Aztreonam 1 Gm in NS 100mL 100 ML IVPB SCH (22:34)
[2017-12-05 00:37] VITALS: BMI 22.3
[2017-12-05] MEDS: Aztreonam 1 Gm in NS 100mL 100 ML IVPB SCH (05:26)
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
[2017-12-05] MEDS ORDERED: Vancomycin 1gm in NS 250ml 1 GM/250 ML BAG IVPB SCH (07:00)
[2017-12-05 07:35] LABS: BASO # 0.02 K/mm3 (0.0-2.0); BASO % 0.2 % (0.0-3.0); EOS % 0.4 % (1.5-5.0); GRAN # 7.49 (1.4-6.5); GRAN % 77.2 % (50.0-68.0); HEMOGLOBIN 10.5 g/dL (12.0-16.0); LYMPH % 9.8 % (22.0-35.0); MEAN CELL VOLUME 84.6 fl (80.0-105.0); MEAN CORPUSCULAR HEMOGLOBIN 28.5 pg (25.0-35.0); MEAN CORPUSCULAR HGB CONC 33.7 g/dl (31.0-37.0); MONO # 1.2 (0.1-0.6); MONO % 12.4 % (1.0-6.0); RBC 3.69 10^6/uL (3.5-6.1); RED CELL DISTRIBUTION WIDTH 17.5 % (11.5-14.5); WHITE BLOOD COUNT 9.7 10^3/ul (4.5-11.0)
[2017-12-05 08:01] LABS: ALB/GLOB RATIO 0.9 (1.1-1.8); ALBUMIN 2.7 g/dL (3.0-4.8); ALT/SGPT 33 U/L (7-56); AST/SGOT 25 U/L (14-36); BLOOD UREA NITROGEN 13 mg/dL (7-21); CALCIUM 8.6 mg/dL (8.4-10.5); GFR AFRICAN-AMERICAN > 60; GFR NON-AFRICAN AMERICAN > 60
--- NOTE | 2017-12-05 08:25 | CARD ---
APPROVED REPORT EKG Measurement Heart [id number] VT [id number] <Conclusion> Normal sinus rhythm Artifact presnt LVH by voltage
[2017-12-05] MEDS: Potassium Chloride 10 mEq ER Tab PO SCH (09:26)
[2017-12-05] MEDS: Cefepime 1gm in NS 100ml 1 GM/100 ML BAG IVPB SCH ×3 (09:27→21:42)
--- NOTE | 2017-12-05 12:43 | CP.PCM.CON ---
History of Present Illness - History of Present Illness History of Present Illness: 67 year old female with PMH of HTN, bilateral lower extremity cellulitis, history of acute encephalopathy came in to [facility] complaining of worsening lower extremity weeping and sloughing of skin for the past week. She was seen by her PMD who prescribed her Bactroban but she only used it one time since she felt a burning sensation after using it. She denies soaking her feet and legs in water , denies animal contacts, has not traveled outside of [place] in the past 3 months, no fever or chills, no nausea or vomiting, no cough or rhinorrhea, no abdominal pain, no sore throat, no chest pain, no diarrhea, no dysuria. Review of Systems - Review of Systems All systems: reviewed and no additional remarkable complaints except (as per HPI ) Past Patient History - Infectious Disease Hx of Infectious Diseases: None - Past Social History Smoking Status: Never Smoked - CARDIAC Hx Cardiac Disorders: Yes Hx Hypertension: Yes - PULMONARY Hx Respiratory Disorders: No - NEUROLOGICAL Hx Neurological Disorder: No - HEENT Hx HEENT Problems: No - RENAL Hx Chronic Kidney Disease: No - ENDOCRINE/METABOLIC Hx Endocrine Disorders: No - HEMATOLOGICAL/ONCOLOGICAL Hx Blood Disorders: No - INTEGUMENTARY Hx Dermatological Problems: Yes - MUSCULOSKELETAL/RHEUMATOLOGICAL Hx Musculoskeletal Disorders: Yes Hx Falls: Yes Hx Fractures: Yes - GASTROINTESTINAL Hx Gastrointestinal Disorders: No - GENITOURINARY/GYNECOLOGICAL Hx Genitourinary Disorders: Yes Other/Comment: URINE RETENTION - PSYCHIATRIC Hx Psychophysiologic Disorder: No - SURGICAL HISTORY Hx Surgeries: Yes Meds Allergies/Adverse Reactions: Allergies Allergy/AdvReac Type Severity Reaction Status Date / Time aspirin Allergy Intermediate ITCHING Verified 12/04/17 16:01 Penicillins Allergy ITCHING Verified 12/04/17 16:01 - Medications Medications: Current Medications Furosemide (Lasix) 40 mg IVP DAILY DAXA Aztreonam (Azactam 1 Gm) 100 mls @ 100 mls/hr IVPB Q8 DAXA PRN Reason: Protocol Stop: 12/05/17 06:59 Last Admin: 12/05/17 05:26 Dose: 100 mls/hr Potassium Chloride (Klor-Con 10) 10 meq PO DAILY DAXA Tamsulosin HCl (Flomax) 0.4 mg PO DAILY DAXA Physical Exam - Constitutional Appears: Non-toxic, Chronically Ill - Head Exam Head Exam: NORMAL INSPECTION - ENT Exam ENT Exam: Mucous Membranes Moist - Neck Exam Neck exam: Negative for: Lymphadenopathy, Meningismus - Respiratory Exam Respiratory Exam: Decreased Breath Sounds - Cardiovascular Exam Cardiovascular Exam: +S1, +S2 - GI/Abdominal Exam GI & Abdominal Exam: Soft. absent: Tenderness - Extremities Exam Additional comments: both lower extremities with sloughing off of skin and weeping honey-colored fluid Results - Vital Signs Recent Vital Signs: Last Vital Signs Temp 97.9 F 12/04/17 23:43 Pulse 70 12/04/17 23:43 Resp 20 12/04/17 23:43 BP 150/69 12/04/17 23:43 Pulse Ox 100 12/04/17 21:23 - Labs Result Diagrams: 12/05/17 07:00 12/05/17 07:00 Assessment & Plan - Assessment and Plan (Free Text) Plan: Assessment consider bilateral lower extremity skin and skin structure infection S/P severe sepsis with acute encephalopathy from bilateral lower extremity cellulitis (growing MSSA and Enterobacter), and 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
--- NOTE | 2017-12-05 13:15 | CP.PCM.CON ---
History of Present Illness - History of Present Illness History of Present Illness: 67 year old female with PMH of HTN, bilateral lower extremity cellulitis, acute encephalopathy seen at bedside complaining of pain to her b/l LE. Patient states that she has wounds on her legs that she just noticed for the first time two days ago. Patient states that they are painful to touch and that she has noticed a clear drainage coming from both of them as well as a slight malodor. Patient denies any attempts at treatment up to this point. She also states that she has at home visiting nursing care and that she is expecting a reclining chair to be delivered to her house sometime in the next week. Patient is AAO x 3 and NAD during time of examination, seen eating lunch in bed. She denies any further pedal complaints. Denies any recent N/V/F/C/CP/SOB/D/Posterior calf pain Review of Systems - Review of Systems All systems: reviewed and no additional remarkable complaints except Review of Systems: as per HPI Past Patient History - Infectious Disease Hx of Infectious Diseases: None - Past Social History Smoking Status: Never Smoked - CARDIAC Hx Cardiac Disorders: Yes Hx Hypertension: Yes - PULMONARY Hx Respiratory Disorders: No - NEUROLOGICAL Hx Neurological Disorder: No - HEENT Hx HEENT Problems: No - RENAL Hx Chronic Kidney Disease: No - ENDOCRINE/METABOLIC Hx Endocrine Disorders: No - HEMATOLOGICAL/ONCOLOGICAL Hx Blood Disorders: No - INTEGUMENTARY Hx Dermatological Problems: Yes - MUSCULOSKELETAL/RHEUMATOLOGICAL Hx Musculoskeletal Disorders: Yes Hx Falls: Yes Hx Fractures: Yes - GASTROINTESTINAL Hx Gastrointestinal Disorders: No - GENITOURINARY/GYNECOLOGICAL Hx Genitourinary Disorders: Yes Other/Comment: URINE RETENTION - PSYCHIATRIC Hx Psychophysiologic Disorder: No - SURGICAL HISTORY Hx Surgeries: Yes Meds Allergies/Adverse Reactions: Allergies Allergy/AdvReac Type Severity Reaction Status Date / Time aspirin Allergy Intermediate ITCHING Verified 12/04/17 16:01 Penicillins Allergy ITCHING Verified 12/04/17 16:01 - Medications Medications: Current Medications Betamethasone/Clotrimazole (Lotrisone) 0 ml TOP DAILY DAXA Furosemide (Lasix) 40 mg IVP DAILY DAXA Last Admin: 12/05/17 09:26 Dose: 40 mg Cefepime HCl (Maxipime 1gm) 1 gm in 100 mls @ 100 mls/hr IVPB Q8 DAXA PRN Reason: Protocol Last Admin: 12/05/17 09:27 Dose: 100 mls/hr Vancomycin HCl (Vancomycin 1gm) 1 gm in 250 mls @ 167 mls/hr IVPB Q12H [facility] PRN Reason: Protocol Last Admin: 12/05/17 09:28 Dose: 167 mls/hr Lactic Acid (Lac-Hydrin 12% Cream (140 G)) 0 ea TOP DAILY [facility] Potassium Chloride (Klor-Con 10) 10 meq PO DAILY [facility] Last Admin: 12/05/17 09:26 Dose: 10 meq Tamsulosin HCl (Flomax) 0.4 mg PO DAILY [facility] Last Admin: 12/05/17 09:34 Dose: Not Given Physical Exam - Constitutional Appears: Well, Non-toxic, No Acute Distress - Head Exam Head Exam: ATRAUMATIC, NORMOCEPHALIC - ENT Exam ENT Exam: Mucous Membranes Moist, Normal Exam - Neck Exam Neck exam: Positive for: Full Rom. Negative for: Tenderness - Respiratory Exam Respiratory Exam: NORMAL BREATHING PATTERN. absent: Respiratory Distress - Extremities Exam Additional comments: LE focused exam: Vasc: DP/PT pulses faintly palpable 1/4 b/l secondary to mild edema to b/l LE. CFT < 3 seconds to al digits. Skin temperature increased to b/l shins around wound sites. No pedal hair growth appreciated Neuro: Epicritic and protective sensation grossly intact b/l Derm: B/l circumferential venous stasis ulceration noted to legs with red, granular base as well as scaling. Both legs express small amounts of serous drainage and right leg expresses thick, brown/llamas slough laterally. A slight malodor is noted. Periwound erythema and hemosiderosis also appreciated. Nails noted to be thickened, dystrophic, elongated and discolored. MSK: POP to b/l leg wounds. Otherwise no other gross deformities noted - Back Exam Back exam: absent: CVA tenderness (L), CVA tenderness (R) - Neurological Exam Neurological exam: Alert, Oriented x3 - Psychiatric Exam Psychiatric exam: Normal Affect, Normal Mood - Skin Skin Exam: Abrasion, Warm Results - Vital Signs Recent Vital Signs: Last Vital Signs Temp 99.4 F 12/05/17 08:29 Pulse 113 H 12/05/17 08:29 Resp 18 12/05/17 08:29 BP 112/56 L 12/05/17 09:26 Pulse Ox 98 12/05/17 08:29 - Labs Result Diagrams: 12/05/17 07:00 12/05/17 07:00 Labs: Laboratory Results - last 24 hr 12/05/17 12/05/17 07:00 07:00 WBC 9.7 RBC 3.69 Hgb 10.5 L D Hct 31.2 L MCV 84.6 MCH 28.5 MCHC 33.7 RDW 17.5 H Plt Count 606 H MPV 8.0 Gran % 77.2 H Lymph % (Auto) 9.8 L [place] % (Auto) 12.4 H Eos % (Auto) 0.4 L Baso % (Auto) 0.2 Gran # 7.49 H Lymph # (Auto) 1.0 L [place] # (Auto) 1.2 H Eos # (Auto) 0.0 Baso # (Auto) 0.02 Sodium 136 Potassium 3.7 Chloride 106 Carbon Dioxide 21 Anion Gap 13 BUN 13 Creatinine 0.5 L Est GFR ( Amer) > 60 Est GFR (Non-Af Amer) > 60 Random Glucose 80 Calcium 8.6 Total Bilirubin 0.8 AST 25 ALT 33 Alkaline Phosphatase 189 H D Total Protein 5.7 L Albumin 2.7 L Globulin 3.0 Albumin/Globulin Ratio 0.9 L Assessment & Plan - Assessment and Plan (Free Text) Assessment: 67F seen for b/l venous stasis ulcerations to her legs with probable associated bacterial/fungal infection Plan: Patient seen and evaluated with attending Dr. Briones Charts, labs, vitals reviewed Afebrile, absent leukocytosis Continue IV abx per ID Patient's legs cleansed with Chlorhexadine and dressed with xeroform, ABD, Kirlix and light AUGIE Lotrisone and Lac Hydrin oredered to be applied to patients legs in AM F/u wound cx No plan for surgical intervention at this time Podiatry will continue to follow while patient in house - Date & Time Date: 12/05/17 Time: 13:41
--- NOTE | 2017-12-05 13:55 | PN ---
DATE: 12/05/2017 SUBJECTIVE: The patient is 67 years old, who was sent from office because of bilateral leg cellulitis and foul-smelling discharge. Seen and examined, lying in bed, seems to be comfortable. PHYSICAL EXAMINATION: VITAL SIGNS: She has temperature 99.4, pulse 70, respirations 20, blood pressure 150/69. LUNGS: Bilateral good airflow. No rhonchi or crackle. HEART: S1 and S2 audible. ABDOMEN: Soft. Nontender. No rebound. No guarding. NEUROLOGIC: She is awake, alert, oriented, communicative. EXTREMITIES: Bilateral leg cellulitis with crystal lesions bilaterally with foul-smelling discharge in both legs. LABORATORY EXAM: WBC is 9.7, hemoglobin 10.5, hematocrit 31.2, platelet 646. Chemistry: Sodium 136, potassium 3.7, chloride 106, CO2 of 21, BUN 13, creatinine 0.5, blood sugar of 80, alk phos is 189, total protein 5.7. Urinalysis is negative. ASSESSMENT: 1. Bilateral leg cellulitis. 2. Chronic stasis dermatitis. 3. Mild dementia. 4. Deconditioning. PLAN: We will start the patient on Flomax. The patient is on Lasix and continue her on Maxipime and vancomycin. Continue local wound care. I spoke to Dr. Briones. Abelardo Mg MD
[2017-12-05] MEDS: Vancomycin 1gm in NS 250ml 1 GM/250 ML BAG IVPB SCH (21:42)
[2017-12-06] MEDS: Cefepime 1gm in NS 100ml 1 GM/100 ML BAG IVPB SCH ×3 (06:00→22:42)
[2017-12-06] MEDS: Clotrimazole/Betamethasone Lotion(30 ml) TOP SCH (09:20)
[2017-12-06] MEDS: Ammonium Lactate 12% Cream (140 g) TOP SCH (09:20)
[2017-12-06] MEDS: Vancomycin 1gm in NS 250ml 1 GM/250 ML BAG IVPB SCH ×2 (11:19→22:44)
[2017-12-06] MEDS: Potassium Chloride 10 mEq ER Tab PO SCH (11:20)
--- NOTE | 2017-12-06 13:01 | PN ---
DATE: 12/06/2017 SUBJECTIVE: The patient is 67 years old, seen and examined, sitting in chair. Seems to be comfortable. Bilateral legs are in dressing. Debridement was done. The patient states she feels a lot better. Her pain in the leg is better. PHYSICAL EXAMINATION: VITAL SIGNS: She is afebrile, pulse 83, respirations 18, blood pressure 100/67. LUNGS: Bilateral fair airflow. No rhonchi or crackle. HEART: S1 and S2 audible. ABDOMEN: Soft. Nontender. No rebound. No guarding. NEUROLOGIC: She is awake, alert, oriented, communicative. EXTREMITIES: Bilateral legs are wrapped in aseptic dressing. LABORATORY EXAM: Blood cultures are negative. ASSESSMENT: 1. Bilateral leg cellulitis. 2. Bilateral chronic stasis dermatitis with crusted skin. 3. Mild dementia. 4. Hypothyroidism. PLAN: I will continue the patient on antibiotics. She is on vancomycin and Maxipime. We will give her gentle diuretic intermittently. Local wound care is being done. Request for TCU evaluation. If accepted, we can transfer to TCU for wound care and antibiotic. Abelardo Mg MD
--- NOTE | 2017-12-06 16:04 | CP.PCM.PN ---
Subjective - Date & Time of Evaluation Date of Evaluation: 12/06/17 Time of Evaluation: 11:15 - Subjective Subjective: No fevers, not in distress, afebrile, less pain in the legs. Objective - Vital Signs/Intake and Output Vital Signs (last 24 hours): Temp Pulse Resp BP Pulse Ox 98 F 83 18 100/67 91 L 12/06/17 08:21 12/06/17 08:21 12/06/17 08:21 12/06/17 08:21 12/06/17 08:21 Intake and Output: 12/06/17 12/06/17 06:59 18:59 Intake Total 620 Balance 620 - Medications Medications: Current Medications Betamethasone/Clotrimazole (Lotrisone) 0 ml TOP DAILY DAXA Furosemide (Lasix) 40 mg IVP DAILY [facility] Last Admin: 12/05/17 09:26 Dose: 40 mg Cefepime HCl (Maxipime 1gm) 1 gm in 100 mls @ 100 mls/hr IVPB Q8 [facility] PRN Reason: Protocol Last Admin: 12/05/17 21:42 Dose: 100 mls/hr Vancomycin HCl (Vancomycin 1gm) 1 gm in 250 mls @ 167 mls/hr IVPB Q12H [facility] PRN Reason: Protocol Last Admin: 12/05/17 21:42 Dose: 167 mls/hr Lactic Acid (Lac-Hydrin 12% Cream (140 G)) 0 ea TOP DAILY [facility] Potassium Chloride (Klor-Con 10) 10 meq PO DAILY [facility]AX[facility] Last Admin: 12/05/17 09:26 Dose: 10 meq Tamsulosin HCl (Flomax) 0.4 mg PO DAILY [facility] Last Admin: 12/05/17 09:34 Dose: Not Given - Labs Labs: 12/05/17 07:00 12/05/17 07:00 - Constitutional Appears: Chronically Ill - Head Exam Head Exam: NORMAL INSPECTION - ENT Exam ENT Exam: Mucous Membranes Moist - Neck Exam Neck Exam: absent: Meningismus - Respiratory Exam Respiratory Exam: Decreased Breath Sounds - Cardiovascular Exam Cardiovascular Exam: +S1, +S2 - GI/Abdominal Exam GI & Abdominal Exam: Soft. 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
--- NOTE | 2017-12-06 22:15 | CP.PCM.PN ---
Subjective - Date & Time of Evaluation Date of Evaluation: 12/06/17 Time of Evaluation: 09:20 - Subjective Subjective: 67 y/o female seen at bedside with attending Dr. Briones for bilateral leg ulcerations secondary to venous stasis. Pt resting comfortably in bed at time of visit. Admits to stinging and mild tenderness in the legs, mostly when they are touched or cleaned. Denies F/C/N/V/CP/SOB. Objective - Vital Signs/Intake and Output Vital Signs (last 24 hours): Temp Pulse Resp BP Pulse Ox 98.2 F 100 H 20 109/66 100 12/06/17 14:38 12/06/17 14:38 12/06/17 14:38 12/06/17 14:38 12/06/17 14:38 - Medications Medications: Current Medications Betamethasone/Clotrimazole (Lotrisone) 0 ml TOP DAILY [facility] Last Admin: 12/06/17 09:20 Dose: 1 applic Furosemide (Lasix) 40 mg IVP DAILY [facility] Last Admin: 12/06/17 11:19 Dose: 40 mg Cefepime HCl (Maxipime 1gm) 1 gm in 100 mls @ 100 mls/hr IVPB Q8 [facility] PRN Reason: Protocol Last Admin: 12/06/17 15:49 Dose: 100 mls/hr Vancomycin HCl (Vancomycin 1gm) 1 gm in 250 mls @ 167 mls/hr IVPB Q12H [facility] PRN Reason: Protocol Last Admin: 12/06/17 11:19 Dose: 167 mls/hr Lactic Acid (Lac-Hydrin 12% Cream (140 G)) 0 ea TOP DAILY [facility] Last Admin: 12/06/17 09:20 Dose: 1 applic Potassium Chloride (Klor-Con 10) 10 meq PO DAILY [facility] Last Admin: 12/06/17 11:20 Dose: 10 meq Tamsulosin HCl (Flomax) 0.4 mg PO DAILY [facility] Last Admin: 12/06/17 11:20 Dose: 0.4 mg - Labs Labs: 12/05/17 07:00 12/05/17 07:00 - Constitutional Appears: Well, Non-toxic, No Acute Distress - Extremities Exam Additional comments: LE focused exam: Vasc: DP/PT pulses faintly palpable 1/4 B/L secondary to mild edema to bilateral LE. CFT < 3 seconds to al digits. Skin temperature increased to bilateral shins around wound sites. No pedal hair growth appreciated Neuro: Epicritic and protective sensation grossly intact B/L Derm: B/l circumferential venous stasis ulceration noted to legs with red, granular base as well as scaling. Both legs express small amounts of serous drainage and left leg expresses thick, brown/llamas slough at level of proximal medial ankle. Minimal malodor present. Periwound erythema and hemosiderosis also appreciated. Nails noted to be thickened, dystrophic, elongated and discolored. MSK: Mild tenderness to palpation of bilateral leg wounds. Otherwise no other gross deformities noted - Neurological Exam Neurological Exam: Alert, Awake, Oriented x3 - Psychiatric Exam Psychiatric exam: Normal Affect, Normal Mood Assessment and Plan - Assessment and Plan (Free Text) Assessment: 67F seen for bilateral venous stasis ulcerations to her legs with probable associated bacterial/fungal infection Plan: Patient seen and evaluated with attending Dr. Briones Charts, labs, vitals reviewed Afebrile, absent leukocytosis Continue IV abx per ID Patient's legs cleansed with Chlorhexadine and dressed with Lotrisone and DSD B/ L Lac Hydrin applied to B/L plantar feet Wound cx pending No plan for surgical intervention at this time Podiatry will continue to follow while patient in house
[2017-12-07] MEDS: Cefepime 1gm in NS 100ml 1 GM/100 ML BAG IVPB SCH ×3 (05:06→22:20)
[2017-12-07] MEDS: Potassium Chloride 10 mEq ER Tab PO SCH (10:11)
[2017-12-07] MEDS: Vancomycin 1gm in NS 250ml 1 GM/250 ML BAG IVPB SCH ×2 (10:12→22:20)
[2017-12-07] MEDS: Clotrimazole/Betamethasone Lotion(30 ml) TOP SCH (10:13)
[2017-12-07] MEDS: Ammonium Lactate 12% Cream (140 g) TOP SCH (10:13)
--- NOTE | 2017-12-07 11:39 | PN ---
DATE: 12/07/2017 SUBJECTIVE: The patient is 67 yeas old, seen and examined, lying in bed. Seems to be comfortable. Denies any nausea or vomiting. No diarrhea. No fever. No chills. PHYSICAL EXAMINATION: VITAL SIGNS: She is afebrile, pulse 80, respirations 20, blood pressure 102/59. LUNGS: Bilateral good airflow. No rhonchi or crackle. HEART: S1 and S2 audible. ABDOMEN: Soft. Nontender. No rebound. No guarding. NEUROLOGIC: The patient is awake, alert, oriented, communicative. EXTREMITIES: Bilateral leg, she has erythema, swelling and scaly skin. Discharge is not as foul smelling. LABORATORY EXAM: Her blood culture, urine cultures are negative. ASSESSMENT: 1. Bilateral leg cellulitis. 2. Chronic stasis dermatitis. 3. Mild dementia. PLAN: We will continue the patient on current antibiotic, IV diuretic, local wound care. I have requested for TCU. Once the bed is available, the patient can be transferred to TCU. Abelardo Mg MD
--- NOTE | 2017-12-07 12:57 | CP.PCM.PN ---
<HullChristi - Last Filed: 12/07/17 12:57> Subjective - Date & Time of Evaluation Date of Evaluation: 12/07/17 Time of Evaluation: 12:54 - Subjective Subjective: 67 y/o female seen at bedside this morning for bilateral leg ulcerations secondary to venous stasis. Pt resting comfortably in bed at time of visit. Admits to mild stinging and mild tenderness in the legs, strictly during dressing changes when they are exposed. States she was much more comfortable the last 24 hours as the dressings made her legs more comfortable. Denies F/C/N/ V/CP/SOB. Objective - Vital Signs/Intake and Output Vital Signs (last 24 hours): Temp Pulse Resp BP Pulse Ox 98.1 F 80 20 106/60 98 12/07/17 06:00 12/07/17 06:00 12/07/17 06:00 12/07/17 10:11 12/07/17 06:00 Intake and Output: 12/07/17 12/07/17 06:59 18:59 Intake Total 450 Output Total 2 Balance 448 - Medications Medications: Current Medications Betamethasone/Clotrimazole (Lotrisone) 0 ml TOP DAILY DAXA Last Admin: 12/07/17 10:13 Dose: 1 applic Furosemide (Lasix) 40 mg IVP DAILY DAXA Last Admin: 12/07/17 10:11 Dose: 40 mg Cefepime HCl (Maxipime 1gm) 1 gm in 100 mls @ 100 mls/hr IVPB Q8 DAXA PRN Reason: Protocol Last Admin: 12/07/17 05:06 Dose: 100 mls/hr Vancomycin HCl (Vancomycin 1gm) 1 gm in 250 mls @ 167 mls/hr IVPB Q12H DAXA PRN Reason: Protocol Last Admin: 12/07/17 10:12 Dose: 167 mls/hr Lactic Acid (Lac-Hydrin 12% Cream (140 G)) 0 ea TOP DAILY DAXA Last Admin: 12/07/17 10:13 Dose: 1 applic Potassium Chloride (Klor-Con 10) 10 meq PO DAILY DAXA Last Admin: 12/07/17 10:11 Dose: 10 meq Tamsulosin HCl (Flomax) 0.4 mg PO DAILY DAXA Last Admin: 12/07/17 10:15 Dose: Not Given - Labs Labs: 12/05/17 07:00 12/05/17 07:00 - Constitutional Appears: Well, Non-toxic, No Acute Distress - Extremities Exam Additional comments: LE focused exam: Vasc: DP/PT pulses faintly palpable 1/4 B/L secondary to mild edema to bilateral LE. CFT < 3 seconds to al digits. Skin temperature increased to bilateral shins around wound sites. No pedal hair growth appreciated Neuro: Epicritic and protective sensation grossly intact B/L Derm: B/l circumferential venous stasis ulceration noted to legs with red, granular base as well as scaling. Both legs exhibit mild active sanguinous drainage. Periwound erythema and hemosideroin deposits noted. Erythema resolving to bilateral lower extremities. No fluctuance, no malodor, no probe to bone. Nails noted to be thickened, dystrophic, elongated and discolored. MSK: Mild tenderness to palpation of bilateral leg wounds. Otherwise no other gross deformities noted - Neurological Exam Neurological Exam: Alert, Awake, Oriented x3 - Psychiatric Exam Psychiatric exam: Normal Affect, Normal Mood Assessment and Plan - Assessment and Plan (Free Text) Assessment: 67F seen for bilateral venous stasis ulcerations to her legs with probable associated bacterial/fungal infection Plan: Patient seen and evaluated Discussed with attending Dr. Martin Charts, labs, vitals reviewed - afebrile, absent leukocytosis Continue IV abx per ID Patient's legs cleansed with saline and dressed with Lotrisone and DSD B/L Lac Hydrin applied to B/L plantar feet Wound cx pending No plan for surgical intervention at this time Podiatry will continue to follow while patient in house <Dipesh Martin - Last Filed: 12/08/17 07:19> Objective - Vital Signs/Intake and Output Vital Signs (last 24 hours): Temp Pulse Resp BP Pulse Ox 98 F 91 H 18 125/70 100 12/07/17 14:00 12/07/17 14:00 12/07/17 14:00 12/07/17 14:00 12/07/17 14:00 Intake and Output: 12/08/17 12/08/17 06:59 18:59 Intake Total 1070 Balance 1070 - Medications Medications: Current Medications Betamethasone/Clotrimazole (Lotrisone) 0 ml TOP DAILY DAXA Last Admin: 12/07/17 10:13 Dose: 1 applic Furosemide (Lasix) 40 mg IVP DAILY DAXA Last Admin: 12/07/17 10:11 Dose: 40 mg Cefepime HCl (Maxipime 1gm) 1 gm in 100 mls @ 100 mls/hr IVPB Q8 DAXA PRN Reason: Protocol Last Admin: 12/08/17 05:35 Dose: 100 mls/hr Vancomycin HCl (Vancomycin 1gm) 1 gm in 250 mls @ 167 mls/hr IVPB Q12H DAXA PRN Reason: Protocol Last Admin: 12/07/17 22:20 Dose: 167 mls/hr Lactic Acid (Lac-Hydrin 12% Cream (140 G)) 0 ea TOP DAILY DAXA Last Admin: 12/07/17 10:13 Dose: 1 applic Potassium Chloride (Klor-Con 10) 10 meq PO DAILY DAXA Last Admin: 12/07/17 10:11 Dose: 10 meq Tamsulosin HCl (Flomax) 0.4 mg PO DAILY DAXA Last Admin: 12/07/17 10:15 Dose: Not Given - Labs Labs: 12/05/17 07:00 12/05/17 07:00 Attending/Attestation - Attestation I have personally seen and examined this patient.: Yes I have fully participated in the care of the patient.: Yes I have reviewed all pertinent clinical information, including history, physical exam and plan: Yes
--- NOTE | 2017-12-07 13:29 | CP.PCM.PN ---
Subjective - Date & Time of Evaluation Date of Evaluation: 12/07/17 Time of Evaluation: 11:25 - Subjective Subjective: Patient is feeling better, no fevers, not in distress. Objective - Vital Signs/Intake and Output Vital Signs (last 24 hours): Temp Pulse Resp BP Pulse Ox 98.1 F 80 20 102/59 L 98 12/07/17 06:00 12/07/17 06:00 12/07/17 06:00 12/07/17 06:00 12/07/17 06:00 Intake and Output: 12/07/17 12/07/17 06:59 18:59 Intake Total 450 Output Total 2 Balance 448 - Medications Medications: Current Medications Betamethasone/Clotrimazole (Lotrisone) 0 ml TOP DAILY DAXA Last Admin: 12/06/17 09:20 Dose: 1 applic Furosemide (Lasix) 40 mg IVP DAILY DAXA Last Admin: 12/06/17 11:19 Dose: 40 mg Cefepime HCl (Maxipime 1gm) 1 gm in 100 mls @ 100 mls/hr IVPB Q8 DAXA PRN Reason: Protocol Last Admin: 12/07/17 05:06 Dose: 100 mls/hr Vancomycin HCl (Vancomycin 1gm) 1 gm in 250 mls @ 167 mls/hr IVPB Q12H DAXA PRN Reason: Protocol Last Admin: 12/06/17 22:44 Dose: 167 mls/hr Lactic Acid (Lac-Hydrin 12% Cream (140 G)) 0 ea TOP DAILY DAXA Last Admin: 12/06/17 09:20 Dose: 1 applic Potassium Chloride (Klor-Con 10) 10 meq PO DAILY DAXA Last Admin: 12/06/17 11:20 Dose: 10 meq Tamsulosin HCl (Flomax) 0.4 mg PO DAILY DAXA Last Admin: 12/06/17 11:20 Dose: 0.4 mg - Labs Labs: 12/05/17 07:00 12/05/17 07:00 - Constitutional Appears: Chronically Ill - Head Exam Head Exam: NORMAL INSPECTION - ENT Exam ENT Exam: Mucous Membranes Moist - Neck Exam Neck Exam: absent: Lymphadenopathy, Meningismus - Respiratory Exam Respiratory Exam: Decreased Breath Sounds - Cardiovascular Exam Cardiovascular Exam: +S1, +S2 - GI/Abdominal Exam GI & Abdominal Exam: Soft. absent: Tenderness Assessment and Plan - Assessment and Plan (Free Text) Plan: Assessment consider bilateral lower extremity skin and skin structure infection, slowly improving S/P severe sepsis with acute encephalopathy from bilateral lower extremity cellulitis (growing MSSA and Enterobacter), and possible AR MANAGER infection such as meningoencephalitis (encephalopathy may also be metabolic - hyponatremia) Plan continue Vancomycin, Cefepime day 3 pending wound cx; blood cx are negative reviewed Podiatry evaluation and recommendations - continue local wound care will continue to monitor clinically
[2017-12-08] MEDS: Cefepime 1gm in NS 100ml 1 GM/100 ML BAG IVPB SCH ×3 (05:35→22:12)
--- NOTE | 2017-12-08 08:46 | CP.PCM.PN ---
<Cj Jeter - Last Filed: 12/08/17 08:43> Subjective - Date & Time of Evaluation Date of Evaluation: 12/08/17 Time of Evaluation: 08:43 - Subjective Subjective: Podiatry Progress Note- Dr. Martin 67 y/o female seen at bedside this morning for bilateral leg ulcerations secondary to venous stasis. Patient is seen resting comfortably in bed, in NAD, and AA0x3. Patient seen enjoying breakfast during visitation. Reports stingly pain to bilateral legs. Reports when legs are loosely wrapped, her pain improves. Denies F/C/N/V/CP/SOB. Objective - Vital Signs/Intake and Output Vital Signs (last 24 hours): Temp Pulse Resp BP Pulse Ox 98 F 91 H 18 125/70 100 12/07/17 14:00 12/07/17 14:00 12/07/17 14:00 12/07/17 14:00 12/07/17 14:00 Intake and Output: 12/08/17 12/08/17 06:59 18:59 Intake Total 1070 Balance 1070 - Medications Medications: Current Medications Betamethasone/Clotrimazole (Lotrisone) 0 ml TOP DAILY DAXA Last Admin: 12/07/17 10:13 Dose: 1 applic Furosemide (Lasix) 40 mg IVP DAILY DAXA Last Admin: 12/07/17 10:11 Dose: 40 mg Cefepime HCl (Maxipime 1gm) 1 gm in 100 mls @ 100 mls/hr IVPB Q8 DAXA PRN Reason: Protocol Last Admin: 12/08/17 05:35 Dose: 100 mls/hr Vancomycin HCl (Vancomycin 1gm) 1 gm in 250 mls @ 167 mls/hr IVPB Q12H DAXA PRN Reason: Protocol Last Admin: 12/07/17 22:20 Dose: 167 mls/hr Lactic Acid (Lac-Hydrin 12% Cream (140 G)) 0 ea TOP DAILY DAXA Last Admin: 12/07/17 10:13 Dose: 1 applic Potassium Chloride (Klor-Con 10) 10 meq PO DAILY DXAA Last Admin: 12/07/17 10:11 Dose: 10 meq Tamsulosin HCl (Flomax) 0.4 mg PO DAILY DAXA Last Admin: 12/07/17 10:15 Dose: Not Given - Labs Labs: 12/05/17 07:00 12/05/17 07:00 - Constitutional Appears: Well, Non-toxic, No Acute Distress - Extremities Exam Extremities Exam: absent: Calf Tenderness Additional comments: LE focused exam: Vasc: DP/PT pulses faintly palpable 1/4 B/L secondary to mild edema to bilateral LE. CFT < 3 seconds to al digits. Skin temperature increased to bilateral shins around wound sites. No pedal hair growth appreciated Neuro: Epicritic and protective sensation grossly intact B/L Derm: B/l circumferential venous stasis ulceration noted to legs with red, granular base as well as scaling. Both legs exhibit mild active sanguinous drainage. Periwound erythema and hemosideroin deposits noted. Erythema resolving to bilateral lower extremities. No fluctuance, no malodor, no probe to bone. Nails noted to be thickened, dystrophic, elongated and discolored. MSK: Mild tenderness to palpation of bilateral leg wounds. Otherwise no other gross deformities noted - Neurological Exam Neurological Exam: Alert, Awake, Oriented x3 - Psychiatric Exam Psychiatric exam: Normal Affect, Normal Mood Assessment and Plan - Assessment and Plan (Free Text) Assessment: 67F seen for bilateral venous stasis ulcerations to her legs with probable associated bacterial/fungal infection Plan: Patient seen and evaluated Discussed with attending Dr. Martin Charts, labs, vitals reviewed - afebrile, absent leukocytosis Continue IV abx per ID Patient's legs cleansed with saline and dressed with Lotrisone and DSD B/L Lac Hydrin applied to B/L plantar feet Wound cx pending No plan for surgical intervention at this time Podiatry will continue to follow while patient in house <Dipesh Martin - Last Filed: 12/11/17 11:53> Objective - Vital Signs/Intake and Output Vital Signs (last 24 hours): Temp Pulse Resp BP Pulse Ox 98.1 F 84 20 136/78 98 12/11/17 08:23 12/11/17 08:23 12/11/17 08:23 12/11/17 10:38 12/11/17 08:23 Intake and Output: 12/11/17 12/11/17 06:59 18:59 Intake Total 1110 Balance 1110 - Medications Medications: Current Medications Betamethasone/Clotrimazole (Lotrisone) 0 ml TOP DAILY DAXA Last Admin: 12/11/17 10:39 Dose: 1 applic Furosemide (Lasix) 40 mg IVP DAILY DAXA Last Admin: 12/11/17 10:38 Dose: 40 mg Cefepime HCl (Maxipime 1gm) 1 gm in 100 mls @ 100 mls/hr IVPB Q8 DAXA PRN Reason: Protocol Last Admin: 12/11/17 05:56 Dose: 100 mls/hr Vancomycin HCl (Vancomycin 1gm) 1 gm in 250 mls @ 167 mls/hr IVPB Q12H DAXA PRN Reason: Protocol Last Admin: 12/11/17 10:33 Dose: 167 mls/hr Lactic Acid (Lac-Hydrin 12% Cream (140 G)) 0 ea TOP DAILY DAXA Last Admin: 12/11/17 10:39 Dose: 1 applic Potassium Chloride (Klor-Con 10) 10 meq PO DAILY DAXA Last Admin: 12/11/17 10:33 Dose: 10 meq Tamsulosin HCl (Flomax) 0.4 mg PO DAILY DAXA Last Admin: 12/11/17 10:32 Dose: 0.4 mg - Labs Labs: 12/09/17 07:00 12/11/17 09:45 Attending/Attestation - Attestation I have personally seen and examined this patient.: Yes I have fully participated in the care of the patient.: Yes I have reviewed all pertinent clinical information, including history, physical exam and plan: Yes
[2017-12-08] MEDS: Potassium Chloride 10 mEq ER Tab PO SCH (10:22)
[2017-12-08] MEDS: Ammonium Lactate 12% Cream (140 g) TOP SCH (10:28)
[2017-12-08] MEDS: Clotrimazole/Betamethasone Lotion(30 ml) TOP SCH (10:30)
[2017-12-08] MEDS: Vancomycin 1gm in NS 250ml 1 GM/250 ML BAG IVPB SCH (11:08)
--- NOTE | 2017-12-08 13:54 | CP.PCM.PN ---
Subjective - Date & Time of Evaluation Date of Evaluation: 12/08/17 Time of Evaluation: 13:05 - Subjective Subjective: Patient is comfortable, less pain in the lower extremities, no fevers. Objective - Vital Signs/Intake and Output Vital Signs (last 24 hours): Temp Pulse Resp BP Pulse Ox 97.8 F 81 20 135/67 96 12/08/17 06:00 12/08/17 06:00 12/08/17 06:00 12/08/17 10:22 12/08/17 06:00 Intake and Output: 12/08/17 12/08/17 06:59 18:59 Intake Total 1070 Balance 1070 - Medications Medications: Current Medications Betamethasone/Clotrimazole (Lotrisone) 0 ml TOP DAILY DAXA Last Admin: 12/08/17 10:30 Dose: 1 applic Furosemide (Lasix) 40 mg IVP DAILY DAXA Last Admin: 12/08/17 10:22 Dose: 40 mg Cefepime HCl (Maxipime 1gm) 1 gm in 100 mls @ 100 mls/hr IVPB Q8 DAXA PRN Reason: Protocol Last Admin: 12/08/17 05:35 Dose: 100 mls/hr Vancomycin HCl (Vancomycin 1gm) 1 gm in 250 mls @ 167 mls/hr IVPB Q12H DAXA PRN Reason: Protocol Last Admin: 12/08/17 11:08 Dose: 167 mls/hr Lactic Acid (Lac-Hydrin 12% Cream (140 G)) 0 ea TOP DAILY DAXA Last Admin: 12/08/17 10:28 Dose: 1 applic Potassium Chloride (Klor-Con 10) 10 meq PO DAILY DAXA Last Admin: 12/08/17 10:22 Dose: 10 meq Tamsulosin HCl (Flomax) 0.4 mg PO DAILY DAXA Last Admin: 12/08/17 10:22 Dose: 0.4 mg - Labs Labs: 12/05/17 07:00 12/05/17 07:00 - Constitutional Appears: Non-toxic, Chronically Ill - Head Exam Head Exam: NORMAL INSPECTION - ENT Exam ENT Exam: Mucous Membranes Moist - Neck Exam Neck Exam: absent: Meningismus - Respiratory Exam Respiratory Exam: Decreased Breath Sounds - Cardiovascular Exam Cardiovascular Exam: +S1, +S2 - GI/Abdominal Exam GI & Abdominal Exam: Soft. absent: Tenderness - Extremities Exam Additional comments: both legs with dressings in place Assessment and Plan - Assessment and Plan (Free Text) Plan: Assessment consider bilateral lower extremity skin and skin structure infection, slowly improving S/P severe sepsis with acute encephalopathy from bilateral lower extremity cellulitis (growing MSSA and Enterobacter), and possible [employer] AS[employer]BLER infection such as meningoencephalitis (encephalopathy may also be metabolic - hyponatremia) Plan continue Vancomycin, Cefepime day 4 pending wound cx; blood cx are negative; complete 7-10 days of therapy reviewed Podiatry evaluation and recommendations - continue local wound care will continue to monitor clinically
[2017-12-09] MEDS: Vancomycin 1gm in NS 250ml 1 GM/250 ML BAG IVPB SCH ×3 (00:12→22:53)
[2017-12-09] MEDS: Cefepime 1gm in NS 100ml 1 GM/100 ML BAG IVPB SCH ×3 (06:04→22:50)
[2017-12-09 07:30] LABS: BASO # 0.03 K/mm3 (0.0-2.0); BASO % 0.6 % (0.0-3.0); EOS # 0.2 (0.0-0.7); GRAN # 2.82 (1.4-6.5); GRAN % 59.2 % (50.0-68.0); LYMPH # 1.1 (1.2-3.4); MEAN CELL VOLUME 85.9 fl (80.0-105.0); MEAN CORPUSCULAR HEMOGLOBIN 28.6 pg (25.0-35.0); MEAN CORPUSCULAR HGB CONC 33.3 g/dl (31.0-37.0); MEAN PLATELET VOLUME 7.9 fl (7.0-11.0); MONO # 0.6 (0.1-0.6); MONO % 13.2 % (1.0-6.0); RBC 3.84 10^6/uL (3.5-6.1); RED CELL DISTRIBUTION WIDTH 17.5 % (11.5-14.5); WHITE BLOOD COUNT 4.8 10^3/ul (4.5-11.0)
[2017-12-09] MEDS: Ammonium Lactate 12% Cream (140 g) TOP SCH (09:56)
[2017-12-09] MEDS: Clotrimazole/Betamethasone Lotion(30 ml) TOP SCH (09:57)
[2017-12-09] MEDS: Potassium Chloride 10 mEq ER Tab PO SCH (09:57)
--- NOTE | 2017-12-09 12:12 | CP.PCM.PN ---
Subjective - Date & Time of Evaluation Date of Evaluation: 12/09/17 Time of Evaluation: 12:07 - Subjective Subjective: Podiatry Progress Note- Dr. Briones 67 y/o female seen at bedside this morning for bilateral leg ulcerations secondary to venous stasis. Patient is seen resting comfortably in bed, in NAD, and AA0x3. Patient denies acute overnight events. Reports her pain is less since dressing was placed loosely. Reports has been ambulating without issues. Denies F/C/N/V/CP/SOB. No new pedal complaints Objective - Vital Signs/Intake and Output Vital Signs (last 24 hours): Temp Pulse Resp BP Pulse Ox 98.2 F 72 18 114/64 97 12/09/17 06:00 12/09/17 06:00 12/09/17 06:00 12/09/17 09:57 12/09/17 06:00 - Medications Medications: Current Medications Betamethasone/Clotrimazole (Lotrisone) 0 ml TOP DAILY DAXA Last Admin: 12/09/17 09:57 Dose: 1 applic Furosemide (Lasix) 40 mg IVP DAILY DAXA Last Admin: 12/09/17 09:57 Dose: 40 mg Cefepime HCl (Maxipime 1gm) 1 gm in 100 mls @ 100 mls/hr IVPB Q8 DAXA PRN Reason: Protocol Last Admin: 12/09/17 06:04 Dose: 100 mls/hr Vancomycin HCl (Vancomycin 1gm) 1 gm in 250 mls @ 167 mls/hr IVPB Q12H DAXA PRN Reason: Protocol Last Admin: 12/09/17 09:58 Dose: 167 mls/hr Lactic Acid (Lac-Hydrin 12% Cream (140 G)) 0 ea TOP DAILY DAXA Last Admin: 12/09/17 09:56 Dose: 1 applic Potassium Chloride (Klor-Con 10) 10 meq PO DAILY DAXA Last Admin: 12/09/17 09:57 Dose: 10 meq Tamsulosin HCl (Flomax) 0.4 mg PO DAILY DAXA Last Admin: 12/09/17 09:57 Dose: Not Given - Labs Labs: 12/09/17 07:00 12/05/17 07:00 - Constitutional Appears: Well, Non-toxic, No Acute Distress - Extremities Exam Extremities Exam: absent: Calf Tenderness Additional comments: LE focused exam: Vasc: DP/PT pulses faintly palpable 1/4 B/L secondary to mild edema to bilateral LE. CFT < 3 seconds to al digits. Skin temperature increased to bilateral shins around wound sites. No pedal hair growth appreciated Neuro: Epicritic and protective sensation grossly intact B/L Derm: B/l circumferential venous stasis ulceration noted to legs with red, granular base as well as scaling. Both legs exhibit mild active sanguinous drainage. Periwound erythema and hemosideroin deposits noted. Erythema resolving to bilateral lower extremities. No fluctuance, no malodor, no probe to bone. Nails noted to be thickened, dystrophic, elongated and discolored. MSK: Mild tenderness to palpation of bilateral leg wounds. Otherwise no other gross deformities noted - Neurological Exam Neurological Exam: Alert, Awake, Oriented x3 - Psychiatric Exam Psychiatric exam: Normal Affect, Normal Mood Assessment and Plan - Assessment and Plan (Free Text) Assessment: 67F seen for bilateral venous stasis ulcerations to her legs with probable associated bacterial/fungal infection Plan: Patient seen and evaluated Discussed with attending Dr. Martin Charts, labs, vitals reviewed - afebrile, absent leukocytosis Continue IV abx per ID Patient's legs cleansed with saline and dressed with Lotrisone and DSD B/L Lac Hydrin applied to B/L plantar feet Wound cx ordered- pending Right leg wound culture on 10/08 - S. Aureus, Enterobacter Cloacae Ssp Cloac No plan for surgical intervention at this time Podiatry will continue to follow while patient in house
--- NOTE | 2017-12-09 14:49 | CP.PCM.PN ---
Subjective - Date & Time of Evaluation Date of Evaluation: 12/09/17 Time of Evaluation: 11:10 - Subjective Subjective: No fevers, not in distress. Less pain in the legs. Objective - Vital Signs/Intake and Output Vital Signs (last 24 hours): Temp Pulse Resp BP Pulse Ox 97.9 F 94 H 20 129/80 98 12/08/17 14:00 12/08/17 14:00 12/08/17 14:00 12/08/17 14:00 12/08/17 14:00 - Medications Medications: Current Medications Betamethasone/Clotrimazole (Lotrisone) 0 ml TOP DAILY DAXA Last Admin: 12/08/17 10:30 Dose: 1 applic Furosemide (Lasix) 40 mg IVP DAILY DAXA Last Admin: 12/08/17 10:22 Dose: 40 mg Cefepime HCl (Maxipime 1gm) 1 gm in 100 mls @ 100 mls/hr IVPB Q8 DAXA PRN Reason: Protocol Last Admin: 12/09/17 06:04 Dose: 100 mls/hr Vancomycin HCl (Vancomycin 1gm) 1 gm in 250 mls @ 167 mls/hr IVPB Q12H DAXA PRN Reason: Protocol Last Admin: 12/09/17 00:12 Dose: 167 mls/hr Lactic Acid (Lac-Hydrin 12% Cream (140 G)) 0 ea TOP DAILY DAXA Last Admin: 12/08/17 10:28 Dose: 1 applic Potassium Chloride (Klor-Con 10) 10 meq PO DAILY DAXA Last Admin: 12/08/17 10:22 Dose: 10 meq Tamsulosin HCl (Flomax) 0.4 mg PO DAILY DAXA Last Admin: 12/08/17 10:22 Dose: Not Given - Labs Labs: 12/09/17 07:00 12/05/17 07:00 - Constitutional Appears: Chronically Ill - Head Exam Head Exam: NORMAL INSPECTION - ENT Exam ENT Exam: Mucous Membranes Moist - Neck Exam Neck Exam: absent: Meningismus - Respiratory Exam Respiratory Exam: Decreased Breath Sounds - Cardiovascular Exam Cardiovascular Exam: +S1, +S2 - GI/Abdominal Exam GI & Abdominal Exam: Soft. absent: Tenderness - Extremities Exam Additional comments: both legs with dressings in place Assessment and Plan - Assessment and Plan (Free Text) Plan: Assessment consider bilateral lower extremity skin and skin structure infection, clinically improving S/P severe sepsis with acute encephalopathy from bilateral lower extremity cellulitis (growing MSSA and Enterobacter), and possible [employer] infection such as meningoencephalitis (encephalopathy may also be metabolic - hyponatremia) Plan continue Vancomycin, Cefepime day 5 pending wound cx; blood cx are negative; complete 7-10 days of therapy - can switch to PO Doxycycline and PO Levaquin to complete therapy when ready to be discharged reviewed Podiatry evaluation and recommendations - continue local wound care will continue to monitor clinically
--- NOTE | 2017-12-09 17:16 | PN ---
DATE: 12/09/2017 SUBJECTIVE: The patient is 67 years old, seen and examined, lying in bed, seemed to be comfortable. No nausea, vomiting or diarrhea. Eating and tolerating. PHYSICAL EXAMINATION: VITAL SIGNS: She is afebrile, pulse 85, respirations 18, blood pressure 115/71. LUNGS: Bilateral good airflow. No rhonchi or crackle. HEART: S1 and S2 audible. ABDOMEN: Soft. Nontender. No rebound. No guarding. NEUROLOGICAL: She is awake, alert, oriented, able to communicate. LABORATORY EXAM: WBC is 4.8, hemoglobin 11, hematocrit 33, platelet 584. Chemistry: No new lab available today. Blood culture, urine cultures are negative. ASSESSMENT: 1. Bilateral leg cellulitis. 2. Bilateral chronic stasis dermatitis. 3. Hypotension. 4. Thrombocytosis. PLAN: We will continue the patient on Flomax, local wound care. We will continue her on Lasix. Currently, she is on Maxipime and vancomycin. Awaiting TCU evaluation and transfer. Abelardo Mg MD
[2017-12-10] MEDS: Cefepime 1gm in NS 100ml 1 GM/100 ML BAG IVPB SCH ×3 (06:20→21:05)
--- NOTE | 2017-12-10 09:30 | PN ---
DATE: 12/08/2017 SUBJECTIVE: The patient is a 67-year-old, seen and examined, lying in bed, seems to be comfortable. Offers no complaints. She states since she had leg dressing done, it is very soothing. Her pain has improved significantly. PHYSICAL EXAMINATION: VITAL SIGNS: She is afebrile, pulse 94, respirations 20, blood pressure 129/80. LUNGS: Bilateral fair airflow. No rhonchi or crackle. HEART: S1 and S2 audible. ABDOMEN: Soft. Nontender. No rebound. No guarding. NEUROLOGIC: The patient is awake, alert, oriented, able to communicate. LABORATORY DATA: WBC is 9.7, hemoglobin 10.5, hematocrit 31.2, platelet of 606. Blood culture and urine cultures are negative. ASSESSMENT: 1. Bilateral leg cellulitis. 2. Chronic stasis dermatitis. 3. History of hypertension, but currently hypotensive. 4. Anemia. 5. Thrombocytosis. PLAN: I will order for CBC in a.m. to follow up for thrombocytosis. TCU evaluation has been requested. If accepted, the patient can be transferred to TCU for IV antibiotic and wound care. Abelardo Mg MD
[2017-12-10] MEDS: Vancomycin 1gm in NS 250ml 1 GM/250 ML BAG IVPB SCH ×2 (10:13→21:06)
[2017-12-10] MEDS: Potassium Chloride 10 mEq ER Tab PO SCH (10:13)
[2017-12-10] MEDS: Ammonium Lactate 12% Cream (140 g) TOP SCH (10:14)
[2017-12-10] MEDS: Clotrimazole/Betamethasone Lotion(30 ml) TOP SCH (10:15)
--- NOTE | 2017-12-10 11:51 | CP.PCM.PN ---
Subjective - Date & Time of Evaluation Date of Evaluation: 12/10/17 Time of Evaluation: 11:49 - Subjective Subjective: Podiatry Progress Note- Dr. Briones 67 y/o female seen at bedside this morning for bilateral leg ulcerations secondary to venous stasis. Patient is seen resting comfortably in bedside chair , in NAD, and AA0x3. Pt ambulates to bed with use of walker to allow for exam to be performed. Patient denies acute overnight events. Reports her pain is very minimal and the dressings have been very comfortable. Reports she has been ambulating without issues. Denies F/C/N/V/CP/SOB. No new pedal complaints Objective - Vital Signs/Intake and Output Vital Signs (last 24 hours): Temp Pulse Resp BP Pulse Ox 97.8 F 78 18 119/73 97 12/10/17 08:24 12/10/17 08:24 12/10/17 08:24 12/10/17 10:14 12/10/17 08:24 - Medications Medications: Current Medications Betamethasone/Clotrimazole (Lotrisone) 0 ml TOP DAILY DAXA Last Admin: 12/10/17 10:15 Dose: 1 applic Furosemide (Lasix) 40 mg IVP DAILY DAXA Last Admin: 12/10/17 10:14 Dose: 40 mg Cefepime HCl (Maxipime 1gm) 1 gm in 100 mls @ 100 mls/hr IVPB Q8 DAXA PRN Reason: Protocol Last Admin: 12/10/17 06:20 Dose: 100 mls/hr Vancomycin HCl (Vancomycin 1gm) 1 gm in 250 mls @ 167 mls/hr IVPB Q12H DAXA PRN Reason: Protocol Last Admin: 12/10/17 10:13 Dose: 167 mls/hr Lactic Acid (Lac-Hydrin 12% Cream (140 G)) 0 ea TOP DAILY DAXA Last Admin: 12/10/17 10:14 Dose: 1 applic Potassium Chloride (Klor-Con 10) 10 meq PO DAILY DAXA Last Admin: 12/10/17 10:13 Dose: 10 meq Tamsulosin HCl (Flomax) 0.4 mg PO DAILY DAAX Last Admin: 12/10/17 10:22 Dose: Not Given - Labs Labs: 12/09/17 07:00 12/05/17 07:00 - Constitutional Appears: Well, Non-toxic, No Acute Distress - Extremities Exam Additional comments: LE focused exam: Vasc: DP/PT pulses faintly palpable 1/4 B/L secondary to mild edema to bilateral LE. CFT < 3 seconds to al digits. Skin temperature increased to bilateral shins around wound sites. No pedal hair growth appreciated Neuro: Epicritic and protective sensation grossly intact B/L Derm: B/l circumferential superficial venous stasis ulcerations noted to legs with red, granular base. Scaling of skin is noted to periphery of ulcerations, sloughing off and revealing healthy underlying well epithelialized new skin. Minimal active sanguinous drainage noted to B/L ulceration sites. Periwound erythema and hemosideroin deposits noted, with erythema significant resolving since admission. No fluctuance, no malodor, no probe to bone. Nails noted to be thickened, dystrophic, elongated and discolored. MSK: Mild tenderness to palpation of right leg wounds. Otherwise no other gross deformities noted - Neurological Exam Neurological Exam: Alert, Awake, Oriented x3 - Psychiatric Exam Psychiatric exam: Normal Affect, Normal Mood Assessment and Plan - Assessment and Plan (Free Text) Assessment: 67F with bilateral venous stasis ulcerations to her legs with probable associated bacterial/fungal infection Plan: Patient seen and evaluated Discussed with attending Dr. Briones Charts, labs, vitals reviewed - afebrile, absent leukocytosis Continue IV abx per ID - Vanco, Cefepime Patient's legs cleansed with saline and dressed with Lotrisone and DSD B/L Lac Hydrin applied to B/L plantar feet Right leg wound culture on 10/08 - S. Aureus, Enterobacter Cloacae Ssp Cloac No plan for surgical intervention at this time Podiatry will continue to follow while patient in house
--- NOTE | 2017-12-10 13:37 | CP.PCM.PN ---
Subjective - Date & Time of Evaluation Date of Evaluation: 12/10/17 Time of Evaluation: 10:55 - Subjective Subjective: Comfortable, improved pain in the legs, no fevers, no nausea, no diarrhea. Objective - Vital Signs/Intake and Output Vital Signs (last 24 hours): Temp Pulse Resp BP Pulse Ox 97.8 F 78 18 119/73 97 12/10/17 08:24 12/10/17 08:24 12/10/17 08:24 12/10/17 08:24 12/10/17 08:24 - Medications Medications: Current Medications Betamethasone/Clotrimazole (Lotrisone) 0 ml TOP DAILY DAXA Last Admin: 12/09/17 09:57 Dose: 1 applic Furosemide (Lasix) 40 mg IVP DAILY DAXA Last Admin: 12/09/17 09:57 Dose: 40 mg Cefepime HCl (Maxipime 1gm) 1 gm in 100 mls @ 100 mls/hr IVPB Q8 DAXA PRN Reason: Protocol Last Admin: 12/10/17 06:20 Dose: 100 mls/hr Vancomycin HCl (Vancomycin 1gm) 1 gm in 250 mls @ 167 mls/hr IVPB Q12H DAXA PRN Reason: Protocol Last Admin: 12/09/17 22:53 Dose: 167 mls/hr Lactic Acid (Lac-Hydrin 12% Cream (140 G)) 0 ea TOP DAILY DAXA Last Admin: 12/09/17 09:56 Dose: 1 applic Potassium Chloride (Klor-Con 10) 10 meq PO DAILY DAXA Last Admin: 12/09/17 09:57 Dose: 10 meq Tamsulosin HCl (Flomax) 0.4 mg PO DAILY DAXA Last Admin: 12/09/17 09:57 Dose: Not Given - Labs Labs: 12/09/17 07:00 12/05/17 07:00 - Constitutional Appears: Chronically Ill - Head Exam Head Exam: NORMAL INSPECTION - ENT Exam ENT Exam: Mucous Membranes Moist - Neck Exam Neck Exam: absent: Lymphadenopathy, Meningismus - Respiratory Exam Respiratory Exam: Decreased Breath Sounds - Cardiovascular Exam Cardiovascular Exam: +S1, +S2 - GI/Abdominal Exam GI & Abdominal Exam: Soft. 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
[2017-12-11] MEDS: Cefepime 1gm in NS 100ml 1 GM/100 ML BAG IVPB SCH ×3 (05:56→21:11)
--- NOTE | 2017-12-11 08:29 | PN ---
DATE: 12/10/2017 SUBJECTIVE: The patient is 67 years old, seen and examined, lying in bed, seems to be comfortable. PHYSICAL EXAMINATION: VITAL SIGNS: The patient is afebrile, pulse 94, respirations 20, blood pressure 130/71. LUNGS: Bilateral fair airflow. No rhonchi or crackle. HEART: S1 and S2 audible. ABDOMEN: Soft. Nontender. No rebound. No guarding. NEUROLOGIC: The patient is awake, alert, oriented, communicative. Moves all extremity. EXTREMITIES: Bilateral leg, erythema and swelling have significantly improved. She still has scaly skin on both shins that is under the care of Podiatry team. LABORATORY EXAM: Blood culture, urine cultures were negative. ASSESSMENT: 1. Bilateral leg cellulitis. 2. Chronic stasis dermatitis. 3. Thrombocytosis. PLAN: We will continue the patient on current antibiotic. She is on vancomycin 1 g every 12 and she is on Maxipime. I spoke to [employer] that has been in the process of making arrangement for subacute rehab where she will be at wound care and antibiotic. Abelardo Mg MD
[2017-12-11 10:08] LABS: ALT/SGPT 33 U/L (7-56); AST/SGOT 33 U/L (14-36); BLOOD UREA NITROGEN 15 mg/dL (7-21); CALCIUM 8.9 mg/dL (8.4-10.5); GFR AFRICAN-AMERICAN > 60; GFR NON-AFRICAN AMERICAN > 60
[2017-12-11] MEDS: Vancomycin 1gm in NS 250ml 1 GM/250 ML BAG IVPB SCH ×2 (10:33→22:22)
[2017-12-11] MEDS: Potassium Chloride 10 mEq ER Tab PO SCH (10:33)
[2017-12-11] MEDS: Ammonium Lactate 12% Cream (140 g) TOP SCH (10:39)
[2017-12-11] MEDS: Clotrimazole/Betamethasone Lotion(30 ml) TOP SCH (10:39)
--- NOTE | 2017-12-11 13:14 | CP.PCM.PN ---
<Christi Hull - Last Filed: 12/11/17 13:09> Subjective - Date & Time of Evaluation Date of Evaluation: 12/11/17 Time of Evaluation: 13:09 - Subjective Subjective: Podiatry Progress Note- Dr. Briones/Mario 67 y/o female seen at bedside this afternoon for bilateral leg ulcerations secondary to venous stasis. Patient is seen resting comfortably in bed, in NAD, and AA0x3. Pt states she has been walking without difficulty. Patient denies acute overnight events. Reports her pain is very minimal/limited to during dressing changes, and the dressings have been very comfortable. Denies F/C/N/V/ CP/SOB. No new pedal complaints. States she will likely be discharged soon to [facility]. Objective - Vital Signs/Intake and Output Vital Signs (last 24 hours): Temp Pulse Resp BP Pulse Ox 98.1 F 84 20 136/78 98 12/11/17 08:23 12/11/17 08:23 12/11/17 08:23 12/11/17 10:38 12/11/17 08:23 Intake and Output: 12/11/17 12/11/17 06:59 18:59 Intake Total 1110 Balance 1110 - Medications Medications: Current Medications Aspirin (Ecotrin) 81 mg PO DAILY DAXA Betamethasone/Clotrimazole (Lotrisone) 0 ml TOP DAILY DAXA Last Admin: 12/11/17 10:39 Dose: 1 applic Furosemide (Lasix) 40 mg IVP DAILY DAXA Last Admin: 12/11/17 10:38 Dose: 40 mg Cefepime HCl (Maxipime 1gm) 1 gm in 100 mls @ 100 mls/hr IVPB Q8 DAXA PRN Reason: Protocol Last Admin: 12/11/17 05:56 Dose: 100 mls/hr Vancomycin HCl (Vancomycin 1gm) 1 gm in 250 mls @ 167 mls/hr IVPB Q12H DAXA PRN Reason: Protocol Last Admin: 12/11/17 10:33 Dose: 167 mls/hr Lactic Acid (Lac-Hydrin 12% Cream (140 G)) 0 ea TOP DAILY DAXA Last Admin: 12/11/17 10:39 Dose: 1 applic Potassium Chloride (Klor-Con 10) 10 meq PO DAILY DAXA Last Admin: 12/11/17 10:33 Dose: 10 meq Tamsulosin HCl (Flomax) 0.4 mg PO DAILY DAXA Last Admin: 12/11/17 10:32 Dose: 0.4 mg - Labs Labs: 12/09/17 07:00 12/11/17 09:45 - Constitutional Appears: Well, Non-toxic, No Acute Distress - Extremities Exam Additional comments: LE focused exam: Vasc: DP/PT pulses faintly palpable 1/4 B/L secondary to mild edema to bilateral LE. CFT < 3 seconds to al digits. Skin temperature increased to bilateral shins around wound sites. No pedal hair growth appreciated Neuro: Epicritic and protective sensation grossly intact B/L Derm: B/l circumferential superficial venous stasis ulcerations noted to legs with red, granular base. Scaling of skin is noted to periphery of ulcerations, sloughing off and revealing healthy underlying well epithelialized new skin. Minimal active sanguinous drainage noted to B/L ulceration sites. Periwound erythema and hemosideroin deposits noted, with erythema significant resolving since admission. No fluctuance, no malodor, no probe to bone. Nails noted to be thickened, dystrophic, elongated and discolored. MSK: Mild tenderness to palpation of right leg wounds. Otherwise no other gross deformities noted - Neurological Exam Neurological Exam: Alert, Awake, Oriented x3 - Psychiatric Exam Psychiatric exam: Normal Affect, Normal Mood Assessment and Plan - Assessment and Plan (Free Text) Assessment: 67 y/o female with bilateral venous stasis ulcerations to her legs with probable associated bacterial/fungal infection Plan: Patient seen and evaluated Discussed with attending Dr. Martin Continue IV abx per ID - Vanco, Cefepime Patient's legs cleansed with saline and dressed with Lotrisone and DSD B/L Lac Hydrin applied to B/L plantar feet Right leg wound culture on 10/08 - S. Aureus, Enterobacter Cloacae Ssp Cloac No plan for surgical intervention at this time Pt stable for discharge from podiatry standpoint Wound care orders: clean bilateral leg wounds with saline, dress with lotrisone , ABD, DSD B/L; Lac Hydrin to be applied to b/l feet Podiatry will continue to follow while patient in house <Dipesh Martin - Last Filed: 12/11/17 14:06> Objective - Vital Signs/Intake and Output Vital Signs (last 24 hours): Temp Pulse Resp BP Pulse Ox 98.1 F 84 20 136/78 98 12/11/17 08:23 12/11/17 08:23 12/11/17 08:23 12/11/17 10:38 12/11/17 08:23 Intake and Output: 12/11/17 12/11/17 06:59 18:59 Intake Total 1110 Balance 1110 - Medications Medications: Current Medications Aspirin (Ecotrin) 81 mg PO DAILY DAXA Last Admin: 12/11/17 14:00 Dose: Not Given Betamethasone/Clotrimazole (Lotrisone) 0 ml TOP DAILY DAXA Last Admin: 12/11/17 10:39 Dose: 1 applic Furosemide (Lasix) 40 mg IVP DAILY DAXA Last Admin: 12/11/17 10:38 Dose: 40 mg Cefepime HCl (Maxipime 1gm) 1 gm in 100 mls @ 100 mls/hr IVPB Q8 DAXA PRN Reason: Protocol Last Admin: 12/11/17 13:58 Dose: 100 mls/hr Vancomycin HCl (Vancomycin 1gm) 1 gm in 250 mls @ 167 mls/hr IVPB Q12H DAXA PRN Reason: Protocol Last Admin: 12/11/17 10:33 Dose: 167 mls/hr Lactic Acid (Lac-Hydrin 12% Cream (140 G)) 0 ea TOP DAILY DAXA Last Admin: 12/11/17 10:39 Dose: 1 applic Potassium Chloride (Klor-Con 10) 10 meq PO DAILY DAXA Last Admin: 12/11/17 10:33 Dose: 10 meq Tamsulosin HCl (Flomax) 0.4 mg PO DAILY DAXA Last Admin: 12/11/17 10:32 Dose: 0.4 mg - Labs Labs: 12/09/17 07:00 12/11/17 09:45 Attending/Attestation - Attestation I have personally seen and examined this patient.: Yes I have fully participated in the care of the patient.: Yes I have reviewed all pertinent clinical information, including history, physical exam and plan: Yes
--- NOTE | 2017-12-11 13:16 | PN ---
DATE: 12/11/2017 SUBJECTIVE: The patient is 67 years old, seen and examined, lying in bed, seems to be comfortable. Eating and tolerating. No nausea or vomiting. No diarrhea. No fever. No chills. PHYSICAL EXAMINATION: VITAL SIGNS: She is afebrile, pulse 84, respirations 20, blood pressure 136/78. LUNGS: Bilateral good airflow. No rhonchi or crackle. HEART: S1 and S2 audible. ABDOMEN: Soft. Nontender. No rebound. No guarding. NEUROLOGIC: The patient is awake, alert, oriented, communicative, able to ambulate. EXTREMITIES: Bilateral legs, erythema with scaly skin. LABORATORY EXAM: Sodium 140, potassium 4, chloride 102, CO2 of 30, BUN 15, creatinine 0.5, blood sugar of 105, alk phos is 185. ASSESSMENT: 1. Bilateral leg cellulitis. 2. Chronic stasis dermatitis. 3. Chronic anemia. 4. Thrombocytosis. PLAN: We will continue the patient on Flomax. We will start her on baby aspirin. We will continue on cefepime and vancomycin and arrangement is being made to sent the patient to subacute rehab. Once the bed is available, she can be discharged probably today or tomorrow. Abelardo Mg MD
--- NOTE | 2017-12-11 14:17 | CP.PCM.PN ---
Subjective - Date & Time of Evaluation Date of Evaluation: 12/11/17 Time of Evaluation: 11:10 - Subjective Subjective: Less pain in the legs, no fevers, not in distress. Objective - Vital Signs/Intake and Output Vital Signs (last 24 hours): Temp Pulse Resp BP Pulse Ox 98.1 F 84 20 134/88 98 12/11/17 08:23 12/11/17 08:23 12/11/17 08:23 12/11/17 08:23 12/11/17 08:23 Intake and Output: 12/11/17 12/11/17 06:59 18:59 Intake Total 1110 Balance 1110 - Medications Medications: Current Medications Betamethasone/Clotrimazole (Lotrisone) 0 ml TOP DAILY DAXA Last Admin: 12/10/17 10:15 Dose: 1 applic Furosemide (Lasix) 40 mg IVP DAILY DAXA Last Admin: 12/10/17 10:14 Dose: 40 mg Cefepime HCl (Maxipime 1gm) 1 gm in 100 mls @ 100 mls/hr IVPB Q8 DAXA PRN Reason: Protocol Last Admin: 12/11/17 05:56 Dose: 100 mls/hr Vancomycin HCl (Vancomycin 1gm) 1 gm in 250 mls @ 167 mls/hr IVPB Q12H DAXA PRN Reason: Protocol Last Admin: 12/10/17 21:06 Dose: 167 mls/hr Lactic Acid (Lac-Hydrin 12% Cream (140 G)) 0 ea TOP DAILY DAXA Last Admin: 12/10/17 10:14 Dose: 1 applic Potassium Chloride (Klor-Con 10) 10 meq PO DAILY DAXA Last Admin: 12/10/17 10:13 Dose: 10 meq Tamsulosin HCl (Flomax) 0.4 mg PO DAILY DAXA Last Admin: 12/10/17 10:22 Dose: Not Given - Labs Labs: 12/09/17 07:00 12/05/17 07:00 - Constitutional Appears: Chronically Ill - Head Exam Head Exam: NORMAL INSPECTION - ENT Exam ENT Exam: Mucous Membranes Moist - Neck Exam Neck Exam: absent: Meningismus - Respiratory Exam Respiratory Exam: Decreased Breath Sounds - Cardiovascular Exam Cardiovascular Exam: +S1, +S2 - GI/Abdominal Exam GI & Abdominal Exam: Soft. 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
[2017-12-12] MEDS: Cefepime 1gm in NS 100ml 1 GM/100 ML BAG IVPB SCH ×3 (05:42→22:42)
[2017-12-12] MEDS ORDERED: Unna Boot TOP ONE (10:35)
--- NOTE | 2017-12-12 10:45 | CP.PCM.PN ---
Subjective - Date & Time of Evaluation Date of Evaluation: 12/12/17 Time of Evaluation: 10:41 - Subjective Subjective: Podiatry Progress Note- Dr. Briones 67 y/o female seen at bedside with attending Dr. Briones for bilateral venous stasis leg ulcerations. Patient is seen resting comfortably in bed, in NAD, and AA0x3. Pt states she has been walking without difficulty with a standard walker. Patient denies acute overnight events. Reports her leg dressings are comfortable and she is not having any pain. Admits to burning and stinging in the right leg during dressing changes. Is agreeable to be discharged home with services. Denies F/C/N/V/CP/SOB. No new pedal complaints. Objective - Vital Signs/Intake and Output Vital Signs (last 24 hours): Temp Pulse Resp BP Pulse Ox 97.9 F 80 19 124/72 98 12/12/17 08:23 12/12/17 08:23 12/12/17 08:23 12/12/17 08:23 12/12/17 08:23 Intake and Output: 12/12/17 12/12/17 06:59 18:59 Intake Total 660 Output Total 0 Balance 660 - Medications Medications: Current Medications Aspirin (Ecotrin) 81 mg PO DAILY DAXA Last Admin: 12/11/17 14:00 Dose: Not Given Betamethasone/Clotrimazole (Lotrisone) 0 ml TOP DAILY DAXA Last Admin: 12/11/17 10:39 Dose: 1 applic Furosemide (Lasix) 40 mg IVP DAILY DAXA Last Admin: 12/11/17 10:38 Dose: 40 mg Cefepime HCl (Maxipime 1gm) 1 gm in 100 mls @ 100 mls/hr IVPB Q8 DAXA PRN Reason: Protocol Last Admin: 12/12/17 05:42 Dose: 100 mls/hr Vancomycin HCl (Vancomycin 1gm) 1 gm in 250 mls @ 167 mls/hr IVPB Q12H DAXA PRN Reason: Protocol Last Admin: 12/11/17 22:22 Dose: 167 mls/hr Lactic Acid (Lac-Hydrin 12% Cream (140 G)) 0 ea TOP DAILY DAXA Last Admin: 12/11/17 10:39 Dose: 1 applic Potassium Chloride (Klor-Con 10) 10 meq PO DAILY DAXA Last Admin: 12/11/17 10:33 Dose: 10 meq Tamsulosin HCl (Flomax) 0.4 mg PO DAILY DAXA Last Admin: 12/11/17 10:32 Dose: 0.4 mg - Labs Labs: 12/09/17 07:00 12/11/17 09:45 - Constitutional Appears: Well, Non-toxic, No Acute Distress - Extremities Exam Additional comments: LE focused exam: Vasc: DP/PT pulses faintly palpable 1/4 B/L secondary to mild edema to bilateral LE. CFT < 3 seconds to al digits. Skin temperature increased to bilateral shins around wound sites. No pedal hair growth appreciated Neuro: Epicritic and protective sensation grossly intact B/L Derm: B/l circumferential superficial venous stasis ulcerations noted to legs with red, granular base. Patches of skin formation noted within central aspects of wound beds, L>R. Scaling of skin is noted to periphery of ulcerations, sloughing off and revealing healthy underlying well epithelialized new skin. Minimal active sanguinous drainage noted to B/L ulceration sites. Periwound erythema and hemosideroin deposits noted, with erythema resolving since admission. No fluctuance, no malodor, no probe to bone. Nails noted to be thickened, dystrophic, elongated and discolored. MSK: Mild tenderness to palpation of right leg wounds. Otherwise no other gross deformities noted - Neurological Exam Neurological Exam: Alert, Awake, Oriented x3 - Psychiatric Exam Psychiatric exam: Normal Affect, Normal Mood Assessment and Plan - Assessment and Plan (Free Text) Assessment: 67 y/o female with bilateral venous stasis leg ulcerations with associated bacterial/fungal infection Plan: Patient seen and evaluated with attending Dr. Briones Continue IV abx per ID - Vanco, Cefepime Patient's legs cleansed with saline and dressed with xeroform, ABD and DSD B/L Lac Hydrin applied to B/L plantar feet Right leg wound culture on 10/08 - S. Aureus, Enterobacter Cloacae Ssp Cloac No plan for surgical intervention at this time Pt stable for discharge from podiatry standpoint Rx Unna boots and Coban dressings to be applied tomorrow Wound care orders: Unna boots to be applied prior to discharge - to be left in place until f/u in [facility] within 1 week of discharge -recommend f/u at [facility] on SundayDecember 19 Podiatry will continue to follow while patient in house
[2017-12-12] MEDS: Vancomycin 1gm in NS 250ml 1 GM/250 ML BAG IVPB SCH ×2 (11:59→22:43)
[2017-12-12] MEDS: Potassium Chloride 10 mEq ER Tab PO SCH (12:02)
[2017-12-12] MEDS: Clotrimazole/Betamethasone Lotion(30 ml) TOP SCH (12:04)
[2017-12-12] MEDS: Ammonium Lactate 12% Cream (140 g) TOP SCH (12:04)
--- NOTE | 2017-12-12 16:34 | PN ---
DATE: 12/12/2017 SUBJECTIVE: The patient is 67 years old, seen and examined, lying in bed, seems to be comfortable. She states her leg pain and swelling has improved. PHYSICAL EXAMINATION: VITAL SIGNS: She is afebrile, pulse 80, respirations 19, blood pressure 122/95. LUNGS: Bilateral fair airflow. No rhonchi or crackle. HEART: S1 and S2 audible. ABDOMEN: Soft. Nontender. No rebound. No guarding. NEUROLOGIC: The patient is awake, alert, oriented, communicative. LABORATORY EXAM: Blood culture, urine cultures are negative. ASSESSMENT: 1. Bilateral leg cellulitis. 2. Bilateral chronic stasis dermatitis. 3. Thrombocytosis. PLAN: We will continue the patient on current medications. Her local wound is being done by Podiatry team. Discussed with Dr. Collado from [employer]. They do not want her to be approved to be in subacute rehab. They said the patient can get visiting nurses to monitor her wound. After she finished antibiotics, she should go home and get physical therapy at home and wound care. Abelardo Mg MD
--- NOTE | 2017-12-13 02:17 | PN ---
DATE: 12/12/2017 SUBJECTIVE: The patient seen earlier today in 538, bed 1. PHYSICAL EXAMINATION: VITAL SIGNS: Temperature is 97, blood pressure is 120/90, respiratory rate of 18. HEENT: Unremarkable. NECK: Supple. LUNGS: Have decreased breath sounds. HEART: Normal S1 and S2. ABDOMEN: Soft, nontender. LABORATORY DATA: Reveals white count of 4.8, hemoglobin 11. BUN of 15, creatinine of 0.5. Urinalysis is noted. Microbiology reveals blood cultures are negative. Urine cultures are negative. ASSESSMENT AND PLAN: This is a 67-year-old with bilateral lower extremity skin and skin structure infection, improving status post severe sepsis, acute encephalopathy, bilateral lower extremity cellulitis growing Methicillin-susceptible staphylococcus aureus and Enterobacter, and possible central nervous system infection and meningoencephalitis, on vancomycin and cefepime, day# 7, will complete [address] Mg's note is reviewed. Patient's vancomycin and cefepime is active. Duke Sullivan MD
[2017-12-13] MEDS: Cefepime 1gm in NS 100ml 1 GM/100 ML BAG IVPB SCH (06:02)
[2017-12-13 09:01] VITALS: RESP 20
[2017-12-13] MEDS: Vancomycin 1gm in NS 250ml 1 GM/250 ML BAG IVPB SCH (11:12)
[2017-12-13] MEDS: Potassium Chloride 10 mEq ER Tab PO SCH (11:14)
[2017-12-13] MEDS: Ammonium Lactate 12% Cream (140 g) TOP SCH (11:17)
[2017-12-13] MEDS: Clotrimazole/Betamethasone Lotion(30 ml) TOP SCH (11:17)
--- NOTE | 2017-12-13 13:53 | CP.PCM.PN ---
Subjective - Date & Time of Evaluation Date of Evaluation: 12/13/17 Time of Evaluation: 13:23 - Subjective Subjective: Podiatry Progress Note- Dr. Briones 67 year old female seen at bedside with attending Dr. Briones for bilateral venous stasis leg ulcerations. Patient is seen resting comfortably in bed, in NAD, and AA0x3. Patient reports that she continues to walk using standard walker without issues. Patient denies acute overnight events. Reports her leg dressings are comfortable and she is not having any pain. Admits to burning and stinging in the right leg during dressing changes. Is agreeable to be discharged home with services. Denies F/C/N/V/CP/SOB. No new pedal complaints. Objective - Vital Signs/Intake and Output Vital Signs (last 24 hours): Temp Pulse Resp BP Pulse Ox 97.5 F L 73 20 107/65 96 12/13/17 06:00 12/13/17 06:00 12/13/17 06:00 12/13/17 11:13 12/13/17 06:00 Intake and Output: 12/13/17 12/13/17 06:59 18:59 Intake Total 720 Balance 720 - Medications Medications: Current Medications Betamethasone/Clotrimazole (Lotrisone) 0 ml TOP DAILY DAXA Last Admin: 12/13/17 11:17 Dose: 1 applic Furosemide (Lasix) 40 mg IVP DAILY DAXA Last Admin: 12/13/17 11:13 Dose: 40 mg Cefepime HCl (Maxipime 1gm) 1 gm in 100 mls @ 100 mls/hr IVPB Q8 DAXA PRN Reason: Protocol Last Admin: 12/13/17 06:02 Dose: 100 mls/hr Vancomycin HCl (Vancomycin 1gm) 1 gm in 250 mls @ 167 mls/hr IVPB Q12H DAXA PRN Reason: Protocol Last Admin: 12/13/17 11:12 Dose: 167 mls/hr Lactic Acid (Lac-Hydrin 12% Cream (140 G)) 0 ea TOP DAILY DAXA Last Admin: 12/13/17 11:17 Dose: 1 applic Potassium Chloride (Klor-Con 10) 10 meq PO DAILY DAXA Last Admin: 12/13/17 11:14 Dose: 10 meq Tamsulosin HCl (Flomax) 0.4 mg PO DAILY DAXA Last Admin: 12/13/17 11:14 Dose: Not Given - Labs Labs: 12/09/17 07:00 12/11/17 09:45 - Constitutional Appears: Well, Non-toxic, No Acute Distress - Extremities Exam Extremities Exam: absent: Calf Tenderness Additional comments: LE focused exam: Vasc: DP/PT pulses faintly palpable 1/4 B/L secondary to mild edema to bilateral LE. CFT < 3 seconds to al digits. Skin temperature increased to bilateral shins around wound sites. No pedal hair growth appreciated Neuro: Epicritic and protective sensation grossly intact B/L Derm: B/l circumferential superficial venous stasis ulcerations noted to legs with red, granular base. Patches of skin formation noted within central aspects of wound beds, L>R. Scaling of skin is noted to periphery of ulcerations, sloughing off and revealing healthy underlying well epithelialized new skin. Minimal active sanguinous drainage noted to B/L ulceration sites. Periwound erythema and hemosideroin deposits noted, with erythema resolving since admission. No fluctuance, no malodor, no probe to bone. Nails noted to be thickened, dystrophic, elongated and discolored. MSK: Mild tenderness to palpation of right leg wounds. Otherwise no other gross deformities noted - Neurological Exam Neurological Exam: Alert, Awake, Oriented x3 Assessment and Plan - Assessment and Plan (Free Text) Assessment: 67 year old female with bilateral venous stasis leg ulcerations with associated bacterial/fungal infection Plan: Patient seen and evaluated with attending Dr. Briones Continue abx per ID Patient's legs cleansed with saline and dressed with adaptic, maxosorb, unna boots and Coban applied Right leg wound culture on 10/08 - S. Aureus, Enterobacter Cloacae Ssp Cloac No plan for surgical intervention at this time Pt stable for discharge from podiatry standpoint Unna boots to be changed twice weekly. To be changed weekly by visiting nurse: change on Sunday. Will f/u [facility] on SundayDecember 19 where Unna boot may be reapplied Keep dressing c/d/i Do not get wet Please dispense surgical shoe Patient may WBAT with ambulatory device
[2017-12-13 16:03] VITALS: BP 118/64; PULSE 95; TEMP 98.1; O2SAT 97
--- NOTE | 2017-12-13 16:34 | PN ---
DATE: 12/13/2017 SUBJECTIVE: The patient is seen in room 578, bed 1. No fevers and no chills. PHYSICAL EXAMINATION: VITAL SIGNS: Temperature is 97, blood pressure is 107/60, respiratory rate of 20, heart rate of 86. HEENT: Examination of HEENT is unremarkable. NECK: Supple. LUNGS: Have decreased breath sounds. HEART: Normal S1, S2. ABDOMEN: Soft, nontender. EXTREMITIES: Examination of foot is noted. LABORATORY DATA: Laboratory examination reveals a white count of 4.8, hemoglobin 11, platelets of 584. Chemistries are noted and urinalysis is noted. Microbiology reveals the blood. Urine cultures are negative. Review of orders reveals the patient to be on vancomycin and cefepime. ASSESSMENT AND PLAN: A 67-year-old with bilateral lower extremity skin and skin structure infection, improving; status post severe sepsis; acute encephalopathy; bilateral lower extremity cellulitis growing sensitive Staphylococcus and Enterobacter and currently on vancomycin and cefepime, day #8. The legs have greatly improved. Case discussed with Dr. Mg at length. The right leg cultures were from 10/08/2017, Staphylococcus and Enterobacter, not recent. We will follow with you. Duke Sullivan MD
--- NOTE | 2017-12-14 07:10 | DS ---
HISTORY OF PRESENT ILLNESS: The patient is a 67-year-old, seen and examined, lying in bed, seems to be comfortable. Walking with walker. She is unstable at times. Denied by the insurance company to go to rehab, they said she can have lot of help at home. PHYSICAL EXAMINATION: VITAL SIGNS: She is afebrile, pulse 73, respirations 20, blood pressure 107/65. LUNGS: Bilateral fair airflow. No rhonchi or crackle. HEART: S1, S2 audible. ABDOMEN: Soft, nontender. No rebound. No guarding. NEUROLOGIC: She is awake and alert, able to communicate. ASSESSMENT: 1. Bilateral leg cellulitis. 2. Chronic stasis dermatitis. 3. Mild dementia. PLAN: Patient is going to be discharged today. She was then switched to p.o. antibiotics. manager services will make arrangement for visiting nurses to watch her wound and IV antibiotics will be switched to p.o. and patient will be discharged home today. Abelardo Mg MD
== END 2017-12-13 21:14 | disposition home health service (06) | DRG 602 ==
LOC: ED 15:29 → ERH 18:23 → 5RSO 21:32
PROVIDERS: ADMIT Internal Medicine; ATTEND Internal Medicine
DX: L03.115 Cellulitis of right lower limb (principal); G93.40 Encephalopathy, unspecified; L97.919 Non-pressure chronic ulcer of unspecified part of right lower leg with unspecified severity; L97.929 Non-pressure chronic ulcer of unspecified part of left lower leg with unspecified severity; L03.116 Cellulitis of left lower limb; I87.2 Venous insufficiency (chronic) (peripheral); F03.90 Unspecified dementia, unspecified severity, without behavioral disturbance, psychotic disturbance, mood disturbance, and anxiety; I10 Essential (primary) hypertension; E03.9 Hypothyroidism, unspecified; D64.9 Anemia, unspecified; Z88.6 Allergy status to analgesic agent; Z88.0 Allergy status to penicillin